=== PATIENT | female | born 1950 | race Caucasian/White ===

== ENCOUNTER → 2017-01-21 | Emergency (ER) | payer MEDICARE, MEDICAID ==
[~2017-01-21] VITALS: Ht 162.6 cm; Wt 128.0 kg
[~2017-01-21] MED LIST: ACET250T3 PO; AMIO200T2 PO; ASPI325T PO; BACL10TA PO; BUME2TAB18 PO; CALC-727 PO; CALC0.253 PO; DIPH25CA84 PO; DOCU100T PO; DiphenhydrAMINE 50 MG/ML INJECTION IM ONE; FAMOTIDINE 20 MG TABLET PO SCH; FAMOTIDINE 40 MG TABLET PO SCH; FERR-70 PO; FISH1CAP2 PO; HYDR115S2 PO; INSU3INS3 SQ; LEVO175T9 PO; LEVO500T88 PO; LIDO35.4 TOP; METO2.5T2 PO; MethylPREDNISolone ACETATE 40mg/1ml IM ONE; POTA20TA10 PO; PRAM1TAB7 PO; PRED20TA PO; PREG75CA PO; RIVA20TA PO; SPIR25TA4 PO; [UNRECOGNIZED DRUG - CODE] PO
[2017-01-21 11:35] VITALS: Ht 162.6 cm; Wt 128.0 kg
--- OUTSIDE RECORDS SUMMARY | 2017-01-21 11:36 | XMS REPORT | Referral Summary ---
Author Author [facility] Organization [facility] Address Unknown Phone Unavailable Care Team Providers Care Wheat Farmer Name Role Phone Jessica Hitchcock Primary Care Physician [phone] Encounter [facility] [id number] Date(s): 11/08/16 - 11/08/16 [facility] [address] [place] [address] [phone] Discharge Disposition: 01-Home or Self Care Attending Physician: Simba Leslie MD, [facility] Vital Signs No data available for this section Problem List No data available for this section Allergies, Adverse Reactions, Alerts Substance Reaction Severity Status morphine itching Active niacin Eczema (rash) Active Medications No data available for this section Results No data available for this section Immunizations No data available for this section Procedures No data available for this section Social History No data available for this section Assessment and Plan No data available for this section
--- OUTSIDE RECORDS SUMMARY | 2017-01-21 11:36 | XMS REPORT | Continuity of Care Document ---
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 Active Arm paresthesia, left Unknown Active Arm paresthesia, left Unknown Active Abnormal vaginal bleeding Unknown Active Medications Medication Dose Route Sig Days/Qty Instructions Order Date Discontinued Date Status Ramelteon 8 Mg PO BEDTIME 06/24/10 02/22/12 Discontinued Gabapentin 200 Mg PO THREE TIMES A DAY 05/27/09 09/08/09 Discontinued Meloxicam 7.5 Mg PO DAILY 11/25/08 05/09/09 Discontinued Levetiracetam 3,000 Mg PO TWICE A DAY 11/25/08 11/26/08 Discontinued Duloxetine Hcl 30 Mg PO DAILY 05/27/09 09/08/09 Discontinued Gemfibrozil 600 Mg PO TWICE A DAY 05/27/09 09/08/09 Discontinued Digoxin 25 Mcg PO 11/25/08 11/25/08 Discontinued Digoxin 250 Mcg PO DAILY 11/25/08 11/25/08 Discontinued Atenolol 25 Mg PO TWICE A DAY 06/24/10 07/14/14 Discontinued Atorvastatin Calcium 10 Mg PO DAILY 05/27/09 09/08/09 Discontinued Quinine Sulfate 324 Mg PO DAILY 05/27/09 09/08/09 Discontinued Ferrous Sulfate 324 Mg PO DAILY 05/27/09 09/08/09 Discontinued Aspirin 81 Mg PO DAILY 06/24/10 07/14/14 Discontinued Metformin Hcl 1,000 Mg PO TWICE A DAY 05/27/09 09/08/09 Discontinued Glimepiride 2 Mg PO DAILY 11/25/08 05/09/09 Discontinued Digoxin 250 Mcg PO DAILY 06/24/10 05/15/14 Discontinued Hydrocodone Bit/Acetaminophen 1 Tab PO NEEDED 05/27/09 09/08/09 Discontinued Metformin Hcl 1,000 Mg PO THREE TIMES A DAY 06/23/10 07/14/14 Discontinued Furosemide 20 Mg PO TWICE A DAY 06/24/10 02/22/12 Discontinued Pramipexole Di-Hcl 0.25 Mg PO BEDTIME 09/09/09 06/24/10 Discontinued Cinnamon Bark 1,000 Mg PO DAILY 06/24/10 05/15/14 Discontinued Hydrocodone Bit/Acetaminophen 1 Udtab PO NEEDED 06/24/10 Discontinued Calcium Carbonate 600 Mg PO DAILY 06/24/10 02/22/12 Discontinued Flaxseed Oil 1,000 Mg PO DAILY 06/24/10 05/15/14 Discontinued Insulin Glargine 30 U SQ DAILY 06/24/10 09/11/11 Discontinued Fish Oil/[place]-3 Fatty Acids 1 Cap PO TWICE A DAY 06/24/10 05/15/14 Discontinued Gemfibrozil 600 Mg PO TWICE A DAY 06/24/10 Active Sennosides 15 Mg PO 3 AT HS 06/24/10 09/11/11 Discontinued Tolterodine Tartrate 1 Mg PO DAILY 08/31/10 09/11/11 Discontinued Ascorbic Acid 500 Mg PO DAILY 09/11/11 05/15/14 Discontinued Insulin Glargine 66 Unit SQ DAILY 09/12/11 07/14/14 Discontinued Diphenhydramine Hcl 25 Mg PO DAILY 02/22/12 05/15/14 Discontinued Azithromycin 250 Mg PO DAILY 02/22/12 01/27/13 Discontinued [Hydrolyzed Collagen] TWICE A DAY 4 Qty 02/22/12 05/20/12 Discontinued Insulin Lispro 18 U SQ THREE TIMES A DAY 02/22/12 05/15/14 Discontinued Atorvastatin Calcium 20 Mg PO DAILY 05/20/12 05/15/14 Discontinued Fentanyl 1 Patch TD [id number] 05/20/12 01/27/13 Discontinued Zolpidem Tartrate 10 Mg PO BEDTIME PRN INSOMNIA 05/15/14 Active Gabapentin 600 Mg PO THREE TIMES A DAY 05/15/14 Active Insulin Aspart 5 SQ 30 MINUTES BEFORE SUPPER 05/15/14 07/14/14 Discontinued Levothyroxine Sodium 100 Mcg PO BEFORE BREAKFAST Once daily before breakfast. 07/13/14 Active Levetiracetam 1,500 TWICE A DAY 07/13/14 Active Pramipexole Di-HCl 1 DAILY 07/13/14 Active Torsemide 40 Mg PO TWICE A DAY 07/13/14 07/14/14 Discontinued Potassium Chloride TWICE A DAY 07/13/14 07/14/14 Discontinued [Calc,Mag,Zinc,Vit D3] TWICE A DAY 07/13/14 Active Melatonin/Pyridoxine 10 Mg PO BEDTIME 07/13/14 Active [Torsemide] 20 Mg PO DAILY 30 Qty 07/14/14 Active Sotalol HCl 40 Mg PO TWICE DAILY ON EMPTY STOMACH 30 Qty 07/14/14 Active Rivaroxaban 20 Mg PO GIVE WITH BREAKFAST 30 Qty 07/14/14 Active Potassium Chloride 10 Meq PO GIVE WITH BREAKFAST 30 Qty 07/14/14 Active Social History Social History Problem Response Recorded Date/Time Smoking Status Former smoker 07/17/2014 2:18pm When did patient STOP smoking? 199307/17/2014 2:18pm Chewing Tobacco Status No 04/19/2013 10:56am Hx Substance Use No 07/17/2014 2:18pm Hx Alcohol Use No 07/17/2014 2:18pm Has the pt used tobacco in the last 12 months No 07/13/2014 12:11pm Query Response Start Date Stop Date Smoking Status Former smoker Hospital Discharge Instructions Instructions: Care Instructions: Reason for Hospitalization: A FIB; CHF I was in the hospital because (patient own words): "TO LOOK AT MY HEART" Discharge Diet: heart healthy Patient Instructions: Hold insulins today 07/14/14. Check blood sugars at fasting in morning and 2 hours after meals; record the results. Call Dr. Idalia Esquivel's office on 07/16/14 and report the blood sugar results to him. If your blood sugar increases to the upper 100s and/or low 200s resume your Lantus and Novolog at HALF the dose you typically take per Dr. Esquivel. Wound/Incision Care: ok to shower. Notify Physician If: swelling, drainage, or increased pain at groin site. worsening shortness of breath or fast heart rate. Condition at time of discharge: Good WALK-THREE TO FOUR TIMES A DAY FOR SHORT DISTANCES AVOID SMOKING PREVENT CONSTIPATION: LOTS OF FLUIDS, AVOID CAFFEINE AND ALCOHOL INCREASE ACTIVITY (WALKING AGAIN!) EAT LOTS OF FRUITS AND VEGETABLES WEAN YOURSELF OFF YOUR NARCOTICS SOON YOU CAN USE A STOOL SOFTENER OR LAXATIVE IF NEEDED PREVENT BLOOD CLOTS: WALKING (REPETITIVE, I KNOW, BUT IT'S GOOD FOR YOU) AND ANKLE PUMPS TAKE ANTICOAGULANTS ORDERED-ASPIRIN, COUMADIN, OR LOVENOX FOR COUMADIN-LABS DRAWN ON EVERY SUNDAY AND SUNDAY LOVENOX INSTRUCTIONS ON PAGE 35 IN YOUR WORKBOOK PULMONARY EMBOLUS IF YOU EXPERIENCE SUDDEN CHEST PAIN, DIFFICULT OR RAPID BREATHING, SHORTNESS OF BREATH, SWEATING OR CONFUSION, CALL 911-THIS CAN POTENTIALLY BE LIFE-THREATENING! Wound/Incision Care: LEAVE DRESSING INTACT, CALL DR IF IT BECOMES WET OR DISLODGED (DRESSING WILL BE REMOVED AT FIRST POSTOP APPOINTMENT Durable Medical Equipment: [employer] [phone] [facility] [phone] Notify Physician If: CALL YOUR SURGEON IF: INCISION BECOMES MORE RED AND INFLAMMED FEVER GREATER THAN 101.0, OR NIGHT SWEATS INCREASE DRAINAGE OR CHANGE IN COLOR OF DRAINAGE INCREASED PAIN, NOT ASSOCIATED WITH ACTIVITY PAIN, REDNESS OR SWELLING IN EITHER LEG BLEEDING OR OOZING FROM SURGICAL SITE DRESSING BECOME DISLODGED OR WET Condition at time of discharge: Good Plan of Care Discharge Date 07/14/14 12:05pm Instructions/Education Provided [facility] Heart Cath [facility] Congestive Heart Failure Eating a Diet Low in Saturated Fat, Trans Fat, and Cholesterol Getting to the Heart of a Healthful Diet: Sodium Prescriptions See Medications Section Functional Status Query Response Date Recorded Physical Hygiene Self July 17, 2014 2:18pm Disabilities None July 17, 2014 2:18pm Devices Used Glasses Walker July 17, 2014 2:18pm Dressing Self July 17, 2014 2:18pm Ambulation Self July 17, 2014 2:18pm Diet Self July 17, 2014 2:18pm Cognitive/Functional Comments USES A WALKER FOR LONGER DISTANCES, DUE TO LEGS BECOMING WEAK July 17, 2014 2:18pm Mental Status Alert July 17, 2014 2:18pm Disabilities None July 17, 2014 2:18pm Devices Used Glasses Walker July 17, 2014 2:18pm Physical Hygiene Self July 17, 2014 2:18pm Dressing Self July 17, 2014 2:18pm Ambulation Self July 17, 2014 2:18pm Diet Self July 17, 2014 2:18pm Allergies, Adverse Reactions, Alerts Allergen Type Severity Reaction Status Last Updated Conjugated estrogen Allergy Mild RASH Active 07/17/14 Niacin Allergy Mild RASH Active 07/17/14 Morphine Allergy Mild RASH Active 07/17/14 Fentanyl Allergy Unknown rash Active 07/17/14 Immunizations Name Given Type Hx Influenza Vaccination Y AUG 2013 Historical Hx Pneumococcal Vaccination Y AUG 2011 Historical Hx Influenza Vaccination Y AUG 2013 Historical Vital Signs Acute Vital Signs Vital Response Date/Time Temperature (Fahrenheit) 97.4 deg F (96.8 - 99.1) Temperature (Calculated Celsius) 36.43990 degrees C (36.0 - 37.3) Pulse Rate (adult) 56 bpm (60 - 100) Respiratory Rate 16 breaths/min (10 - 20) O2 Sat by Pulse Oximetry 100 % (90 - 100) Blood Pressure 148/60 mm Hg Height 5 ft 5 in Weight 242 lb Body Mass Index 40.0 kg/m^2 Results Test Source Date Result Interp. Ref. Range Comments Activated Partial Thromboplast Time May 17, 2014 10:55am 29.7 SEC N 24- 36 Alanine Aminotransferase (ALT/SGPT) July 17, 2014 2:41pm 28 U/L N 9 -52 Albumin July 17, 2014 2:41pm 4.1 G/DL N 3.5-5.0 Albumin/Globulin Ratio July 17, 2014 2:41pm 1.1 RATIO N 1.1-2.2 Alkaline Phosphatase July 17, 2014 2:41pm 92 U/L N 38-126 Amylase Level July 02, 2009 2:46pm 96 U/L N 30-110 Anion Gap July 17, 2014 2:41pm 9 MEQ/L N 5-15 Arterial Blood Base Excess July 13, 2014 5:40pm 7.0 MMOL/L H -2.0- 2.0 Arterial Blood HCO3 July 13, 2014 5:40pm 33 MEQ/L H 22-26 Arterial Blood Oxygen Saturation July 13, 2014 5:40pm 96.0 % N 95.0 -98.0 Arterial Blood Partial Pressure CO2 July 13, 2014 5:40pm 51 MMHG H 34-45 Arterial Blood Total CO2 July 13, 2014 5:40pm 34 MEQ/L H 23-27 Arterial Blood pH July 13, 2014 5:40pm 7.418 N 7.350-7.450 Aspartate Amino Transf (AST/SGOT) July 17, 2014 2:41pm 40 U/L H 14- 36 BUN/Creatinine Ratio July 17, 2014 2:41pm 27 RATIO H 6-26 Basophils # (Auto) July 17, 2014 2:41pm 0.1 T/MM3 N 0-0.2 Basophils (%) (Auto) July 17, 2014 2:41pm 0.9 % N 0-2 Blood Urea Nitrogen July 17, 2014 2:41pm 27.0 MG/DL H 7-17 Calcium Level July 17, 2014 2:41pm 9.3 MG/DL N 8.4-10.2 Calculated Osmolality July 17, 2014 2:41pm 272 MOSM/KG N 261-280 Carbon Dioxide Level July 17, 2014 2:41pm 32 MEQ/L H 22-30 Chloride Level July 17, 2014 2:41pm 99 MEQ/L N 98-107 Creatinine July 17, 2014 2:41pm 1.0 MG/DL N 0.7-1.2 D-Dimer June 04, 2014 5:09pm 435 NG/ML H 0-224 <224 NG/ML= PRESUMPTIVE NEGATIVE FOR PE OR DVT>224 NG/ML=ADDITIONAL EVALUATION FOR PE OR DVT RECOMMENDED Eosinophils # (Auto) July 17, 2014 2:41pm 0.1 T/MM3 N 0-0.5 Eosinophils (%) (Auto) July 17, 2014 2:41pm 2.0 % N 0-4 Folate August 27, 2013 8:43am 6.6 NG/ML N 2.76-20 NORMAL ADULT RANGE : 2.76->20 ng/mL Globulin July 17, 2014 2:41pm 3.8 G/DL H 2.4-3.6 Glucose Level July 17, 2014 2:41pm 63 MG/DL L 65-110 Hematocrit July 17, 2014 2:41pm 36.3 % N 36-46 Hemoglobin July 17, 2014 2:41pm 11.5 GM/DL L 12-16 Hemoglobin A1c August 27, 2013 8:43am 8.7 % H 6-7 <6.0 NON-DIABETIC RANGE6.0-7.0 ADA THERAPEUTIC RANGE >7.0 ACTION SUGGESTED Levetiracetam (Keppra) Level August 27, 2013 8:43am 37.8 mcg/mL - Reference Range:12.0 - 46.0 Test Performed by: [place] [id number] Correctional Officer Sergeant: Sergio Fulton III, M.D. Levetiracetam performed at [facility], [address] [place] [address] Devulcanizer Tender MD Enoc Howard III July 02, 2009 2:46pm 90 U/L N 23-300 Lymphocytes # (Auto) July 17, 2014 2:41pm 1.6 T/MM3 N 1-4.8 Lymphocytes # (Manual) May 09, 2009 9:50am 2.7 T/MM3 N 1-4.8 Lymphocytes % (Manual) May 09, 2009 9:50am 32.0 % N 23-45 Lymphocytes (%) (Auto) July 17, 2014 2:41pm 28.8 % N 23-45 Mean Corpuscular Hemoglobin July 17, 2014 2:41pm 26.6 UUG N 26-34 Mean Corpuscular Hemoglobin Concent July 17, 2014 2:41pm 31.7 GM/DL N 31-37 Mean Corpuscular Volume July 17, 2014 2:41pm 83.8 UM3 N 80-100 Mean Platelet Volume July 17, 2014 2:41pm 10.1 UM3 N 9.4-12.4 Monocytes # (Auto) July 17, 2014 2:41pm 0.4 T/MM3 N 0-0.8 Monocytes (%) (Auto) July 17, 2014 2:41pm 7.7 % N 0-9.0 Neutrophils # (Auto) July 17, 2014 2:41pm 3.4 T/MM3 N 1.8-7.7 Neutrophils # (Manual) May 09, 2009 9:50am 5.7 T/MM3 N 1.8-7.7 Neutrophils % (Manual) May 09, 2009 9:50am 68.0 % H 33-66 Neutrophils (%) (Auto) July 17, 2014 2:41pm 60.4 % N 33-66 Platelet Count July 17, 2014 2:41pm 214 T/MM3 N 130-400 Potassium Level July 17, 2014 2:41pm 4.0 MEQ/L N 3.6-5 Prothromb Time International Ratio May 17, 2014 10:55am 1.05 N 0.81- 1.09 THERAPUTIC RANGE=2.00-3.00 FOR ANTI-THROMBOSIS THERAPUTIC RANGE=2.50- 3.50 FOR IMPLANTED VALVE RDW Standard Deviation July 17, 2014 2:41pm 46.2 FL N 36.9-50.2 Red Blood Count July 17, 2014 2:41pm 4.33 M/MM3 N 4.00-5.20 Sodium Level July 17, 2014 2:41pm 140 MEQ/L N 134-144 Total Bilirubin July 17, 2014 2:41pm 0.70 MG/DL N 0.20-1.30 Total Creatine Kinase August 27, 2013 8:43am 170 U/L H 30-135 Total Protein July 17, 2014 2:41pm 7.9 G/DL N 6.3-8.2 Troponin I May 17, 2014 10:55am < 0.012 ng/ml 0-0.12 Urine Bacteria July 17, 2014 2:00pm Trace H - Has specimen been collected/obtained? Y Urine Bilirubin July 17, 2014 2:00pm Negative - Has specimen been collected/obtained? Y Urine Blood July 17, 2014 2:00pm 2+ H - Has specimen been collected/obtained? Y Urine Collection Type July 17, 2014 2:00pm Cleancatch-midstream - Has specimen been collected/obtained? Y Urine Color July 17, 2014 2:00pm Yellow - Has specimen been collected/obtained? Y Urine Glucose (UA) July 17, 2014 2:00pm Negative - Has specimen been collected/obtained? Y Urine Ketones July 17, 2014 2:00pm Negative - Has specimen been collected/obtained? Y Urine Leukocyte Esterase July 17, 2014 2:00pm Negative - Has specimen been collected/obtained? Y Urine Nitrite July 17, 2014 2:00pm Negative - Has specimen been collected/obtained? Y Urine Protein July 17, 2014 2:00pm Negative - Has specimen been collected/obtained? Y Urine RBC July 17, 2014 2:00pm 5-10 /HPF H - Has specimen been collected/obtained? Y Urine Specific [place] July 17, 2014 2:00pm 1.010 L - Has specimen been collected/obtained? Y Urine Squamous Epithelial Cells July 17, 2014 2:00pm 0-5 - Has specimen been collected/obtained? Y Urine Turbidity July 17, 2014 2:00pm Clear - Has specimen been collected/obtained? Y Urine Urobilinogen July 17, 2014 2:00pm 0.2 EU/DL - Has specimen been collected/obtained? Y Urine WBC July 17, 2014 2:00pm None seen /HPF - Has specimen been collected/obtained? Y Urine pH July 17, 2014 2:00pm 6.5 - Has specimen been collected/ obtained? Y Venous Blood Base Excess July 13, 2014 5:30pm 5.0 MMOL/L H -2.0- 2.0 COMMENT IN BLEACHER PULP Venous Blood HCO3 July 13, 2014 5:30pm 30 MEQ/L H -26 COMMENT IN BLEACHER PULP Venous Blood Oxygen Saturation July 13, 2014 5:30pm 72.0 % - COMMENT IN BLEACHER PULP Venous Blood Partial Pressure CO2 July 13, 2014 5:30pm 47.7 MMHG N 40-52 COMMENT IN BLE[employer]ER PULP Venous Blood Partial Pressure O2 July 13, 2014 5:30pm 38 MMHG L 40- 52 COMMENT IN B[employer]ER [employer]ULP Venous Blood Total Carbon Dioxide July 13, 2014 5:30pm 32 MEQ/L - COMMENT IN BLEACHER PULP Venous Blood pH July 13, 2014 5:30pm 7.409 N 7.31-7.41 COMMENT IN [employer]LEACHER PULP Vitamin B12 Level August 27, 2013 8:43am 287 PG/ML N 239-931 White Blood Count July 17, 2014 2:41pm 5.6 T/MM3 N 4.5-11.0 Chemistry Specimen Hemolysis July 17, 2014 2:41pm < 15 0-25 0-25 : No Hemolysis.26-70: Slight Hemolysis - can falsely elevate K and Urine Protein. 71-285: Moderate Hemolysis - can falsely elevate K, Troponin I, CA 19-9, PTH, CSF GLucose, and Urine Protein, and can falsely decrease Phenytoin. 286-999: Gross Hemolysis - can falsely elevate K, Troponin I, CA 19-9, PTH, CSF Glucose, and Urine Protine, and can falsely decrease Phenytoin. Recommend specimen recollection. Oxygen Delivery Method (LAB) July 13, 2014 5:40pm Room air - Urinalysis Comment May 17, 2014 11:15am Microscopic not ind. - Has specimen been collected/obtained? Y Glucometer July 14, 2014 6:31am 76 mg/dL N 65-110 Lab Scanned Report July 13, 2014 8:31pm LAB TEST FORM REQUEST [id number] - Turbidity July 17, 2014 2:41pm < 20 0-20 Glomerular Filtration Rate Calc July 17, 2014 2:41pm 56 - Immature Granulocyte # (Auto) July 17, 2014 2:41pm 0.01 T/MM3 N 0.00-0.03 Immature Granulocyte % (Auto) July 17, 2014 2:41pm 0.2 % N 0.0-0.5 Arterial Blood pO2 at Patient Temp July 13, 2014 5:40pm 81 MMHG N 80-100 Icterus Index July 17, 2014 2:41pm < 2 0-7 [id number]-Type Natriuretic Peptide June 04, 2014 5:09pm 358 PG/ML H 0- 175 Rule in cut points: <50 years old=450; 50-75 years old=900; >75 years old=1800; When utilizing ProBNP rule-in cut points, adjustment for impaired renal function is typically not required. Urine Microscopic Not Indicated September 01, 2010 8:26am Not indicated - Has specimen been collected/obtained? Y Blood Gas Oxygen Liter Flow July 13, 2014 5:30pm PA - Blood Culture Blood April 19, 2013 12:20pm NO GROWTH AFTER 5 DAYS Wet Prep Cervix July 17, 2014 2:55pm Helicobacter pylori Rapid Urease Gastric Biopsy May 21, 2012 9:58am Name: KAREEN HERNÁNDEZ Unit #: [id number] : [id number] Sex: F Loc / Svc: ED DOS: 07/17/14 Signed Report #: [id number] DIAGNOSTIC IMAGING REPORT TYPE OF EXAM: CT RENAL W/WO CONTRAST Dictated By: BYRON COREAS MD INDICATION: ITS.REASON: ABD PAIN, REPORTED VAGINAL BLEEDING CT RENAL W/WO CONTRAST: Comparison: August 29, 2011 Technique: Axial CT images were performed through the abdomen and pelvis before and after the administration of intravenous contrast. Contrast: Omnipaque 300 100 mL Findings: Noncontrast imaging of the lung bases show some minimal atelectasis or scarring with some right-sided pleural thickening or trace effusion. Stable tiny nodules in the lower lobes probably represent granulomas. Cardiac silhouette is enlarged. Unenhanced kidneys show no stone disease or hydronephrosis. Pelvic phleboliths. No ureteral stones. Postcontrast images a normal appearance to the liver. Gallbladder is surgically absent. The spleen, pancreas and adrenal glands are within normal limits. No abnormally enhancing renal masses. No abdominal or pelvic lymphadenopathy. Bladder is unremarkable. Uterus is mildly heterogeneous. No free fluid. Small and large bowel are unremarkable apart from some mild sigmoid diverticulosis. The appendix is normal. Bone windows show degenerative changes in the spine. Postcontrast delayed images show excretion of contrast into both renal collecting systems without focal filling defect or mass. Ureters are normal in course and caliber. Partially opacified urinary bladder appears normal. Impression: No acute disease process seen. . Procedures Procedure Status Date Provider(s) REMV&REPLC PM GEN DUAL LEAD completed 05/15/14 MELIZA SPRINGER MD R&L HRT ART/VENTRICLE ANGIO completed 07/13/14 MELIZA SPRINGER MD Encounters Encounter Location Date/Time Departed Emergency Room [facility] 07/17/14 1:26pm Discharged Inpatient [facility] 07/13/14 11:44am Registered [facility] 07/03/14 12:16pm Registered Clinic [facility] 06/18/14 7:48am Registered Clinic [facility] 06/05/14 2:33pm Registered [facility] 06/04/14 4:29pm Registered [facility] 05/27/14 11:24am Departed Emergency Room [facility] 05/17/14 10:19am Departed [facility] 05/15/14 1:18pm Recent Diagnosis
--- OUTSIDE RECORDS SUMMARY | 2017-01-21 11:37 | XMS REPORT | Continuity of Care Document ---
Author Author [facility] Organization [facility] Address Unknown Phone Unavailable Care Team Providers Care Burr Picker Name Role Phone PREETI ESQUIVEL MD Primary Care Physician [phone] Insurance Providers Payer Name Policy Number Subscriber Name Relationship [facility] State Plan [id number] Kareen Hernández 18 Self Advance Directives Directive Response Recorded Date/Time Ordered Resuscitation Status Full Code 11/11/14 10:29am Resuscitation Documents on File Yes 11/11/14 9:01am Problems Medical Problems Problem Onset Date Status [facility] compl of cardiac pulse generator (battery), init encntr 05/15/2014 Active Afib 05/15/2014 Active 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 05/15/2014 Active Arm paresthesia, left Unknown Active Arm paresthesia, left Unknown Active Abnormal vaginal bleeding Unknown Active Abnormal vaginal bleeding Unknown Active [...] U SQ DAILY 06/24/10 09/11/11 Discontinued Fish Oil/[place]-3 Fatty Acids 1 Cap PO TWICE A [...] 05/20/12 05/15/14 Discontinued Fentanyl 1 Patch TD [id number] 05/20/12 01/27/13 Discontinued Zolpidem Tartrate 10 Mg [...] GIVE WITH BREAKFAST 30 Qty 07/14/14 Active Metformin HCl 2 Tab PO TWICE A DAY 120 Qty 11/11/14 Active Folic Acid 1 Tab PO DAILY 30 Qty 11/11/14 Active Potassium Chloride 2 Tab PO 2 IN AM, 1 PM 60 Qty 11/11/14 Active Insulin Glargine,Hum.rec.anlog 64 Unit SUBD DAILY 15 Qty 11/11/14 Active Hydrochlorothiazide 1 Tab PO DAILY 30 Qty 11/11/14 Active Social History Social History Problem Response Recorded Date/Time Chewing Tobacco Status No 04/19/2013 10:56am Hx Substance Use No 11/11/2014 9:09am Hx Alcohol Use No 11/11/2014 9:09am Has the pt used tobacco in the last 12 months No 11/11/2014 9:09am Tobacco Usage none 05/17/2014 4:43pm Query Response Start Date Stop Date Smoking Status Former smoker Hospital Discharge Instructions No hospital discharge instructions. Plan of Care No plan of care. Functional Status Query Response Date Recorded Physical Hygiene Self July 17, 2014 2:18pm Physical Hygiene Self July 17, 2014 2:18pm Allergies, Adverse Reactions, Alerts Allergen Type Severity Reaction Status Last Updated Conjugated estrogen Allergy Mild RASH Active 07/17/14 Niacin Allergy Mild RASH Active 07/17/14 Morphine Allergy Mild RASH Active 07/17/14 Fentanyl Allergy Unknown rash Active 07/17/14 Amoxicillin Allergy Unknown RASH Active 11/11/14 Immunizations Name Given Type Hx Influenza Vaccination Y FALL 2013 Historical Hx Pneumococcal Vaccination 2012 Historical Hx Influenza Vaccination Y FALL 2013 Historical Vital Signs Acute Vital Signs Vital Response Date/Time Temperature (Fahrenheit) 98.5 deg F (96.8 - 99.1) Temperature (Calculated Celsius) 36.28273 degrees C (36.0 - 37.3) Temperature Source Temporal Pulse Rate (adult) 80 bpm (60 - 100) Respiratory Rate 16 breaths/min (10 - 20) O2 Sat by Pulse Oximetry 99 % (90 - 100) Oxygen Delivery Method Room Air Blood Pressure 142/76 mm Hg Blood Pressure Source Automatic Cuff Height 5 ft 4 in Weight 255 lb Body Mass Index 43.0 kg/m^2 Results Test Source Date Result Interp. [...] July 13, 2014 5:40pm 7.418 N 7.350-7.450 Arterial Blood pO2 at Patient Temp July 13, 2014 5:40pm 81 MMHG N 80-100 Aspartate Amino Transf (AST/SGOT) July 17, 2014 2:41pm 40 U/L H 14- 36 BUN/Creatinine Ratio July 17, 2014 2:41pm 27 RATIO H 6-26 Basophils # (Auto) July 17, 2014 2:41pm 0.1 T/MM3 N 0-0.2 Basophils (%) (Auto) July 17, 2014 2:41pm 0.9 % N 0-2 Blood Gas Oxygen Liter Flow July 13, 2014 5:30pm PA - Blood Urea Nitrogen July 17, 2014 2:41pm 27.0 MG/DL H 7-17 Calcium Level July 17, 2014 2:41pm 9.3 MG/DL N 8.4-10.2 Calculated Osmolality July 17, 2014 2:41pm 272 MOSM/KG N 261-280 Carbon Dioxide Level July 17, 2014 2:41pm 32 MEQ/L H 22-30 Chemistry Specimen Hemolysis July 17, 2014 2:41pm [...] can falsely decrease Phenytoin. Recommend specimen recollection. Chloride Level July 17, 2014 2:41pm 99 [...] 17, 2014 2:41pm 3.8 G/DL H 2.4-3.6 Glomerular Filtration Rate Calc July 17, 2014 2:41pm 56 - Glucometer November 12, 2014 7:04am 83 mg/dL N 65-110 Glucose Level July 17, 2014 2:41pm 63 MG/DL L 65-110 Hematocrit July 17, 2014 2:41pm 36.3 % N 36-46 Hemoglobin July 17, 2014 2:41pm 11.5 GM/DL L 12-16 Hemoglobin A1c August 27, 2013 8:43am 8.7 % H 6-7 <6.0 NON-DIABETIC RANGE6.0-7.0 ADA THERAPEUTIC RANGE >7.0 ACTION SUGGESTED Icterus Index July 17, 2014 2:41pm < 2 0-7 Immature Granulocyte # (Auto) July 17, 2014 2:41pm 0.01 T/MM3 N 0.00-0.03 Immature Granulocyte % (Auto) July 17, 2014 2:41pm 0.2 % N 0.0-0.5 Lab Scanned Report July 13, 2014 8:31pm LAB TEST FORM REQUEST [id number] - Levetiracetam (Keppra) Level August 27, 2013 8:43am 37.8 mcg/mL - Reference Range:12.0 - 46.0 Test Performed by: [place] [address] Corn Sheller Operator: Sergio Fulton III, M.D. Levetiracetam performed at [facility], [address] [place] [address] Scallop Raker Kirstin Mckenzie MD Lipase July 02, 2009 2:46pm 90 U/L N [...] 17, 2014 2:41pm 7.7 % N 0-9.0 FW-Ucm-X-Type Natriuretic Peptide June 04, 2014 5:09pm 358 PG/ML H 0- 175 Rule in cut points: <50 years old=450; 50-75 years old=900; >75 years old=1800; When utilizing ProBNP rule-in cut points, adjustment for impaired renal function is typically not required. Neutrophils # (Auto) July 17, 2014 2:41pm 3.4 T/MM3 N 1.8-7.7 Neutrophils # (Manual) May 09, 2009 9:50am 5.7 T/MM3 N 1.8-7.7 Neutrophils % (Manual) May 09, 2009 9:50am 68.0 % H 33-66 Neutrophils (%) (Auto) July 17, 2014 2:41pm 60.4 % N 33-66 Oxygen Delivery Method (LAB) July 13, 2014 5:40pm Room air - Platelet Count July 17, 2014 2:41pm 214 [...] 17, 2014 10:55am < 0.012 ng/ml 0-0.12 Turbidity July 17, 2014 2:41pm < 20 0-20 Urinalysis Comment May 17, 2014 11:15am Microscopic not ind. - Has specimen been collected/obtained? Y Urine Bacteria July 17, 2014 2:00pm Trace [...] - Has specimen been collected/obtained? Y Urine Microscopic Not Indicated September 01, 2010 8:26am Not indicated - Has specimen been collected/obtained? Y Urine Nitrite July 17, 2014 2:00pm Negative - Has specimen been collected/obtained? Y Urine Protein July 17, 2014 2:00pm Negative - Has specimen been collected/obtained? Y Urine RBC July 17, 2014 2:00pm 5-10 /HPF H - Has specimen been collected/obtained? Y Urine Specific [place] July 17, 2014 2:00pm 1.010 L - [...] 5.0 MMOL/L H -2.0- 2.0 COMMENT IN LABOR ECONOMICS TEACHER Venous Blood HCO3 July 13, 2014 5:30pm 30 MEQ/L H 22-26 COMMENT IN LABOR ECONOMICS TEACHER Venous Blood Oxygen Saturation July 13, 2014 5:30pm 72.0 % - COMMENT IN LABOR ECONOMICS TEACHER Venous Blood Partial Pressure CO2 July 13, 2014 5:30pm 47.7 MMHG N 40-52 COMMENT IN LABOR ECONOMICS TEACHER Venous Blood Partial Pressure O2 July 13, 2014 5:30pm 38 MMHG L 40- 52 COMMENT IN LABOR ECONOMICS TEACHER Venous Blood Total Carbon Dioxide July 13, 2014 5:30pm 32 MEQ/L - COMMENT IN LABOR ECONOMICS TEACHER Venous Blood pH July 13, 2014 5:30pm 7.409 N 7.31-7.41 COMMENT IN LABOR ECONOMICS TEACHER Vitamin B12 Level August 27, 2013 8:43am 287 PG/ML N 239-931 White Blood Count July 17, 2014 2:41pm 5.6 T/MM3 N 4.5-11.0 Blood Culture Blood April 19, 2013 12:20pm NO GROWTH AFTER 5 DAYS Wet Prep Cervix July 17, 2014 2:55pm Helicobacter pylori Rapid Urease Gastric Biopsy May 21, 2012 9:58am Name: KAREEN HERNÁNDEZ Unit #: [id number] : 1950 Sex: F Loc / Svc: [facility] DOS: 09/04/14 Signed Report #: [id number] DIAGNOSTIC IMAGING REPORT TYPE OF EXAM: FOOT BILATERAL 3 VIEW Dictated By: SOCRATES CORONA MD INDICATION: PAIN. FRACTURE FOLLOW-UP. ^ATT: 5TH DIGIT L FOOT; RECHECK FRACTURE COMPARISON: none. FOOT BILATERAL 3 VIEW: Evidence of bilateral toe arthritis. No evidence of a displaced fracture. Minor arthritis in the tarsal joints. Calcanei have prominent plantar bone spurs. No evidence of a dislocation. No evidence of joint erosions. IMPRESSION: Arthritis. No evidence of a displaced fracture. . Procedures Procedure Status Date Provider(s) OFFICE/OUTPATIENT VISIT EST completed 08/18/14 X-RAY EXAM OF FOOT completed 09/04/14 Colonoscopy completed 11/12/14 PREETI ESQUIVEL MD Encounters Encounter Location Date/Time Registered [facility] 09/04/14 11:33am Registered [facility] 08/18/14 1:18pm
--- OUTSIDE RECORDS SUMMARY | 2017-01-21 11:37 | XMS REPORT | Continuity of Care Document ---
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 Condition at time of discharge: Good Notify Physician If: SEE HEART CATH INSTRUCTIONS Condition at time of discharge: Good excessive/foul smelling drainage at your incision site. - You have difficulty breathing. During office hours, call [phone]. After hours, please call [facility] at [phone] and have the semiconductor wafers etch operator page Dr. French or the covering surgeon. *In the event of an emergency, seek medical care at the nearest emergency room.* Condition at time of discharge: Good Plan of Care Discharge Date 07/14/14 12:05pm Instructions/Education Provided [facility] Heart Cath [facility] Congestive Heart Failure Eating a Diet Low in Saturated Fat, Trans Fat, and Cholesterol Getting to the Heart of a Healthful Diet: Sodium Prescriptions See Medications Section Functional Status Query Response Date Recorded Physical Hygiene Self May 17, 2014 10:27am Physical Hygiene Self May 17, 2014 10:27am Allergies, Adverse Reactions, Alerts Allergen Type Severity Reaction Status Last Updated Conjugated estrogen Allergy Mild RASH Active 07/13/14 Niacin Allergy Mild RASH Active 07/13/14 Morphine Allergy Mild RASH Active 07/13/14 Fentanyl Allergy Unknown rash Active 07/13/14 Immunizations Name Given Type Hx Influenza Vaccination Y AUG 2013 Historical Hx Pneumococcal Vaccination Y AUG 2011 Historical Hx Influenza Vaccination Y AUG 2013 Historical Vital Signs Acute Vital Signs Vital Response Date/Time Temperature (Fahrenheit) 96.9 deg F (96.8 - 99.1) Temperature (Calculated Celsius) 36.86318 degrees C (36.0 - 37.3) Temperature Source Temporal Pulse Rate (adult) 59 bpm (60 - 100) Results Test Source Date Result Interp. Ref. Range Comments Activated Partial Thromboplast Time May 17, 2014 10:55am 29.7 SEC N 24- 36 Alanine Aminotransferase (ALT/SGPT) June 04, 2014 5:09pm 31 U/L N 9- 52 Albumin June 04, 2014 5:09pm 3.8 G/DL N 3.5-5.0 Albumin/Globulin Ratio June 04, 2014 5:09pm 1.1 RATIO N 1.1-2.2 Alkaline Phosphatase June 04, 2014 5:09pm 115 U/L N 38-126 Amylase Level July 02, 2009 2:46pm 96 U/L N 30-110 Anion Gap July 14, 2014 4:47am 10 MEQ/L N 5-15 Arterial Blood Base Excess [...] MMHG N 80-100 Aspartate Amino Transf (AST/SGOT) June 04, 2014 5:09pm 33 U/L N 14-36 BUN/Creatinine Ratio July 14, 2014 4:47am 55 RATIO H 6-26 Basophils # (Auto) July 14, 2014 4:47am 0.0 T/MM3 N 0-0.2 Basophils (%) (Auto) July 14, 2014 4:47am 0.4 % N 0-2 Blood Gas Oxygen Liter Flow July 13, 2014 5:40pm - Blood Gas Oxygen Percent Given July 13, 2014 5:40pm - Blood Gas Tidal Volume July 13, 2014 5:40pm 0-1200 Blood Gas Vent Rate July 13, 2014 5:40pm 0-30 Blood Urea Nitrogen July 14, 2014 4:47am 44.0 MG/DL H 7-17 Calcium Level July 14, 2014 4:47am 9.4 MG/DL N 8.4-10.2 Calculated Osmolality July 14, 2014 4:47am 271 MOSM/KG N 261-280 Carbon Dioxide Level July 14, 2014 4:47am 31 MEQ/L H 22-30 Chemistry Specimen Hemolysis July 14, 2014 4:47am 52 H 0-25 0-25: No Hemolysis.26-70: Slight Hemolysis - can falsely [...] Phenytoin. Recommend specimen recollection. Chloride Level July 14, 2014 4:47am 95 MEQ/L L 98-107 Creatinine July 14, 2014 4:47am 0.8 MG/DL DN 0.7-1.2 D-Dimer June 04, 2014 5:09pm 435 NG/ML H 0-224 <224 NG/ML= PRESUMPTIVE NEGATIVE FOR PE OR DVT>224 NG/ML=ADDITIONAL EVALUATION FOR PE OR DVT RECOMMENDED Eosinophils # (Auto) July 14, 2014 4:47am 0.1 T/MM3 N 0-0.5 Eosinophils (%) (Auto) July 14, 2014 4:47am 2.6 % N 0-4 Folate August 27, 2013 8:43am 6.6 NG/ML N 2.76-20 NORMAL ADULT RANGE : 2.76->20 ng/mL Globulin June 04, 2014 5:09pm 3.5 G/DL N 2.4-3.6 Glomerular Filtration Rate Calc July 14, 2014 4:47am 72 - Glucometer July 14, 2014 12:12am 87 mg/dL N 65-110 Glucose Level July 14, 2014 4:47am 66 MG/DL N 65-110 Hematocrit July 14, 2014 4:47am 34.8 % L 36-46 Hemoglobin July 14, 2014 4:47am 11.3 GM/DL L 12-16 Hemoglobin A1c August 27, 2013 8:43am 8.7 % H 6-7 <6.0 NON-DIABETIC RANGE6.0-7.0 ADA THERAPEUTIC RANGE >7.0 ACTION SUGGESTED Icterus Index July 14, 2014 4:47am < 2 0-7 Immature Granulocyte # (Auto) July 14, 2014 4:47am 0.00 T/MM3 N 0.00-0.03 Immature Granulocyte % (Auto) July 14, 2014 4:47am 0.0 % N 0.0-0.5 Lab Scanned Report July 13, 2014 8:31pm LAB TEST FORM REQUEST - Levetiracetam (Keppra) Level August 27, 2013 8:43am 37.8 mcg/mL - Reference Range:12.0 - 46.0 Test Performed by: [address] [address] Release Of Information Specialist: Sergio Fulton III, M.D. Levetiracetam performed at [facility], [address] [place] [id number] Hook And Eye Sewing Machine Operator MD Enoc Howard III July 02, 2009 2:46pm 90 U/L N 23-300 Lymphocytes # (Auto) July 14, 2014 4:47am 1.7 T/MM3 N 1-4.8 Lymphocytes # (Manual) May 09, 2009 9:50am 2.7 T/MM3 N 1-4.8 Lymphocytes % (Manual) May 09, 2009 9:50am 32.0 % N 23-45 Lymphocytes (%) (Auto) July 14, 2014 4:47am 31.2 % N 23-45 Mean Corpuscular Hemoglobin July 14, 2014 4:47am 26.7 UUG N 26-34 Mean Corpuscular Hemoglobin Concent July 14, 2014 4:47am 32.5 GM/DL N 31-37 Mean Corpuscular Volume July 14, 2014 4:47am 82.3 UM3 N 80-100 Mean Platelet Volume July 14, 2014 4:47am 10.7 UM3 N 9.4-12.4 Monocytes # (Auto) July 14, 2014 4:47am 0.6 T/MM3 N 0-0.8 Monocytes (%) (Auto) July 14, 2014 4:47am 12.0 % H 0-9.0 JL-Gnt-Z-Type Natriuretic Peptide June 04, 2014 5:09pm 358 PG/ML H 0- 175 Rule in cut points: <50 years old=450; 50-75 years old=900; >75 years old=1800; When utilizing ProBNP rule-in cut points, adjustment for impaired renal function is typically not required. Neutrophils # (Auto) July 14, 2014 4:47am 2.9 T/MM3 N 1.8-7.7 Neutrophils # (Manual) May 09, 2009 9:50am 5.7 T/MM3 N 1.8-7.7 Neutrophils % (Manual) May 09, 2009 9:50am 68.0 % H 33-66 Neutrophils (%) (Auto) July 14, 2014 4:47am 53.8 % N 33-66 Oxygen Delivery Method (LAB) July 13, 2014 5:40pm Room air - Platelet Count July 14, 2014 4:47am 181 T/MM3 DN 130-400 Potassium Level July 14, 2014 4:47am 3.6 MEQ/L N 3.6-5 Prothromb Time International Ratio May 17, 2014 10:55am 1.05 N 0.81- 1.09 THERAPUTIC RANGE=2.00-3.00 FOR ANTI-THROMBOSIS THERAPUTIC RANGE=2.50- 3.50 FOR IMPLANTED VALVE RDW Standard Deviation July 14, 2014 4:47am 45.7 FL N 36.9-50.2 Red Blood Count July 14, 2014 4:47am 4.23 M/MM3 N 4.00-5.20 Sodium Level July 14, 2014 4:47am 136 MEQ/L N 134-144 Total Bilirubin June 04, 2014 5:09pm 0.20 MG/DL N 0.20-1.30 Total Creatine Kinase August 27, 2013 8:43am 170 U/L H 30-135 Total Protein June 04, 2014 5:09pm 7.3 G/DL N 6.3-8.2 Troponin I May 17, 2014 10:55am < 0.012 ng/ml 0-0.12 Turbidity July 14, 2014 4:47am < 20 0-20 Urinalysis Comment May 17, 2014 11:15am Microscopic not ind. - Has specimen been collected/obtained? Y Urine Bilirubin May 17, 2014 11:15am Negative - Has specimen been collected/obtained? Y Urine Blood May 17, 2014 11:15am Negative - Has specimen been collected/obtained? Y Urine Collection Type May 17, 2014 11:15am Cleancatch-midstream - Has specimen been collected/obtained? Y Urine Color May 17, 2014 11:15am Yellow - Has specimen been collected/obtained? Y Urine Glucose (UA) May 17, 2014 11:15am Trace H - Has specimen been collected/obtained? Y Urine Ketones May 17, 2014 11:15am Negative - Has specimen been collected/obtained? Y Urine Leukocyte Esterase May 17, 2014 11:15am Negative - Has specimen been collected/obtained? Y Urine Microscopic Not Indicated September 01, 2010 8:26am Not indicated - Has specimen been collected/obtained? Y Urine Nitrite May 17, 2014 11:15am Negative - Has specimen been collected/obtained? Y Urine Protein May 17, 2014 11:15am Negative - Has specimen been collected/obtained? Y Urine RBC May 09, 2009 9:45am None seen /HPF - Has specimen been collected/obtained? Y Urine Specific [place] May 17, 2014 11:15am 1.010 L - Has specimen been collected/obtained? Y Urine Squamous Epithelial Cells May 09, 2009 9:45am Few - Has specimen been collected/obtained? Y Urine Turbidity May 17, 2014 11:15am Clear - Has specimen been collected/obtained? Y Urine Urobilinogen May 17, 2014 11:15am 0.2 EU/DL - Has specimen been collected/obtained? Y Urine WBC May 09, 2009 9:45am 0-1 /HPF - Has specimen been collected /obtained? Y Urine pH May 17, 2014 11:15am 6.0 - Has specimen been collected/ obtained? Y Venous Blood Base Excess July 13, 2014 5:30pm 5.0 MMOL/L H -2.0- 2.0 COMMENT IN SOFTWARE ENGINEERING SUPERVISOR Venous Blood HCO3 July 13, 2014 5:30pm 30 MEQ/L H 22-26 COMMENT IN SOFTWARE ENGINEERING SUPERVISOR Venous Blood Oxygen Saturation July 13, 2014 5:30pm 72.0 % - COMMENT IN SOFTWARE ENGINEERING SUPERVISOR Venous Blood Partial Pressure CO2 July 13, 2014 5:30pm 47.7 MMHG N 40-52 COMMENT IN SOFTWARE ENGINEERING SUPERVISOR Venous Blood Partial Pressure O2 July 13, 2014 5:30pm 38 MMHG L 40- 52 COMMENT IN SOFTWARE ENGINEERING SUPERVISOR Venous Blood Total Carbon Dioxide July 13, 2014 5:30pm 32 MEQ/L - COMMENT IN SOFTWARE ENGINEERING SUPERVISOR Venous Blood pH July 13, 2014 5:30pm 7.409 N 7.31-7.41 COMMENT IN SOFTWARE ENGINEERING SUPERVISOR Vitamin B12 Level August 27, 2013 8:43am 287 PG/ML N 239-931 White Blood Count July 14, 2014 4:47am 5.4 T/MM3 N 4.5-11.0 Blood Culture Blood April 19, 2013 12:20pm NO GROWTH AFTER 5 DAYS Helicobacter pylori Rapid Urease Gastric Biopsy May 21, 2012 9:58am Name: KAREEN HERNÁNDEZ Unit #: [id number] : 1950 Sex: F Loc / Svc: [facility] DOS: 07/03/14 Signed Report #: [id number] DIAGNOSTIC IMAGING REPORT TYPE OF EXAM: CT CHEST W/CONTRAST Dictated By: BYRON COREAS MD INDICATION: ITS.REASON: 787.29 DYSPHAGIA 530.[address] CHEST W/CONTRAST: Comparison: Esophagram dated June 18, 2014 Technique: Axial CT images were performed through the chest after the administration of intravenous contrast. Contrast: Omnipaque 300 75 mL Findings: The lungs are grossly clear. No focal air space consolidation, pleural effusion or pneumothorax. The central airways are patent. The upper esophagus is gas filled suggesting gastroesophageal reflux. No pulmonary nodules or masses. Metallic artifact from a left shoulder prosthesis and cardiac pacemaker. No axillary or mediastinal lymphadenopathy. Small low- attenuation right thyroid nodule measuring 1.1 cm in size. Difficult to evaluate due to metallic artifact. Overall heart size is normal. Left atrium is dilated and the central pulmonary veins are also patent. This does impress upon the anterior aspect of the mid to distal esophagus and is responsible for the findings at recent esophagram. No pericardial effusion. Great vessels are within normal limits. The upper abdomen shows no significant abnormality. Impression: Left atrial enlargement. This is responsible for the narrowing of the distal esophagus seen at fluoroscopy. Echocardiography may be helpful to evaluate for mitral valvular dysfunction. . Procedures Procedure Status Date Provider(s) REMV&REPLC PM GEN DUAL LEAD completed 05/15/14 MELIZA SPRINGER MD Encounters Encounter Location Date/Time Admitted Inpatient [facility] 07/13/14 11:44am Registered [facility] 07/03/14 12:16pm Registered [facility] 06/18/14 7:48am Registered [facility] 06/05/14 2:33pm Registered [facility] 06/04/14 4:29pm Registered [facility] 05/27/14 11:24am Departed Emergency Room [facility] 05/17/14 10:19am Departed [facility] 05/15/14 1:18pm
--- OUTSIDE RECORDS SUMMARY | 2017-01-21 11:38 | XMS REPORT | Continuity of Care Document ---
Author Author [facility] Organization [facility] Address Unknown Phone Unavailable Allergies Active Description Code Type Severity Reaction Onset Reported/Identified Relationship to Patient Clinical Status Yes morphine Drug Allergy itching 10/28/2012 Yes niacin Drug Allergy Eczema (rash) 10/28/2012 Yes niacin niacin Drug Allergy Severe BREAK OUT ON THE FACE 02/18/2016 Yes fentanyl fentanyl Drug Allergy Moderate BREAKOUT 02/18/2016 Yes morphine morphine Drug Allergy Moderate ITCHING 02/18/2016 Yes amoxicillin amoxicillin Drug Allergy Unknown UNKNOWN 02/18/2016 Yes Estrogens Estrogens Drug Allergy Unknown UNKNOWN 02/18/2016 Medications Problems Date Dx Coded Attending Type Code Diagnosis Diagnosed By 10/28/2012 Maximo Mann MD A Final 244.9 HYPOTHYROIDISM NOS 10/28/2012 Maximo Mann MD A Final 250.00 DM2/NOS UNCOMP NSU 10/28/2012 Maximo Mann MD A Final 272.4 HYPERLIPIDEMIA NEC NOS 10/28/2012 Maximo Mann MD A Final 401.9 HYPERTENSION NOS 10/28/2012 Maximo Mann MD A Final 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 10/28/2012 Maximo Mann MD A Final 569.3 RECTAL ANAL HEMORRHAGE 10/28/2012 Maximo Mann MD A Final 569.49 RECTAL ANAL DISORD NEC 10/28/2012 Maximo Mann MD A Final 780.4 DIZZINESS GIDDINESS 02/18/2016 Fredy Og DO E03.9 HYPOTHYROIDISM, UNSPECIFIED 02/18/2016 Fredy Og DO E11.9 TYPE 2 DIABETES MELLITUS WITHOUT COMPLICATIONS 02/18/2016 Fredy Og DO E87.6 HYPOKALEMIA 02/18/2016 Fredy Og DO G40.909 EPILEPSY, UNSP, NOT INTRACTABLE, WITHOUT STATUS EP 02/18/2016 Fredy Og DO G45.9 TRANSIENT CEREBRAL ISCHEMIC ATTACK, UNSPECIFIED 02/18/2016 Fredy Og DO I10 ESSENTIAL (PRIMARY) HYPERTENSION 02/18/2016 Fredy Og DO I48.0 PAROXYSMAL ATRIAL FIBRILLATION 02/18/2016 Fredy Og DO I50.32 CHRONIC DIASTOLIC (CONGESTIVE) HEART FAILURE 02/18/2016 Fredy Og DO K59.00 CONSTIPATION, UNSPECIFIED 02/18/2016 Fredy Og DO R47.01 APHASIA 02/18/2016 Fredy Og DO Z79.4 INTERMEDIATE (CURRENT) USE OF INSULIN 02/18/2016 Fredy Og DO Z79.82 INTERMEDIATE (CURRENT) USE OF ASPIRIN 02/18/2016 Fredy Og DO Z87.891 PERSONAL HISTORY OF NICOTINE DEPENDENCE 02/18/2016 Fredy Og DO Z95.0 PRESENCE OF CARDIAC PACEMAKER Procedures Code Description [place] [address] DIAGNOSTIC SIGMOIDOSCOPY Maximo Mann MD 10/28/2012 Results Test Result Range GLUCOSE (POC) - 02/18/16 20:40 GLUCOSE (POC) 122 mg/dL 70-99 CBC W/DIFF - 02/18/16 20:41 EOSINOPHIL # 0.1 k/cumm 0.1-0.5 EOSINOPHIL % 2 % 2-4 GRANULOCYTE # 4.3 k/cumm 2.0-9.0 GRANULOCYTE % 62 % 50-75 LYMPHOCYTE # 1.9 k/cumm 1.0-4.0 LYMPHOCYTE % 27 % 20-30 MEAN CELL HGB 25.0 pg 27.0-33.0 MEAN CELL HGB CONCENTRATION 32.4 g/dL 32.0-37.0 MEAN CELL VOLUME 77.0 fl 80.0-100.0 MONOCYTE # 0.6 k/cumm 0.1-1.0 MONOCYTE % 8 % 4-6 RED BLOOD CELL 5.01 m/cumm 4.00-6.00 RED CELL DISTRIBUTION WIDTH 16.6 % 11.0- 15.6 WHITE BLOOD CELL 6.9 k/cumm 5.0-10.0 HEMOGLOBIN 12.5 gm/dL 12.0-16.0 HEMATOCRIT 38.6 % 37.0-47.0 PLATELET COUNT 265 k/cumm 150-400 METABOLIC PANEL, COMPREHN - 02/18/16 20:41 POTASSIUM 2.6 mmol/L 3.5-5.3 EST GFR (MDRD) 35 mL/min > 59 ANION GAP 8 mmol/L 5-15 EST CrCl (CG) 32 mL/min > 59 GLUCOSE 111 mg/dL 70-99 CALCIUM 9.8 mg/dL 8.5-10.1 BLOOD UREA NITROGEN 50 mg/dL 7-20 CREATININE 1.5 mg/dL 0.6-1.0 SODIUM 134 mmol/L 135-148 CHLORIDE 91 mmol/L 98-110 AST/SGOT 25 Units/L 10-37 ALT/SGPT 24 Units/L < 66 CARBON DIOXIDE 35 mmol/L 21-32 TOTAL PROTEIN 8.9 gm/dL 6.4-8.2 ALBUMIN 3.7 gm/dL 3.4-5.0 BILI TOTAL 0.6 mg/dL 0.0-1.0 ALKALINE PHOSPHATASE TOTAL 114 IU/L 45- 117 PHOSPHORUS - 02/18/16 20:41 PHOSPHORUS 2.9 mg/dL 2.5-4.9 MAGNESIUM - 02/18/16 20:41 MAGNESIUM 1.7 mg/dL 1.8-2.4 CK MB - 02/18/16 20:41 CK MB 1.5 ng/mL < 4.0 THYROID STIM HORMONE (TSH) - 02/18/16 20:41 THYROID STIM HORMONE (TSH) 6.61 uIU/mL 0.34-4.82 CBC W/DIFF - 02/19/16 04:21 BASOPHIL # 0.0 k/cumm 0.0-0.2 BASOPHIL % 1 % 0-1 EOSINOPHIL # 0.1 k/cumm 0.1-0.5 EOSINOPHIL % 2 % 2-4 GRANULOCYTE # 3.4 k/cumm 2.0-9.0 GRANULOCYTE % 60 % 50-75 LYMPHOCYTE # 1.5 k/cumm 1.0-4.0 LYMPHOCYTE % 26 % 20-30 MEAN CELL HGB 25.2 pg 27.0-33.0 MEAN CELL HGB CONCENTRATION 32.9 g/dL 32.0-37.0 MEAN CELL VOLUME 76.5 fl 80.0-100.0 MONOCYTE # 0.6 k/cumm 0.1-1.0 MONOCYTE % 11 % 4-6 RED BLOOD CELL 4.29 m/cumm 4.00-6.00 RED CELL DISTRIBUTION WIDTH 17.1 % 11.0- 15.6 WHITE BLOOD CELL 5.7 k/cumm 5.0-10.0 HEMOGLOBIN 10.8 gm/dL 12.0-16.0 HEMATOCRIT 32.8 % 37.0-47.0 PLATELET COUNT 277 k/cumm 150-400 D-DIMER QUANT - 02/19/16 04:21 D-DIMER QUANT 347 ng/mL 0-229 LIPID PANEL - 02/19/16 04:21 CHOLESTEROL/HDL RATIO 3.4 < 5.0 LDL CHOLESTEROL 87 mg/dL < 100 VLDL CHOLESTEROL 26 mg/dL < 30 TRIGLYCERIDES 130 mg/dL < 150 CHOLESTEROL 161 mg/dL < 200 HDL CHOLESTEROL 48 mg/dL > 39 MAGNESIUM - 02/19/16 04:21 MAGNESIUM 2.0 mg/dL 1.8-2.4 TROPONIN I - 02/19/16 04:21 TROPONIN I < 0.02 ng/mL < 0.07 GLUCOSE (POC) - 02/19/16 06:47 GLUCOSE (POC) 126 mg/dL 70-99 GLUCOSE (POC) - 02/19/16 11:59 GLUCOSE (POC) 183 mg/dL 70-99 TROPONIN I - 02/19/16 13:34 TROPONIN I < 0.02 ng/mL < 0.07 RENAL FUNCTION PANEL - 02/19/16 13:34 POTASSIUM 3.1 mmol/L 3.5-5.3 EST GFR (MDRD) 35 mL/min > 59 ANION GAP 8 mmol/L 5-15 EST CrCl (CG) 48 mL/min > 59 GLUCOSE 168 mg/dL 70-99 CALCIUM 9.3 mg/dL 8.5-10.1 BLOOD UREA NITROGEN 42 mg/dL 7-20 CREATININE 1.5 mg/dL 0.6-1.0 SODIUM 132 mmol/L 135-148 CHLORIDE 89 mmol/L 98-110 CARBON DIOXIDE 35 mmol/L 21-32 ALBUMIN 3.4 gm/dL 3.4-5.0 PHOSPHORUS 3.1 mg/dL 2.5-4.9 SED RATE - 02/19/16 13:34 SED RATE 14 mm/hr 0-15 C REACTIVE PROTEIN - 02/19/16 13:34 C REACTIVE PROTEIN 22.0 mg/L < 8.0 GLUCOSE (POC) - 02/19/16 17:16 GLUCOSE (POC) 94 mg/dL 70-99 GLUCOSE (POC) - 02/19/16 20:35 GLUCOSE (POC) 100 mg/dL 70-99 TROPONIN I - 02/19/16 21:33 TROPONIN I 0.02 ng/mL < 0.07 GLUCOSE (POC) - 02/20/16 05:33 GLUCOSE (POC) 139 mg/dL 7099 POTASSIUM - 02/20/16 05:36 POTASSIUM 3.0 mmol/L 3.5-5.3 GLUCOSE (POC) - 02/20/16 16:45 GLUCOSE (POC) 139 mg/dL 70 GLUCOSE (POC) - 02/20/16 21:01 GLUCOSE (POC) 195 mg/dL 7099 RENAL FUNCTION PANEL - 02/21/16 04:33 POTASSIUM 2.5 mmol/L 3.5-5.3 EST GFR (MDRD) 35 mL/min > 59 ANION GAP 8 mmol/L 5-15 EST CrCl (CG) 48 mL/min > 59 GLUCOSE 100 mg/dL CALCIUM 7.9 mg/dL 8.5-10.1 BLOOD UREA NITROGEN 36 mg/dL 7-20 CREATININE 1.5 mg/dL 0.6-1.0 SODIUM 133 mmol/L 135-148 CHLORIDE 89 mmol/L 98-110 CARBON DIOXIDE 36 mmol/L 21-32 ALBUMIN 3.0 gm/dL 3.4-5.0 PHOSPHORUS 3.3 mg/dL 2.5-4.9 MAGNESIUM - 02/21/16 04:33 MAGNESIUM 2.0 mg/dL 1.8-2.4 GLUCOSE (POC) - 02/21/16 05:13 GLUCOSE (POC) 118 mg/dL GLUCOSE (POC) - 02/21/16 11:26 GLUCOSE (POC) 192 mg/dL GLUCOSE (POC) - 02/21/16 16:29 GLUCOSE (POC) 124 mg/dL GLUCOSE (POC) - 02/21/16 21:01 GLUCOSE (POC) 266 mg/dL GLUCOSE (POC) - 02/21/16 22:44 GLUCOSE (POC) 189 mg/dL CBC - 02/22/16 05:14 MEAN CELL HGB 24.7 pg 27.0-33.0 MEAN CELL HGB CONCENTRATION 31.7 g/dL 32.0-37.0 MEAN CELL VOLUME 78.1 fl 80.0-100.0 RED BLOOD CELL 4.57 m/cumm 4.00-6.00 RED CELL DISTRIBUTION WIDTH 16.7 % 11.0- 15.6 WHITE BLOOD CELL 9.0 k/cumm 5.0-10.0 HEMOGLOBIN 11.3 gm/dL 12.0-16.0 HEMATOCRIT 35.7 % 37.0-47.0 PLATELET COUNT 295 k/cumm 150-400 SED RATE - 02/22/16 05:14 SED RATE 10 mm/hr 0-15 RENAL FUNCTION PANEL - 02/22/16 05:14 POTASSIUM 2.5 mmol/L 3.5-5.3 EST GFR (MDRD) 41 mL/min > 59 ANION GAP 8 mmol/L 5-15 EST CrCl (CG) 57 mL/min > 59 GLUCOSE 102 mg/dL 70-99 CALCIUM 8.3 mg/dL 8.5-10.1 BLOOD UREA NITROGEN 32 mg/dL 7-20 CREATININE 1.3 mg/dL 0.6-1.0 SODIUM 132 mmol/L 135-148 CHLORIDE 87 mmol/L 98-110 CARBON DIOXIDE 37 mmol/L -32 ALBUMIN 3.5 gm/dL 3.4-5.0 PHOSPHORUS 2.7 mg/dL 2.5-4.9 MAGNESIUM - 02/22/16 05:14 MAGNESIUM 2.1 mg/dL 1.8-2.4 C REACTIVE PROTEIN - 02/22/16 05:14 C REACTIVE PROTEIN 49.3 mg/L < 8.0 AB ANTI NUCLEAR - 02/22/16 05:14 SAAD POSITIVE Negative GLUCOSE (POC) - 02/22/16 05:43 GLUCOSE (POC) 103 mg/dL 70-99 GLUCOSE (POC) - 02/22/16 11:02 GLUCOSE (POC) 186 mg/dL 70-99 METABOLIC PANEL, BASIC - 02/22/16 15:09 POTASSIUM 2.7 mmol/L 3.5-5.3 EST GFR (MDRD) 30 mL/min > 59 ANION GAP 5 mmol/L 5-15 EST CrCl (CG) 44 mL/min > 59 GLUCOSE 115 mg/dL 70-99 CALCIUM 8.2 mg/dL 8.5-10.1 BLOOD UREA NITROGEN 29 mg/dL 7-20 CREATININE 1.7 mg/dL 0.6-1.0 SODIUM 131 mmol/L 135-148 CHLORIDE 90 mmol/L 98-110 CARBON DIOXIDE 36 mmol/L 21-32 GLUCOSE (POC) - 02/22/16 17:20 GLUCOSE (POC) 134 mg/dL 70-99 GLUCOSE (POC) - 02/22/16 20:24 GLUCOSE (POC) 161 mg/dL 70-99 POTASSIUM - 02/22/16 21:54 POTASSIUM 2.8 mmol/L 3.5-5.3 FECAL OCCULT BLOOD - 02/22/16 23:20 Microbiology GLUCOSE (POC) - 02/23/16 05:15 GLUCOSE (POC) 126 mg/dL 70-99 B-TYPE NATRIURETIC PEPTIDE - 02/23/16 06:32 B-TYPE NATRIURETIC PEPTIDE 268 pg/mL < 100 CBC W/MANUAL DIFF - 02/23/16 06:32 MEAN CELL HGB 24.6 pg 27.0-33.0 MEAN CELL HGB CONCENTRATION 32.1 g/dL 32.0-37.0 MEAN CELL VOLUME 76.5 fl 80.0-100.0 RED BLOOD CELL 4.39 m/cumm 4.00-6.00 RED CELL DISTRIBUTION WIDTH 16.5 % 11.0- 15.6 WHITE BLOOD CELL 6.5 k/cumm 5.0-10.0 HEMOGLOBIN 10.8 gm/dL 12.0-16.0 HEMATOCRIT 33.6 % 37.0-47.0 PLATELET COUNT 257 k/cumm 150-400 MANUAL DIFF(O) - 02/23/16 06:32 BASOPHIL # 0.1 k/cumm 0.0-0.2 BASOPHIL % 1 % 0-1 EOSINOPHIL # 0.2 k/cumm 0.1-0.5 EOSINOPHIL % 3 % 2-4 GRANULOCYTE # 4.6 k/cumm 2.0-9.0 LYMPHOCYTE # 1.2 k/cumm 1.0-4.0 LYMPHOCYTE % 18 % 20-30 DIFFERENTIAL MANUAL MONOCYTE # 0.5 k/cumm 0.1-1.0 MONOCYTE % 7 % 4-6 POLYCHROMASIA NOTED SEGMENTED NEUTROPHIL % 71 % 50-70 RENAL FUNCTION PANEL - 02/23/16 06:32 POTASSIUM 3.1 mmol/L 3.5-5.3 EST GFR (MDRD) 38 mL/min > 59 ANION GAP 7 mmol/L 5-15 EST CrCl (CG) 53 mL/min > 59 GLUCOSE 126 mg/dL 70-99 CALCIUM 8.3 mg/dL 8.5-10.1 BLOOD UREA NITROGEN 28 mg/dL 7-20 CREATININE 1.4 mg/dL 0.6-1.0 SODIUM 132 mmol/L 135-148 CHLORIDE 95 mmol/L 98-110 CARBON DIOXIDE 30 mmol/L 21-32 ALBUMIN 3.0 gm/dL 3.4-5.0 PHOSPHORUS 1.9 mg/dL 2.5-4.9 MAGNESIUM - 02/23/16 06:32 MAGNESIUM 2.2 mg/dL 1.8-2.4 GLUCOSE (POC) - 02/23/16 11:43 GLUCOSE (POC) 187 mg/dL 70-99 GLUCOSE (POC) - 02/23/16 17:14 GLUCOSE (POC) 158 mg/dL 70-99 Encounters ACCT No. Visit Date/Time Discharge Status Pt. Type Provider Facility Loc./Unit Complaint [id number] 10/28/2012 12:23:00 2012 17:28:00 DIS Outpatient Johnathan ARZOLA, Maximo Lopez [facility] on [address]
--- OUTSIDE RECORDS SUMMARY | 2017-01-21 11:38 | XMS REPORT | Continuity of Care Document ---
Author Author [facility] Organization [facility] Address Unknown Phone Unavailable Care Team Providers Care Dance Hall Host/Hostess Name Role Phone PREETI ESQUIVEL MD Primary Care Physician [phone] Insurance Providers Payer Name Policy Number Subscriber Name Relationship [facility] [id number] Kareen Hernández 18 Self Advance Directives Directive Response Recorded Date/Time Advanced Directives Type DPOA for Healthcare 05/17/14 10:22am Problems Medical Problems Problem Onset Date Status [facility] compl of cardiac pulse generator (battery), init encntr 05/15/2014 Active Afib 05/15/2014 Active 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 05/15/2014 Active Arm paresthesia, left Unknown Active Medications [...] 25 Mg PO TWICE A DAY 06/24/10 Active Atorvastatin Calcium 10 Mg PO DAILY 05/27/09 09/08/09 Discontinued Levothyroxine Sodium 50 Mcg PO DAILY 06/24/10 Active Quinine Sulfate 324 Mg PO DAILY 05/27/09 09/08/09 Discontinued Ferrous Sulfate 324 Mg PO DAILY 05/27/09 09/08/09 Discontinued Aspirin 81 Mg PO DAILY 06/24/10 Active Metformin Hcl 1,000 Mg PO TWICE A DAY 05/27/09 09/08/09 Discontinued Glimepiride 2 Mg PO DAILY 11/25/08 05/09/09 Discontinued Digoxin 250 Mcg PO DAILY 06/24/10 05/15/14 Discontinued Levetiracetam 750 Mg PO TWICE A DAY 06/24/10 Active Hydrocodone Bit/Acetaminophen 1 Tab PO NEEDED 05/27/09 09/08/09 Discontinued Metformin Hcl 1,000 Mg PO TWICE A DAY 06/23/10 Active Furosemide 20 Mg PO TWICE A DAY [...] U SQ DAILY 06/24/10 09/11/11 Discontinued Fish Oil/[place]-3 Fatty Acids 1 Cap PO TWICE A DAY 06/24/10 05/15/14 Discontinued Gemfibrozil 600 Mg PO TWICE A DAY 06/24/10 Active Sennosides 15 Mg PO 3 AT HS 06/24/10 09/11/11 Discontinued Tolterodine Tartrate 1 Mg PO DAILY 08/31/10 09/11/11 Discontinued Pramipexole Di-Hcl 1 Mg PO BEDTIME 09/11/11 Active Melatonin 10 Mg PO BEDTIME 09/11/11 Active Ascorbic Acid 500 Mg PO DAILY 09/11/11 05/15/14 Discontinued Insulin Glargine 68 Unit SQ DAILY 09/12/11 Active Diphenhydramine Hcl 25 Mg PO DAILY 02/22/12 05/15/14 Discontinued Azithromycin 250 Mg PO DAILY 02/22/12 01/27/13 Discontinued [Hydrolyzed Collagen] TWICE A DAY 4 Qty 02/22/12 05/20/12 Discontinued Calcium Carbonate/Vitamin D3 1 Tab PO TWICE A DAY 02/22/12 Active Insulin Lispro 18 U SQ THREE TIMES A DAY 02/22/12 05/15/14 Discontinued Atorvastatin Calcium 20 Mg PO DAILY 05/20/12 05/15/14 Discontinued Fentanyl 1 Patch TD [id number] 05/20/12 01/27/13 Discontinued Zolpidem Tartrate 10 Mg PO BEDTIME PRN INSOMNIA 05/15/14 Active Nitroglycerin 0.4 Mg PO NEEDED 05/15/14 Active Hydrochlorothiazide 25 Mg PO DAILY 05/15/14 Active Gabapentin 600 Mg PO THREE TIMES A DAY 05/15/14 Active Insulin Aspart 5 SQ 30 MINUTES BEFORE SUPPER 05/15/14 Active Social History Social History Problem Response Recorded Date/Time Smoking Status Former smoker 05/17/2014 10:27am Chewing Tobacco Status No 04/19/2013 10:56am Hx Substance Use No 05/17/2014 10:27am Hx Alcohol Use No 05/17/2014 10:27am Has the pt used tobacco in the last 12 months No 05/14/2014 4:51pm Query Response Start Date Stop Date Smoking Status Former smoker Hospital Discharge Instructions No hospital discharge instructions. Plan of Care No plan of care. Functional Status Query Response Date Recorded Physical Hygiene Self May 17, 2014 10:27am Disabilities None May 17, 2014 10:27am Devices Used Dentures May 17, 2014 10:27am Dressing Self May 17, 2014 10:27am Ambulation Self May 17, 2014 10:27am Diet Self May 17, 2014 10:27am Mental Status Alert Oriented May 17, 2014 10:27am Disabilities None May 17, 2014 10:27am Devices Used Dentures May 17, 2014 10:27am Physical Hygiene Self May 17, 2014 10:27am Dressing Self May 17, 2014 10:27am Ambulation Self May 17, 2014 10:27am Diet Self May 17, 2014 10:27am Allergies, Adverse Reactions, Alerts Allergen Type Severity Reaction Status Last Updated Conjugated estrogen Allergy Mild RASH Active 05/17/14 Niacin Allergy Mild RASH Active 05/17/14 Morphine Allergy Mild RASH Active 05/17/14 Fentanyl Allergy Unknown rash Active 05/17/14 Immunizations Name Given Type Hx Influenza Vaccination Y AUG 2013 Historical Hx Pneumococcal Vaccination Y AUG 2011 Historical Hx Influenza Vaccination Y AUG 2013 Historical Vital Signs Acute Vital Signs Vital Response Date/Time Temperature (Fahrenheit) 97.8 deg F (96.8 - 99.1) Temperature (Calculated Celsius) 36.55418 degrees C (36.0 - 37.3) Pulse Rate (adult) 69 bpm (60 - 100) Respiratory Rate 16 breaths/min (10 - 20) O2 Sat by Pulse Oximetry 97 % (90 - 100) Blood Pressure 123/61 mm Hg Height 5 ft 4 in Weight 230 lb Body Mass Index 39.0 kg/m^2 Results Test Source Date Result Interp. Ref. Range Comments Activated Partial Thromboplast Time May 17, 2014 10:55am 29.7 SEC N 24- 36 Alanine Aminotransferase (ALT/SGPT) May 17, 2014 10:55am 32 U/L N 9-52 Albumin May 17, 2014 10:55am 3.5 G/DL N 3.5-5.0 Albumin/Globulin Ratio May 17, 2014 10:55am 1.1 RATIO N 1.1-2.2 Alkaline Phosphatase May 17, 2014 10:55am 92 U/L N 38-126 Amylase Level July 02, 2009 2:46pm 96 U/L N 30-110 Anion Gap May 17, 2014 10:55am 9 MEQ/L N 5-15 Aspartate Amino Transf (AST/SGOT) May 17, 2014 10:55am 39 U/L H 14-36 BUN/Creatinine Ratio May 17, 2014 10:55am 23 RATIO N 6-26 Basophils # (Auto) May 17, 2014 10:55am 0.0 T/MM3 N 0-0.2 Basophils (%) (Auto) May 17, 2014 10:55am 0.3 % N 0-2 Blood Urea Nitrogen May 17, 2014 10:55am 16.0 MG/DL N 7-17 Calcium Level May 17, 2014 10:55am 8.8 MG/DL N 8.4-10.2 Calculated Osmolality May 17, 2014 10:55am 271 MOSM/KG N 261-280 Carbon Dioxide Level May 17, 2014 10:55am 29 MEQ/L N 22-30 Chemistry Specimen Hemolysis May 17, 2014 10:55am 30 H 0-25 0-25: No Hemolysis.26-70: Slight Hemolysis [...] decrease Phenytoin. Recommend specimen recollection. Chloride Level May 17, 2014 10:55am 99 MEQ/L N 98-107 Creatinine May 17, 2014 10:55am 0.7 MG/DL DN 0.7-1.2 Eosinophils # (Auto) May 17, 2014 10:55am 0.1 T/MM3 N 0-0.5 Eosinophils (%) (Auto) May 17, 2014 10:55am 1.4 % N 0-4 Folate August 27, 2013 8:43am 6.6 NG/ML N 2.76-20 NORMAL ADULT RANGE : 2.76->20 ng/mL Globulin May 17, 2014 10:55am 3.1 G/DL N 2.4-3.6 Glomerular Filtration Rate Calc May 17, 2014 10:55am 84 - Glucometer May 15, 2014 4:43pm 89 mg/dL N 65-110 Glucose Level May 17, 2014 10:55am 209 MG/DL H 65-110 Hematocrit May 17, 2014 10:55am 34.9 % L 36-46 Hemoglobin May 17, 2014 10:55am 11.4 GM/DL L 12-16 Hemoglobin A1c August 27, 2013 8:43am 8.7 % H 6-7 <6.0 NON-DIABETIC RANGE6.0-7.0 ADA THERAPEUTIC RANGE >7.0 ACTION SUGGESTED Icterus Index May 17, 2014 10:55am < 2 0-7 Immature Granulocyte # (Auto) May 17, 2014 10:55am 0.01 T/MM3 N 0.00- 0.03 Immature Granulocyte % (Auto) May 17, 2014 10:55am 0.1 % N 0.0-0.5 Lab Scanned Report August 27, 2013 9:22am LAB TEST FORM REQUEST [id number] - Levetiracetam (Keppra) Level August 27, 2013 8:43am 37.8 mcg/mL - Reference Range:12.0 - 46.0 Test Performed by: [address] [address] [place]: Sergio Fulton III, M.D. Levetiracetam performed at [facility], [address] [place] [id number] Layer Off MD Enoc Howard III July 02, 2009 2:46pm 90 U/L N 23-300 Lymphocytes # (Auto) May 17, 2014 10:55am 1.7 T/MM3 N 1-4.8 Lymphocytes # (Manual) May 09, 2009 9:50am 2.7 T/MM3 N 1-4.8 Lymphocytes % (Manual) May 09, 2009 9:50am 32.0 % N 23-45 Lymphocytes (%) (Auto) May 17, 2014 10:55am 24.2 % N 23-45 Mean Corpuscular Hemoglobin May 17, 2014 10:55am 27.1 UUG N 26-34 Mean Corpuscular Hemoglobin Concent May 17, 2014 10:55am 32.7 GM/DL N 31-37 Mean Corpuscular Volume May 17, 2014 10:55am 83.1 UM3 N 80-100 Mean Platelet Volume May 17, 2014 10:55am 9.9 UM3 N 9.4-12.4 Monocytes # (Auto) May 17, 2014 10:55am 0.5 T/MM3 N 0-0.8 Monocytes (%) (Auto) May 17, 2014 10:55am 7.4 % N 0-9.0 Neutrophils # (Auto) May 17, 2014 10:55am 4.8 T/MM3 N 1.8-7.7 Neutrophils # (Manual) May 09, 2009 9:50am 5.7 T/MM3 N 1.8-7.7 Neutrophils % (Manual) May 09, 2009 9:50am 68.0 % H 33-66 Neutrophils (%) (Auto) May 17, 2014 10:55am 66.6 % H 33-66 Platelet Count May 17, 2014 10:55am 224 T/MM3 N 130-400 Potassium Level May 17, 2014 10:55am 3.9 MEQ/L N 3.6-5 Prothromb Time International Ratio May 17, 2014 10:55am 1.05 N 0.81- 1.09 THERAPUTIC RANGE=2.00-3.00 FOR ANTI-THROMBOSIS THERAPUTIC RANGE=2.50- 3.50 FOR IMPLANTED VALVE RDW Standard Deviation May 17, 2014 10:55am 47.6 FL N 36.9-50.2 Red Blood Count May 17, 2014 10:55am 4.20 M/MM3 N 4.00-5.20 Sodium Level May 17, 2014 10:55am 137 MEQ/L N 134-144 Total Bilirubin May 17, 2014 10:55am 0.30 MG/DL N 0.20-1.30 Total Creatine Kinase August 27, 2013 8:43am 170 U/L H 30-135 Total Protein May 17, 2014 10:55am 6.6 G/DL N 6.3-8.2 Troponin I May 17, 2014 10:55am < 0.012 ng/ml 0-0.12 Turbidity May 17, 2014 10:55am < 20 0-20 Urinalysis Comment May 17, [...] Has specimen been collected/obtained? Y Urine Specific [place] May 17, 2014 11:15am 1.010 L - [...] - Has specimen been collected/ obtained? Y Vitamin B12 Level August 27, 2013 8:43am 287 PG/ML N 239-931 White Blood Count May 17, 2014 10:55am 7.2 T/MM3 N 4.5-11.0 Blood Culture Blood April 19, 2013 12:20pm NO GROWTH AFTER 5 DAYS Helicobacter pylori Rapid Urease Gastric Biopsy May 21, 2012 9:58am Procedures No known history of procedures. Encounters Encounter Location Date/Time Registered Emergency Room [facility] 05/17/14 10:19am Departed Clinic [facility] 05/15/14 1:18pm Recent Diagnosis
--- OUTSIDE RECORDS SUMMARY | 2017-01-21 11:38 | XMS REPORT | Continuity of Care Document ---
Author Author [facility] Organization [facility] Address Unknown Phone Unavailable Allergies Active Description [...] Fredy Og DO E87.6 HYPOKALEMIA 02/18/2016 Fredy gO DO G40.909 EPILEPSY, UNSP, NOT INTRACTABLE, WITHOUT STATUS EP 02/18/2016 Fredy Og DO G45.9 TRANSIENT CEREBRAL ISCHEMIC ATTACK, UNSPECIFIED 02/18/2016 Fredy Og DO I10 ESSENTIAL (PRIMARY) HYPERTENSION 02/18/2016 Fredy Og DO I48.0 PAROXYSMAL ATRIAL FIBRILLATION 02/18/2016 Fredy Og DO I50.32 CHRONIC DIASTOLIC (CONGESTIVE) HEART FAILURE 02/18/2016 Fredy Og DO K59.00 CONSTIPATION, UNSPECIFIED 02/18/2016 Fredy Og DO R47.01 APHASIA 02/18/2016 Fredy Og DO Z79.4 SNF (CURRENT) USE OF INSULIN 02/18/2016 Fredy Og DO Z79.82 SNF (CURRENT) USE OF ASPIRIN 02/18/2016 Frdey Og DO Z87.891 PERSONAL HISTORY OF NICOTINE DEPENDENCE 02/18/2016 Fredy Og DO Z95.0 PRESENCE OF CARDIAC PACEMAKER Procedures Code [place] [id number] DIAGNOSTIC SIGMOIDOSCOPY Maximo Mann MD 10/28/2012 Results [...] Status Pt. Type Provider Facility Loc./Unit Complaint [id number] 10/28/2012 12:23:00 2012 17:28:00 DIS Outpatient Johnathan ARZOLA, Maximo Lopez [facility] on [address]
--- OUTSIDE RECORDS SUMMARY | 2017-01-21 11:39 | XMS REPORT | Continuity of Care Document ---
Author Author [facility] Organization [facility] Address Unknown Phone Unavailable Care Team Providers Care Slasher Tender Name Role Phone PREETI ESQUIVEL MD Primary Care Physician [phone] Insurance Providers Guarantor Kareen Hernández Address [address] [place] [address] Email [email or web address] [email or web address] [facility] Plan Policy Number [id number] Subscriber's Name Kareen Hernández Relationship 18 Self Effective Date 16 Expiration Date 16 Payer Medicare Policy Number [id number] Subscriber's Name Kareen Hernández Relationship 18 Self Advance Directives Directive Response Recorded Date/Time Advanced Directives Type None 10/29/16 12:05pm Chief Complaint and Reason for Visit Chief Complaint Dyspnea/Respdistress Reason for Visit Acute bronchitis Hypotension Dehydration Problems Active Problems Medical Problem Onset Date Status Abdominal wall cellulitis Unknown Acute Abnormal vaginal bleeding Unknown Acute Abnormal vaginal bleeding Unknown Acute Afib 05/15/2014 Chronic Anxiety Unknown Chronic Arm paresthesia, left Unknown Acute Arm paresthesia, left Unknown Acute Atrial fibrillation Unknown Chronic Atrial flutter Unknown Acute Carpal tunnel syndrome of right wrist Unknown Chronic Congestive heart failure ~2008 Acute Cubital tunnel syndrome on right Unknown Chronic Depression Unknown Chronic Diabetes Unknown Chronic Diabetic gastroparesis Unknown Diverticulosis Unknown Chronic Dizziness Unknown Acute Edema Unknown Chronic Frontal headache Unknown Acute GI bleeding Unknown Acute Hip pain, acute Unknown Acute Hypercholesteremia Unknown Chronic Hypertension Unknown Chronic Hypokalemia Unknown Acute Hyponatremia Unknown Acute Hypothyroidism Unknown Chronic Low back pain Unknown Acute [facility] compl of cardiac pulse generator (battery), init encntr 05/15/2014 Acute Morbid obesity Unknown Chronic 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 05/15/2014 Acute Presence of permanent cardiac pacemaker Unknown Chronic RLS (restless legs syndrome) Unknown Chronic Renal failure Unknown Right calf pain Unknown Acute Seizure disorder Unknown Chronic Sick sinus syndrome Unknown Chronic Suspected DVT (deep vein thrombosis) Unknown Acute Swelling of both lower extremities Unknown Chronic Syncope Unknown TIA (transient ischemic attack) Unknown Acute Venous insufficiency of both lower extremities Unknown Chronic Weakness Unknown Chronic Weakness Unknown Acute Past Problems Medical Problem Onset Date Acute bronchitis Unknown Atypical chest pain Unknown Cellulitis, toe Unknown Dehydration Unknown Dehydration Unknown Dyspnea on exertion Unknown Hx of congestive heart failure Unknown Hypotension Unknown Pedal edema Unknown Peripheral edema Unknown Renal insufficiency Unknown Sensation of foreign body in esophagus Unknown Medications Current Home Medications Medication Dose Units Route Directions Days Qty Instructions Start Date Acetazolamide 250 Mg Tablet 250 Mg Oral Daily 07/19/16 Amiodarone Hcl 200 Mg Tablet 200 Mg Oral Twice A Day 06/24/16 Aspirin 325 Mg Tablet 325 Mg Oral Daily 05/27/15 Baclofen 10 Mg Tablet 10 Mg Oral Bedtime 04/06/15 Bumetanide 2 Mg Tablet 4 Mg Oral Twice A Day 07/05/15 Calcium Carbonate/Vitamin D3 (Calcium 600 + Vit D 200 Tablet) 1 Each Tablet 1 Tab Oral Three Times A Day 03/19/16 Docusate Sodium 100 Mg Tablet 300 Mg Oral Daily 04/06/15 Ferrous Sulfate 325 Mg Tablet 325 Mg Oral Twice A Day 06/24/16 Hydrocodone/Chlorphen P-Stirex (Tussionex Pennkinetic Susp) 115 Ml Merly.er.12h 5 Ml Oral Twice A Day as needed for Cough 120 Milliliter 10/29/16 Insulin Glargine,Hum.rec.anlog (Lantus Solostar) 1 Unit Pen 48 Unit Sub-Q Daily Morning Insulin 07/20/16 Levetiracetam 750 Mg Tablet 1,500 Mg Oral Every Evening 07/13/14 Levetiracetam 750 Mg Tablet 750 Mg Oral Every Morning 02/18/16 Levofloxacin 500 Mg Tablet 500 Mg Oral Daily 10/29/16 Levothyroxine Sodium 175 Mcg Tablet 175 Mcg Oral Before Breakfast 06/24/16 Lidocaine Hcl (Lidocaine) 35 Applic/35.44 G Oint 1 Applic Topically Three Times A Day as needed for Prn Orders 10/29/16 Metolazone 2.5 Mg Tablet 2.5 Mg Oral Every Sunday And [place]wick-3 Fatty Acids/Fish Oil (Fish Oil 1,000 Mg Capsule) 1 Each Capsule 2 Cap Oral Twice A Day 06/24/16 Potassium Chloride (Klor-Con M20) 20 Meq Tablet 40 Meq Oral Four Times Daily 11/11/14 Pramipexole Di-Hcl (Pramipexole Dihydrochloride) 1 Mg Tablet 1.5 Mg Oral Bedtime 07/13/14 Prednisone 20 Mg Tablet 20 Mg Oral Twice Daily With Meals 6 Tablet Take 1 tablet, by mouth, 2 times a day with meals. 10/29/16 Pregabalin (Lyrica) 75 Mg Capsule 75 Mg Oral Twice A Day 09/11/16 Rivaroxaban (Xarelto) 20 Mg Tablet 20 Mg Oral Daily 06/24/16 Spironolactone 25 Mg Tablet 25 Mg Oral Daily 10/29/16 Past Home Medications Medication Directions Ordered Status Ascorbic Acid (Vitamin C) 500 Mg Capsule.sa, 500 Mg Oral Daily 09/11/11 Discontinued Aspirin (Aspir 81) 81 Mg Tablet.dr, 81 Mg Oral Daily 06/24/10 Discontinued Atenolol 25 Mg Tablet, 25 Mg Oral Twice A Day 06/24/10 Discontinued Atorvastatin Calcium 20 Mg Tablet, 20 Mg Oral Daily 05/20/12 Discontinued Atorvastatin Calcium (Lipitor) 10 Mg Tablet, 10 Mg Oral Daily 05/27/09 Discontinued Azithromycin 250 Mg Tablet, 250 Mg Oral Daily 02/22/12 Discontinued Bumetanide 1 Mg Tablet, 1 Tab Oral Daily 04/30/15 Discontinued Calcium Carbonate (Calcium) 600 Mg Tablet, 600 Mg Oral Daily 06/24/10 Discontinued Cinnamon Bark (Cinnamon) 500 Mg Capsule, 1000 Mg Oral Daily 06/24/10 Discontinued Digoxin 250 Mcg Tablet, 250 Mcg Oral Daily 06/24/10 Discontinued Digoxin 50 Mcg/Ml Solution, 25 Mcg Oral 11/25/08 Discontinued Digoxin 250 Mcg Tablet, 250 Mcg Oral Daily 11/25/08 Discontinued Diphenhydramine Hcl 25 Mg Tablet, 25 Mg Oral Daily 02/22/12 Discontinued Duloxetine Hcl (Cymbalta) 30 Mg Capsule.dr, 30 Mg Oral Daily 05/27/09 Discontinued Fentanyl (Fentanyl 25 Mcg/Hr) 1 Patch .72 H Patch.td72, 1 Patch Transderm [id number] 05/20/12 Discontinued Ferrous Sulfate 324 Mg Tablet, 324 Mg Oral Daily 05/27/09 Discontinued Fish Oil/Warwick-3 Fatty Acids (Warwick 3 Fish Oil 1,000 Mg Cap) 1 Cap Capsule, 1 Cap Oral Twice A Day 06/24/10 Discontinued Flaxseed Oil (Flax Seed Oil) 1,000 Mg Capsule, 1000 Mg Oral Daily 06/24/10 Discontinued Furosemide 20 Mg Tablet, 20 Mg Oral Twice A Day 06/24/10 Discontinued Gabapentin (Neurontin) 100 Mg Capsule, 200 Mg Oral Three Times A Day Discontinued Gemfibrozil (Lopid) 600 Mg Tablet, 600 Mg Oral Twice A Day 05/27/09 Discontinued Glimepiride 2 Mg Tablet, 2 Mg Oral Daily 11/25/08 Discontinued Hydrocodone Bit/Acetaminophen (Lortab 10) 1 Udtab Tablet, 1 Udtab Oral As Needed 06/24/10 Discontinued Hydrocodone Bit/Acetaminophen (Lortab 7.5-500 Tablet) 1 Tab Tablet, 1 Tab Oral As Needed 05/27/09 Discontinued Hydrolyzed Collagen , Twice A Day 02/22/12 Discontinued Insulin Aspart (Novolog Flexpen) 1 Unit Pen, 5 Sub-Q 30 Minutes Before Supper 05/15/14 Discontinued Insulin Glargine (Lantus Solostar) 1 Unit Pen, 66 Unit Sub-Q Daily 09/12/11 Discontinued Insulin Glargine (Lantus) 100 U/Ml Vial, 30 U Sub-Q Daily 06/24/10 Discontinued Insulin Lispro (Humalog) 100 U/Ml Vial, 18 U Sub-Q Three Times A Day Discontinued Levetiracetam (Keppra) 1,000 Mg Tablet, 3000 Mg Oral Twice A Day 11/25/08 Discontinued Meloxicam (Mobic) 7.5 Mg Tablet, 7.5 Mg Oral Daily 11/25/08 Discontinued Metformin Hcl (Metformin Hcl Er) 500 Mg Tab.sr.24h, 1000 Mg Oral Three Times A Day 06/23/10 Discontinued Metformin Hcl 500 Mg Tablet, 1000 Mg Oral Twice A Day 05/27/09 Discontinued Potassium Chloride (Klor-Con M20) 20 Meq Tablet, Twice A Day 07/13/14 Discontinued Pramipexole Di-Hcl (Mirapex) 0.25 Mg Tablet, 0.25 Mg Oral Bedtime 09/09/09 Discontinued Quinine Sulfate 324 Mg Capsule, 324 Mg Oral Daily 05/27/09 Discontinued Ramelteon (Rozerem) 8 Mg Tablet, 8 Mg Oral Bedtime 06/24/10 Discontinued Sennosides (Ex-Lax) 15 Mg Tablet, 15 Mg Oral 3 At Hs 06/24/10 Discontinued Sotalol Hcl (Sotalol) 80 Mg Tablet, 80 Mg Oral Twice A Day 04/06/15 Discontinued Tolterodine Tartrate (Detrol) 1 Mg Tablet, 1 Mg Oral Daily 08/31/10 Discontinued Torsemide 20 Mg Tablet, 40 Mg Oral Twice A Day 07/13/14 Discontinued Social History Social History Problem Response Recorded Date/Time Onset Date Status Chewing Tobacco Status No 04/19/2013 10:56am Not Applicable Not Applicable Hx Substance Use No 10/29/2016 1:35pm Not Applicable Not Applicable Hx Alcohol Use No 10/29/2016 1:35pm Not Applicable Not Applicable Has the pt used tobacco in the last 12 months No 09/19/2016 7:39am Not Applicable Not Applicable Tobacco Usage none 07/19/2015 11:20am Not Applicable Not Applicable Query Response Start Date Stop Date Smoking Status Former smoker Hospital Discharge Instructions No hospital discharge instructions. Plan of Care Discharge Date 10/29/16 5:12pm Disposition 01 DISCHARGED HOME, SELF-CARE Condition at Discharge Stable Instructions/Education Provided DI for Dehydration -- Adult DI for Acute Bronchitis Prescriptions See Medication Section Referrals PREETI ESQUIVEL MD Address: [address] [place] [address] [place] [address] Additional Instructions/Education Take the Tussionex as needed for cough in addition to the medication that you have at home from Dr Esquivel. Take the Prednisone as prescribed. This may cause a rise in your blood sugars so please monitor these at home. I do want you to go ahead and follow up with Dr. Esquivel in clinic tomorrow in the clinic. Do not take your second dose of Bumex this evening. Care Plan and Goals Physician Care Plan Problem:Bronchitis Goal: Follow up with primary care provider Instructions: Take medications and follow care plan as discussed/written Functional Status No functional status results. Allergies, Adverse Reactions, Alerts Allergen Type Severity Reaction Status Last Updated Conjugated estrogen Allergy Mild RASH Active 10/29/16 Niacin Allergy Mild RASH Active 10/29/16 Morphine Allergy Mild RASH Active 10/29/16 Fentanyl Allergy Unknown rash Active 10/29/16 Amoxicillin Allergy Unknown RASH Active 10/29/16 Immunizations Query Response on File Recorded Date/Time Hx Influenza Vaccination Y JUL 2016 09/19/16 7:39am Hx Pneumococcal Vaccination Y JUL 2016 09/19/16 7:39am Hx Influenza Vaccination Y JUL 2016 09/19/16 7:39am Influenza Vaccine Hx jul 2016 10/29/16 1:35pm Vital Signs Acute Vital Signs Vital Response Date/Time Temperature (Fahrenheit) 98.4 deg F (96.8 - 99.1) 10/29/2016 5:12pm Temperature (Calculated Celsius) 36.89939 degrees C (36.0 - 37.3) 10/29/2016 5:12pm Temperature Source Oral 09/20/2016 7:42am Pulse Rate (adult) 78 bpm (60 - 100) 10/29/2016 5:12pm Respiratory Rate 28 breaths/min (10 - 20) 10/29/2016 5:12pm O2 Sat by Pulse Oximetry 98 % (90 - 100) 10/29/2016 5:12pm Oxygen Delivery Method Room Air 09/20/2016 7:42am Oxygen Delivery Method Room Air 09/19/2016 11:00am Oxygen Flow Rate 2.00 L/min 09/19/2016 9:00am Blood Pressure 111/58 mm Hg 10/29/2016 5:12pm Blood Pressure Source Automatic Cuff 09/20/2016 7:42am Height (Feet) 5 feet 10/29/2016 12:05pm Height (Inches) 4.00 inches 10/29/2016 12:05pm Weight (Kilograms) 125.000 kg 10/29/2016 12:05pm Body Mass Index (BMI) 47.0 10/29/2016 12:05pm Results Laboratory Results Test Name Result Units Flags Reference Collection Date/Time Result Date/ Time Comments Total Bilirubin 0.50 MG/DL 0.20-1.30 10/27/2016 10:43am 10/27/2016 10: 58am Alkaline Phosphatase 130 U/L H 38-126 10/27/2016 10:43am 10/27/2016 10: 58am Total Protein 7.6 G/DL 6.3-8.2 10/27/2016 10:43am 10/27/2016 10:58am Albumin 4.1 G/DL 3.5-5.0 10/27/2016 10:43am 10/27/2016 10:58am Globulin 3.5 G/DL 2.4-3.6 10/27/2016 10:43am 10/27/2016 10:58am Albumin/Globulin Ratio 1.2 RATIO 1.1-2.2 10/27/2016 10:43am 10/27/2016 10:58am Aspartate Amino Transf (AST/SGOT) 37 U/L H 14-36 10/27/2016 10:43am 03/2017 10:58am Alanine Aminotransferase (ALT/SGPT) 41 U/L 9-52 10/27/2016 10:43am 03/2017 10:58am Adenovirus (PCR) NEGATIVE NEGATIVE 10/27/2016 10:43am 10/27/2016 12: 14pm Coronavirus Type 229E (PCR) NEGATIVE NEGATIVE 10/27/2016 10:43am 03/2017 12:14pm Coronavirus Type HKU1 (PCR) NEGATIVE NEGATIVE 10/27/2016 10:43am 03/2017 12:14pm Coronavirus Type NL63 (PCR) NEGATIVE NEGATIVE 10/27/2016 10:43am 03/2017 12:14pm Coronavirus Type OC43 (PCR) NEGATIVE NEGATIVE 10/27/2016 10:43am 03/2017 12:14pm Human Metapneumovirus (PCR) NEGATIVE NEGATIVE 10/27/2016 10:43am 03/2017 12:14pm Enterovirus/Rhinovirus (PCR) NEGATIVE NEGATIVE 10/27/2016 10:43am 03/2017 12:14pm Influenza Virus Type A (PCR) NEGATIVE NEGATIVE 10/27/2016 10:43am 03/2017 12:14pm Influenza Virus Type B (PCR) NEGATIVE NEGATIVE 10/27/2016 10:43am 03/2017 12:14pm Parainfluenza Type 1 (PCR) NEGATIVE NEGATIVE 10/27/2016 10:43am 10/27 12:14pm Parainfluenza Type 2 (PCR) NEGATIVE NEGATIVE 10/27/2016 10:43am 10/27 12:14pm Parainfluenza Type 3 (PCR) NEGATIVE NEGATIVE 10/27/2016 10:43am 10/27 12:14pm Parainfluenza Type 4 (PCR) NEGATIVE NEGATIVE 10/27/2016 10:43am 10/27 12:14pm Respiratory Syncytial Virus (PCR) NEGATIVE NEGATIVE 10/27/2016 10: 43am 10/27/2016 12:14pm Bordetella parapertussis DNA (PCR) NEGATIVE NEGATIVE 10/27/2016 10: 43am 10/27/2016 12:14pm Chlamydia pneumoniae DNA (PCR) NEGATIVE NEGATIVE 10/27/2016 10:43am 10/27/2016 12:14pm Mycoplasma pneumoniae (PCR) NEGATIVE NEGATIVE 10/27/2016 10:43am 03/2017 12:14pm White Blood Count 6.7 T/MM3 4.5-11.0 10/29/2016 12:54pm 10/29/2016 1: 01pm Red Blood Count 3.02 M/MM3 L 4.00-5.20 10/29/2016 12:54pm 10/29/2016 1: 01pm Hemoglobin 9.0 GM/DL L 12-16 10/29/2016 12:54pm 10/29/2016 1:01pm Hematocrit 28.5 % L 36-46 10/29/2016 12:54pm 10/29/2016 1:01pm Mean Corpuscular Volume 94.4 UM3 80-100 10/29/2016 12:54pm 10/29/2016 1 :01pm Mean Corpuscular Hemoglobin 29.8 UUG 26-34 10/29/2016 12:54pm 2016 1:01pm Mean Corpuscular Hemoglobin Concent 31.6 GM/DL 31-37 10/29/2016 12:54pm 10/29/2016 1:01pm RDW Standard Deviation 56.7 FL H 36.9-50.2 10/29/2016 12:54pm 2016 1:01pm Platelet Count 189 T/MM3 130-400 10/29/2016 12:54pm 10/29/2016 1:01pm Mean Platelet Volume 9.6 UM3 9.4-12.4 10/29/2016 12:54pm 10/29/2016 1: 01pm Neutrophils (%) (Auto) 73.3 % H 33-66 10/29/2016 12:54pm 10/29/2016 1: 01pm Lymphocytes (%) (Auto) 15.1 % L 23-45 10/29/2016 12:54pm 10/29/2016 1: 01pm Monocytes (%) (Auto) 9.1 % H 0-9.0 10/29/2016 12:54pm 10/29/2016 1:01pm Eosinophils (%) (Auto) 1.9 % 0-4 10/29/2016 12:54pm 10/29/2016 1:01pm Basophils (%) (Auto) 0.3 % 0-2 10/29/2016 12:54pm 10/29/2016 1:01pm Immature Granulocyte % (Auto) 0.3 % 0.0-0.5 10/29/2016 12:54pm 2016 1:01pm Absolute Neutrophils (auto) 4.9 T/MM3 1.8-7.7 10/29/2016 12:54pm 2016 1:01pm Absolute Lymphocytes (auto) 1.0 T/MM3 1-4.8 10/29/2016 12:54pm 2016 1:01pm Absolute Monocytes (auto) 0.6 T/MM3 0-0.8 10/29/2016 12:54pm 2016 1:01pm Absolute Eosinophils (auto) 0.1 T/MM3 0-0.5 10/29/2016 12:54pm 2016 1:01pm Absolute Basophils (auto) 0.0 T/MM3 0-0.2 10/29/2016 12:54pm 2016 1:01pm Absolute Immature Granulocyte (auto 0.02 T/MM3 0.00-0.03 10/29/2016 12: 54pm 10/29/2016 1:01pm Icterus Index < 2 0-7 10/29/2016 12:54pm 10/29/2016 1:09pm Chemistry Specimen Hemolysis < 15 0-25 10/29/2016 12:54pm 10/29/2016 1:09pm 0-25: Specimen Exhibited No Hemolysis. Turbidity < 20 0-20 10/29/2016 12:54pm 10/29/2016 1:09pm Sodium Level 131 MEQ/L L 134-144 10/29/2016 12:54pm 10/29/2016 1:09pm Potassium Level 3.9 MEQ/L 3.6-5 10/29/2016 12:54pm 10/29/2016 1:09pm Chloride Level 93 MEQ/L L 98-107 10/29/2016 12:54pm 10/29/2016 1:09pm Carbon Dioxide Level 27 MEQ/L 22-30 10/29/2016 12:54pm 10/29/2016 1: 09pm Anion Gap 11 MEQ/L 5-15 10/29/2016 12:54pm 10/29/2016 1:09pm Blood Urea Nitrogen 40.0 MG/DL H 7-17 10/29/2016 12:54pm 10/29/2016 1: 09pm Creatinine 2.4 MG/DL H 0.7-1.2 10/29/2016 12:54pm 10/29/2016 1:09pm BUN/Creatinine Ratio 17 RATIO 6-26 10/29/2016 12:54pm 10/29/2016 1: 09pm Glomerular Filtration Rate Calc 20 10/29/2016 12:54pm 10/29/2016 1: 09pm Glucose Level 108 MG/DL 65-110 10/29/2016 12:54pm 10/29/2016 1:09pm Calculated Osmolality 264 MOSM/KG 261-280 10/29/2016 12:54pm 2016 1:09pm Calcium Level 9.0 MG/DL 8.4-10.2 10/29/2016 12:54pm 10/29/2016 1:09pm Troponin I < 0.012 ng/ml 0-0.12 10/29/2016 12:54pm 10/29/2016 1:20pm Troponin values with a difference of 55% increase from orginal troponin value represent a true biological DELTA value. (%increase Calc=Orginal Troponin value, divided by subsequent Troponin value, multiplied by 100) Glucometer 181 mg/dL H 65-110 10/29/2016 3:09pm 10/29/2016 3:12pm Procedures Procedure Status Date Provider(s) Medical nutrition indiv in Completed 06/08/16 Medical nutrition indiv in Completed 06/08/16 Transvaginal us non-ob Completed 08/02/16 COMP SCREEN MAMMOGRAM ADD-ON Completed 08/02/16 Breast tomosynthesis bi Completed 08/02/16 [id number]"SCREENING MAMMOGRAPHY, PRODUCING DIRECT DIGITAL IMAGE Completed Routine venipuncture Completed 09/19/16 Revise ulnar nerve at elbow Completed 09/19/16 JORDIN CALDERÓN MD Carpal tunnel surgery Completed 09/19/16 JORDIN CALDERÓN MD [facility] metabolic panel Completed 09/19/16 Reagent strip/blood glucose Completed 09/19/16 Reagent strip/blood glucose Completed 09/19/16 Reagent strip/blood glucose Completed 09/19/16 Reagent strip/blood glucose Completed 09/19/16 Reagent strip/blood glucose Completed 09/19/16 Reagent strip/blood glucose Completed 09/19/16 Reagent strip/blood glucose Completed 09/19/16 [id number] ITEM OR SERVICE Completed 09/19/16 [id number] ITEM OR SERVICE Completed 09/19/16 [id number] ITEM OR SERVICE Completed 09/19/16 [id number] ITEM OR SERVICE Completed 09/19/16 [id number] ITEM OR SERVICE Completed 09/19/16 [id number] ITEM OR SERVICE Completed 09/19/16 [id number] ITEM OR SERVICE Completed 09/19/16 [id number] ITEM OR SERVICE Completed 09/19/16 [id number] ITEM OR SERVICE Completed 09/19/16 [id number] ITEM OR SERVICE Completed 09/19/16 [id number] ITEM OR SERVICE Completed 09/19/16 [id number] ITEM OR SERVICE Completed 09/19/16 [id number] ITEM OR SERVICE Completed 09/19/16 [id number] ITEM OR SERVICE Completed 09/19/16 [id number] ITEM OR SERVICE Completed 09/19/16 [id number] ITEM OR SERVICE Completed 09/19/16 [id number] ITEM OR SERVICE Completed 09/19/16 [id number] ITEM OR SERVICE Completed 09/19/16 [id number] ITEM OR SERVICE Completed 09/19/16 [id number] ITEM OR SERVICE Completed 09/19/16 [id number] ITEM OR SERVICE Completed 09/19/16 [id number] ITEM OR SERVICE Completed 09/19/16 [id number] ITEM OR SERVICE Completed 09/19/16 [id number] ITEM OR SERVICE Completed 09/19/16 [id number] ITEM OR SERVICE Completed 09/19/16 [id number] ITEM OR SERVICE Completed 09/19/16 [id number] ITEM OR SERVICE Completed 09/19/16 [id number]"INJECTION, CEFAZOLIN SODIUM, 500 MG" Completed 09/19/16"INJECTION, CEFAZOLIN SODIUM, 500 MG" Completed 09/19/16"INJECTION, MIDAZOLAM HYDROCHLORIDE, PER 1 MG" Completed 09/19/16"INJECTION, MIDAZOLAM HYDROCHLORIDE, PER 1 MG" Completed 09/19/16"INFUSION, NORMAL SALINE SOLUTION , 1000 CC" Completed 09/19/16"INFUSION, NORMAL SALINE SOLUTION , 250 CC" Completed 09/19/16 Encounters Encounter Location Arrival/Admit Date Discharge/Depart Date Attending Provider Departed Emergency Room [facility] 10/29/16 12:03pm 10/29/16 5: 12pm YAMIL HARKINS MD Registered [facility] 10/27/16 10:05am PREETI ESQUIVEL MD Departed Surgical Day Care [facility] 09/19/16 6:49am 09/20/16 2: 47pm JORDIN CALDERÓN MD Registered [facility] 08/24/16 12:00pm PREETI ESQUIVEL MD Registered [facility] 08/02/16 6:19am PREETI ESQUIVEL MD Discharged [facility] 07/07/16 8:30am 08/21/16 11:59pm PREETI ESQUIVEL MD Recent Diagnosis
--- NOTE | 2017-01-21 11:53 | ERPDOC ---
Departure Disposition Decision Date: Jan 21, 2017 Disposition Decision Time: 12:34 (VANCE WHEAT APRN) Disposition: 01 DISCHARGED HOME, SELF-CARE Impression Impression (VANCE WHEAT APRN) Impression: Primary Impression: Itching Condition: Improved Seen By: Mid-level only (VANCE WHEAT APRN) Referrals: PREETI CARMONA MD (PCP) KVNG POLLARD MD Patient Instructions: Itchy Skin (ED) Problems/Meds/Labs Reviewed?: Yes Medications reviewed and manag: Yes (VANCE WHEAT APRN) Additional Instructions: 1. Take Benadryl 50 mg every 4-6 hours as needed for itching 2. Try rubbing witch donte on your skin for comfort 3. Try oatmeal baths 4. Call Dr. Carmona and/or Dr. Pollard's office in am for further direction/ instruction on what to do about the possible medication reaction you are having. Follow up care ordered?: Yes (VANCE WHEAT APRN) HPI - General Medical General Stated Complaint: ITCHING, POSS ALERGIC REACTION Time Seen by Provider: 11:56 Source: patient Exam Limitations: no limitations (VANCE WHEAT APRN) Time Seen by Provider: 11:56 (LIBAN YU MD) HPI - General Medical Initial Comments Kareen is a 66 year old female who reports receiving a B12 and folate injection from her PCP Dr. Carmona's office on 01/17/17. Yesterday patient developed significant itching all over her body similar to when she took morphine years ago. Denies any rashes beyond a scratched area to her left wrist. Denies shortness of air, wheezing, chest pain, sore throat, difficulty swallowing. No fevers. Took Benadryl 50 mg twice yesterday as per the recommendation of her doctor and last dose was 6 am this morning. Called Dr. carmona again and was advised to go to ER for a shot. Occurred At: home Onset: Getting worse Duration: other (2 days) Pain Scale: Now: 0/10 Associated Symptoms: denies symptoms (VANCE WHEAT APRN) Allergies: Coded Allergies: Estrogens (Verified Allergy, Mild, RASH, 01/21/17) morphine (Verified Allergy, Mild, RASH, 01/21/17) niacin (Verified Allergy, Mild, RASH, 01/21/17) amoxicillin (Verified Allergy, Unknown, RASH, 01/21/17) fentanyl (Verified Allergy, Unknown, rash, 01/21/17) Past History Patient Surgical History Bilat TKA IM nailing right femur. left shoulder surgery x 2 Right shoulder surgery x 1 Cholecystectomy EGD Colonoscopy skin grafts for [place] to the right arm tubal ligation pacemaker Heart cath (Amirani) 07/13/14--65% EF. Coronaries patent. (VANCE WHEAT APRN) Past Medical History Metabolic: diabetes, hypercholesterolemia, hypertension, hypothyroidism Cardiac: A-fib, CHF GI: GERD, gallbladder disease Female: renal failure Neurological: seizures Musculoskeletal: back pain, osteoarthritis Integumentary: other Psychological: anxiety, depression (VANCE WHEAT APRN) Surgical History General: EGD, colonoscopy, gallbladder, other Cardiac: pacemaker Reproductive/: tubal ligation Joint: knee, shoulder (VANCE WHEAT APRN) Family History Family PMH: FOUND: cancer (VANCE WHEAT APRN) Vaccines Hx Influenza Vaccination: Yes (JUL 2016) Hx Pneumococcal Vaccination: Yes (JUL 2016) (VANCE WHEAT APRN) Social History Does patient use chewing tobac: No Second Hand Exposure: No Substance Use Type: does not use (VANCE WHEAT APRN) Review of Systems Constitutional Constitutional: DENIES: fever (VANCE WHEAT APRN) ENMT Mouth/Throat: DENIES: change in swallowing, painful swallowing, sore throat ( VANCE WHEAT APRN) Cardiovascular Cardiac: DENIES: chest pain (VANCE WHEAT APRN) Pulmonary Respiratory: DENIES: cough (VANCE WHEAT APRN) GI Upper Abdomen: DENIES: vomiting Lower Abdomen: DENIES: diarrhea (VANCE WHEAT APRN) Integumentary Skin: itching, DENIES: rash (VANCE WHEAT APRN) Allergic/Immunological Allergic/Immunoligical: DENIES: hives, sneezing (VANCE WHEAT APRN) All other Systems All Other Systems: Reviewed and Negative (VANCE WHEAT APRN) Physical Exam General General Nourishment: well nourished, well developed, appears stated age, no acute distress (VANCE WHEAT APRN) Vitals and Pain First Documented Vital Signs Date Time Temp Pulse Resp B/P Pulse Ox O2 Delivery O2 Flow Rate FiO2 01/21/17 11:35 97.4 86 15 149/69 96 Room Air (LIBAN YU MD) Vitals and Pain Weight: Kilograms: Height (feet): 5 Height (inches): 4.00 Triage Pain Scale: (VANCE WHEAT APRN) Eyes (brief) Eyes Brief: found: PERRL, not found: scleral icterus (VANCE WHEAT APRN) ENMT (brief) ENMT Brief: FOUND: mucosa moist, NOT FOUND: pharnyx erythema (VANCE WHEAT BI ARCHITECT) Neck (brief) Neck: NOT FOUND: thyromegaly (VANCE WHEAT BI ARCHITECT) Respiratory (brief) Respiratory: FOUND: clear all valle, equal bilaterally (VANCE WHEAT BI ARCHITECT) Cardiovascular (brief) Cardiac: FOUND: peripheral edema, regular rate, regular rhythm (VANCE WHEAT BI ARCHITECT) Abdomen (brief) Abdominal Brief: FOUND: bowel normo active x4, soft (VANCE WHEAT BI ARCHITECT) Integumentary (brief) Integumentary Brief: FOUND: dry, other (excorated area left wrist), pink, warm , NOT FOUND: rash (VANCE WHEAT BI ARCHITECT) Psychiatric (brief) Psychiatric Brief: FOUND: alert, attentive, normal affect, oriented (VANCE WHEAT APRN) Differential Diagnoses Considering: Medication Effect (VANCE WHEAT APRN) Progress Results/Orders Orders Procedure Category Date Status Time Methylprednisolone PHA 01/21/17 Complete Acetate (Depo-Medrol) 12:00 Diphenhydramine PHA 01/21/17 Complete (Benadryl) 12:00 Famotidine (Pepcid) PHA 01/21/17 Complete 12:00 Famotidine (Pepcid) PHA 01/21/17 In Process 12:15 (LIBAN YU MD) Orders Procedure Category Date Status Time Methylprednisolone PHA 01/21/17 Complete Acetate (Depo-Medrol) 12:00 Diphenhydramine PHA 01/21/17 Complete (Benadryl) 12:00 Famotidine (Pepcid) PHA 01/21/17 Complete 12:00 Famotidine (Pepcid) PHA 01/21/17 In Process 12:15 (VANCE WHEAT APRN) Medications Current ED Medications Methylprednisolone Acetate (Depo-Medrol) 40 mg O ONCE IM Last administered on 01/21/17 12:09; Start 01/21/17 at 12:00; Stop 01/21/17 at 12:02; Status DC Diphenhydramine HCl (Benadryl) 50 mg O ONCE IM Last administered on 01/21/17 12:09; Start 01/21/17 at 12:00; Stop 01/21/17 at 12:02; Status DC Famotidine (Pepcid) 20 mg ONE TIME PO ; Start 01/21/17 at 12:00; Stop 01/21/17 at 12:09; Status DC Famotidine (Pepcid) 40 mg O PO Last administered on 01/21/17 12:09; Start at 12:15 (LIBAN YU MD) Medications Current ED Medications Methylprednisolone Acetate (Depo-Medrol) 40 mg O ONCE IM Last administered on 01/21/17 12:09; Start 01/21/17 at 12:00; Stop 01/21/17 at 12:02; Status DC Diphenhydramine HCl (Benadryl) 50 mg O ONCE IM Last administered on 01/21/17 12:09; Start 01/21/17 at 12:00; Stop 01/21/17 at 12:02; Status DC Famotidine (Pepcid) 20 mg ONE TIME PO ; Start 01/21/17 at 12:00; Stop 01/21/17 at 12:09; Status DC Famotidine (Pepcid) 40 mg O PO Last administered on 01/21/17 12:09; Start at 12:15 (VANCE WHEAT APRN) Progress Progress 1233 - Less itching. Feeling moderately better. Worried about the shots she received and what they will be able to give her as an alternative. advised to f/ u pcp or Dr. Pollard who she says prescribed the shots. Advised to take Benadryl and try oatmeal baths or rubbing arms with witch donte for comfort. (VANCE WHEAT APRN) Progress Patient's history and exam discussed with BI ARCHITECT. Agree with care given. (LIBAN YU MD) VANCE WHEAT APRN Jan 21, 2017 11:53 LIBAN YU MD Jan 21, 2017 18:08
--- OUTSIDE RECORDS SUMMARY | 2017-01-21 12:26 | XMS REPORT | Continuity of Care Document ---
Author Author [facility] Organization [facility] Address Unknown Phone Unavailable Care Team Providers Care Red Hat Engineer Name Role Phone PREETI ESQUIVEL MD Primary Care Physician [phone] Insurance Providers Payer Name Policy Number Subscriber Name Relationship [facility] [id number] Kareen Hernández 18 Self Problems Medical Problems Problem Onset Date Status [facility] compl of cardiac pulse generator (battery), init [...] U SQ DAILY 06/24/10 09/11/11 Discontinued Fish Oil/[place]-3 Fatty Acids 1 Cap PO TWICE A [...] 05/20/12 05/15/14 Discontinued Fentanyl 1 Patch TD [id number] 05/20/12 01/27/13 Discontinued Zolpidem Tartrate 10 Mg [...] AT FIRST POSTOP APPOINTMENT Durable Medical Equipment: [employer] [phone] [facility] [phone] Notify Physician If: CALL YOUR SURGEON IF: [...] Care Discharge Date 07/14/14 12:05pm Instructions/Education Provided [facility] Heart Cath [facility] Congestive Heart Failure Eating a Diet Low [...] F (96.8 - 99.1) Temperature (Calculated Celsius) 36.28095 degrees C (36.0 - 37.3) Pulse Rate [...] Reference Range:12.0 - 46.0 Test Performed by: [place] [id number] Manager Trading: Sergio Fulton III, M.D. Levetiracetam performed at [facility], [address] [place] [address] Java J2Ee Architect MD Enoc Howard III July 02, 2009 [...] Has specimen been collected/obtained? Y Urine Specific [place] July 17, 2014 2:00pm 1.010 L - [...] 5.0 MMOL/L H -2.0- 2.0 COMMENT IN KIER DRIER Venous Blood HCO3 July 13, 2014 5:30pm 30 MEQ/L H -26 COMMENT IN KIER DRIER Venous Blood Oxygen Saturation July 13, 2014 5:30pm 72.0 % - COMMENT IN KIER DRIER Venous Blood Partial Pressure CO2 July 13, 2014 5:30pm 47.7 MMHG N 40-52 COMMENT IN KIER DRIER Venous Blood Partial Pressure O2 July 13, 2014 5:30pm 38 MMHG L 40- 52 COMMENT IN KIER DRIER Venous Blood Total Carbon Dioxide July 13, 2014 5:30pm 32 MEQ/L - COMMENT IN KIER DRIER Venous Blood pH July 13, 2014 5:30pm 7.409 N 7.31-7.41 COMMENT IN KIER DRIER Vitamin B12 Level August 27, 2013 8:43am [...] 13, 2014 8:31pm LAB TEST FORM REQUEST [id number] - Turbidity July 17, 2014 2:41pm < [...] July 17, 2014 2:41pm < 2 0-7 TF-Qxz-W-Type Natriuretic Peptide June 04, 2014 5:09pm 358 [...] 2012 9:58am Name: KAREEN HERNÁNDEZ Unit #: [id number] : 1950 Sex: F Loc / Svc: ED DOS: 07/17/14 Signed Report #: [id number] DIAGNOSTIC IMAGING REPORT TYPE OF EXAM: CT [...] Encounters Encounter Location Date/Time Departed Emergency Room [facility] 07/17/14 1:26pm Discharged Inpatient [facility] 07/13/14 11:44am Registered [facility] 07/03/14 12:16pm Registered Clinic [facility] 06/18/14 7:48am Registered Clinic [facility] 06/05/14 2:33pm Registered [facility] 06/04/14 4:29pm Registered [facility] 05/27/14 11:24am Departed Emergency Room [facility] 05/17/14 10:19am Departed [facility] 05/15/14 1:18pm Recent Diagnosis
--- OUTSIDE RECORDS SUMMARY | 2017-01-21 12:27 | XMS REPORT | Continuity of Care Document ---
Author Author [facility] Organization [facility] Address Unknown Phone Unavailable Care Team Providers Care Street Flusher Driver Name Role Phone PREETI ESQUIVEL MD Primary Care Physician [phone] Insurance Providers Payer Name Policy Number Subscriber Name Relationship [facility] State Plan [id number] Kareen Hernández 18 Self Problems Medical Problems Problem Onset Date Status [facility] compl of cardiac pulse generator (battery), [...] U SQ DAILY 06/24/10 09/11/11 Discontinued Fish Oil/[place]-3 Fatty Acids 1 Cap PO TWICE A [...] 05/20/12 05/15/14 Discontinued Fentanyl 1 Patch TD [id number] 05/20/12 01/27/13 Discontinued Zolpidem Tartrate 10 Mg [...] have difficulty breathing. During office hours, call [phone]. After hours, please call [facility] at [phone] and have the primer inserting machine operator page Dr. French or the covering surgeon. *In the event of an emergency, seek medical care at the nearest emergency room.* Condition at time of discharge: Good Plan of Care Discharge Date 07/14/14 12:05pm Instructions/Education Provided [facility] Heart Cath [facility] Congestive Heart Failure Eating a Diet [...] F (96.8 - 99.1) Temperature (Calculated Celsius) 36.77607 degrees C (36.0 - 37.3) Temperature Source [...] Reference Range:12.0 - 46.0 Test Performed by: [address] [address] Door Repairer Bus: Sergio Fulton III, M.D. Levetiracetam performed at [facility], [address] [place] [id number] Quality Control Coordinator MD Enoc Howard III July 02, 2009 [...] 14, 2014 4:47am 12.0 % H 0-9.0 YZ-Eds-V-Type Natriuretic Peptide June 04, 2014 5:09pm 358 [...] specimen been collected/obtained? Y Urine Specific [place] May 17, 2014 11:15am 1.010 L - [...] 5.0 MMOL/L H -2.0- 2.0 COMMENT IN PLASTIC TECHNICIAN Venous Blood HCO3 July 13, 2014 5:30pm 30 MEQ/L H 22-26 COMMENT IN PLASTIC TECHNICIAN Venous Blood Oxygen Saturation July 13, 2014 5:30pm 72.0 % - COMMENT IN PLASTIC TECHNICIAN Venous Blood Partial Pressure CO2 July 13, 2014 5:30pm 47.7 MMHG N 40-52 COMMENT IN PLASTIC TECHNICIAN Venous Blood Partial Pressure O2 July 13, 2014 5:30pm 38 MMHG L 40- 52 COMMENT IN PLASTIC TECHNICIAN Venous Blood Total Carbon Dioxide July 13, 2014 5:30pm 32 MEQ/L - COMMENT IN PLASTIC TECHNICIAN Venous Blood pH July 13, 2014 5:30pm 7.409 N 7.31-7.41 COMMENT IN PLASTIC TECHNICIAN Vitamin B12 Level August 27, 2013 8:43am 287 PG/ML N 239-931 White Blood Count July 14, 2014 4:47am 5.4 T/MM3 N 4.5-11.0 Blood Culture Blood April 19, 2013 12:20pm NO GROWTH AFTER 5 DAYS Helicobacter pylori Rapid Urease Gastric Biopsy May 21, 2012 9:58am Name: KAREEN HERNÁNDEZ Unit #: [id number] : 1950 Sex: F Loc / Svc: VANESSA DOS: 07/03/14 Signed Report #: [id number] DIAGNOSTIC IMAGING REPORT TYPE OF EXAM: CT [...] MD Encounters Encounter Location Date/Time Admitted Inpatient [facility] 07/13/14 11:44am Registered [facility] 07/03/14 12:16pm Registered [facility] 06/18/14 7:48am Registered [facility] 06/05/14 2:33pm Registered [facility] 06/04/14 4:29pm Registered [facility] 05/27/14 11:24am Departed Emergency Room [facility] 05/17/14 10:19am Departed [facility] 05/15/14 1:18pm
--- OUTSIDE RECORDS SUMMARY | 2017-01-21 12:27 | XMS REPORT | Continuity of Care Document ---
Author Author [facility] Organization [facility] Address Unknown Phone Unavailable Care Team Providers Care Metal Coater Operator Name Role Phone PREETI ESQUIVEL MD Primary Care Physician [phone] Insurance Providers Payer Name Policy Number Subscriber Name Relationship [facility] State Plan [id number] Kareen Hernández 18 Self Advance Directives Directive Response Recorded Date/Time Ordered Resuscitation Status Full Code 11/11/14 10:29am Resuscitation Documents on File Yes 11/11/14 9:01am Problems Medical Problems Problem Onset Date Status [facility] compl of cardiac pulse generator [...] U SQ DAILY 06/24/10 09/11/11 Discontinued Fish Oil/[place]-3 Fatty Acids 1 Cap PO TWICE A [...] 05/20/12 05/15/14 Discontinued Fentanyl 1 Patch TD [id number] 05/20/12 01/27/13 Discontinued Zolpidem Tartrate 10 Mg [...] F (96.8 - 99.1) Temperature (Calculated Celsius) 36.22810 degrees C (36.0 - 37.3) Temperature Source [...] 13, 2014 8:31pm LAB TEST FORM REQUEST [id number] - Levetiracetam (Keppra) Level August 27, 2013 8:43am 37.8 mcg/mL - Reference Range:12.0 - 46.0 Test Performed by: [place] [address] Hot Strip Mill Inspector: Sergio Fulton III, M.D. Levetiracetam performed at [facility], [address] [place] [address] R&D Lab Technician Kirstin Mckenzie MD Lipase July 02, 2009 [...] 17, 2014 2:41pm 7.7 % N 0-9.0 [place]-Mjz-Q-Type Natriuretic Peptide June 04, 2014 5:09pm 358 [...] Has specimen been collected/obtained? Y Urine Specific [place] July 17, 2014 2:00pm 1.010 L - [...] 5.0 MMOL/L H -2.0- 2.0 COMMENT IN CLINICAL REHAB LIAISON Venous Blood HCO3 July 13, 2014 5:30pm 30 MEQ/L H 22-26 COMMENT IN CLINICAL REHAB LIAISON Venous Blood Oxygen Saturation July 13, 2014 5:30pm 72.0 % - COMMENT IN CLINICAL REHAB LIAISON Venous Blood Partial Pressure CO2 July 13, 2014 5:30pm 47.7 MMHG N 40-52 COMMENT IN CLINICAL REHAB LIAISON Venous Blood Partial Pressure O2 July 13, 2014 5:30pm 38 MMHG L 40- 52 COMMENT IN CLINICAL REHAB LIAISON Venous Blood Total Carbon Dioxide July 13, 2014 5:30pm 32 MEQ/L - COMMENT IN CLINICAL REHAB LIAISON Venous Blood pH July 13, 2014 5:30pm 7.409 N 7.31-7.41 COMMENT IN CLINICAL REHAB LIAISON Vitamin B12 Level August 27, 2013 8:43am 287 PG/ML N 239-931 White Blood Count July 17, 2014 2:41pm 5.6 T/MM3 N 4.5-11.0 Blood Culture Blood April 19, 2013 12:20pm NO GROWTH AFTER 5 DAYS Wet Prep Cervix July 17, 2014 2:55pm Helicobacter pylori Rapid Urease Gastric Biopsy May 21, 2012 9:58am Name: KAREEN HERNÁNDEZ Unit #: [id number] : 1950 Sex: F Loc / Svc: [facility] DOS: 09/04/14 Signed Report #: [id number] DIAGNOSTIC IMAGING REPORT TYPE OF EXAM: FOOT [...] ESQUIVEL MD Encounters Encounter Location Date/Time Registered [facility] 09/04/14 11:33am Registered [facility] 08/18/14 1:18pm
--- OUTSIDE RECORDS SUMMARY | 2017-01-21 12:28 | XMS REPORT | Continuity of Care Document ---
Author Author [facility] Organization [facility] Address Unknown Phone Unavailable Allergies [...] R47.01 APHASIA 02/18/2016 Fredy Og DO Z79.4 ALF (CURRENT) USE OF INSULIN 02/18/2016 Fredy Og DO Z79.82 ALF (CURRENT) USE OF ASPIRIN 02/18/2016 Fredy Og DO Z87.891 PERSONAL HISTORY OF NICOTINE DEPENDENCE 02/18/2016 Fredy Og DO Z95.0 PRESENCE OF CARDIAC PACEMAKER Procedures Code Description [place] [id number] DIAGNOSTIC SIGMOIDOSCOPY Maximo Mann MD 10/28/2012 Results [...] Status Pt. Type Provider Facility Loc./Unit Complaint [id number] 10/28/2012 12:23:00 2012 17:28:00 DIS Outpatient Johnathan ARZOLA, Maximo Lopez [facility] on [address]
--- OUTSIDE RECORDS SUMMARY | 2017-01-21 12:28 | XMS REPORT | Continuity of Care Document ---
Author Author [facility] Organization [facility] Address Unknown Phone Unavailable Care Team Providers Care Machine Binding Folder Name Role Phone PREETI ESQUIVEL MD Primary Care Physician [phone] Insurance Providers Payer Name Policy Number Subscriber Name Relationship [facility] [id number] Kareen Hernández 18 Self Advance Directives Directive Response Recorded Date/Time Advanced Directives Type DPOA for Healthcare 05/17/14 10:22am Problems Medical Problems Problem Onset Date Status [facility] compl of cardiac pulse generator (battery), [...] U SQ DAILY 06/24/10 09/11/11 Discontinued Fish Oil/[place]-3 Fatty Acids 1 Cap PO TWICE A [...] 05/20/12 05/15/14 Discontinued Fentanyl 1 Patch TD [id number] 05/20/12 01/27/13 Discontinued Zolpidem Tartrate 10 Mg [...] F (96.8 - 99.1) Temperature (Calculated Celsius) 36.96113 degrees C (36.0 - 37.3) Pulse Rate [...] 27, 2013 9:22am LAB TEST FORM REQUEST [id number] - Levetiracetam (Keppra) Level August 27, 2013 8:43am 37.8 mcg/mL - Reference Range:12.0 - 46.0 Test Performed by: [address] [address] Store Associate: Sergio Fulton III, M.D. Levetiracetam performed at [facility], [address] [place] [id number] Button Puncher MD Enoc Howard III July 02, 2009 [...] Has specimen been collected/obtained? Y Urine Specific [place] May 17, 2014 11:15am 1.010 L - [...] Encounters Encounter Location Date/Time Registered Emergency Room [facility] 05/17/14 10:19am Departed Clinic [facility] 05/15/14 1:18pm Recent Diagnosis
--- OUTSIDE RECORDS SUMMARY | 2017-01-21 12:28 | XMS REPORT | Continuity of Care Document ---
Author Author [facility] Organization [facility] Address Unknown Phone Unavailable Allergies [...] Procedures Code Description [place] [id number] DIAGNOSTIC SIGMOIDOSCOPY Maximo Mann MD 10/28/2012 Results [...] Status Pt. Type Provider Facility Loc./Unit Complaint [id number] 10/28/2012 12:23:00 2012 17:28:00 DIS Outpatient Johnathan ARZOLA, Maximo Lopez [facility] on [address]
--- NOTE | 2017-01-21 12:55 | NUR ---
UPDATE PATIENT RESTING QUIETLY, PATIENT REPORTS ITCHING HAS IMPROVED AT THIS TIME. PATIENT REPORTS SHE IS READY TO GO HOME.
[2017-01-21 12:58] VITALS: BP 114/55; PULSE 63; RESP 18; TEMP 97.4; O2SAT 98
== END | disposition home or self-care (01) ==
LOC: ED 11:32
DX: L29.9 Pruritus, unspecified (principal)
CPT/HCPCS: 96372; 99283; A9270; J1030; J1200

== ENCOUNTER → 2017-02-15 | Outpatient (CLI) | payer MEDICARE, MEDICAID ==
[~2017-02-15] MED LIST changes: -DiphenhydrAMINE 50 MG/ML INJECTION IM ONE; -FAMOTIDINE 20 MG TABLET PO SCH; -FAMOTIDINE 40 MG TABLET PO SCH; -HYDR115S2 PO; -LEVO500T88 PO; -LIDO35.4 TOP; -MethylPREDNISolone ACETATE 40mg/1ml IM ONE; -PRED20TA PO
[2017-02-15 18:05] LABS: ALBUMIN 4.1 G/DL (3.5-5.0); ANION GAP 14 MEQ/L (5-15); BUN/CREATININE RATIO 24 RATIO (6-26); CALCIUM 9.9 MG/DL (8.4-10.2); CHLORIDE 90 MEQ/L (98-107); CO2 - CARBON DIOXIDE 34 MEQ/L (22-30); CREATININE 2.7 MG/DL (0.7-1.2); GLOMERULAR FILTRATION RATE 18; GLUCOSE 142 MG/DL (65-110); PHOSPHORUS 6.3 MG/DL (2.5-4.5); POTASSIUM 4.3 MEQ/L (3.6-5); SODIUM 138 MEQ/L (134-144)
== END ==
LOC: LAB 17:27
PROVIDERS: ATTEND Family Medicine
DX: N18.4 Chronic kidney disease, stage 4 (severe) (principal)
CPT/HCPCS: 36415; 80069

== ENCOUNTER → 2017-03-06 | Outpatient (CLI) | payer MEDICARE, MEDICAID ==
[~2017-03-06] MED LIST changes: +FISH1CAP28 PO; +GABA300T25 PO; +HYDR-4072 PO; +IPRA3AMP AEROSOL; +LIDO35.4 TOP; +PRAM1.5T25 PO; +PREG100C PO; +RANI150T7 PO
--- NOTE | 2017-03-06 10:10 | DI ---
Indication: ITS.REASON: M54.5 LOW BACK PAIN PROCEDURE: CT LUMBAR SPINE W/O CONTRAST: Encounter: Initial Comparison: September 03, 2015 Technique: Axial noncontrast CT imaging of the lumbar spine was performed with coronal and sagittal two-dimensional reformats. Automated Exposure Control and Iterative Reconstruction dose reducing techniques were utilized. FINDINGS: The alignment of the lumbar spine is stable. No acute fracture identified. Old mild wedge compression deformity at L2. Mild scoliosis. Prominent anterior osteophytes at multiple levels. Degenerative facet change at L3-S1. Small calcified disk protrusion at L1-L2. Paraspinal soft tissues are grossly unremarkable. Minimal disk bulging at L2-L3 without central canal narrowing. Mild right neural foraminal narrowing at L3-L4 is unchanged. Degenerative facet hypertrophy and a small disk bulge at L4-L5 contributing to mild central canal narrowing. This is stable. No definite foraminal stenosis. Mild degenerative facet disease at L5-S1 without focal central canal stenosis. Mild left neural foraminal stenosis at L5-S1. Impression: Overall minimal change in the appearance of the lumbar spine. No acute compression fracture. .
== END ==
LOC: IMA 09:10
PROVIDERS: ATTEND Physician Assistant Surgical
DX: M54.5 Low back pain (principal); M41.9 Scoliosis, unspecified; M43.8X6 Other specified deforming dorsopathies, lumbar region; M25.78 Osteophyte, vertebrae; M47.896 Other spondylosis, lumbar region; M51.26 Other intervertebral disc displacement, lumbar region

== ENCOUNTER 2017-03-07 15:06 | Inpatient (IN) | payer MEDICARE, MEDICAID ==
[~2017-03-07] VITALS: Ht 162.6 cm; Wt 123.5 kg
[2017-03-07] VITALS (14 sets, daily range): BP systolic 92–121; BP diastolic 51–67; PULSE 59–68; RESP 12–24; TEMP 96.2–96.9; O2SAT 95–100; Ht 162.6 cm; Wt 123.5 kg
[~2017-03-07 15:06] MED LIST changes: -FISH1CAP28 PO; -GABA300T25 PO; -HYDR-4072 PO; -IPRA3AMP AEROSOL; -LIDO35.4 TOP; -PRAM1.5T25 PO; -PREG100C PO; -RANI150T7 PO
--- OUTSIDE RECORDS SUMMARY | 2017-03-07 15:10 | XMS REPORT | Continuity of Care Document ---
Author Author [facility] Organization [facility] Address Unknown Phone Unavailable Care Team Providers Care Yarn Worker Name Role Phone PREETI ESQUIVEL MD Primary Care Physician [phone] Insurance Providers Payer Name Policy Number Subscriber Name Relationship [facility] [id number] Kareen Hernández 18 Self Problems Medical Problems Problem Onset Date Status [facility] compl of cardiac pulse generator (battery), [...] U SQ DAILY 06/24/10 09/11/11 Discontinued Fish Oil/[place]-3 Fatty Acids 1 Cap PO TWICE A [...] 05/20/12 05/15/14 Discontinued Fentanyl 1 Patch TD [id number] 05/20/12 01/27/13 Discontinued Zolpidem Tartrate 10 Mg [...] AT FIRST POSTOP APPOINTMENT Durable Medical Equipment: [id number] [phone] [facility] [phone] Notify Physician If: CALL YOUR SURGEON IF: [...] Care Discharge Date 07/14/14 12:05pm Instructions/Education Provided [facility] Heart Cath [facility] Congestive Heart Failure Eating a Diet Low [...] F (96.8 - 99.1) Temperature (Calculated Celsius) 36.19599 degrees C (36.0 - 37.3) Pulse Rate [...] Reference Range:12.0 - 46.0 Test Performed by: [place] [id number] Arch Support Maker: Sergio Fulton III, M.D. Levetiracetam performed at [facility], [address] [place] [address] Reporting Process Consultant MD Enoc Howard III July 02, 2009 [...] Has specimen been collected/obtained? Y Urine Specific [place] July 17, 2014 2:00pm 1.010 L - [...] 5.0 MMOL/L H -2.0- 2.0 COMMENT IN AIR CONDITIONING EQUIPMENT MECHANIC Venous Blood HCO3 July 13, 2014 5:30pm 30 MEQ/L H -26 COMMENT IN AIR CONDITIONING EQUIPMENT MECHANIC Venous Blood Oxygen Saturation July 13, 2014 5:30pm 72.0 % - COMMENT IN AIR CONDITIONING EQUIPMENT MECHANIC Venous Blood Partial Pressure CO2 July 13, 2014 5:30pm 47.7 MMHG N 40-52 COMMENT IN AIR CONDITIONING EQUIPMENT MECHANIC Venous Blood Partial Pressure O2 July 13, 2014 5:30pm 38 MMHG L 40- 52 COMMENT IN AIR CONDITIONING EQUIPMENT MECHANIC Venous Blood Total Carbon Dioxide July 13, 2014 5:30pm 32 MEQ/L - COMMENT IN AIR CONDITIONING EQUIPMENT MECHANIC Venous Blood pH July 13, 2014 5:30pm 7.409 N 7.31-7.41 COMMENT IN AIR CONDITIONING EQUIPMENT MECHANIC Vitamin B12 Level August 27, 2013 8:43am [...] 13, 2014 8:31pm LAB TEST FORM REQUEST [id number] - Turbidity July 17, 2014 2:41pm < [...] July 17, 2014 2:41pm < 2 0-7 BZ-Veg-U-Type Natriuretic Peptide June 04, 2014 5:09pm 358 [...] 2012 9:58am Name: KAREEN HERNÁNDEZ Unit #: [id number] : 1950 Sex: F Loc / Svc: ED DOS: 07/17/14 Signed Report #: [id number] DIAGNOSTIC IMAGING REPORT TYPE OF EXAM: CT [...] Encounters Encounter Location Date/Time Departed Emergency Room [facility] 07/17/14 1:26pm Discharged Inpatient [facility] 07/13/14 11:44am Registered [facility] 07/03/14 12:16pm Registered Clinic [facility] 06/18/14 7:48am Registered Clinic [facility] 06/05/14 2:33pm Registered [facility] 06/04/14 4:29pm Registered [facility] 05/27/14 11:24am Departed Emergency Room [facility] 05/17/14 10:19am Departed [facility] 05/15/14 1:18pm Recent Diagnosis
--- OUTSIDE RECORDS SUMMARY | 2017-03-07 15:11 | XMS REPORT | Continuity of Care Document ---
Author Author [facility] Organization [facility] Address Unknown Phone Unavailable Care Team Providers Care Wireless Sales Representative Name Role Phone PREETI ESQUIVEL MD Primary Care Physician [phone] Insurance Providers Payer Name Policy Number Subscriber Name Relationship [facility] State Plan [id number] Kareen Hernández 18 Self Problems Medical Problems Problem Onset Date Status [facility] compl of cardiac pulse generator (battery), [...] U SQ DAILY 06/24/10 09/11/11 Discontinued Fish Oil/[place]-3 Fatty Acids 1 Cap PO TWICE A [...] 05/20/12 05/15/14 Discontinued Fentanyl 1 Patch TD [id number] 05/20/12 01/27/13 Discontinued Zolpidem Tartrate 10 Mg [...] have difficulty breathing. During office hours, call [phone]. After hours, please call [facility] at [phone] and have the electronic plotting system operator page Dr. French or the covering surgeon. *In the event of an emergency, seek medical care at the nearest emergency room.* Condition at time of discharge: Good Plan of Care Discharge Date 07/14/14 12:05pm Instructions/Education Provided [facility] Heart Cath [facility] Congestive Heart Failure Eating a Diet Low [...] F (96.8 - 99.1) Temperature (Calculated Celsius) 36.30271 degrees C (36.0 - 37.3) Temperature Source [...] Reference Range:12.0 - 46.0 Test Performed by: [address] [address] Metalworking Specialist: Sergio Fulton III, M.D. Levetiracetam performed at [facility], [address] [place] [address] Order Clerk MD Enoc Howard III July 02, 2009 [...] 14, 2014 4:47am 12.0 % H 0-9.0 OV-Hkh-B-Type Natriuretic Peptide June 04, 2014 5:09pm 358 [...] Has specimen been collected/obtained? Y Urine Specific [place] May 17, 2014 11:15am 1.010 L - [...] 5.0 MMOL/L H -2.0- 2.0 COMMENT IN SENIOR BI ARCHITECT Venous Blood HCO3 July 13, 2014 5:30pm 30 MEQ/L H 22-26 COMMENT IN SENIOR BI ARCHITECT Venous Blood Oxygen Saturation July 13, 2014 5:30pm 72.0 % - COMMENT IN SENIOR BI ARCHITECT Venous Blood Partial Pressure CO2 July 13, 2014 5:30pm 47.7 MMHG N 40-52 COMMENT IN SENIOR BI ARCHITECT Venous Blood Partial Pressure O2 July 13, 2014 5:30pm 38 MMHG L 40- 52 COMMENT IN SENIOR BI ARCHITECT Venous Blood Total Carbon Dioxide July 13, 2014 5:30pm 32 MEQ/L - COMMENT IN SENIOR BI ARCHITECT Venous Blood pH July 13, 2014 5:30pm 7.409 N 7.31-7.41 COMMENT IN SENIOR BI ARCHITECT Vitamin B12 Level August 27, 2013 8:43am 287 PG/ML N 239-931 White Blood Count July 14, 2014 4:47am 5.4 T/MM3 N 4.5-11.0 Blood Culture Blood April 19, 2013 12:20pm NO GROWTH AFTER 5 DAYS Helicobacter pylori Rapid Urease Gastric Biopsy May 21, 2012 9:58am Name: KAREEN HERNÁNDEZ Unit #: [id number] : 1950 Sex: F Loc / Svc: VANESSA DOS: 07/03/14 Signed Report #: [id number] DIAGNOSTIC IMAGING REPORT TYPE OF EXAM: CT [...] MD Encounters Encounter Location Date/Time Admitted Inpatient [facility] 07/13/14 11:44am Registered [facility] 07/03/14 12:16pm Registered [facility] 06/18/14 7:48am Registered [facility] 06/05/14 2:33pm Registered [facility] 06/04/14 4:29pm Registered [facility] 05/27/14 11:24am Departed Emergency Room [facility] 05/17/14 10:19am Departed [facility] 05/15/14 1:18pm
--- OUTSIDE RECORDS SUMMARY | 2017-03-07 15:11 | XMS REPORT | Continuity of Care Document ---
Author Author [facility] Organization [facility] Address Unknown Phone Unavailable Care Team Providers Care Drier And Grinder Tender Name Role Phone PREETI ESQUIVEL MD Primary Care Physician [phone] Insurance Providers Payer Name Policy Number Subscriber Name Relationship [facility] State Plan [id number] Kareen Hernández 18 Self Advance Directives Directive Response Recorded Date/Time Ordered Resuscitation Status Full Code 11/11/14 10:29am Resuscitation Documents on File Yes 11/11/14 9:01am Problems Medical Problems Problem Onset Date Status [facility] compl of cardiac pulse generator (battery), init [...] U SQ DAILY 06/24/10 09/11/11 Discontinued Fish Oil/[place]-3 Fatty Acids 1 Cap PO TWICE A [...] 05/20/12 05/15/14 Discontinued Fentanyl 1 Patch TD [id number] 05/20/12 01/27/13 Discontinued Zolpidem Tartrate 10 Mg [...] F (96.8 - 99.1) Temperature (Calculated Celsius) 36.48220 degrees C (36.0 - 37.3) Temperature Source [...] 13, 2014 8:31pm LAB TEST FORM REQUEST [id number] - Levetiracetam (Keppra) Level August 27, 2013 8:43am 37.8 mcg/mL - Reference Range:12.0 - 46.0 Test Performed by: [place] [address] Equine Dentist: Sergio Fulton III, M.D. Levetiracetam performed at [facility], [address] [place] [address] Outpatient Services Director Kirstin Mckenzie MD Lipase July 02, 2009 [...] 17, 2014 2:41pm 7.7 % N 0-9.0 QK-Sbe-B-Type Natriuretic Peptide June 04, 2014 5:09pm 358 [...] Has specimen been collected/obtained? Y Urine Specific [place] July 17, 2014 2:00pm 1.010 L - [...] 5.0 MMOL/L H -2.0- 2.0 COMMENT IN EMPLOYEE COMMUNICATIONS SPECIALIST Venous Blood HCO3 July 13, 2014 5:30pm 30 MEQ/L H 22-26 COMMENT IN EMPLOYEE COMMUNICATIONS SPECIALIST Venous Blood Oxygen Saturation July 13, 2014 5:30pm 72.0 % - COMMENT IN EMPLOYEE COMMUNICATIONS SPECIALIST Venous Blood Partial Pressure CO2 July 13, 2014 5:30pm 47.7 MMHG N 40-52 COMMENT IN EMPLOYEE COMMUNICATIONS SPECIALIST Venous Blood Partial Pressure O2 July 13, 2014 5:30pm 38 MMHG L 40- 52 COMMENT IN EMPLOYEE COMMUNICATIONS SPECIALIST Venous Blood Total Carbon Dioxide July 13, 2014 5:30pm 32 MEQ/L - COMMENT IN EMPLOYEE COMMUNICATIONS SPECIALIST Venous Blood pH July 13, 2014 5:30pm 7.409 N 7.31-7.41 COMMENT IN EMPLOYEE COMMUNICATIONS SPECIALIST Vitamin B12 Level August 27, 2013 8:43am 287 PG/ML N 239-931 White Blood Count July 17, 2014 2:41pm 5.6 T/MM3 N 4.5-11.0 Blood Culture Blood April 19, 2013 12:20pm NO GROWTH AFTER 5 DAYS Wet Prep Cervix July 17, 2014 2:55pm Helicobacter pylori Rapid Urease Gastric Biopsy May 21, 2012 9:58am Name: KAREEN HERNÁNDEZ Unit #: [id number] : 1950 Sex: F Loc / Svc: [facility] DOS: 09/04/14 Signed Report #: [id number] DIAGNOSTIC IMAGING REPORT TYPE OF EXAM: FOOT [...] ESQUIVEL MD Encounters Encounter Location Date/Time Registered [facility] 09/04/14 11:33am Registered [facility] 08/18/14 1:18pm
--- OUTSIDE RECORDS SUMMARY | 2017-03-07 15:12 | XMS REPORT | Continuity of Care Document ---
Author Author [facility] Organization [facility] Address Unknown Phone Unavailable Care Team Providers Care Chief Deputy Clerk/Bailiff Name Role Phone PREETI ESQUIVEL MD Primary Care Physician [phone] Insurance Providers Guarantor Kareen Hernández Address [address] [place] [address] Email Payer [facility] Plan Policy Number [id number] Subscriber's Name Kareen Hernández Relationship 18 Self Effective Date 17 Expiration Date 17 Payer Medicare Policy Number [id number] Subscriber's Name Kareen Hernández Relationship 18 Self Advance Directives Directive Response Recorded Date/Time Advanced Directives Type None 01/21/17 11:35am Chief Complaint and Reason for Visit Chief Complaint Allergic Reaction Reason for Visit Itching Problems Active Problems Medical Problem Onset Date [...] Acute Hyponatremia Unknown Acute Hypothyroidism Unknown Chronic Itching Unknown Acute Low back pain Unknown Acute Mech compl of cardiac pulse generator (battery), init [...] 4 Mg Oral Twice A Day 07/05/15 Calcitriol 0.25 Mcg Capsule 0.25 Mcg Oral Daily 01/21/17 Calcium Carbonate/Vitamin D3 (Calcium 600 + Vit D 200 Tablet) 1 Each Tablet 1 Tab Oral Three Times A Day 03/19/16 Diphenhydramine Hcl (Benadryl) 25 Mg Capsule 50 Mg Oral Every 4 Hours as needed for Prn Orders 01/21/17 Docusate Sodium 100 Mg Tablet 300 Mg Oral Daily 04/06/15 Ferrous Sulfate 325 Mg Tablet 325 Mg Oral Twice A Day 06/24/16 Insulin Glargine,Hum.rec.anlog (Lantus Solostar) 1 Unit Pen 48 Unit Sub-Q Daily Morning Insulin 07/20/16 Levetiracetam 750 Mg Tablet 1,500 Mg Oral Every Evening 07/13/14 Levetiracetam 750 Mg Tablet 750 Mg Oral Every Morning 02/18/16 Levothyroxine Sodium 175 Mcg Tablet 175 Mcg Oral Before Breakfast 06/24/16 Metolazone 2.5 Mg Tablet 2.5 Mg Oral Every Sunday, Sunday, And Sunday10/29/16 [place]-3 Fatty Acids/Fish Oil (Fish Oil 1,000 Mg Capsule) 1 Each Capsule 2 Cap Oral Twice A Day 06/24/16 Potassium Chloride (Klor-Con M20) 20 Meq Tablet 40 Meq Oral Four Times Daily 11/11/14 Pramipexole Di-Hcl (Pramipexole Dihydrochloride) 1 Mg Tablet 1.5 Mg Oral Bedtime 07/13/14 Pregabalin (Lyrica) 75 Mg Capsule 75 Mg [...] 02/22/12 Discontinued Duloxetine Hcl (Cymbalta) 30 Mg Capsule., 30 Mg Oral Daily 05/27/09 Discontinued Fentanyl (Fentanyl 25 Mcg/Hr) 1 Patch .72 H Patch.td72, 1 Patch Transderm [id number] 05/20/12 Discontinued Ferrous Sulfate 324 Mg Tablet, 324 Mg Oral Daily 05/27/09 Discontinued Fish Oil/[place]-3 Fatty Acids ([place] 3 Fish Oil 1,000 Mg Cap) 1 [...] Applicable Not Applicable Hx Substance Use No 01/21/2017 12:00pm Not Applicable Not Applicable Hx Alcohol Use No 01/21/2017 12:00pm Not Applicable Not Applicable Has the pt used tobacco in the last 12 months No 01/17/2017 10:32am Not Applicable Not Applicable Tobacco Usage none 07/19/2015 11:20am Not Applicable Not Applicable Query Response Start Date Stop Date Smoking Status Former smoker Hospital Discharge Instructions No hospital discharge instructions. Plan of Care Disposition 01 DISCHARGED HOME, SELF-CARE Condition at Discharge Improved Instructions/Education Provided Itchy Skin (ED) Prescriptions See Medication Section Referrals PREETI ESQUIVEL MD Address: [address] [place] [address] [address] [place] [address] Note: KVNG POLLARD MD Address: [address] [facility] [address] [place] [address] Additional Instructions/Education 1. Take Benadryl 50 mg every 4-6 hours as needed for itching 2. Try rubbing witch donte on your skin for comfort 3. Try oatmeal baths 4. Call Dr. Esquivel and/or Dr. Pollard's office in am for further direction/instruction on what to do about the possible medication reaction you are having. Care Plan and Goals Physician Care Plan Problem: Itching Goal: Follow up with primary care provider Instructions: Take medications and follow care plan as discussed/written Functional Status No functional status results. Allergies, Adverse Reactions, Alerts Allergen Type Severity Reaction Status Last Updated Conjugated estrogen Allergy Mild RASH Active 01/21/17 Niacin Allergy Mild RASH Active 01/21/17 Morphine Allergy Mild RASH Active 01/21/17 Fentanyl Allergy Unknown rash Active 01/21/17 Amoxicillin Allergy Unknown RASH Active 01/21/17 Immunizations Query Response on File Recorded Date/Time Hx Influenza Vaccination Y JUL 2016 01/17/17 10:32am Hx Pneumococcal Vaccination Y JUL 2016 01/17/17 10:32am Hx Influenza Vaccination Y JUL 2016 01/17/17 10:32am Influenza Vaccine Hx jul 2016 01/21/17 12:00pm Vital Signs Acute Vital Signs Vital Response Date/Time Temperature (Fahrenheit) 97.4 deg F (96.8 - 99.1) 01/21/2017 12:58pm Temperature (Calculated Celsius) 36.09047 degrees C (36.0 - 37.3) 01/21/2017 12:58pm Pulse Rate (adult) 63 bpm (60 - 100) 01/21/2017 12:58pm Respiratory Rate 18 breaths/min (10 - 20) 01/21/2017 12:58pm O2 Sat by Pulse Oximetry 98 % (90 - 100) 01/21/2017 12:58pm Oxygen Delivery Method Room Air 01/17/2017 10:30am Blood Pressure 114/55 mm Hg 01/21/2017 12:58pm Blood Pressure Source Automatic Cuff 01/17/2017 10:30am Height (Feet) 5 feet 01/21/2017 11:35am Height (Inches) 4.00 inches 01/21/2017 11:35am Weight (Kilograms) 128.000 kg 01/21/2017 11:35am Body Mass Index (BMI) 48.0 01/21/2017 11:35am Results Laboratory Results Test Name Result Units Flags Reference Collection Date/Time Result Date/ Time Comments White Blood Count 5.1 T/MM3 4.5-11.0 01/17/2017 10:01/17/2017 10: 37am Red Blood Count 3.10 M/MM3 L 4.00-5.20 01/17/2017 10:01/17/2017 10: 37am Hemoglobin 9.3 GM/DL L 12-16 01/17/2017 10:01/17/2017 10:37am Hematocrit 30.0 % L 36-46 01/17/2017 10:01/17/2017 10:37am Mean Corpuscular Volume 96.8 UM3 80-100 01/17/2017 10:01/17/2017 10:37am Mean Corpuscular Hemoglobin 30.0 UUG 26-34 01/17/2017 10:2016 10:37am Mean Corpuscular Hemoglobin Concent 31.0 GM/DL 31-37 01/17/2017 10:01/17/2017 10:37am RDW Standard Deviation 53.5 FL H 36.9-50.2 01/17/2017 10:2016 10:37am Platelet Count 218 T/MM3 130-400 01/17/2017 10:01/17/2017 10:37am Mean Platelet Volume 9.6 UM3 9.4-12.4 01/17/2017 10:01/17/2017 10: 37am Neutrophils (%) (Auto) 68.9 % H 33-66 01/17/2017 10:01/17/2017 10: 37am Lymphocytes (%) (Auto) 20.7 % L 23-45 01/17/2017 10:01/17/2017 10: 37am Monocytes (%) (Auto) 8.2 % 0-9.0 01/17/2017 10:01/17/2017 10:37am Eosinophils (%) (Auto) 1.4 % 0-4 01/17/2017 10:01/17/2017 10:37am Basophils (%) (Auto) 0.6 % 0-2 01/17/2017 10:01/17/2017 10:37am Immature Granulocyte % (Auto) 0.2 % 0.0-0.5 01/17/2017 10:2016 10:37am Absolute Neutrophils (auto) 3.5 T/MM3 1.8-7.7 01/17/2017 10:2016 10:37am Absolute Lymphocytes (auto) 1.1 T/MM3 1-4.8 01/17/2017 10:2016 10:37am Absolute Monocytes (auto) 0.4 T/MM3 0-0.8 01/17/2017 10:2016 10:37am Absolute Eosinophils (auto) 0.1 T/MM3 0-0.5 01/17/2017 10:2016 10:37am Absolute Basophils (auto) 0.0 T/MM3 0-0.2 01/17/2017 10:2016 10:37am Absolute Immature Granulocyte (auto 0.01 T/MM3 0.00-0.03 01/17/2017 10: 01/17/2017 10:37am Icterus Index < 2 0-7 01/17/2017 10:01/17/2017 10:46am Chemistry Specimen Hemolysis < 15 0-25 01/17/2017 10:01/17/2017 10:46am 0-25: Specimen Exhibited No Hemolysis. Turbidity < 20 0-20 01/17/2017 10:01/17/2017 10:46am Sodium Level 135 MEQ/L 134-144 01/17/2017 10:01/17/2017 10:46am Potassium Level 3.3 MEQ/L L 3.6-5 01/17/2017 10:01/17/2017 10:46am Chloride Level 93 MEQ/L L 98-107 01/17/2017 10:01/17/2017 10:46am Carbon Dioxide Level 33 MEQ/L H 22-30 01/17/2017 10:01/17/2017 10: 46am Anion Gap 9 MEQ/L 5-15 01/17/2017 10:01/17/2017 10:46am Blood Urea Nitrogen 48.0 MG/DL H 7-17 01/17/2017 10:01/17/2017 10: 46am Creatinine 2.1 MG/DL H 0.7-1.2 01/17/2017 10:01/17/2017 10:46am BUN/Creatinine Ratio 23 RATIO 6-26 01/17/2017 10:01/17/2017 10: 46am Glomerular Filtration Rate Calc 24 01/17/2017 10:01/17/2017 10 :46am Glucose Level 196 MG/DL H 65-110 01/17/2017 10:01/17/2017 10:46am Calculated Osmolality 278 MOSM/KG 261-280 01/17/2017 10:2016 10:46am Calcium Level 9.3 MG/DL 8.4-10.2 01/17/2017 10:01/17/2017 10:46am Phosphorus Level 4.1 MG/DL 2.5-4.5 01/17/2017 10:01/17/2017 10: 46am Albumin 3.9 G/DL 3.5-5.0 01/17/2017 10:am 01/17/2017 10:46am Iron Level 33 UG/DL L 37-170 01/17/2017 10:am 01/19/2017 1:55am Total Iron Binding Capacity 333 UG/DL 261-497 01/17/2017 10:am 2016 1:09am Percent Iron Saturation 10 % 9-55 01/17/2017 10:26am 01/19/2017 1:55am Ferritin 29.2 NG/ML 11-264 01/17/2017 10:am 01/19/2017 2:35am Vitamin B12 Level 554 PG/ML 239-931 01/17/2017 10:am 01/19/2017 2: 50am Transferrin 273 mg/dL 192-382 01/17/2017 10:am 01/17/2017 10:14pm Transferrin performed at [facility] [address] Clinical Informatics Physician Aliya Abreu, DO Procedures Procedure Status Date Provider(s) Polysom 6/>yrs cpap 4/> parm Completed 11/12/16 Extremity study Completed 12/25/16 Ther/proph/diag inj sc/im Completed 01/21/17 Ther/proph/diag inj sc/im Completed 01/21/17 Emergency dept visit Completed 01/21/17 [id number] ITEM OR SERVICE Completed 01/21/17 932807"INJECTION, METHYLPREDNISOLONE ACETATE, 40 MG" Completed 01/21/17 [id number]"INJECTION, DIPHENHYDRAMINE HCL, UP TO 50 MG" Completed 01/21/17 Encounters Encounter Location Arrival/Admit Date Discharge/Depart Date Attending Provider Registered Emergency Room [facility] 01/21/17 11:32am LIBAN YU MD Discharged Recurring [facility] 01/17/17 9:51am 01/17/17 10:49am KVNG POLLARD MD Registered Clinic [facility] 12/25/16 1:38pm MAYRA VALLEJO APRN Registered Clinic [facility] 11/12/16 10:00pm AIDEN WESTFALL MD Recent Diagnosis
--- OUTSIDE RECORDS SUMMARY | 2017-03-07 15:12 | XMS REPORT | Continuity of Care Document ---
Author Author [facility] Organization [facility] Address Unknown Phone Unavailable Allergies Active Description [...] R47.01 APHASIA 02/18/2016 Fredy Og DO Z79.4 HALF-WAY (CURRENT) USE OF INSULIN 02/18/2016 Fredy Og DO Z79.82 HALF-WAY (CURRENT) USE OF ASPIRIN 02/18/2016 rFedy Og DO Z87.891 PERSONAL HISTORY OF NICOTINE DEPENDENCE 02/18/2016 Fredy Og DO Z95.0 PRESENCE OF CARDIAC PACEMAKER Procedures Code Description [place] [id number] DIAGNOSTIC SIGMOIDOSCOPY Maximo Mann MD 10/28/2012 Results [...] Status Pt. Type Provider Facility Loc./Unit Complaint [id number] 10/28/2012 12:23:00 2012 17:28:00 DIS Outpatient Johnathan ARZOLA, Maximo Lopez [facility] on [address]
--- OUTSIDE RECORDS SUMMARY | 2017-03-07 15:12 | XMS REPORT | Continuity of Care Document ---
Author Author [facility] Organization [facility] Address Unknown Phone Unavailable Care Team Providers Care Bobbin Hauler Name Role Phone PREETI ESQUIVEL MD Primary Care Physician [phone] Insurance Providers Payer Name Policy Number Subscriber Name Relationship [facility] [id number] Kareen Hernández 18 Self Advance Directives Directive Response Recorded Date/Time Advanced Directives Type DPOA for Healthcare 05/17/14 10:22am Problems Medical Problems Problem Onset Date Status [facility] compl of cardiac pulse generator (battery), [...] U SQ DAILY 06/24/10 09/11/11 Discontinued Fish Oil/[place]-3 Fatty Acids 1 Cap PO TWICE A [...] 05/20/12 05/15/14 Discontinued Fentanyl 1 Patch TD [id number] 05/20/12 01/27/13 Discontinued Zolpidem Tartrate 10 Mg [...] F (96.8 - 99.1) Temperature (Calculated Celsius) 36.42055 degrees C (36.0 - 37.3) Pulse Rate [...] 27, 2013 9:22am LAB TEST FORM REQUEST [id number] - Levetiracetam (Keppra) Level August 27, 2013 8:43am 37.8 mcg/mL - Reference Range:12.0 - 46.0 Test Performed by: [address] [address] Um Rn: Sergio Fulton III, M.D. Levetiracetam performed at [facility], [address] [place] [address] Disease And Insect Control Boss MD Enoc Howard III July 02, 2009 [...] Has specimen been collected/obtained? Y Urine Specific [place] May 17, 2014 11:15am 1.010 L - [...] Encounters Encounter Location Date/Time Registered Emergency Room [facility] 05/17/14 10:19am Departed Clinic [facility] 05/15/14 1:18pm Recent Diagnosis
--- OUTSIDE RECORDS SUMMARY | 2017-03-07 15:13 | XMS REPORT | Continuity of Care Document ---
Author Author [facility] Organization [facility] Address Unknown Phone Unavailable Allergies [...] Z79.82 HALF-WAY (CURRENT) USE OF ASPIRIN 02/18/2016 Fredy Og DO Z87.891 PERSONAL HISTORY OF NICOTINE DEPENDENCE 02/18/2016 Fredy Og DO Z95.0 PRESENCE OF CARDIAC PACEMAKER Procedures Code Description [place] [id number] DIAGNOSTIC SIGMOIDOSCOPY Maximo Mann MD 10/28/2012 Results [...] Status Pt. Type Provider Facility Loc./Unit Complaint [id number] 10/28/2012 12:23:00 2012 17:28:00 DIS Outpatient Johnathan ARZOLA, Maximo Lopez [facility] on [address]
--- NOTE | 2017-03-07 15:15 | NUR ---
Admit Patient admitted to medical room 147. Patient alert and oriented, a little forgetful .Sign Designer is at bedside. Up with stand by assist and a walker. Patient is pale in color and weak. Can be inc of urine at times. Breathing comfortably on RA.
[2017-03-07 16:25] LABS: BLOOD, URINE NEGATIVE (NEGATIVE); COLOR,URINE YELLOW (YELLOW); LEUKOCYTE ESTERASE ,URINE NEGATIVE (NEGATIVE); NITRITE,URINE NEGATIVE (NEGATIVE); UROBILINOGEN,URINE 0.2 EU/DL (NORMAL)
[2017-03-07 16:59] LABS: HCT - HEMATOCRIT 27.5 % (36-46); HGB - HEMOGLOBIN 8.1 GM/DL (12-16); MEAN CORPUSCULAR HGB 30.2 UUG (26-34); MEAN CORPUSCULAR HGB CONC(MCHC 29.5 GM/DL (31-37); MEAN CORPUSCULAR VOLUME 102.6 UM3 (80-100); MEAN PLATELET VOLUME 10.1 UM3 (9.4-12.4); RED BLOOD COUNT 2.68 M/MM3 (4.00-5.20); WBC - WHITE BLOOD COUNT 5.4 T/MM3 (4.5-11.0)
[2017-03-07] MEDS ORDERED: FISH1CAP28 PO (16:59)
[2017-03-07] MEDS ORDERED: GABA300T25 PO (16:59)
[2017-03-07] MEDS ORDERED: HYDR-4072 PO (16:59)
[2017-03-07] MEDS ORDERED: IPRA3AMP AEROSOL (17:02)
[2017-03-07 17:04] LABS: ALBUMIN 3.9 G/DL (3.5-5.0); ALBUMIN/GLOBULIN RATIO 1.3 RATIO (1.1-2.2); ALKALINE PHOSPHATASE 98 U/L (38-126); ALT (SGPT) 40 U/L (9-52); ANION GAP 12 MEQ/L (5-15); AST (SGOT) 41 U/L (14-36); BUN/CREATININE RATIO 16 RATIO (6-26); CALCIUM 8.9 MG/DL (8.4-10.2); CHLORIDE 94 MEQ/L (98-107); CO2 - CARBON DIOXIDE 30 MEQ/L (22-30); CREATININE 2.5 MG/DL (0.7-1.2); GLOMERULAR FILTRATION RATE 19; GLUCOSE 91 MG/DL (65-110); MAGNESIUM 2.4 MG/DL (1.6-2.3); POTASSIUM 3.9 MEQ/L (3.6-5); SODIUM 136 MEQ/L (134-144); TOTAL PROTEIN 6.8 G/DL (6.3-8.2)
[2017-03-07] MEDS ORDERED: LEVO175T9 PO (17:07)
[2017-03-07] MEDS ORDERED: PREG100C PO (17:07)
[2017-03-07] MEDS ORDERED: LIDO35.4 TOP (17:07)
[2017-03-07] MEDS ORDERED: PRAM1.5T25 PO (17:11)
[2017-03-07] MEDS ORDERED: RANI150T7 PO (17:13)
[2017-03-07] MEDS ORDERED: NORMAL SALINE 500 ML IV SCH (17:18)
[2017-03-07 17:24] LABS: PHOSPHORUS 4.9 MG/DL (2.5-4.5)
[2017-03-07 17:27] LABS: ANISOCYTOSIS 1+; LYMPHOCYTES # (MANUAL) 1.5 T/MM3 (1-4.8); MONOCYTES # (MANUAL) 0.3 T/MM3 (0-0.8); NEUTROPHILS #(MANUAL)-ABSOLUTE 3.6 T/MM3 (1.8-7.7); TOTAL CELLS COUNTED 100 %
[2017-03-07] MEDS ORDERED: DiphenhydrAMINE 25 MG CAPSULE PO ONE (17:30)
[2017-03-07] MEDS ORDERED: ALBUTEROL/IPRATROPIUM INHAL. 2.5mg-0.5mg/3ml Neb. AEROSOL PRN (17:30)
[2017-03-07] MEDS ORDERED: DiphenhydrAMINE 25 MG CAPSULE PO PRN (17:30)
[2017-03-07 17:34] LABS: THYROID STIM HORMONE-TSH 3.34 MIU/L (0.47-4.68)
--- NOTE | 2017-03-07 17:40 | CONSPD ---
Consultation Info Date DATE: 03/07/17 TIME: 17:35 Date of Consultation: March 07, 2017 Attending Physician: Hospitalist team Reason for Consultation: Poor venous access HPI - Adult Date DATE: 03/07/17 TIME: 17:35 General History of Present Illness Per Dr. Valladares Past Medical History Past Medical History NIDDM Hypertension Hypercholesterolemia Hypothyroidism Seizure disorder Sick Sinus Syndrome Atrial Fibrillation Morbid obesity Anxiety Depression Restless leg syndrome CHF (2009) Renal failure syncope diverticulosis diabetic gastroparesis GI bleeding--uncertain etiology Abdominal wall cellulitis hyponatremia hypokalemia Surgical History Patient's Surgical History: Bilat TKA IM nailing right femur. left shoulder surgery x 2 Right shoulder surgery x 1 Cholecystectomy EGD Colonoscopy skin grafts for [place] to the right arm tubal ligation pacemaker Heart cath (Amirani) 07/13/14--65% EF. Coronaries patent. Current Medications Home Meds Reported Medications Ranitidine HCl (Ranitidine HCl) 150 Mg Tablet, 150 MG PO BID 03/07/17 Pramipexole Di-HCl (Pramipexole ER) 1.5 Mg Tab.er.24h, 1.5 MG PO HS 03/07/17 Pregabalin (Lyrica) 100 Mg Capsule, 100 MG PO MoTh 03/07/17 Lidocaine HCl (Lidocaine) 35 Applic/35.44 G Oint, 1 APPLIC TOP TID Y for PAIN 03/07/17 Levothyroxine Sodium (Levothyroxine Sodium) 175 Mcg Tablet, 262.5 MG PO Pollard 03/07/17 Ipratropium/Albuterol Sulfate (Iprat-Albut 0.5-3(2.5) mg/3 ml) 3 Ml Ampul.neb, 1 VIAL AEROSOL QID Y for PRN ORDERS 03/07/17 Hydrocodone/Acetaminophen (Hydrocodon-Acetaminoph 7.5-325) 7.5-325 Tablet, 1 TAB PO Q6H Y for PAIN 03/07/17 Gabapentin (Gralise) 300 Mg Tab.er.24h, 300 MG PO HS 03/07/17 [place]-3 Fatty Acids/Fish Oil ([place] 3 1,000 mg Softgel) 1 Each Capsule, 2 CAP PO BID 03/07/17 Diphenhydramine HCl (Benadryl) 25 Mg Capsule, 50 MG PO Q4H Y for PRN ORDERS 01/21/17 Calcitriol (Calcitriol) 0.25 Mcg Capsule, 0.25 MCG PO DAILY 01/21/17 Spironolactone (Spironolactone) 25 Mg Tablet, 25 MG PO MoTh 10/29/16 Metolazone (Metolazone) 2.5 Mg Tablet, 2.5 MG PO MoWeFr 10/29/16 Insulin Glargine,Hum.rec.anlog (Lantus Solostar) 1 Unit Pen, 48 UNIT SQ AMI 07/20/16 Acetazolamide (Acetazolamide) 250 Mg Tablet, 250 MG PO DAILY 07/19/16 Rivaroxaban (Xarelto) 20 Mg Tablet, 20 MG PO DAILY 06/24/16 Levothyroxine Sodium (Levothyroxine Sodium) 175 Mcg Tablet, 175 MCG PO MoTuWeThFrSa 06/24/16 Ferrous Sulfate (Ferrous Sulfate) 325 Mg Tablet, 325 MG PO BID 06/24/16 Amiodarone HCl (Amiodarone HCl) 200 Mg Tablet, 200 MG PO BID 06/24/16 Calcium Carbonate/Vitamin D3 (Calcium 600 + Vit D 200 Tablet) 1 Each Tablet, 1 TAB PO TID 03/19/16 Levetiracetam (Levetiracetam) 750 Mg Tablet, 750 MG PO BID 02/18/16 Bumetanide (Bumetanide) 2 Mg Tablet, 4 MG PO BID 07/05/15 Aspirin (Aspirin) 325 Mg Tablet, 325 MG PO DAILY 05/27/15 Docusate Sodium (Docusate Sodium) 100 Mg Tablet, 300 MG PO DAILY 04/06/15 Baclofen (Baclofen) 10 Mg Tablet, 10 MG PO HS 04/06/15 Potassium Chloride (Klor-Con M20) 20 Meq Tablet, 60 MEQ PO TID 11/11/14 Allergies: Coded Allergies: Estrogens (Verified Allergy, Mild, RASH, 01/21/17) morphine (Verified Allergy, Mild, RASH, 01/21/17) niacin (Verified Allergy, Mild, RASH, 01/21/17) amoxicillin (Verified Allergy, Unknown, RASH, 01/21/17) fentanyl (Verified Allergy, Unknown, rash, 01/21/17) Family History Family History: non-contributory Social History Does patient use chewing tobac: No Second Hand Exposure: No Substance Use Type: does not use Advance Directives: Yes DPOA for Healthcare Only (not sure) GS Review of Systems Ear, Nose, and Throat REPORTS hearing problems Cardiovascular REPORTS irregular heart beat (a-fib) Respiratory REPORTS difficulty breathing Musculoskeletal REPORTS joint pain, REPORTS muscle weakness Neurological REPORTS seizures (last one many years ago), REPORTS muscle weakness, REPORTS numbness, REPORTS other (headache) Psychiatric REPORTS anxiety, REPORTS depression Endocrine REPORTS diabetes, REPORTS thyroid problems Hematologic REPORTS easy bruising, REPORTS use of blood thinners 10-point Review of Systems otherwise negative except HPI GS Physical Exam Vital Signs Date Time Temp Pulse Resp B/P Pulse Ox O2 Delivery O2 Flow Rate FiO2 03/07/17 15:33 96.2 62 12 109/57 100 Room Air Height (Feet): 5 Height (Inches): 4.00 Weight (Kilograms): 123.900 BMI 46.9 Laboratory Laboratory Tests 03/07/17 16:04 Laboratory Tests 03/07/17 16:04 ROYA VAIL APRN March 07, 2017 17:39
[2017-03-07] MEDS ORDERED: BUPIVACAINE 0.25%/EPI 1:200,000 30ml SDV ONE (17:53)
--- NOTE | 2017-03-07 18:12 | NUR ---
Or Patient transferred to surgery for central line placement.
[2017-03-07] MEDS ORDERED: BISACODYL 10 MG SUPPOSITORY RECTALLY PRN (18:30)
[2017-03-07] MEDS ORDERED: ACETAMINOPHEN 325 MG TABLET PO PRN (18:30)
--- NOTE | 2017-03-07 18:33 | CONSF ---
DATE OF CONSULTATION March 07, 2017 FINDINGS Mrs. Rodgers is a 66-year-old female whom I was asked to see this evening as a result of her poor peripheral IV access. The patient was admitted today as a result of a component of "numbness" involving her left upper extremity as well as for further evaluation of her anemia. The nursing staff has attempted for several hours to obtain IV access. Apparently, this was also performed under ultrasound guidance and despite numerous attempts this has been to no avail. Hospitalist is requesting that a central line be placed so that the patient can receive intravenous medications and blood products. Patient this evening did not appear to be in acute distress. The patient does have numerous medical comorbidities. PAST MEDICAL HISTORY, PAST SURGICAL HISTORY, MEDICATIONS, ALLERGIES, SOCIAL HISTORY, FAMILY HISTORY, REVIEW OF SYSTEMS Performed by my nurse practitioner, Daren Kirkpatrick APRN. PHYSICAL EXAMINATION GENERAL: Mrs. Rodgers is a 66-year-old female who does appear older than her stated age. VITAL SIGNS: Temperature 96.2, pulse 62, respirations 12, blood pressure 109/57, SAO2 100% on room air. HEENT: Normocephalic. Pupils are equally round and react to light and accommodation. CHEST: Clear to auscultation bilaterally. HEART: Regular rate and rhythm. Normal S1 and S2 without gallops, murmurs or clicks. ABDOMEN: Palpation of the abdomen reveals it to be soft and nontender. I do not appreciate any evidence for hepatosplenomegaly nor abnormal masses. EXTREMITIES: Without clubbing, cyanosis, or edema. NEURO: Cranial nerves II-XII grossly intact. Patient is without focal motor or sensory deficits. LABORATORY/RADIOGRAPHIC EVALUATION The patient had a CBC upon admission and her hemoglobin is 8.1. CMP was obtained and found to be abnormal with her BUN being elevated at 41.0 and creatinine at 2.5. The patient does have known chronic renal insufficiency. Phosphorus is elevated at 4.9. Upon reviewing the patient's medications, she is on Xarelto. The patient informs me that she likely did take Xarelto earlier this morning. ASSESSMENT 66-year-old female with multiple medical comorbidities who presents with component of paresthesia involving left upper extremity, anemia. Poor peripheral IV access. PLAN I informed the patient that ideally I would prefer not to proceed with placement of a central line given the fact that she has been on anticoagulation. Hospitalists state that they really do need IV access in this patient. I informed the patient that I did feel there was increased risk of bleeding but that I felt it was indicated to proceed with placement of a right internal jugular triple-lumen catheter under sonographic guidance so that we could obtain IV access. I did discuss in detail with the patient what placement of a central line entailed and its associated risks which included but was not inclusive of bleeding, infection, as well as potential for hemopneumothorax. The patient understood and wished to proceed. NINA
--- NOTE | 2017-03-07 18:58 | GSPOSTPROC ---
Immediate Operative Note DATE: 03/07/17 TIME: 18:57 Postop Diagnosis: poor venous access Surgical Procedure: Other (Insertion of triple lumen central line through right internal jugular vein.) Surgeon: Jacquelyn Anesthesia: Local ROYA VAIL APRN March 07, 2017 18:58
--- NOTE | 2017-03-07 19:00 | NUR ---
return back to room from OR, ambulates to BR, then to bed. Denies dizziness as up. Triple lumen IJ in place, dressing dry and intact. Pt. interacts pleasantly and appropriately with staff
--- NOTE | 2017-03-07 19:23 | HPF ---
CHIEF COMPLAINT Left arm numbness - increasing weakness with recent hemoglobin of 7.5. HISTORY OF PRESENT ILLNESS Kareen Rodgers is a 66-year-old female who presents to clinic for evaluation of her left arm numbness. She awoke this morning noticing her left arm was numb. It has been numb throughout the day and just not getting better. She denies any other neurological changes. She typically sees Dr. Hitchcock. He is out of office today - she was seen by Dr. Weiner. While in the office Dr. Weiner reviewed records and a recent hemoglobin was found to be 7.5. She has been in the process of having her anemia evaluated by Dr. Swift and it sounds as if she is to have erythropoietin injections starting later this week. A few months ago she did have IV iron infusion. She does have stage IV kidney disease and anemia secondary. She has been noticing she is feeling much more sleepy and tired. She has a hard time staying awake. She is finding she gets more lightheaded and dizzy with positional changes. She feels her breathing has been fairly stable - reports struggling with bronchitis for the past couple of weeks but is starting to get better - still has some slight cough but no increasing shortness of breath or pain with breathing. At times she will still have a little bit of sputum production. While she denies chest pressure or heaviness , she does report to me she had an episode of chest pain about three weeks ago that was very short- lived - it was so short-lived she did not tell anybody about it. She does note palpitations at times (does have paroxysmal atrial fibrillation). She notes increased craving for ice. Appetite has been fairly stable. Bowels have been quite slow - it has been several days since she has had bowel movement. She does note she will pass blood rectally, but it does not sound like she is having any acute GI blood loss secondary to her significant constipation (blood tends to be a very good laxative). She has been feeling cold in general. She is supposed to use CPAP at night but is having troubles tolerating the machine. She also reports she had a paper about a better machine to get but she has lost this paper. Due to her significant anemia with reported hemoglobin decreased to 7.5, Dr. Chavarria was notified. We did feel it would be reasonable to place patient in outpatient observation for further evaluation. I do worry about the patient's ability to build up her blood counts. With her stage IV kidney disease this will make improvement of hemoglobin on her own quite challenging. On top of this is her current use of anticoagulants - aspirin and Xarelto. At the current time with her anemia, these need to be placed on hold until we can get her hemoglobin stabilized. Arrangements were made for outpatient observation for further evaluation and treatment. PAST MEDICAL HISTORY Chronic diastolic heart failure. Paroxysmal atrial fibrillation with history of cardioversion in 2014. Hypertension. Dyslipidemia. Sick sinus syndrome with history of pacemaker placement. Iatrogenic coagulopathy with Xarelto and aspirin. Type 2 diabetes mellitus - insulin-requiring. Chronic lymphedema/venous insufficiency. Obstructive sleep apnea - the patient is supposed to use CPAP. Hypothyroidism. Stage IV chronic kidney disease. Anemia secondary to chronic kidney disease. GERD. Chronic insomnia. Restless leg syndrome. History of seizure disorder. Anxiety/depression. Osteoarthritis. Chronic back pain. Osteoporosis. Colonic diverticulosis. Chronic constipation. History of TVA on colonoscopy November 10, 2014. Gait instability - patient uses a walker for assistance. Morbid obesity. History of bilateral knee surgery. History of left shoulder surgery x 2. History of right shoulder surgery x 1. History of cholecystectomy. History of EGD with biopsy. History of colonoscopies. History of tubal ligation. History of pacemaker placement. History of right carpal tunnel release. ALLERGIES Estrogen. Amoxicillin. Fentanyl. Morphine sulfate. Niacin. MEDICATIONS Diamox 250 mg daily. Amiodarone 200 mg b.i.d. Aspirin 325 mg daily. Baclofen 10 mg q.h.s. Bumex 4 mg b.i.d. Calcitriol 0.25 mcg daily. Calcium with vitamin D 600/200 t.i.d. Benadryl 25 mg q.4h. p.r.n. Colace 300 mg daily. Ferrous sulfate 325 mg b.i.d. Neurontin 300 mg q.h.s. [place] 7.5/325 one q.6h. p.r.n. Lantus 48 units subcu in a.m. DuoNeb nebulized treatments q.i.d. p.r.n. Keppra 750 mg b.i.d. Synthroid 0.175 mg daily with the exception of 262.5 mg on Sunday. Lidocaine topically t.i.d. p.r.n. Metolazone 2.5 mg on Sunday, Sunday, Sunday. Fish oil 2000 mg b.i.d. Potassium 60 mEq t.i.d. Pramipexole ER 1.5 mg q.h.s. Lyrica 100 mg on Sunday and . Ranitidine 150 mg b.i.d. Xarelto 20 mg daily. Spironolactone 25 mg on Sunday and . SOCIAL HISTORY The patient is a female who resides independently in [place], [place]. She has a history of smoking but quit greater than 30 years ago. She does not use alcohol. She is of the [employer] true and background. She does have [facility] provide home health care - she has someone out with her on Sunday, Sunday, Sunday and Sunday. She sees Dr. Hitchcock for primary care, Dr. Spicer for cardiac care, Dr. Swift for renal care. FAMILY HISTORY Father of complications of leukemia. Brother at age 60 - had emphysema and diabetes. REVIEW OF SYSTEMS As above. GENERAL: Notes increased fatigue and tiredness. She has been feeling chilled recently. HEENT: Notes headache in the frontal region. Notes sinus congestion off and on. Occasionally she will have double vision if she reads for long periods of time. Hearing has been stable. Denies mouth pain. RESPIRATORY: Notes occasional cough and congestion. Denies pain with breathing. CARDIOVASCULAR: Notes intermittent palpitations. Does note chronic lower extremity edema, increased today. The patient reports she avoids sodium. GI: Denies nausea or vomiting. She is chronically constipated - no recent loose stools or diarrhea. Does note some mild diffuse abdominal pain. : Denies urinary pain or discomfort. NEUROLOGIC: Notes left arm numbness onset this morning. Denies other localizing symptoms. PSYCHIATRIC:: Notes significant stress secondary to her chronic medical condition. MUSCULOSKELETAL: Notes increasing low back pain, making and ambulation problematic. SKIN: Denies rash or lesions. Does note easy bruising but has not had bleeding. Remainder of 10 point ROS negative. PHYSICAL EXAMINATION VITAL SIGNS: Height 64 inches, weight 123.9 kg. BMI 46.9. Temperature 96.2, pulse 62/regular, respiratory rate 12/unlabored. Blood pressure 109/57. 100% room air saturation. GENERAL: Well-developed, well-nourished, female who is awake and alert. HEENT: NC/AT. JESSICA. EOMI. Mucous membranes moist. NECK: Supple, midline and without nuchal rigidity. LUNGS: Clear to auscultation bilaterally. I am not appreciating crackles or wheeze. She breathes comfortably on room air without distress. CARDIOVASCULAR: Regular rate and rhythm. ABDOMEN: Soft, obese, nontender, nondistended. Bowel sounds are hypoactive. EXTREMITIES: No clubbing or cyanosis. +2 to 3 bilateral lower extremity edema is present. NEUROLOGIC: Patient is awake and alert. Cranial nerves II-XII appear grossly intact. I am not appreciating focal motor deficits. PSYCHIATRIC: Patient is awake and alert. Her thoughts are linear. Her affect does decrease somewhat as she converses about her chronic health issues. SKIN: Warm and dry. MUSCULOSKELETAL: I am not appreciating decreased range of motion of her upper extremities. LABORATORY White blood count is 5.4 with hemoglobin 8.1, hematocrit 27.5, MCV 102.6 and platelets 249,000. Serum sodium is 136, potassium 3.9, chloride 94, CO2 30, BUN 41 with creatinine 2.5, GFR 19 and blood glucose 91. Phosphorus is elevated at 4.9 with magnesium elevated at 4.5. AST is slightly elevated at 41 with ALT normal at 40. Total bilirubin is 0.6. TSH normal at 3.34. Of note , homolysis is noted on specimen which could be elevating her already low normal potassium. UA is remarkable only for low specific gravity of 1.010. ASSESSMENT 1. Symptomatic anemia. The patient's hemoglobin has had significant decline in reviewing previous laboratory performed at [facility]. In October of this year it was 9.5 and at the end of December was 9.3. This has occurred despite initiation of IV iron. Compounding her anemia is her chronic anticoagulation use with Xarelto and aspirin. 2. Left arm numbness - suspect peripheral nerve irritation from positional changes with sleep. 3. Chronic diastolic heart failure - compensated currently. 4. Paroxysmal atrial fibrillation - heart rate sounding regular at this time. 5. Coagulopathy with Xarelto and aspirin. 6. Poor peripheral IV access. 7. Hypertension. 8. Type 2 diabetes mellitus - insulin requiring. 9. Obstructive sleep apnea - patient having difficulty tolerating CPAP. 10. Hyperlipidemia. 11. Stage IV chronic kidney disease. 12. Anemia secondary to chronic kidney disease with decline in hemoglobin noted as above. 13. GERD. 14. Restless leg syndrome. 15. Chronic insomnia. 16. Seizure disorder. 17. Depression/anxiety. 18. Osteoarthritis. 19. Chronic back pain. 20. Gait instability. 21. Chronic constipation. 22. Morbid obesity with BMI 46.9. PLAN 1. Will place patient in outpatient observation status at [facility] under the care of Dr. Chavarria. 2. Hold Xarelto and aspirin secondary to significant decline in hemoglobin. At this time I feel risks of continued anticoagulation outweigh potential benefits. 3. Will transfuse 1 unit of packed red cells. I do feel this is prudent given her underlying cardiac disease coupled with stage IV CKD and the likelihood of the patient's ability to improve her hemoglobin on her own would be a very slow process. 4. IV access has been attempted on multiple times by nursing staff. They did try peripheral with ultrasound. They were unable to obtain access. I did discuss case with Dr. Valladares and will place consult for central line placement. Concern about central line placement as patient is anticoagulated. We do both feel benefits of obtaining good IV access outweigh risks. This was discussed with the patient and she concurs. 5. Home medications will be continued with the exception of holding Xarelto and aspirin. 6. Monitor blood sugars. 6. Monitor telemetry. 7. Initiate SCDs to help with DVT prevention as well as to minimize lower extremity edema. 8. Will need to monitor blood counts and electrolytes as well as renal status closely. 9. Discussed code status with patient. She requests NO RESUCITATION. Order for DNR is written. 10. Patient's care will be returned to Dr. Hitchcock at time of discharge from [facility]. . NINA
--- NOTE | 2017-03-07 20:00 | NUR ---
PRBC unit initiated through IJ line, site with good blood return
[2017-03-07] MEDS: POTASSIUM CHLORIDE 20 MEQ TABLET PO SCH (20:47)
[2017-03-07] MEDS: POLYETHYL.GLYCOL 3350 BOTTLE 238 GM PO SCH (21:14)
[2017-03-07] MEDS: RANITIDINE 150 MG TABLET PO SCH (21:16)
[2017-03-07] MEDS: BUMETANIDE 1 MG TABLET PO SCH (21:16)
[2017-03-07] MEDS: BACLOFEN 10 MG TABLET PO SCH (21:16)
[2017-03-07] MEDS: OMEGA-3 ACID ESTERS 1 G CAPSULE PO SCH (21:17)
[2017-03-07] MEDS: GABAPENTIN 300 MG CAPSULE PO SCH (21:17)
[2017-03-07] MEDS: LEVETIRACETAM 500 MG TABLET PO SCH (21:17)
[2017-03-07] MEDS: AMIODARONE 200 MG TABLET PO SCH (21:17)
[2017-03-07] MEDS: PRAMIPEXOLE 1 MG TABLET PO SCH (21:17)
[2017-03-07] MEDS: SENNA + DOCUSATE TAB PO SCH (21:18)
--- NOTE | 2017-03-07 22:15 | NUR ---
unit 1 complete without sign of transfusion reaction. IJ site without bleeding or swelling at site. Ice pack over insertion site area
--- NOTE | 2017-03-08 04:30 | NUR ---
IV 3 cm area around IJ insertion site is reddened, slight swelling at site. Brisk blood return for lab draw, flushes easily through distal port
[2017-03-08 04:55] LABS: BASOPHILS % (AUTO) 0.6 % (0-2); EOSINOPHILS # (AUTO) 0.1 T/MM3 (0-0.5); EOSINOPHILS % (AUTO) 1.3 % (0-4); HCT - HEMATOCRIT 26.2 % (36-46); HGB - HEMOGLOBIN 8.2 GM/DL (12-16); IMMATURE GRANULOCYTE # (AUTO) 0.01 T/MM3 (0.00-0.03); IMMATURE GRANULOCYTE % (AUTO) 0.2 % (0.0-0.5); LYMPHOCYTES # (AUTO) 1.3 T/MM3 (1-4.8); LYMPHOCYTES % (AUTO) 23.9 % (23-45); MEAN CORPUSCULAR HGB 30.4 UUG (26-34); MEAN CORPUSCULAR HGB CONC(MCHC 31.3 GM/DL (31-37); MEAN PLATELET VOLUME 9.5 UM3 (9.4-12.4); MONOCYTES # (AUTO) 0.5 T/MM3 (0-0.8); MONOCYTES % (AUTO) 9.4 % (0-9.0); NEUTROPHILS #(AUTO)-ABSOLUTE 3.5 T/MM3 (1.8-7.7); NEUTROPHILS % (AUTO) 64.6 % (33-66); WBC - WHITE BLOOD COUNT 5.4 T/MM3 (4.5-11.0)
--- NOTE | 2017-03-08 05:09 | NUR ---
rest sleeps restfully for last several hours, resp. unlabored at rest
[2017-03-08 05:44] LABS: ANION GAP 11 MEQ/L (5-15); BUN/CREATININE RATIO 17 RATIO (6-26); CHLORIDE 93 MEQ/L (98-107); CO2 - CARBON DIOXIDE 31 MEQ/L (22-30); CREATININE 2.5 MG/DL (0.7-1.2); GLOMERULAR FILTRATION RATE 19; GLUCOSE 107 MG/DL (65-110); POTASSIUM 3.3 MEQ/L (3.6-5); SODIUM 135 MEQ/L (134-144)
[2017-03-08] MEDS: LEVOTHYROXINE 175 MCG TABLET PO SCH (06:06)
[2017-03-08 07:47] VITALS: BP 140/68; PULSE 100; RESP 16; TEMP 95.9; O2SAT 99
[2017-03-08 08:00] VITALS: PULSE 100; RESP 16
--- NOTE | 2017-03-08 08:00 | NUR ---
RECEIVED REPORT PATIENT IS ALERT AND ORIENTED. DENIES PAIN OR ANY OTHER CONCERNS THIS MORNING. PATIENT HAS SEVERAL CONCERNS OVER HER POSITIVE OCCULT BLOOD. PATIENT GETS VERY ANXIOUS. WORRIES SHE MAY NOT STOP LOSING BLOOD. DR. BELL WILL ADDRESS PATIENT CONCERNS.
[2017-03-08] MEDS: OMEGA-3 ACID ESTERS 1 G CAPSULE PO SCH ×2 (08:15→20:03)
[2017-03-08] MEDS: acetaZOLAMIDE 250 MG TABLET PO SCH (08:15)
[2017-03-08] MEDS: AMIODARONE 200 MG TABLET PO SCH ×2 (08:15→20:03)
[2017-03-08] MEDS: SENNA + DOCUSATE TAB PO SCH ×2 (08:15→20:04)
[2017-03-08] MEDS: CALCITRIOL 0.25 MCG CAPSULE PO SCH (08:16)
[2017-03-08] MEDS: LEVETIRACETAM 500 MG TABLET PO SCH ×2 (08:16→20:03)
[2017-03-08] MEDS: RANITIDINE 150 MG TABLET PO SCH ×2 (08:16→20:03)
[2017-03-08] MEDS: BUMETANIDE 1 MG TABLET PO SCH ×2 (08:17→18:11)
[2017-03-08] MEDS: FERROUS SULFATE 324 MG TABLET PO SCH ×2 (08:17→18:10)
[2017-03-08] MEDS: INSULIN GLARGINE 100 UNIT/ML SQ SCH (08:26)
[2017-03-08] MEDS: POTASSIUM CHLORIDE 20 MEQ TABLET PO SCH ×3 (08:26→18:17)
[2017-03-08] MEDS: DOCUSATE SODIUM 100 MG CAPSULE PO SCH (08:26)
[2017-03-08] MEDS: POLYETHYL.GLYCOL 3350 BOTTLE 238 GM PO SCH (08:27)
[2017-03-08] MEDS: ASCORBIC ACID 500 MG TABLET PO SCH ×2 (08:28→18:15)
--- NOTE | 2017-03-08 08:40 | DI ---
Indication: ITS.REASON: CENTRAL LINE INSERTION VERIFICATION PROCEDURE: CHEST POST PROCEDURE 1 VIEW: Encounter: Initial Comparison: October 29, 2016 Findings: New right internal jugular approach central venous catheter with the tip projecting over the mid SVC. Other support devices are stable. The lungs are stable in appearance without new focal airspace consolidation. There is no pleural effusion or pneumothorax. The heart size, pulmonary vascularity and mediastinal contours are unchanged. IMPRESSION: New right IJ central venous line as above. .
[2017-03-08] MEDS ORDERED: SPIRONOLACTONE 25 MG TABLET PO SCH (09:00)
--- NOTE | 2017-03-08 09:28 | OPNOTEF ---
DATE OF PROCEDURE 03/07/2017 PREOPERATIVE DIAGNOSIS Poor peripheral venous access. POSTOPERATIVE DIAGNOSIS Poor peripheral venous access. PROCEDURE Insertion of right internal jugular triple-lumen catheter under sonographic guidance. ANESTHESIA Local BRIEF HISTORY/INDICATIONS Mrs. Rodgers is a 66-year-old female I was asked to see this evening by the hospitalist system for placement of a central line. The patient was admitted secondary to her anemia and "numbness" involving her left upper extremity. Nursing staff had worked for several hours on obtaining a peripheral IV access. This unfortunately, however, was to no avail. The patient is on Pradaxa which does increase her risk of bleeding. Nonetheless, as a result of the above indications it was recommended to the patient she undergo placement of a triple-lumen catheter under sonographic guidance. For completeness please refer to consult note. DESCRIPTION OF PROCEDURE After informed consent was obtained, the patient was brought to the operative suite and placed on the table in supine fashion. Right lateral neck was then prepped and draped in sterile fashion. Formal time-out was then completed. Ultrasonography was then performed and the anatomic location of the internal jugular vein was ascertained. 1% lidocaine was injected overlying the internal jugular vein. A Cook needle was then introduced through the area of analgesia and into the underlying internal jugular vein under sonographic guidance. A venous flush was obtained. Guidewire was then advanced with the Cook needle the Cook needle was removed. A 5-6 mm incision was then made adjacent to the exit site of the guidewire. Next, a dilator was then advanced over the guidewire. Dilator was then removed and a flushed triple-lumen catheter was advanced over the guidewire. Guidewire was then removed. All ports were then aspirated and flushed with heparinized saline. Catheter was then secured to the right lateral neck with 2-0 silk. Sterile dressing was then applied. The patient is in the process of obtaining a postprocedure chest x-ray. [facility]
--- NOTE | 2017-03-08 11:24 | NUR ---
Diet recommendation Current diet: CC 2000; CKDIV, CHF in conjunction with DM2 RD recommendation: Cardiac CC 2000 OR [id number] and & 2 g [employer] meets daily estimated needs. RD spoke to RN about diet change, will speak with
[2017-03-08] MEDS ORDERED: NORMAL SALINE 500 ML IV SCH ×2 (11:47→12:06)
[2017-03-08] MEDS ORDERED: DiphenhydrAMINE 25 MG CAPSULE PO ONE (12:00)
--- NOTE | 2017-03-08 12:06 | NUR ---
CM CM IN TO VISIT WITH PT. CM EXPLAINED ROLE TO PT AND PROVIDED CONTACT INFORMATION. PT USES [facility] AND PLANS TO RETURN WITH THEIR ASSISTANCE. PT AWARE TO CALL CM SHOULD NEEDS ARISE.
--- NOTE | 2017-03-08 12:15 | NUR ---
SOO VANN NOTIFIED ADAM WITH [facility] AT [phone] THAT PT WAS ADMITTED TO [facility] [place] [place]. ADAM IS AWARE TO CONTACT SOO SHOULD NEEDS ARISE.
--- NOTE | 2017-03-08 12:25 | PNPDOC ---
Subjective Date DATE: 03/08/17 TIME: 11:55 Subjective F/U: Symptomatic anemia Little change from yesterday. Still feels tired and weak. Left arm less numb. Breathing stable. No chest pain. Appetite decreased-no nausea or ab pain, but stomach just doesn't feel right. Did have bowel movement. No f/c. Objective Vital Signs Vital signs Vital Signs Date Time Temp Pulse Resp B/P Pulse Ox O2 Delivery O2 Flow Rate FiO2 03/08/17 08:00 100 16 03/08/17 07:47 95.9 140/68 99 Room Air 03/07/17 21:01 2.00 Height (Feet): 5 Height (Inches): 4.00 Weight (Kilograms): 124.700 General General Appearance: Alert, Obese, Orientated x 3, Well Nourished, Well Developed, Looks Stated Age Eyes (Brief) Eyes: FOUND: EOMI, PERRL, NOT FOUND: scleral icterus ENMT (Brief) ENMT: FOUND: hearing intact, mucosa moist Neck (Brief) Neck: FOUND: midline, NOT FOUND: nuchal rigidity, spasm Respiratory (Brief) Respiratory: FOUND: clear all valle, equal bilaterally, NOT FOUND: rales, wheezes Cardiovascular (Brief) Cardiac: FOUND: pedal edema (+3 ), regular rate, regular rhythm Abdomen (Brief) Abdominal: FOUND: BS normo active x4, soft, NOT FOUND: distended, tender Extremities (Brief) Extremity : Side: Bilateral Extremity: leg Extremity Finding: FOUND: edema (+3 ), other (SCD ) Musculoskeletal (Brief) Musculoskeletal: FOUND: extremities move equally, NOT FOUND: deformity, spasm, tenderness Integumentary (Brief) Integumentary: FOUND: dry, warm Neurologic (Brief) Neurological: FOUND: cranial 2-12 intact, motor (intact ) Psychiatric (Brief) Psychiatric: FOUND: alert, attentive, normal affect Laboratory Laboratory Laboratory Tests 03/07/17 16:04 03/08/17 04:44 Laboratory Tests 03/07/17 16:04 03/07/17 23:42 03/08/17 04:44 Assessment & Plan Problems: (1) Anemia Status: Acute Qualifiers: Other causes of anemia: chronic disease, kidney Assessment & Plan: Due to CKD - concern for possible blood loss due to anticoagulant use. (2) Diastolic heart failure Status: Chronic Qualifiers: Heart failure chronicity: chronic Qualified Codes: I50.32 - Chronic diastolic (congestive) heart failure (3) Arm paresthesia, left Status: Acute Assessment & Plan: Peripheral nerve irritation. (4) Stage 4 chronic kidney disease Status: Chronic (5) Atrial fibrillation Status: Chronic Qualifiers: Atrial fibrillation type: paroxysmal Qualified Codes: I48.0 - Paroxysmal atrial fibrillation (6) Hypertension Status: Chronic Qualifiers: Hypertension type: essential hypertension Qualified Codes: I10 - Essential (primary) hypertension (7) Hypercholesteremia Status: Chronic (8) Sick sinus syndrome Status: Chronic Assessment & Plan: Hx pacemaker placement. (9) Type II diabetes mellitus Qualifiers: Diabetes mellitus complication status: with kidney complications Diabetes mellitus termite control servicer insulin use: with custodial use Chronic kidney disease stage: stage 4 (severe) (10) Hypothyroidism Status: Chronic Qualifiers: Hypothyroidism type: acquired Qualified Codes: E03.9 - Hypothyroidism, unspecified (11) GARY (obstructive sleep apnea) (12) Restless legs syndrome (13) Insomnia (14) Depression Status: Chronic (15) Anxiety Status: Chronic (16) Seizure disorder Status: Chronic (17) Hypokalemia Status: Acute Assessment & Plan: Not POA (18) Morbid obesity Status: Chronic Qualifiers: Obesity type: due to excess calories Qualified Codes: E66.01 - Morbid ( severe) obesity due to excess calories Plan/Intensity of Service As HBG essentially unchanged after 1 unit of pRBC in patient on anticoagulation with decreased ability to make hemoglobin due to her CKD, will change admission status to inpatient - anticipate greater than 2 midnights of care needed. Transfuse 1 unit pRBC as HGB still decreased and pt with underlying CV disease. Continue to hold anticoagulants. Monitor for blood loss - occult stool positive, but pt not appearing to be having significant active GI bleeding. Likely positive blood in stool from local irritation of colon due to hard stool, with bleeding from anticoagulants. Will continue to monitor electrolytes and renal status. Case discussed with CM. Time spent with pt care 35 minutes. DVT Prophylaxis: SCD'S Code Status Do Not Resuscitate Hospital Course Summary Disclaimer The hospital course summary below is not to be considered part of the above Progress Note. Hospital Course Summary 03/07/[address] patient in outpatient observation status at [facility] under the care of Dr. Chavarria. Hold Xarelto and aspirin secondary to significant decline in hemoglobin. At this time I feel risks of continued anticoagulation outweigh potential benefits. Will transfuse 1 unit of packed red cells. I do feel this is prudent given her underlying cardiac disease coupled with stage IV CKD and the likelihood of the patient's ability to improve her hemoglobin on her own would be a very slow process. IV access has been attempted on multiple times by nursing staff. They did try peripheral with ultrasound. They were unable to obtain access. I did discuss case with Dr. Valladares and will place consult for central line placement. Concern about central line placement as patient is anticoagulated. We do both feel benefits of obtaining good IV access outweigh risks. This was discussed with the patient and she concurs. Home medications will be continued with the exception of holding Xarelto and aspirin. Monitor blood sugars. Monitor telemetry. Initiate SCDs to help with DVT prevention as well as to minimize lower extremity edema. Will need to monitor blood counts and electrolytes as well as renal status closely. Discussed code status with patient. She requests NO RESUCITATION. Order for DNR is written. Patient's care will be returned to Dr. Hitchcock at time of discharge from [facility]. 03/08 Little change from yesterday. Still feels tired and weak. Left arm less numb. Breathing stable. No chest pain. Appetite decreased-no nausea or ab pain, but stomach just doesn't feel right. Did have bowel movement. No f/c. HGB increased to only 8.2 today post transfusion yesterday. As HBG essentially unchanged after 1 unit of pRBC in patient on anticoagulation with decreased ability to make hemoglobin due to her CKD, will change admission status to inpatient - anticipate greater than 2 midnights of care needed. Transfuse 1 unit pRBC as HGB still decreased and pt with underlying CV disease. Continue to hold anticoagulants. Monitor for blood loss - occult stool positive, but pt not appearing to be having significant active GI bleeding. Likely positive blood in stool from local irritation of colon due to hard stool, with bleeding from anticoagulants. Will continue to monitor electrolytes and renal status. BERNARDA CHAVARRIA MD March 08, 2017 12:00
--- NOTE | 2017-03-08 13:00 | NUR ---
BLOOD TRANSFUSION DR. OLIVO AT PATIENT'S BEDSIDE. ADDRESSES PATIENT CONCERNS. BLOOD TRANSFUSION IN ORDERED.
--- NOTE | 2017-03-08 13:55 | NUR ---
BBK #1 pt is to receive 1 unit of PRBC. baseline vitals were taken and entered. transfusing at a rate of 60mls/hr. will continue to monitor pt.
--- NOTE | 2017-03-08 14:10 | NUR ---
BBK #1 first 15 minutes have passed. vitals taken and entered. rate changed to 120mls/hr. pt tolerating well. will continue to monitor pt.
[2017-03-08 16:39] VITALS: BP 99/58; PULSE 65; RESP 18; TEMP 96.9; O2SAT 99
--- NOTE | 2017-03-08 16:45 | NUR ---
TRANSFUSION IN COMPLETED POST TRANSFUSION HBG IS 9.8. NO REACTIONS NOTED AT THIS TIME. PATIENT IS NOTIFIED OF NEW HGB LEVEL.
[2017-03-08 16:49] LABS: HGB - HEMOGLOBIN 9.8 GM/DL (12-16)
--- NOTE | 2017-03-08 18:57 | NUR ---
STATUS PATIENT IS NOW RESTING IN BED IN NO APPARENT DISTRESS. PATIENT AMBULATED TO THE BATHROOM WITH SUPERVISION ALL DAY. NOTED STABLE GAIN.
[2017-03-08 20:00] VITALS: BP 113/65; PULSE 60
[2017-03-08] MEDS: PRAMIPEXOLE 1 MG TABLET PO SCH (20:04)
[2017-03-08] MEDS: BACLOFEN 10 MG TABLET PO SCH (20:04)
[2017-03-08] MEDS: GABAPENTIN 300 MG CAPSULE PO SCH (20:04)
[2017-03-09 00:10] VITALS: BP 128/66; PULSE 75; RESP 18; TEMP 97.5; O2SAT 95
--- NOTE | 2017-03-09 01:22 | NUR ---
FINGER NUMBNESS: PT STATES LEFT HAND FINGERS (THUMB, POINT, MIDDLE) ARE GOING NUMB AGAIN; 5 MINUTES LATER PT STATES NUMBNESS GOING UP ARM ON THE OUTSIDE. SHE IS CONCERNED. PT CAN MOVE FINGERS; NO PAIN. NOTIFIED CHARGE NURSE SHOLA. SENT TIGER TEXT; REC'D CALL BACK FROM DR. MENENDEZ. DOCTOR WANTS ME TO ENCOURAGE PT TO MOVE HER FINGERS. RELAYED MESSAGE TO PT. WILL CONTINUE TO MONITOR.
--- NOTE | 2017-03-09 04:28 | NUR ---
SHIFT SUMMARY: PT IS A&OX3, FRIENDLY AND COOPERATIVE, UP WITH WALKER TO BATHROOM, ON ROOM AIR, IV LOCKED, BGM (AC, HS), PACEMAKER, ON TELEMETRY, AND Q8 VITALS. PT COMPLAINED OF FINGER/ARM NUMBNESS (SEE PREVIOUS NURSE NOTE). CALL LIGHT WITHIN REACH, BED ALARM ON.
[2017-03-09 05:34] LABS: BASOPHILS % (AUTO) 0.4 % (0-2); EOSINOPHILS # (AUTO) 0.1 T/MM3 (0-0.5); EOSINOPHILS % (AUTO) 1.9 % (0-4); HCT - HEMATOCRIT 29.6 % (36-46); HGB - HEMOGLOBIN 9.5 GM/DL (12-16); IMMATURE GRANULOCYTE # (AUTO) 0.01 T/MM3 (0.00-0.03); IMMATURE GRANULOCYTE % (AUTO) 0.2 % (0.0-0.5); LYMPHOCYTES # (AUTO) 1.4 T/MM3 (1-4.8); LYMPHOCYTES % (AUTO) 25.5 % (23-45); MEAN CORPUSCULAR HGB 30.7 UUG (26-34); MEAN CORPUSCULAR HGB CONC(MCHC 32.1 GM/DL (31-37); MEAN CORPUSCULAR VOLUME 95.8 UM3 (80-100); MONOCYTES # (AUTO) 0.5 T/MM3 (0-0.8); MONOCYTES % (AUTO) 9.7 % (0-9.0); NEUTROPHILS #(AUTO)-ABSOLUTE 3.3 T/MM3 (1.8-7.7); NEUTROPHILS % (AUTO) 62.3 % (33-66); RED BLOOD COUNT 3.09 M/MM3 (4.00-5.20); WBC - WHITE BLOOD COUNT 5.3 T/MM3 (4.5-11.0)
[2017-03-09] MEDS: LEVOTHYROXINE 175 MCG TABLET PO SCH (05:36)
[2017-03-09 05:37] LABS: ANION GAP 11 MEQ/L (5-15); BUN/CREATININE RATIO 17 RATIO (6-26); CALCIUM 9.2 MG/DL (8.4-10.2); CHLORIDE 91 MEQ/L (98-107); CO2 - CARBON DIOXIDE 33 MEQ/L (22-30); CREATININE 2.5 MG/DL (0.7-1.2); GLOMERULAR FILTRATION RATE 19; GLUCOSE 95 MG/DL (65-110); MAGNESIUM 2.4 MG/DL (1.6-2.3); PHOSPHORUS 5.4 MG/DL (2.5-4.5); POTASSIUM 3.5 MEQ/L (3.6-5); SODIUM 135 MEQ/L (134-144)
[2017-03-09 06:28] VITALS: BP 116/57; PULSE 62; RESP 12; TEMP 96.9; O2SAT 94
[2017-03-09] MEDS: INSULIN GLARGINE 100 UNIT/ML SQ SCH (07:54)
[2017-03-09] MEDS: LEVETIRACETAM 500 MG TABLET PO SCH ×2 (07:54→20:15)
[2017-03-09] MEDS: BUMETANIDE 1 MG TABLET PO SCH ×2 (07:54→17:08)
[2017-03-09] MEDS: acetaZOLAMIDE 250 MG TABLET PO SCH (07:55)
[2017-03-09] MEDS: DOCUSATE SODIUM 100 MG CAPSULE PO SCH (07:55)
[2017-03-09] MEDS: ASCORBIC ACID 500 MG TABLET PO SCH ×2 (07:55→17:08)
[2017-03-09] MEDS: FERROUS SULFATE 324 MG TABLET PO SCH ×2 (07:55→17:08)
[2017-03-09] MEDS: POTASSIUM CHLORIDE 20 MEQ TABLET PO SCH ×3 (07:56→17:09)
[2017-03-09] MEDS: CALCITRIOL 0.25 MCG CAPSULE PO SCH (07:56)
[2017-03-09] MEDS: RANITIDINE 150 MG TABLET PO SCH ×2 (07:57→20:17)
[2017-03-09] MEDS: OMEGA-3 ACID ESTERS 1 G CAPSULE PO SCH ×2 (07:57→20:16)
[2017-03-09] MEDS: AMIODARONE 200 MG TABLET PO SCH ×2 (07:57→20:16)
[2017-03-09] MEDS: SENNA + DOCUSATE TAB PO SCH ×2 (07:57→20:16)
[2017-03-09] MEDS: POLYETHYL.GLYCOL 3350 BOTTLE 238 GM PO SCH (07:58)
[2017-03-09] MEDS ORDERED: DARBEPOETIN ALFA 100 MCG/0.5 ML SQ ONE (08:00)
[2017-03-09] MEDS ORDERED: METOLAZONE 5 MG TABLET PO SCH (09:00)
--- NOTE | 2017-03-09 13:19 | PNPDOC ---
Subjective Date DATE: 03/09/17 TIME: 13:09 Subjective F/U: Symptomatic anemia Feeling better today-not as tired/fatigued as prior to admission. Breathing well. No chest pain. Stools moving-not loose or urgent. Brown stools-not bloody per nursing report. Did work with therapy today-hopefully will have some strengthening activities she can do at home. Hemoglobin did move up to 9.5 this morning. Objective Vital Signs Vital signs Vital Signs Date Time Temp Pulse Resp B/P Pulse Ox O2 Delivery O2 Flow Rate FiO2 03/09/17 08:07 Room Air 03/09/17 06:28 96.9 62 12 116/57 94 03/07/17 21:01 2.00 Height (Feet): 5 Height (Inches): 4.00 Weight (Kilograms): 123.800 General General Appearance: Alert, Obese, Orientated x 3, Well Nourished, Well Developed, Cooperative, Looks Stated Age Eyes (Brief) Eyes: FOUND: EOMI, PERRL, NOT FOUND: scleral icterus ENMT (Brief) ENMT: FOUND: hearing intact, mucosa moist Neck (Brief) Neck: FOUND: midline, other (IJ cath in right neck. ), NOT FOUND: nuchal rigidity, spasm Respiratory (Brief) Respiratory: FOUND: clear all valle, equal bilaterally, NOT FOUND: rales, wheezes Cardiovascular (Brief) Cardiac: FOUND: regular rate, regular rhythm Abdomen (Brief) Abdominal: FOUND: BS normo active x4, soft, NOT FOUND: distended, tender Extremities (Brief) Extremity : Side: Bilateral Extremity: leg Extremity Finding: FOUND: edema (+2 ), other (SCD ) Musculoskeletal (Brief) Musculoskeletal: FOUND: extremities move equally, NOT FOUND: deformity, loss of motion, spasm, tenderness Integumentary (Brief) Integumentary: FOUND: dry, warm Neurologic (Brief) Neurological: FOUND: cranial 2-12 intact, motor (Intact ) Psychiatric (Brief) Psychiatric: FOUND: alert, attentive, normal affect, oriented Laboratory Laboratory Laboratory Tests 03/07/17 16:04 03/08/17 04:44 03/09/17 04:10 Laboratory Tests 03/07/17 16:04 03/07/17 23:42 03/08/17 04:44 03/08/17 16:37 03/09/17 04:10 Assessment & Plan Problems: (1) Anemia Status: Acute Qualifiers: Other causes of anemia: chronic disease, kidney Assessment & Plan: Due to CKD - concern for possible blood loss due to anticoagulant use. Transfusion 1 unit pRBC on 03/07 and 03/08. (2) Diastolic heart failure Status: Chronic Qualifiers: Heart failure chronicity: chronic Qualified Codes: I50.32 - Chronic diastolic (congestive) heart failure (3) Arm paresthesia, left Status: Acute Assessment & Plan: Peripheral nerve irritation - improved (4) Stage 4 chronic kidney disease Status: Chronic (5) Atrial fibrillation Status: Chronic Qualifiers: Atrial fibrillation type: paroxysmal Qualified Codes: I48.0 - Paroxysmal atrial fibrillation (6) Hypertension Status: Chronic Qualifiers: Hypertension type: essential hypertension Qualified Codes: I10 - Essential (primary) hypertension (7) Hypercholesteremia Status: Chronic (8) Sick sinus syndrome Status: Chronic Assessment & Plan: Hx pacemaker placement. (9) Type II diabetes mellitus Qualifiers: Diabetes mellitus complication status: with kidney complications Diabetes mellitus senior living insulin use: with senior living use Chronic kidney disease stage: stage 4 (severe) (10) Hypothyroidism Status: Chronic Qualifiers: Hypothyroidism type: acquired Qualified Codes: E03.9 - Hypothyroidism, unspecified (11) GARY (obstructive sleep apnea) Status: Chronic (12) Restless legs syndrome Status: Chronic (13) Insomnia Status: Chronic Qualifiers: Insomnia type: primary Qualified Codes: F51.01 - Primary insomnia (14) Depression Status: Chronic (15) Anxiety Status: Chronic (16) Seizure disorder Status: Chronic (17) Hypokalemia Status: Acute Assessment & Plan: Not POA (18) Morbid obesity Status: Chronic Qualifiers: Obesity type: due to excess calories Qualified Codes: E66.01 - Morbid ( severe) obesity due to excess calories Plan/Intensity of Service Darbepoetin 60mcg given this morning - scheduled for today in infusion center by Dr Swift. Recheck hemogram this afternoon to assess stability of hemoglobin. Hold xarelto due to significant anemia. Discussed with pt about possibility of endoscopic procedures - could be done in outpatient setting. Encourage activities taught by therapy. Possible home tomorrow if hemoglobin is stable. Case discussed with CM. Time spent with pt care 35 minutes. DVT Prophylaxis: SCD'S Code Status Do Not Resuscitate Hospital Course Summary Disclaimer The hospital course summary below is not to be considered part of the above Progress Note. Hospital Course Summary 03/07/[address] patient in outpatient observation status at [facility] under the care of Dr. Chavarria. Hold Xarelto and aspirin secondary to significant decline in hemoglobin. At this time I feel risks of continued anticoagulation outweigh potential benefits. Will transfuse 1 unit of packed red cells. I do feel this is prudent given her underlying cardiac disease coupled with stage IV CKD and the likelihood of the patient's ability to improve her hemoglobin on her own would be a very slow process. IV access has been attempted on multiple times by nursing staff. They did try peripheral with ultrasound. They were unable to obtain access. I did discuss case with Dr. Valladares and will place consult for central line placement. Concern about central line placement as patient is anticoagulated. We do both feel benefits of obtaining good IV access outweigh risks. This was discussed with the patient and she concurs. Home medications will be continued with the exception of holding Xarelto and aspirin. Monitor blood sugars. Monitor telemetry. Initiate SCDs to help with DVT prevention as well as to minimize lower extremity edema. Will need to monitor blood counts and electrolytes as well as renal status closely. Discussed code status with patient. She requests NO RESUCITATION. Order for DNR is written. Patient's care will be returned to Dr. Hitchcock at time of discharge from [facility]. 03/08 Little change from yesterday. Still feels tired and weak. Left arm less numb. Breathing stable. No chest pain. Appetite decreased-no nausea or ab pain, but stomach just doesn't feel right. Did have bowel movement. No f/c. HGB increased to only 8.2 today post transfusion yesterday. As HBG essentially unchanged after 1 unit of pRBC in patient on anticoagulation with decreased ability to make hemoglobin due to her CKD, will change admission status to inpatient - anticipate greater than 2 midnights of care needed. Transfuse 1 unit pRBC as HGB still decreased and pt with underlying CV disease. Continue to hold anticoagulants. Monitor for blood loss - occult stool positive, but pt not appearing to be having significant active GI bleeding. Likely positive blood in stool from local irritation of colon due to hard stool, with bleeding from anticoagulants. Will continue to monitor electrolytes and renal status. 03/09 Feeling better today-not as tired/fatigued as prior to admission. Breathing well. No chest pain. Stools moving-not loose or urgent. Brown stools-not bloody per nursing report. Did work with therapy today-hopefully will have some strengthening activities she can do at home. Hemoglobin did move up to 9.5 this morning. Darbepoetin 60mcg given this morning - scheduled for today in infusion center by Dr Swift. Recheck hemogram this afternoon to assess stability of hemoglobin. Hold xarelto due to significant anemia. Discussed with pt about possibility of endoscopic procedures - could be done in outpatient setting. Encourage activities taught by therapy. Possible home tomorrow if hemoglobin is stable. BERNARDA CHAVARRIA MD March 09, 2017 13:12
--- NOTE | 2017-03-09 13:29 | NUR ---
SOO VANN FAXED HOME HEALTH ORDERS TO [facility] AT [phone]. ADAM IS THE [employer]ICE REPRESENTATIVE AT [phone].
[2017-03-09] MEDS: FOLIC ACID 1 MG TABLET PO SCH (14:55)
--- NOTE | 2017-03-09 15:52 | NUR ---
STATUS PT CURRENTLY RESTING IN BED WITH BED ALARM ON AND CALL LIGHT IN REACH. ON ROOM AIR. BREATHING EQUAL AND UNLABORED. IV LOCKED. TRIPLE LUMEN IJ FLUSHES AND ASPIRATES WELL. DENIES PAIN. DENIES NAUSEA. DENIES SOA. WILL CONTINUE TO MONITOR. UP WITH STANDBY ASSIST WITH HER OWN WALKER TO THE BATHROOM. DENIES NEEDS AT THIS TIME
[2017-03-09 16:16] VITALS: BP 113/67; PULSE 71; RESP 16; TEMP 95.3; O2SAT 97
[2017-03-09 16:20] LABS: HCT - HEMATOCRIT 32.9 % (36-46); HGB - HEMOGLOBIN 10.2 GM/DL (12-16); MEAN CORPUSCULAR HGB 30.4 UUG (26-34); MEAN CORPUSCULAR VOLUME 98.2 UM3 (80-100); MEAN PLATELET VOLUME 9.5 UM3 (9.4-12.4); RED BLOOD COUNT 3.35 M/MM3 (4.00-5.20); WBC - WHITE BLOOD COUNT 5.3 T/MM3 (4.5-11.0)
--- NOTE | 2017-03-09 17:21 | NUR ---
DM Screen BMI: 46.8 Estimated daily calorie needs for weight maintenance: ~ 2300 (wt loss would be beneficial.) Diet order: 2000 calorie consistent carb, 1.[address]+ [address] spoke with patient and her homemaker, Oralia. Patient says she is a very picky eater. She will not eat vegetables, any foods that are "mixed" or leftovers. Patient said she has lots of information about diabetes and Na+ but she will not eat food she doesn't want and she doesn't need more information. RD encouraged patient to have RN call RD if she has nutrition questions. X [phone].
--- NOTE | 2017-03-09 18:26 | NUR ---
STATUS PT CURRENTLY IN [facility]. SITTING IN RECLINER. DENIES NEEDS AT THIS TIME. PT COMFORTABLE
[2017-03-09 19:45] VITALS: RESP 18
[2017-03-09] MEDS: GABAPENTIN 300 MG CAPSULE PO SCH (20:16)
[2017-03-09] MEDS: PRAMIPEXOLE 1 MG TABLET PO SCH (20:16)
[2017-03-09] MEDS: BACLOFEN 10 MG TABLET PO SCH (20:17)
[2017-03-09 20:52] VITALS: PULSE 71; RESP 16; O2SAT 97
[2017-03-10 00:17] VITALS: BP 127/69; PULSE 84; RESP 16; TEMP 96; O2SAT 98
[2017-03-10 05:39] LABS: BASOPHILS % (AUTO) 0.2 % (0-2); EOSINOPHILS # (AUTO) 0.1 T/MM3 (0-0.5); EOSINOPHILS % (AUTO) 1.4 % (0-4); HCT - HEMATOCRIT 32.8 % (36-46); HGB - HEMOGLOBIN 10.3 GM/DL (12-16); IMMATURE GRANULOCYTE # (AUTO) 0.01 T/MM3 (0.00-0.03); IMMATURE GRANULOCYTE % (AUTO) 0.2 % (0.0-0.5); LYMPHOCYTES # (AUTO) 1.5 T/MM3 (1-4.8); LYMPHOCYTES % (AUTO) 30.1 % (23-45); MEAN CORPUSCULAR HGB 29.8 UUG (26-34); MEAN CORPUSCULAR HGB CONC(MCHC 31.4 GM/DL (31-37); MEAN CORPUSCULAR VOLUME 94.8 UM3 (80-100); MONOCYTES # (AUTO) 0.5 T/MM3 (0-0.8); MONOCYTES % (AUTO) 9.6 % (0-9.0); NEUTROPHILS #(AUTO)-ABSOLUTE 2.9 T/MM3 (1.8-7.7); NEUTROPHILS % (AUTO) 58.5 % (33-66); RED BLOOD COUNT 3.46 M/MM3 (4.00-5.20)
[2017-03-10 05:47] LABS: ANION GAP 14 MEQ/L (5-15); BUN/CREATININE RATIO 18 RATIO (6-26); CALCIUM 9.5 MG/DL (8.4-10.2); CHLORIDE 87 MEQ/L (98-107); CO2 - CARBON DIOXIDE 34 MEQ/L (22-30); CREATININE 2.5 MG/DL (0.7-1.2); GLOMERULAR FILTRATION RATE 19; GLUCOSE 76 MG/DL (65-110); POTASSIUM 3.2 MEQ/L (3.6-5); SODIUM 135 MEQ/L (134-144)
--- NOTE | 2017-03-10 05:52 | NUR ---
SUMMARY PT ALERT AND ORIENTED. VERY PLEASANT AND COOPERATIVE. UP WITH STANDBY ASSIST. DENIES PAIN, DENIES SOA. TIPPLE LUMEN IJ CENTRAL LINE FLUSHES AND ASPIRATES WELL.
[2017-03-10] MEDS: LEVOTHYROXINE 175 MCG TABLET PO SCH (06:45)
[2017-03-10 07:30] VITALS: BP 115/65; PULSE 61; RESP 18; TEMP 96.8; O2SAT 97
[2017-03-10] MEDS: DOCUSATE SODIUM 100 MG CAPSULE PO SCH (08:07)
[2017-03-10] MEDS: POTASSIUM CHLORIDE 20 MEQ TABLET PO SCH ×2 (08:07→12:14)
[2017-03-10] MEDS: acetaZOLAMIDE 250 MG TABLET PO SCH (08:07)
[2017-03-10] MEDS: ASCORBIC ACID 500 MG TABLET PO SCH (08:07)
[2017-03-10] MEDS: AMIODARONE 200 MG TABLET PO SCH (08:07)
[2017-03-10] MEDS: FOLIC ACID 1 MG TABLET PO SCH (08:07)
[2017-03-10] MEDS: FERROUS SULFATE 324 MG TABLET PO SCH (08:07)
[2017-03-10] MEDS: RANITIDINE 150 MG TABLET PO SCH (08:08)
[2017-03-10] MEDS: BUMETANIDE 1 MG TABLET PO SCH (08:08)
[2017-03-10] MEDS: LEVETIRACETAM 500 MG TABLET PO SCH (08:08)
[2017-03-10] MEDS: SENNA + DOCUSATE TAB PO SCH (08:08)
[2017-03-10] MEDS: OMEGA-3 ACID ESTERS 1 G CAPSULE PO SCH (08:08)
[2017-03-10] MEDS: CALCITRIOL 0.25 MCG CAPSULE PO SCH (08:08)
[2017-03-10] MEDS: INSULIN GLARGINE 100 UNIT/ML SQ SCH (08:09)
[2017-03-10 08:26] VITALS: RESP 18
[2017-03-10] MEDS ORDERED: POLYETHYL.GLYCOL 3350 PACKET 17gm PO SCH (09:00)
--- NOTE | 2017-03-10 11:22 | DSPDOC ---
General Date Date DATE: 03/10/17 TIME: 11:08 Attending Physician Giovanny Chavarria MD Admitting Physician Giovanny Chavarria MD Consulting Physician Simba Valladares MD,Facs,Cws Admitting Diagnosis Anemia, fatigue Discharge Diagnosis Symptomatic anemia requiring 2 units packed red blood cells, weakness fatigue, sick sinus syndrome, obstructive sleep apnea with BMI of 46 Procedures Central line placement Dr. Valladares. Transfusion 2 units of packed red blood cells Laboratory Laboratory Tests Test 03/09/17 04:10 03/09/17 05:55 03/09/17 11:35 03/09/17 16:14 White Blood Count 5.3T/MM3 (4.5-11.0) 5.3T/MM3 (4.5-11.0) Red Blood Count 3.09M/MM3 (4.00-5.20) 3.35M/MM3 (4.00-5.20) Hemoglobin 9.5GM/DL (12-16) 10.2GM/DL (12-16) Hematocrit 29.6% (36-46) 32.9% (36-46) Mean Corpuscular Volume 95.8UM3 (80-100) 98.2UM3 (80-100) Mean Corpuscular Hemoglobin 30.7UUG (26-34) 30.4UUG (26-34) Mean Corpuscular Hemoglobin Concent 32.1GM/DL (31-37) 31.0GM/DL (31-37) RDW Standard Deviation 59.8FL (36.9-50.2) 63.0FL (36.9-50.2) Platelet Count 236T/MM3 (130-400) 248T/MM3 (130-400) Mean Platelet Volume 10.0UM3 (9.4-12.4) 9.5UM3 (9.4-12.4) Immature Granulocyte % (Auto) 0.2% (0.0-0.5) Neutrophils (%) (Auto) 62.3% (33-66) Lymphocytes (%) (Auto) 25.5% (23-45) Monocytes (%) (Auto) 9.7% (0-9.0) Eosinophils (%) (Auto) 1.9% (0-4) Basophils (%) (Auto) 0.4% (0-2) Absolute Immature Granulocyte (auto 0.01T/MM3 (0.00-0.03) Absolute Neutrophils (auto) 3.3T/MM3 (1.8-7.7) Absolute Lymphocytes (auto) 1.4T/MM3 (1-4.8) Absolute Monocytes (auto) 0.5T/MM3 (0-0.8) Absolute Eosinophils (auto) 0.1T/MM3 (0-0.5) Absolute Basophils (auto) 0.0T/MM3 (0-0.2) Turbidity < 20 (0-20) Sodium Level 135MEQ/L (134-144) Potassium Level 3.5MEQ/L (3.6-5) Chloride Level 91MEQ/L (98-107) Carbon Dioxide Level 33MEQ/L (22-30) Anion Gap 11MEQ/L (5-15) Blood Urea Nitrogen 43.0MG/DL (7-17) Creatinine 2.5MG/DL (0.7-1.2) Glomerular Filtration Rate Calc 19 BUN/Creatinine Ratio 17RATIO (6-26) Glucose Level 95MG/DL (65-110) Calculated Osmolality 271MOSM/KG (261-280) Calcium Level 9.2MG/DL (8.4-10.2) Phosphorus Level 5.4MG/DL (2.5-4.5) Magnesium Level 2.4MG/DL (1.6-2.3) Icterus Index < 2 (0-7) Chemistry Specimen Hemolysis < 15 (0-25) Glucometer 106mg/dL (65-110) 91mg/dL (65-110) Test 03/09/17 17:21 03/09/17 20:55 03/10/17 04:18 03/10/17 06:27 Glucometer 90mg/dL (65-110) 128mg/dL (65-110) 84mg/dL (65-110) White Blood Count 5.0T/MM3 (4.5-11.0) Red Blood Count 3.46M/MM3 (4.00-5.20) Hemoglobin 10.3GM/DL (12-16) Hematocrit 32.8% (36-46) Mean Corpuscular Volume 94.8UM3 (80-100) Mean Corpuscular Hemoglobin 29.8UUG (26-34) Mean Corpuscular Hemoglobin Concent 31.4GM/DL (31-37) RDW Standard Deviation 58.3FL (36.9-50.2) Platelet Count 264T/MM3 (130-400) Mean Platelet Volume 10.0UM3 (9.4-12.4) Immature Granulocyte % (Auto) 0.2% (0.0-0.5) Neutrophils (%) (Auto) 58.5% (33-66) Lymphocytes (%) (Auto) 30.1% (23-45) Monocytes (%) (Auto) 9.6% (0-9.0) Eosinophils (%) (Auto) 1.4% (0-4) Basophils (%) (Auto) 0.2% (0-2) Absolute Immature Granulocyte (auto 0.01T/MM3 (0.00-0.03) Absolute Neutrophils (auto) 2.9T/MM3 (1.8-7.7) Absolute Lymphocytes (auto) 1.5T/MM3 (1-4.8) Absolute Monocytes (auto) 0.5T/MM3 (0-0.8) Absolute Eosinophils (auto) 0.1T/MM3 (0-0.5) Absolute Basophils (auto) 0.0T/MM3 (0-0.2) Turbidity < 20 (0-20) Sodium Level 135MEQ/L (134-144) Potassium Level 3.2MEQ/L (3.6-5) Chloride Level 87MEQ/L (98-107) Carbon Dioxide Level 34MEQ/L (22-30) Anion Gap 14MEQ/L (5-15) Blood Urea Nitrogen 44.0MG/DL (7-17) Creatinine 2.5MG/DL (0.7-1.2) Glomerular Filtration Rate Calc 19 BUN/Creatinine Ratio 18RATIO (6-26) Glucose Level 76MG/DL (65-110) Calculated Osmolality 270MOSM/KG (261-280) Calcium Level 9.5MG/DL (8.4-10.2) Icterus Index < 2 (0-7) Chemistry Specimen Hemolysis < 15 (0-25) History of Present Illness Kareen Rodgers is a 66-year-old female who presents to clinic for evaluation of her left arm numbness. She awoke this morning noticing her left arm was numb. It has been numb throughout the day and just not getting better. She denies any other neurological changes. She typically sees Dr. Hitchcock. He is out of office today - she was seen by Dr. Weiner. While in the office Dr. Weiner reviewed records and a recent hemoglobin was found to be 7.5. She has been in the process of having her anemia evaluated by Dr. Swift and it sounds as if she is to have erythropoietin injections starting later this week. A few months ago she did have IV iron infusion. She does have stage IV kidney disease and anemia secondary. She has been noticing she is feeling much more sleepy and tired. She has a hard time staying awake. She is finding she gets more lightheaded and dizzy with positional changes. She feels her breathing has been fairly stable - reports struggling with bronchitis for the past couple of weeks but is starting to get better - still has some slight cough but no increasing shortness of breath or pain with breathing. At times she will still have a little bit of sputum production. While she denies chest pressure or heaviness , she does report to me she had an episode of chest pain about three weeks ago that was very short- lived - it was so short-lived she did not tell anybody about it. She does note palpitations at times (does have paroxysmal atrial fibrillation). She notes increased craving for ice. Appetite has been fairly stable. Bowels have been quite slow - it has been several days since she has had bowel movement. She does note she will pass blood rectally, but it does not sound like she is having any acute GI blood loss secondary to her significant constipation (blood tends to be a very good laxative). She has been feeling cold in general. She is supposed to use CPAP at night but is having troubles tolerating the machine. She also reports she had a paper about a better machine to get but she has lost this paper. Due to her significant anemia with reported hemoglobin decreased to 7.5, Dr. Chavarria was notified. We did feel it would be reasonable to place patient in outpatient observation for further evaluation. I do worry about the patient's ability to build up her blood counts. With her stage IV kidney disease this will make improvement of hemoglobin on her own quite challenging. On top of this is her current use of anticoagulants - aspirin and Xarelto. At the current time with her anemia, these need to be placed on hold until we can get her hemoglobin stabilized. Arrangements were made for outpatient observation for further evaluation and treatment. Hospital Course 03/07/[address] patient in outpatient observation status at [facility] under the care of Dr. Chavarria. Hold Xarelto and aspirin secondary to significant decline in hemoglobin. At this time I feel risks of continued anticoagulation outweigh potential benefits. Will transfuse 1 unit of packed red cells. I do feel this is prudent given her underlying cardiac disease coupled with stage IV CKD and the likelihood of the patient's ability to improve her hemoglobin on her own would be a very slow process. IV access has been attempted on multiple times by nursing staff. They did try peripheral with ultrasound. They were unable to obtain access. I did discuss case with Dr. Valladares and will place consult for central line placement. Concern about central line placement as patient is anticoagulated. We do both feel benefits of obtaining good IV access outweigh risks. This was discussed with the patient and she concurs. Home medications will be continued with the exception of holding Xarelto and aspirin. Monitor blood sugars. Monitor telemetry. Initiate SCDs to help with DVT prevention as well as to minimize lower extremity edema. Will need to monitor blood counts and electrolytes as well as renal status closely. Discussed code status with patient. She requests NO RESUCITATION. Order for DNR is written. Patient's care will be returned to Dr. Hitchcock at time of discharge from [facility]. 03/08 Little change from yesterday. Still feels tired and weak. Left arm less numb. Breathing stable. No chest pain. Appetite decreased-no nausea or ab pain, but stomach just doesn't feel right. Did have bowel movement. No f/c. HGB increased to only 8.2 today post transfusion yesterday. As HBG essentially unchanged after 1 unit of pRBC in patient on anticoagulation with decreased ability to make hemoglobin due to her CKD, will change admission status to inpatient - anticipate greater than 2 midnights of care needed. Transfuse 1 unit pRBC as HGB still decreased and pt with underlying CV disease. Continue to hold anticoagulants. Monitor for blood loss - occult stool positive, but pt not appearing to be having significant active GI bleeding. Likely positive blood in stool from local irritation of colon due to hard stool, with bleeding from anticoagulants. Will continue to monitor electrolytes and renal status. 03/09 Feeling better today-not as tired/fatigued as prior to admission. Breathing well. No chest pain. Stools moving-not loose or urgent. Brown stools-not bloody per nursing report. Did work with therapy today-hopefully will have some strengthening activities she can do at home. Hemoglobin did move up to 9.5 this morning. Darbepoetin 60mcg given this morning - scheduled for today in infusion center by Dr Swift. Recheck hemogram this afternoon to assess stability of hemoglobin. Hold xarelto due to significant anemia. Discussed with pt about possibility of endoscopic procedures - could be done in outpatient setting. Encourage activities taught by therapy. Possible home tomorrow if hemoglobin is stable. 03/10/2017 hemoglobin has been stable. No new developments over the course of the night. Feeling less fatigue and thinks she may be ready to go will have patient follow-up with Dr. Swift for colony site stimulating factor injections as she is failed IV iron infusion Problems: (1) Anemia Status: Acute Assessment & Plan: Due to CKD - concern for possible blood loss due to anticoagulant use. Transfusion total 2 units packed red blood cells (2) Diastolic heart failure Status: Chronic (3) Arm paresthesia, left Status: Acute Assessment & Plan: Peripheral nerve irritation - improved (4) Stage 4 chronic kidney disease Status: Chronic (5) Atrial fibrillation Status: Chronic (6) Hypertension Status: Chronic (7) Hypercholesteremia Status: Chronic (8) Sick sinus syndrome Status: Chronic Assessment & Plan: Hx pacemaker placement. (9) Type II diabetes mellitus (10) Hypothyroidism Status: Chronic (11) GARY (obstructive sleep apnea) Status: Chronic (12) Restless legs syndrome Status: Chronic (13) Insomnia Status: Chronic (14) Depression Status: Chronic (15) Anxiety Status: Chronic (16) Seizure disorder Status: Chronic (17) Hypokalemia Status: Acute Assessment & Plan: Not POA (18) Morbid obesity Status: Chronic Code Status Do Not Resuscitate Home Meds Reported Medications Ranitidine HCl (Ranitidine HCl) 150 Mg Tablet, 150 MG PO BID 03/07/17 Pramipexole Di-HCl (Pramipexole ER) 1.5 Mg Tab.er.24h, 1.5 MG PO HS 03/07/17 Pregabalin (Lyrica) 100 Mg Capsule, 100 MG PO MoTh 03/07/17 Levothyroxine Sodium (Levothyroxine Sodium) 175 Mcg Tablet, 262.5 MG PO Pollard 03/07/17 Ipratropium/Albuterol Sulfate (Iprat-Albut 0.5-3(2.5) mg/3 ml) 3 Ml Ampul.neb, 1 VIAL AEROSOL QID Y for PRN ORDERS 03/07/17 Hydrocodone/Acetaminophen (Hydrocodon-Acetaminoph 7.5-325) 7.5-325 Tablet, 1 TAB PO Q6H Y for PAIN 03/07/17 Gabapentin (Gralise) 300 Mg Tab.er.24h, 300 MG PO HS 03/07/17 [place]-3 Fatty Acids/Fish Oil ([place] 3 1,000 mg Softgel) 1 Each Capsule, 2 CAP PO BID 03/07/17 Calcitriol (Calcitriol) 0.25 Mcg Capsule, 0.25 MCG PO DAILY 01/21/17 Spironolactone (Spironolactone) 25 Mg Tablet, 25 MG PO MoTh 10/29/16 Metolazone (Metolazone) 2.5 Mg Tablet, 2.5 MG PO MoWeFr 10/29/16 Insulin Glargine,Hum.rec.anlog (Lantus Solostar) 1 Unit Pen, 48 UNIT SQ AMI 07/20/16 Acetazolamide (Acetazolamide) 250 Mg Tablet, 250 MG PO DAILY 07/19/16 Levothyroxine Sodium (Levothyroxine Sodium) 175 Mcg Tablet, 175 MCG PO MoTuWeThFrSa 06/24/16 Ferrous Sulfate (Ferrous Sulfate) 325 Mg Tablet, 325 MG PO BID 06/24/16 Amiodarone HCl (Amiodarone HCl) 200 Mg Tablet, 200 MG PO BID 06/24/16 Calcium Carbonate/Vitamin D3 (Calcium 600 + Vit D 200 Tablet) 1 Each Tablet, 1 TAB PO TID 03/19/16 Levetiracetam (Levetiracetam) 750 Mg Tablet, 750 MG PO BID 02/18/16 Bumetanide (Bumetanide) 2 Mg Tablet, 4 MG PO BID 07/05/15 Docusate Sodium (Docusate Sodium) 100 Mg Tablet, 300 MG PO DAILY 04/06/15 Baclofen (Baclofen) 10 Mg Tablet, 10 MG PO HS 04/06/15 Potassium Chloride (Klor-Con M20) 20 Meq Tablet, 60 MEQ PO TID 11/11/14 Discontinued Reported Medications Lidocaine HCl (Lidocaine) 35 Applic/35.44 G Oint, 1 APPLIC TOP TID Y for PAIN 03/07/17 Diphenhydramine HCl (Benadryl) 25 Mg Capsule, 50 MG PO Q4H Y for PRN ORDERS 01/21/17 Rivaroxaban (Xarelto) 20 Mg Tablet, 20 MG PO DAILY 06/24/16 Aspirin (Aspirin) 325 Mg Tablet, 325 MG PO DAILY 05/27/15 Face to Face Encounter I met with patient on the day of dismissal and discussed follow up appointments , medications, and safety plan. I agree with the above history of presenting illness hospital course and discharge plan created by nurse practitioner Rashmi Gates. Patient also seen and examined by me on day of discharge. Discharge Disposition Fair and stable. MERNA HORN MD March 10, 2017 11:12
--- NOTE | 2017-03-10 12:10 | NUR ---
Status Patient has denies pain throughout shift. No complaints of nausea. Good appetite with meals. Up with stand by assist. Ambulates without difficulty. Minimal needs today.
--- NOTE | 2017-03-10 13:39 | NUR ---
IJ CENTRAL LINE DC'D CUT THREE SUTURES, PULLED IJ AND HELD PRESSURE FOR 10 MINUTES. PT IS NOT ON ANTICOAGULANTS AT THIS TIME. TRIPLE ABX OINTMENT WITH GAUZE AND CLEAR OP SITE PLACED TO PUNCTURE SITE. NO BLEEDING AT THIS TIME. PT EDUCATED ON REMOVAL OF DRESSING. TIP OF CATHETER INSPECTED POST DC AND FOUND TO BE INTACT.
--- NOTE | 2017-03-10 13:50 | NUR ---
Status Patient voiced complaint of left posterior ankle hurting. RN inspected area and did not see any skin breakdown or abnormalities. 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 RN offered pain medication and patient declined.
--- NOTE | 2017-03-10 14:18 | NUR ---
Dismissal Patient received verbal and written dismissal instructions. No questions stated with instructions. Patient was instructed to keep gauze dressing on right neck area until tomorrow and to not submerge herself in water for 2 days. Patient voices understanding. Patient's ride here and was assisted outside via wheelchair with personal belongings.
[2017-03-11] MEDS ORDERED: LEVOTHYROXINE 175 MCG TABLET PO SCH (06:30)
== END 2017-03-10 14:00 | disposition home health service (06) | DRG 292 ==
LOC: MED 15:06 → OBSVTOIN 03-09 11:45
PROVIDERS: ADMIT Hospitalist; ATTEND Hospitalist
PROC: 05HM33Z Insertion of Infusion Device into Right Internal Jugular Vein, Percutaneous Approach (ICD-10-PCS; 2017-03-07)
PROC: B543ZZA Ultrasonography of Right Jugular Veins, Guidance (ICD-10-PCS; 2017-03-07)
PROC: 30233N1 Transfusion of Nonautologous Red Blood Cells into Peripheral Vein, Percutaneous Approach (ICD-10-PCS; principal; 2017-03-07 18:24)
DX: I13.0 Hypertensive heart and chronic kidney disease with heart failure and stage 1 through stage 4 chronic kidney disease, or unspecified chronic kidney disease (principal); N18.4 Chronic kidney disease, stage 4 (severe); I50.32 Chronic diastolic (congestive) heart failure; Z68.42 Body mass index [BMI] 45.0-49.9, adult; E11.22 Type 2 diabetes mellitus with diabetic chronic kidney disease; D63.1 Anemia in chronic kidney disease; R20.0 Anesthesia of skin; E87.6 Hypokalemia; Z66 Do not resuscitate; I48.0 Paroxysmal atrial fibrillation; G47.33 Obstructive sleep apnea (adult) (pediatric); E66.01 Morbid (severe) obesity due to excess calories; K21.9 Gastro-esophageal reflux disease without esophagitis; E78.5 Hyperlipidemia, unspecified; G25.81 Restless legs syndrome; G47.00 Insomnia, unspecified; G40.909 Epilepsy, unspecified, not intractable, without status epilepticus; F32.9 Major depressive disorder, single episode, unspecified; F41.9 Anxiety disorder, unspecified; M19.91 Primary osteoarthritis, unspecified site; G89.29 Other chronic pain; M54.9 Dorsalgia, unspecified; R26.89 Other abnormalities of gait and mobility; K59.00 Constipation, unspecified; Z79.02 Long term (current) use of antithrombotics/antiplatelets; Z79.82 Long term (current) use of aspirin; Z79.4 Long term (current) use of insulin; Z95.0 Presence of cardiac pacemaker
CPT/HCPCS: 36415; 36430; 71010; 80048; 80053; 81003; 82272; 82948; 83735; 84100; 84443; 85007; 85018; 85025; 85027; 86850; 86900; 86901; 86922; 96372; 99218

== ENCOUNTER 2017-03-18 09:24 | Emergency (ER) | payer MEDICARE, MEDICAID ==
[~2017-03-18] VITALS: Ht 162.6 cm; Wt 127.9 kg
[~2017-03-18 09:24] MED LIST changes: -ASPI325T PO; -DIPH25CA84 PO; -FISH1CAP2 PO; +FISH1CAP28 PO; +GABA300T25 PO; +HYDR-4072 PO; +IPRA3AMP AEROSOL; +PRAM1.5T25 PO; -PRAM1TAB7 PO; +PREG100C PO; -PREG75CA PO; +RANI150T7 PO; -RIVA20TA PO
[2017-03-18 09:27] VITALS: Ht 162.6 cm; Wt 127.9 kg
--- OUTSIDE RECORDS SUMMARY | 2017-03-18 09:29 | XMS REPORT | Continuity of Care Document ---
Author Author [facility] Organization [facility] Address Unknown Phone Unavailable Care Team Providers Care Pipe And Tank Fabricator Name Role Phone PREETI ESQUIVEL MD Primary Care Physician [phone] Insurance Providers Payer Name Policy Number Subscriber Name Relationship [facility] [id number] Kareen Hernández 18 Self Problems Medical Problems Problem Onset Date Status [place] compl of cardiac pulse generator (battery), init [...] U SQ DAILY 06/24/10 09/11/11 Discontinued Fish Oil/[place]-3 Fatty Acids 1 Cap PO TWICE A [...] 05/20/12 05/15/14 Discontinued Fentanyl 1 Patch TD [id number] 05/20/12 01/27/13 Discontinued Zolpidem Tartrate 10 Mg [...] AT FIRST POSTOP APPOINTMENT Durable Medical Equipment: [employer] [phone] [facility] [phone] Notify Physician If: CALL YOUR SURGEON IF: [...] Care Discharge Date 07/14/14 12:05pm Instructions/Education Provided [facility] Heart Cath [facility] Congestive Heart Failure Eating a Diet Low [...] F (96.8 - 99.1) Temperature (Calculated Celsius) 36.98640 degrees C (36.0 - 37.3) Pulse Rate [...] Reference Range:12.0 - 46.0 Test Performed by: [place] [id number] Attorney Lawyer: Sergio Fulton III, M.D. Levetiracetam performed at [facility], [address] [place] [address] Gluer MD Enoc Howard III July 02, 2009 [...] Has specimen been collected/obtained? Y Urine Specific [place] July 17, 2014 2:00pm 1.010 L - [...] 5.0 MMOL/L H -2.0- 2.0 COMMENT IN JOURNEYMAN ELECTRICIAN Venous Blood HCO3 July 13, 2014 5:30pm 30 MEQ/L H -26 COMMENT IN JOURNEYMAN ELECTRICIAN Venous Blood Oxygen Saturation July 13, 2014 5:30pm 72.0 % - COMMENT IN JOURNEYMAN ELECTRICIAN Venous Blood Partial Pressure CO2 July 13, 2014 5:30pm 47.7 MMHG N 40-52 COMMENT IN JOURNEYMAN ELECTRICIAN Venous Blood Partial Pressure O2 July 13, 2014 5:30pm 38 MMHG L 40- 52 COMMENT IN JOURNEYMAN ELECTRICIAN Venous Blood Total Carbon Dioxide July 13, 2014 5:30pm 32 MEQ/L - COMMENT IN JOURNEYMAN ELECTRICIAN Venous Blood pH July 13, 2014 5:30pm 7.409 N 7.31-7.41 COMMENT IN JOURNEYMAN ELECTRICIAN Vitamin B12 Level August 27, 2013 8:43am [...] 13, 2014 8:31pm LAB TEST FORM REQUEST [id number] - Turbidity July 17, 2014 2:41pm < [...] July 17, 2014 2:41pm < 2 0-7 [id number] Natriuretic Peptide June 04, 2014 5:09pm 358 [...] 2012 9:58am Name: KAREEN HERNÁNDEZ Unit #: [id number] : [id number] Sex: F Loc / Svc: ED DOS: 07/17/14 Signed Report #: [id number] DIAGNOSTIC IMAGING REPORT TYPE OF EXAM: CT [...] Encounters Encounter Location Date/Time Departed Emergency Room [facility] 07/17/14 1:26pm Discharged Inpatient [facility] 07/13/14 11:44am Registered [facility] 07/03/14 12:16pm Registered Clinic [facility] 06/18/14 7:48am Registered Clinic [facility] 06/05/14 2:33pm Registered [facility] 06/04/14 4:29pm Registered [facility] 05/27/14 11:24am Departed Emergency Room [facility] 05/17/14 10:19am Departed [facility] 05/15/14 1:18pm Recent Diagnosis
--- OUTSIDE RECORDS SUMMARY | 2017-03-18 09:29 | XMS REPORT | Continuity of Care Document ---
Author Author [facility] Organization [facility] Address Unknown Phone Unavailable Care Team Providers Care Global Compensation Director Name Role Phone PREETI ESQUIVEL MD Primary Care Physician [phone] Insurance Providers Payer Name Policy Number Subscriber Name Relationship [facility] State Plan [id number] Kareen Hernández 18 Self Advance Directives Directive Response Recorded Date/Time Ordered Resuscitation Status Full Code 11/11/14 10:29am Resuscitation Documents on File Yes 11/11/14 9:01am Problems Medical Problems Problem Onset Date Status [facility] compl of cardiac pulse generator (battery), [...] U SQ DAILY 06/24/10 09/11/11 Discontinued Fish Oil/[place]-3 Fatty Acids 1 Cap PO TWICE A [...] 05/20/12 05/15/14 Discontinued Fentanyl 1 Patch TD [id number] 05/20/12 01/27/13 Discontinued Zolpidem Tartrate 10 Mg [...] F (96.8 - 99.1) Temperature (Calculated Celsius) 36.37083 degrees C (36.0 - 37.3) Temperature Source [...] 13, 2014 8:31pm LAB TEST FORM REQUEST [id number] - Levetiracetam (Keppra) Level August 27, 2013 8:43am 37.8 mcg/mL - Reference Range:12.0 - 46.0 Test Performed by: [place] [address] Rim Roller Operator: Sergio Fulton III, M.D. Levetiracetam performed at [facility], [address] [place] [address] Electronic Technician Kirstin Mckenzie MD Lipase July 02, [...] 17, 2014 2:41pm 7.7 % N 0-9.0 [id number]-Type Natriuretic Peptide June 04, 2014 5:09pm 358 [...] Has specimen been collected/obtained? Y Urine Specific [place] July 17, 2014 2:00pm 1.010 L - [...] 5.0 MMOL/L H -2.0- 2.0 COMMENT IN MAMMOGRAPHY SUPERVISOR Venous Blood HCO3 July 13, 2014 5:30pm 30 MEQ/L H 22-26 COMMENT IN MAMMOGRAPHY SUPERVISOR Venous Blood Oxygen Saturation July 13, 2014 5:30pm 72.0 % - COMMENT IN MAMMOGRAPHY SUPERVISOR Venous Blood Partial Pressure CO2 July 13, 2014 5:30pm 47.7 MMHG N 40-52 COMMENT IN MAMMOGRAPHY SUPERVISOR Venous Blood Partial Pressure O2 July 13, 2014 5:30pm 38 MMHG L 40- 52 COMMENT IN MAMMOGRAPHY SUPERVISOR Venous Blood Total Carbon Dioxide July 13, 2014 5:30pm 32 MEQ/L - COMMENT IN MAMMOGRAPHY SUPERVISOR Venous Blood pH July 13, 2014 5:30pm 7.409 N 7.31-7.41 COMMENT IN MAMMOGRAPHY SUPERVISOR Vitamin B12 Level August 27, 2013 8:43am 287 PG/ML N 239-931 White Blood Count July 17, 2014 2:41pm 5.6 T/MM3 N 4.5-11.0 Blood Culture Blood April 19, 2013 12:20pm NO GROWTH AFTER 5 DAYS Wet Prep Cervix July 17, 2014 2:55pm Helicobacter pylori Rapid Urease Gastric Biopsy May 21, 2012 9:58am Name: KAREEN HERNÁNDEZ Unit #: [id number] : 1950 Sex: F Loc / Svc: [facility] DOS: 09/04/14 Signed Report #: [id number] DIAGNOSTIC IMAGING REPORT TYPE OF EXAM: FOOT [...] ESQUIVEL MD Encounters Encounter Location Date/Time Registered [facility] 09/04/14 11:33am Registered [facility] 08/18/14 1:18pm
--- OUTSIDE RECORDS SUMMARY | 2017-03-18 09:29 | XMS REPORT | Continuity of Care Document ---
Author Author [facility] Organization [facility] Address Unknown Phone Unavailable Care Team Providers Care Sheriff Sergeant Name Role Phone PREETI ESQUIVEL MD Primary Care Physician [phone] Insurance Providers Guarantor Sid Hernández Address [address] [place] [address] Email @[employer] Payer [facility] State Plan Policy Number [id number] Subscriber's Name Ana MariaDayanaSid C Relationship 18 Self Effective Date 17 Expiration Date 17 Payer Medicare Policy Number [id number] Subscriber's Name Ana MariaDayanaSid C Relationship 18 Self Advance Directives Directive Response Recorded Date/Time Dr Menard Resuscitation Status Do Not Resuscitate 03/07/17 6:23pm Resuscitation Documents on File No 03/07/17 3:42pm DPOA for Healthcare Only Y not sure 03/07/17 5:40pm Living Will Yes 03/07/17 3:42pm Advance Directive Consult Information Given 03/08/17 4:25pm Problems Active Problems Medical Problem Onset Date Status Abdominal wall cellulitis Unknown Acute Abnormal vaginal bleeding Unknown Acute Abnormal vaginal bleeding Unknown Acute Afib 05/15/2014 Chronic Anemia Unknown Acute Anxiety Unknown Chronic Arm paresthesia, left Unknown Acute Arm paresthesia, left Unknown Acute Atrial fibrillation Unknown Chronic Atrial flutter Unknown Acute Carpal tunnel syndrome of right wrist Unknown Chronic Congestive heart failure ~2008 Acute Cubital tunnel syndrome on right Unknown Chronic Depression Unknown Chronic Diabetes Unknown Chronic Diabetic gastroparesis Unknown Diastolic heart failure Unknown Chronic Diverticulosis Unknown Chronic Dizziness Unknown Acute Edema Unknown Chronic Frontal headache Unknown Acute GI bleeding Unknown Acute Hip pain, acute Unknown Acute Hypercholesteremia Unknown Chronic Hypertension Unknown Chronic Hypokalemia Unknown Acute Hyponatremia Unknown Acute Hypothyroidism Unknown Chronic Insomnia Unknown Chronic Itching Unknown Acute Low back pain Unknown [facility]battery[facility] init encntr 05/15/2014 Acute Morbid obesity Unknown Chronic GARY (obstructive sleep apnea) Unknown Chronic 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 05/15/2014 Acute Presence of permanent cardiac pacemaker Unknown Chronic RLS (restless legs syndrome) Unknown Chronic Renal failure Unknown Restless legs syndrome Unknown Chronic Right calf pain Unknown Acute Seizure disorder Unknown Chronic Sick sinus syndrome Unknown Chronic Stage 4 chronic kidney disease Unknown Chronic Suspected DVT (deep vein thrombosis) Unknown Acute Swelling of both lower extremities Unknown Chronic Syncope Unknown TIA (transient ischemic attack) Unknown Acute Type II diabetes mellitus Unknown Venous insufficiency of both lower extremities Unknown [...] 200 Mg Oral Twice A Day 06/24/16 Baclofen 10 Mg Tablet 10 Mg Oral [...] 325 Mg Oral Twice A Day 06/24/16 Gabapentin (Gralise) 300 Mg Tab.er.24h 300 Mg Oral Bedtime Hydrocodone/Acetaminophen (Hydrocodon-Acetaminoph 7.5-325) 7.5-325 Tablet 1 Tab Oral Every 6 Hours as needed for Pain 03/07/17 Insulin Glargine,Hum.rec.anlog (Lantus Solostar) 1 Unit Pen 48 Unit Sub-Q Daily Morning Insulin 07/20/16 Ipratropium/Albuterol Sulfate (Iprat-Albut 0.5-3(2.5) Mg/3 Ml) 3 Ml Ampul.neb 1 Vial Aerosol Tx. Four Times Daily as needed for Prn Orders Levetiracetam 750 Mg Tablet 750 Mg Oral Twice A Day 02/18/16 Levothyroxine Sodium 175 Mcg Tablet 175 Mcg Oral Every Sunday, Sunday, Sunday, , Sunday, And Sunday06/24/16 Levothyroxine Sodium 175 Mcg Tablet 262.5 Mg Oral Every Sunday Metolazone 2.5 Mg Tablet 2.5 Mg Oral Every Sunday, Sunday, And Sunday10/29/16 [place]-3 Fatty Acids/Fish Oil ([place] 3 1,000 Mg Softgel) 1 Each Capsule 2 Cap Oral Twice A Day 03/07/17 Potassium Chloride (Klor-Con M20) 20 Meq Tablet 60 Meq Oral Three Times A Day 11/11/14 Pramipexole Di-Hcl (Pramipexole Er) 1.5 Mg Tab.er.24h 1.5 Mg Oral Bedtime 03/07/17 Pregabalin (Lyrica) 100 Mg Capsule 100 Mg Oral Every Sunday And 03/07/17 Ranitidine Hcl 150 Mg Tablet 150 Mg Oral Twice A Day 03/07/17 Spironolactone 25 Mg Tablet 25 Mg Oral Every Sunday And 10/29/16 Past Home Medications Medication Directions Ordered Status Ascorbic Acid (Vitamin C) 500 Mg Capsule.sa, 500 Mg Oral Daily 09/11/11 Discontinued Aspirin 325 Mg Tablet, 325 Mg Oral Daily 05/27/15 Discontinued Aspirin (Aspir 81) 81 Mg Tablet.dr, [...] Mcg Oral Daily 11/25/08 Discontinued Diphenhydramine Hcl (Benadryl) 25 Mg Capsule, 50 Mg Oral Every 4 Hours as needed for Prn Orders 01/21/17 Discontinued Diphenhydramine Hcl 25 Mg Tablet, 25 Mg Oral Daily 02/22/12 Discontinued Duloxetine Hcl (Cymbalta) 30 Mg Capsule.dr, 30 Mg Oral Daily 05/27/09 Discontinued Fentanyl (Fentanyl 25 Mcg/Hr) 1 Patch .72 H Patch.td72, 1 Patch Transderm R02etefy 05/20/12 Discontinued Ferrous Sulfate 324 Mg Tablet, 324 Mg Oral Daily 05/27/09 Discontinued Fish Oil/[place]-3 Fatty Acids ([place] 3 Fish Oil 1,000 Mg Cap) 1 [...] Mg Oral Twice A Day 11/25/08 Discontinued Lidocaine Hcl (Lidocaine) 35 Applic/35.44 G Oint, 1 Applic Topically Three Times A Day as needed for Pain 03/07/17 Discontinued Meloxicam (Mobic) 7.5 Mg Tablet, 7.5 [...] Tablet, 8 Mg Oral Bedtime 06/24/10 Discontinued Rivaroxaban (Xarelto) 20 Mg Tablet, 20 Mg Oral Daily 06/24/16 Discontinued Sennosides (Ex-Lax) 15 Mg Tablet, 15 Mg Oral 3 At Hs 06/24/10 Discontinued Sotalol Hcl (Sotalol) 80 Mg Tablet, 80 Mg Oral Twice A Day 04/06/15 Discontinued Tolterodine Tartrate (Detrol) 1 Mg Tablet, 1 Mg Oral Daily 08/31/10 Discontinued Torsemide 20 Mg Tablet, 40 Mg Oral Twice A Day 07/13/14 Discontinued Social History Social History Problem Response Recorded Date/Time Onset Date Status Reason for Hospitalization anemia 03/10/2017 12:23pm Not Applicable Not Applicable Chewing Tobacco Status No 04/19/2013 10:56am Not Applicable Not Applicable Hx Substance Use No 01/21/2017 12:00pm Not Applicable Not Applicable Hx Alcohol Use No 01/21/2017 12:00pm Not Applicable Not Applicable Has the pt used tobacco in the last 12 months Yes 03/07/2017 3:52pm Not Applicable Not Applicable Tobacco Usage none 07/19/2015 11:20am Not Applicable Not Applicable Query Response Start Date Stop Date Smoking Status Former smoker Hospital Discharge Instructions Instructions: Care Instructions: Reason for Hospitalization: anemia I was in the hospital because (patient own words): "blood pressure 92/62" Discharge Diet: ADA diet Discharge Activity: Activity as tolerated Follow Up Appointments: Please schedule a follow-up appointment with primary care provider. Dr. Esquivel for 1 week Pending Lab / Results: No Pending Lab Patient Instructions: Because of your anemia (low blood count) stop taking Xarelto and aspirin Will need to follow-up with Dr. Esquivel in one week to discuss further. May require further outpatient evaluation Intended with all other home medications as directed Wound/Incision Care: N/A Pain Management/Treatment: [place] for pain control Expected Signs/Symptoms: Continued improvement in strength Notify Physician If: Bleeding in the stools, shortness of breath, abdominal pain, fever, or other concerning symptoms During Business Hours:: Please call the physician's office After Business Hours:: Please call [phone] and have the dress operator page the physician. Condition at time of discharge: Good Plan of Care Discharge Date 03/10/17 2:00pm Disposition 06 HOME HEALTH SERVICE Instructions/Education Provided Fatigue (DC) Anemia (DC) Prescriptions See Medication Section Care Plan and Goals See Discharge Instructions Section Functional Status Query Response Date Recorded Mobility Status Ambulatory w/assist March 10, 2017 12:23pm Assistive Devices Front Wheeled Walker March 10, 2017 12:23pm Activity Limitations Weakness Fatigue Pain March 10, 2017 12:23pm Feeding Ability Independent March 10, 2017 12:23pm Toileting Ability Assist March 07, 2017 3:38pm Grooming Ability Assist March 10, 2017 12:23pm Dressing Ability Assist March 10, 2017 12:23pm Driving Ability Dependent March 10, 2017 12:23pm Housework Ability Dependent March 10, 2017 12:23pm Meal Preparation Ability Dependent March 10, 2017 12:23pm Stair Climbing Ability Dependent March 10, 2017 12:23pm Ability to complete ADL's impeded by No change March 10, 2017 12:23pm Cognitive/Perceptual Impairments Impaired vision Impaired hearing March 10, 2017 12:23pm Hearing Assistive Devices Right hearing aid March 07, 2017 3:38pm Allergies, Adverse Reactions, Alerts Allergen Type Severity Reaction Status Last Updated Conjugated estrogen Allergy Mild RASH Active 01/21/17 Niacin Allergy Mild RASH Active 01/21/17 Morphine Allergy Mild RASH Active 01/21/17 Fentanyl Allergy Unknown rash Active 01/21/17 Amoxicillin Allergy Unknown RASH Active 01/21/17 Immunizations Query Response on File Recorded Date/Time Hx Influenza Vaccination Y JUL 2016 03/07/17 3:52pm Hx Pneumococcal Vaccination Y JUL 2016 03/07/17 3:52pm Hx Influenza Vaccination Y JUL 2016 03/07/17 3:52pm Influenza Vaccine Hx 07/201603/07/17 3:57pm Vital Signs Acute Vital Signs Vital Response Date/Time Temperature (Fahrenheit) 96.8 deg F (96.8 - 99.1) 03/10/2017 7:30am Temperature (Calculated Celsius) 36.55582 degrees C (36.0 - 37.3) 03/10/2017 7:30am Pulse Rate (adult) 61 bpm (60 - 100) 03/10/2017 7:30am Respiratory Rate 18 breaths/min (10 - 20) 03/10/2017 8:26am O2 Sat by Pulse Oximetry 97 % (90 - 100) 03/10/2017 7:30am Oxygen Delivery Method Nasal Cannula 03/07/2017 9:01pm Oxygen Delivery Method Room Air 03/10/2017 7:30am Oxygen Flow Rate 2.00 L/min 03/07/2017 9:01pm Blood Pressure 115/65 mm Hg 03/10/2017 7:30am Blood Pressure Source Automatic Cuff 03/10/2017 7:30am Height (Feet) 5 feet 03/09/2017 1:19pm Height (Inches) 4.00 inches 03/09/2017 1:19pm Weight (Kilograms) 123.500 kg 03/10/2017 7:30am Body Mass Index (BMI) 46.9 03/07/2017 3:36pm Results Laboratory Results Test Name Result Units Flags Reference Collection Date/Time Result Date/ Time Comments Iron Level 33 UG/DL L 37-170 01/17/2017 10:26am 01/19/2017 1:55am Total Iron Binding Capacity 333 UG/DL 261-497 01/17/2017 10:26am 2016 1:09am Percent Iron Saturation 10 % 9-55 01/17/2017 10:26am 01/19/2017 1:55am Ferritin 29.2 NG/ML 11-264 01/17/2017 10:26am 01/19/2017 2:35am Vitamin B12 Level 554 PG/ML 239-931 01/17/2017 10:01/19/2017 2: 50am Transferrin 273 mg/dL 192-382 01/17/2017 10:01/17/2017 10:14pm Transferrin performed at [facility], [address] [facility], [place] [address] Compensation And Benefits Manager Aliya Abreu DO White Blood Count 5.0 T/MM3 4.5-11.0 03/10/2017 4:1803/10/2017 5: 39am Red Blood Count 3.46 M/MM3 L 4.00-5.20 03/10/2017 4:1803/10/2017 5: 39am Hemoglobin 10.3 GM/DL L 12-16 03/10/2017 4:03/10/2017 5:39am Hematocrit 32.8 % L 36-46 03/10/2017 4:03/10/2017 5:39am Mean Corpuscular Volume 94.8 UM3 80-100 03/10/2017 4:03/10/2017 5: 39am Mean Corpuscular Hemoglobin 29.8 UUG 26-34 03/10/2017 4:2016 5:39am Mean Corpuscular Hemoglobin Concent 31.4 GM/DL 31-37 03/10/2017 4:03/10/2017 5:39am RDW Standard Deviation 58.3 FL H 36.9-50.2 03/10/2017 4:03/10/2017 5:39am Platelet Count 264 T/MM3 130-400 03/10/2017 4:03/10/2017 5:39am Mean Platelet Volume 10.0 UM3 9.4-12.4 03/10/2017 4:03/10/2017 5: 39am Neutrophils (%) (Auto) 58.5 % 33-66 03/10/2017 4:03/10/2017 5: 39am Lymphocytes (%) (Auto) 30.1 % 23-45 03/10/2017 4:03/10/2017 5: 39am Monocytes (%) (Auto) 9.6 % H 0-9.0 03/10/2017 4:1803/10/2017 5:39am Eosinophils (%) (Auto) 1.4 % 0-4 03/10/2017 4:1803/10/2017 5:39am Basophils (%) (Auto) 0.2 % 0-2 03/10/2017 4:1803/10/2017 5:39am Immature Granulocyte % (Auto) 0.2 % 0.0-0.5 03/10/2017 4:2016 5:39am Absolute Neutrophils (auto) 2.9 T/MM3 1.8-7.7 03/10/2017 4:182016 5:39am Absolute Lymphocytes (auto) 1.5 T/MM3 1-4.8 03/10/2017 4:2016 5:39am Absolute Monocytes (auto) 0.5 T/MM3 0-0.8 03/10/2017 4:03/10/2017 5:39am Absolute Eosinophils (auto) 0.1 T/MM3 0-0.5 03/10/2017 4:2016 5:39am Absolute Basophils (auto) 0.0 T/MM3 0-0.2 03/10/2017 4:1803/10/2017 5:39am Absolute Immature Granulocyte (auto 0.01 T/MM3 0.00-0.03 03/10/2017 4: 03/10/2017 5:39am Neutrophils % (Manual) 67.0 % H 33-66 03/07/2017 4:04pm 03/07/2017 5: 27pm Lymphocytes % (Manual) 27.0 % 23-45 03/07/2017 4:04pm 03/07/2017 5: 27pm Monocytes % (Manual) 6.0 % 0-9.0 03/07/2017 4:04pm 03/07/2017 5:27pm Absolute Neutrophils (Manual) 3.6 T/MM3 1.8-7.7 03/07/2017 4:04pm 03/07 5:27pm Lymphocytes # (Manual) 1.5 T/MM3 1-4.8 03/07/2017 4:04pm 03/07/2017 5: 27pm Monocytes # (Manual) 0.3 T/MM3 0-0.8 03/07/2017 4:0403/07/2017 5: 27pm Red Cell Morphology Comment ABNORMAL 03/07/2017 4:0403/07/2017 5 :27pm Anisocytosis 1+ 03/07/2017 4:0403/07/2017 5:27pm Icterus Index < 2 0-7 03/10/2017 4:1803/10/2017 5:47am Chemistry Specimen Hemolysis < 15 0-25 03/10/2017 4:1803/10/2017 5 :47am 0-25: Specimen Exhibited No Hemolysis. Turbidity < 20 0-20 03/10/2017 4:1803/10/2017 5:47am Sodium Level 135 MEQ/L 134-144 03/10/2017 4:1803/10/2017 5:47am Potassium Level 3.2 MEQ/L L 3.6-5 03/10/2017 4:1803/10/2017 5:47am Chloride Level 87 MEQ/L L 98-107 03/10/2017 4:1803/10/2017 5:47am Carbon Dioxide Level 34 MEQ/L H 22-30 03/10/2017 4:1803/10/2017 5: 47am Anion Gap 14 MEQ/L 5-15 03/10/2017 4:1803/10/2017 5:47am Blood Urea Nitrogen 44.0 MG/DL H 7-17 03/10/2017 4:1803/10/2017 5: 47am Creatinine 2.5 MG/DL H 0.7-1.2 03/10/2017 4:1803/10/2017 5:47am BUN/Creatinine Ratio 18 RATIO 6-26 03/10/2017 4:1803/10/2017 5:47am Glomerular Filtration Rate Calc 19 03/10/2017 4:1803/10/2017 5: 47am Glucose Level 76 MG/DL 65-110 03/10/2017 4:1803/10/2017 5:47am Calculated Osmolality 270 MOSM/KG 261-280 03/10/2017 4:1803/10/2017 5:47am Calcium Level 9.5 MG/DL 8.4-10.2 03/10/2017 4:1803/10/2017 5:47am Phosphorus Level 5.4 MG/DL H 2.5-4.5 03/09/2017 4:10am 03/09/2017 5: 37am Total Bilirubin 0.60 MG/DL 0.20-1.30 03/07/2017 4:04pm 03/07/2017 5: 04pm Alkaline Phosphatase 98 U/L 38-126 03/07/2017 4:04pm 03/07/2017 5:04pm Total Protein 6.8 G/DL 6.3-8.2 03/07/2017 4:04pm 03/07/2017 5:04pm Albumin 3.9 G/DL 3.5-5.0 03/07/2017 4:04pm 03/07/2017 5:04pm Globulin 2.9 G/DL 2.4-3.6 03/07/2017 4:04pm 03/07/2017 5:04pm Albumin/Globulin Ratio 1.3 RATIO 1.1-2.2 03/07/2017 4:04pm 03/07/2017 5 :04pm Aspartate Amino Transf (AST/SGOT) 41 U/L H 14-36 03/07/2017 4:04pm 03/07 5:04pm Alanine Aminotransferase (ALT/SGPT) 40 U/L 9-52 03/07/2017 4:04pm 03/07 5:04pm Magnesium Level 2.4 MG/DL H 1.6-2.3 03/09/2017 4:10am 03/09/2017 5:37am Thyroid Stimulating Hormone (TSH) 3.34 MIU/L 0.47-4.68 03/07/2017 4: 04pm 03/07/2017 5:34pm Stool Occult Blood POSITIVE A 03/08/2017 6:00am 03/08/2017 6:45am Urine Color YELLOW YELLOW 03/07/2017 4:16pm 03/07/2017 4:25pm Urine Turbidity CLEAR CLEAR 03/07/2017 4:16pm 03/07/2017 4:25pm Urine Specific [place] 1.010 L 1.015-1.025 03/07/2017 4:pm 2016 4:25pm Urine pH 6.5 5.0-8.0 03/07/2017 4:16pm 03/07/2017 4:25pm Urine Leukocyte Esterase NEGATIVE NEGATIVE 03/07/2017 4:16pm 2016 4:25pm Urine Nitrite NEGATIVE NEGATIVE 03/07/2017 4:16pm 03/07/2017 4:25pm Urine Protein NEGATIVE NEGATIVE 03/07/2017 4:16pm 03/07/2017 4:25pm Urine Glucose (UA) NEGATIVE NEGATIVE 03/07/2017 4:16pm 03/07/2017 4: 25pm Urine Ketones NEGATIVE NEGATIVE 03/07/2017 4:16pm 03/07/2017 4:25pm Urine Urobilinogen 0.2 EU/DL NORMAL 03/07/2017 4:16pm 03/07/2017 4: 25pm Urine Bilirubin NEGATIVE NEGATIVE 03/07/2017 4:16pm 03/07/2017 4: 25pm Urine Blood NEGATIVE NEGATIVE 03/07/2017 4:16pm 03/07/2017 4:25pm Urinalysis Comment MICROSCOPIC NOT IND. 03/07/2017 4:16pm 2016 4:25pm Glucometer 84 mg/dL 65-110 03/10/2017 6:27am 03/10/2017 6:38am Name: SID HERNÁNDEZ Unit #: [id number] : 1950 Sex: F Admit Date: 03/07/17 Loc / Svc: MED Discharge Date: DIAGNOSTIC IMAGING REPORT Report #: [id number] [facility] Miguel Angel CHRISSY Indication: ITS.REASON: CENTRAL LINE INSERTION VERIFICATION PROCEDURE: CHEST POST PROCEDURE 1 VIEW: Encounter: Initial Comparison: October 29, 2016 Findings: New right internal jugular approach central venous catheter with the tip projecting over the mid SVC. Other support devices are stable. The lungs are stable in appearance without new focal airspace consolidation. There is no pleural effusion or pneumothorax. The heart size, pulmonary vascularity and mediastinal contours are unchanged. IMPRESSION: New right IJ central venous line as above. . Procedures Procedure Status Date Provider(s) Extremity study Completed 12/25/16 Ther/proph/diag inj sc/im Completed 01/21/17 Ther/proph/diag inj sc/im Completed 01/21/17 Emergency dept visit Completed 01/21/17 [id number] ITEM OR SERVICE Completed 01/21/17 374101"INJECTION, METHYLPREDNISOLONE ACETATE, 40 MG" Completed 01/21/17 660437"INJECTION, DIPHENHYDRAMINE HCL, UP TO 50 MG" Completed 01/21/17 Routine venipuncture Completed 02/15/17 Renal function panel Completed 02/15/17 Insertion of triple lumen catheter Completed 03/07/17 RABIA BLACKWELL MD, FACS, CWS Encounters Encounter Location Arrival/Admit Date Discharge/Depart Date Attending Provider Discharged Inpatient [facility] 03/09/17 11:45am 03/10/17 2:00pm BERNARDA BELL MD Registered [facility] 03/06/17 9:10am FELIPA BADILLO Registered [facility] 03/02/17 1:27pm KVNG POLLARD MD Registered [facility] 02/15/17 5:27pm PREETI ESQUIVEL MD Registered Emergency Room [facility] 01/21/17 11:32am LIBAN YU MD Discharged Recurring [facility] 01/17/17 9:51am 01/17/17 10:49am KVNG POLLARD MD Registered [facility] 12/25/16 1:38pm MAYRA VALLEJO APRN
--- OUTSIDE RECORDS SUMMARY | 2017-03-18 09:30 | XMS REPORT | Continuity of Care Document ---
Author Author [facility] Organization [facility] Address Unknown Phone Unavailable Care Team Providers Care Refrigeration Systems Installer Name Role Phone PREETI ESQUIVEL MD Primary Care Physician [phone] Insurance Providers Payer Name Policy Number Subscriber Name Relationship [facility] [id number] Kareen Hernández 18 Self Advance Directives Directive Response Recorded Date/Time Advanced Directives Type DPOA for Healthcare 05/17/14 10:22am Problems Medical Problems Problem Onset Date Status [facility] compl of cardiac pulse generator [...] U SQ DAILY 06/24/10 09/11/11 Discontinued Fish Oil/[place]-3 Fatty Acids 1 Cap PO TWICE A [...] 05/20/12 05/15/14 Discontinued Fentanyl 1 Patch TD [id number] 05/20/12 01/27/13 Discontinued Zolpidem Tartrate 10 Mg [...] F (96.8 - 99.1) Temperature (Calculated Celsius) 36.00094 degrees C (36.0 - 37.3) Pulse Rate [...] 27, 2013 9:22am LAB TEST FORM REQUEST [id number] - Levetiracetam (Keppra) Level August 27, 2013 8:43am 37.8 mcg/mL - Reference Range:12.0 - 46.0 Test Performed by: [address] [address] Customer Orders Clerk: Sergio Fulton III, M.D. Levetiracetam performed at [facility], [address] [place] [id number] Master Brewer MD Enoc Howard III July 02, 2009 [...] Has specimen been collected/obtained? Y Urine Specific [place] May 17, 2014 11:15am 1.010 L - [...] Encounters Encounter Location Date/Time Registered Emergency Room [facility] 05/17/14 10:19am Departed Clinic [facility] 05/15/14 1:18pm Recent Diagnosis
--- OUTSIDE RECORDS SUMMARY | 2017-03-18 09:30 | XMS REPORT | Continuity of Care Document ---
Author Author [facility] Organization [facility] Address Unknown Phone Unavailable Care Team Providers Care Racking Technician Name Role Phone PREETI ESQUIVEL MD Primary Care Physician [phone] Insurance Providers Payer Name Policy Number Subscriber Name Relationship [facility] State Plan [id number] Kareen Hernández 18 Self Problems Medical Problems Problem Onset Date Status [facility] compl of cardiac pulse generator [...] U SQ DAILY 06/24/10 09/11/11 Discontinued Fish Oil/[place]-3 Fatty Acids 1 Cap PO TWICE A [...] 05/20/12 05/15/14 Discontinued Fentanyl 1 Patch TD [id number] 05/20/12 01/27/13 Discontinued Zolpidem Tartrate 10 Mg [...] have difficulty breathing. During office hours, call [phone]. After hours, please call [facility] at [phone] and have the horizontal drill operator page Dr. French or the covering surgeon. *In the event of an emergency, seek medical care at the nearest emergency room.* Condition at time of discharge: Good Plan of Care Discharge Date 07/14/14 12:05pm Instructions/Education Provided [facility] [place] [facility] Congestive Heart Failure Eating a Diet Low [...] F (96.8 - 99.1) Temperature (Calculated Celsius) 36.85325 degrees C (36.0 - 37.3) Temperature Source [...] Reference Range:12.0 - 46.0 Test Performed by: [address] [address] Cash Office Worker: Sergio Fulton III, M.D. Levetiracetam performed at [facility], [address] [place] [address] Architect In Training MD Enoc Howard III July 02, 2009 [...] 14, 2014 4:47am 12.0 % H 0-9.0 NE-Trx-I-Type Natriuretic Peptide June 04, 2014 5:09pm 358 [...] Has specimen been collected/obtained? Y Urine Specific [place] May 17, 2014 11:15am 1.010 L - [...] 5.0 MMOL/L H -2.0- 2.0 COMMENT IN UTILITY AIDE Venous Blood HCO3 July 13, 2014 5:30pm 30 MEQ/L H 22-26 COMMENT IN UTILITY AIDE Venous Blood Oxygen Saturation July 13, 2014 5:30pm 72.0 % - COMMENT IN UTILITY AIDE Venous Blood Partial Pressure CO2 July 13, 2014 5:30pm 47.7 MMHG N 40-52 COMMENT IN UTILITY AIDE Venous Blood Partial Pressure O2 July 13, 2014 5:30pm 38 MMHG L 40- 52 COMMENT IN UTILITY AIDE Venous Blood Total Carbon Dioxide July 13, 2014 5:30pm 32 MEQ/L - COMMENT IN UTILITY AIDE Venous Blood pH July 13, 2014 5:30pm 7.409 N 7.31-7.41 COMMENT IN UTILITY AIDE Vitamin B12 Level August 27, 2013 8:43am 287 PG/ML N 239-931 White Blood Count July 14, 2014 4:47am 5.4 T/MM3 N 4.5-11.0 Blood Culture Blood April 19, 2013 12:20pm NO GROWTH AFTER 5 DAYS Helicobacter pylori Rapid Urease Gastric Biopsy May 21, 2012 9:58am Name: KAREEN HERNÁNDEZ Unit #: [id number] : 1950 Sex: F Loc / Svc: VANESSA DOS: 07/03/14 Signed Report #: [id number] DIAGNOSTIC IMAGING REPORT TYPE OF EXAM: CT CHEST W/CONTRAST Dictated By: BYRON CORAES MD INDICATION: ITS.REASON: 787.29 DYSPHAGIA 530.81 ESOPHAGEAL [...] MD Encounters Encounter Location Date/Time Admitted Inpatient [facility] 07/13/14 11:44am Registered [facility] 07/03/14 12:16pm Registered [facility] 06/18/14 7:48am Registered [facility] 06/05/14 2:33pm Registered [facility] 06/04/14 4:29pm Registered [facility] 05/27/14 11:24am Departed Emergency Room [facility] 05/17/14 10:19am Departed [facility] 05/15/14 1:18pm
--- OUTSIDE RECORDS SUMMARY | 2017-03-18 09:31 | XMS REPORT | Continuity of Care Document ---
Author Author [facility] Organization [facility] Address Unknown Phone Unavailable Allergies Active [...] R47.01 APHASIA 02/18/2016 Fredy Og DO Z79.4 [facility] (CURRENT) USE OF INSULIN 02/18/2016 Fredy Og DO Z79.82 [facility] (CURRENT) USE OF ASPIRIN 02/18/2016 Fredy Og DO Z87.891 PERSONAL HISTORY OF NICOTINE DEPENDENCE 02/18/2016 Fredy Og DO Z95.0 PRESENCE OF CARDIAC PACEMAKER Procedures Code Description [place] [address] DIAGNOSTIC SIGMOIDOSCOPY Maximo Mann MD 10/28/2012 Results [...] Status Pt. Type Provider Facility Loc./Unit Complaint [id number] 10/28/2012 12:23:00 2012 17:28:00 DIS Outpatient Johnathan ARZOLA, Maximo [facility] on [address]
--- OUTSIDE RECORDS SUMMARY | 2017-03-18 09:31 | XMS REPORT | Continuity of Care Document ---
Author Author [facility] Organization [facility] Address Unknown Phone Unavailable Allergies Active [...] Procedures Code [place] [id number] DIAGNOSTIC SIGMOIDOSCOPY Maximo Mann MD 10/28/2012 Results [...] Status Pt. Type Provider Facility Loc./Unit Complaint [id number] 10/28/2012 12:23:00 2012 17:28:00 DIS Outpatient Johnathan ARZOLA, Maximo Lopez [facility] on [address]
--- NOTE | 2017-03-18 09:46 | NUR ---
DR IVORY IN
[2017-03-18] MEDS ORDERED: POLY119P21 PO (09:52)
--- OUTSIDE RECORDS SUMMARY | 2017-03-18 10:14 | XMS REPORT | Continuity of Care Document ---
Author Author [facility] Organization [facility] Address Unknown Phone Unavailable Care Team Providers Care Chiropractor Sole Practitioner Name Role Phone PREETI ESQUIVEL MD Primary Care Physician [phone] Insurance Providers Payer Name Policy Number Subscriber Name Relationship [facility] [id number] Kareen Hernández 18 Self Problems Medical Problems Problem Onset Date Status [facility] compl of cardiac pulse generator [...] U SQ DAILY 06/24/10 09/11/11 Discontinued Fish Oil/[place]-3 Fatty Acids 1 Cap PO TWICE A [...] 05/20/12 05/15/14 Discontinued Fentanyl 1 Patch TD [id number] 05/20/12 01/27/13 Discontinued Zolpidem Tartrate 10 Mg [...] AT FIRST POSTOP APPOINTMENT Durable Medical Equipment: [employer] [phone] [facility] [phone] Notify Physician If: CALL YOUR SURGEON IF: [...] Care Discharge Date 07/14/14 12:05pm Instructions/Education Provided [facility] [place] [facility] [place] Congestive Heart Failure Eating [...] F (96.8 - 99.1) Temperature (Calculated Celsius) 36.39300 degrees C (36.0 - 37.3) Pulse Rate [...] Reference Range:12.0 - 46.0 Test Performed by: [place] [id number] Piano Accompanist: Sergio Fulton III, M.D. Levetiracetam performed at [facility], [address] [place] [address] Rn Concurrent Review MD Enoc Howard III July 02, 2009 [...] Has specimen been collected/obtained? Y Urine Specific [place] July 17, 2014 2:00pm 1.010 L - [...] 5.0 MMOL/L H -2.0- 2.0 COMMENT IN MOTOR VEHICLE SALESPERSON Venous Blood HCO3 July 13, 2014 5:30pm 30 MEQ/L H -26 COMMENT IN MOTOR VEHICLE SALESPERSON Venous Blood Oxygen Saturation July 13, 2014 5:30pm 72.0 % - COMMENT IN MOTOR VEHICLE SALESPERSON Venous Blood Partial Pressure CO2 July 13, 2014 5:30pm 47.7 MMHG N 40-52 COMMENT IN MOTOR VEHICLE SALESPERSON Venous Blood Partial Pressure O2 July 13, 2014 5:30pm 38 MMHG L 40- 52 COMMENT IN MOTOR VEHICLE SALESPERSON Venous Blood Total Carbon Dioxide July 13, 2014 5:30pm 32 MEQ/L - COMMENT IN MOTOR VEHICLE SALESPERSON Venous Blood pH July 13, 2014 5:30pm 7.409 N 7.31-7.41 COMMENT IN MOTOR VEHICLE SALESPERSON Vitamin B12 Level August 27, 2013 8:43am [...] 13, 2014 8:31pm LAB TEST FORM REQUEST [id number] - Turbidity July 17, 2014 2:41pm < [...] July 17, 2014 2:41pm < 2 0-7 ZV-Wli-Y-Type Natriuretic Peptide June 04, 2014 5:09pm 358 [...] 2012 9:58am Name: KAREEN HERNÁNDEZ Unit #: [id number] : 1950 Sex: F Loc / Svc: ED DOS: 07/17/14 Signed Report #: [id number] DIAGNOSTIC IMAGING REPORT TYPE OF EXAM: CT [...] Encounters Encounter Location Date/Time Departed Emergency Room [facility] 07/17/14 1:26pm Discharged Inpatient [facility] 07/13/14 11:44am Registered [facility] 07/03/14 12:16pm Registered Clinic [facility] 06/18/14 7:48am Registered Clinic [facility] 06/05/14 2:33pm Registered [facility] 06/04/14 4:29pm Registered [facility] 05/27/14 11:24am Departed Emergency Room [facility] 05/17/14 10:19am Departed [facility] 05/15/14 1:18pm Recent Diagnosis
--- OUTSIDE RECORDS SUMMARY | 2017-03-18 10:14 | XMS REPORT | Continuity of Care Document ---
Author Author [facility] Organization [facility] Address Unknown Phone Unavailable Care Team Providers Care Sexual Assault Response Coordinator Name Role Phone PREETI ESQUIVEL MD Primary Care Physician [phone] Insurance Providers Payer Name Policy Number Subscriber Name Relationship [facility] State Plan [id number] Kareen Hernández 18 Self Advance Directives Directive Response Recorded Date/Time Ordered Resuscitation Status Full Code 11/11/14 10:29am Resuscitation Documents on File Yes 11/11/14 9:01am Problems Medical Problems Problem Onset Date Status [facility] compl of cardiac pulse generator (battery), [...] U SQ DAILY 06/24/10 09/11/11 Discontinued Fish Oil/[place]-3 Fatty Acids 1 Cap PO TWICE A [...] 05/20/12 05/15/14 Discontinued Fentanyl 1 Patch TD [id number] 05/20/12 01/27/13 Discontinued Zolpidem Tartrate 10 Mg [...] F (96.8 - 99.1) Temperature (Calculated Celsius) 36.62265 degrees C (36.0 - 37.3) Temperature Source [...] 13, 2014 8:31pm LAB TEST FORM REQUEST [id number] - Levetiracetam (Keppra) Level August 27, 2013 8:43am 37.8 mcg/mL - Reference Range:12.0 - 46.0 Test Performed by: [place] [address] Imaging Account Manager: Sergio Fulton III, M.D. Levetiracetam performed at [facility], [address] [place] [address] Manager Plumbing Kirstin Mckenzie MD Lipase July 02, 2009 [...] 17, 2014 2:41pm 7.7 % N 0-9.0 YS-Yik-W-Type Natriuretic Peptide June 04, 2014 5:09pm 358 [...] Has specimen been collected/obtained? Y Urine Specific [place] July 17, 2014 2:00pm 1.010 L - [...] 5.0 MMOL/L H -2.0- 2.0 COMMENT IN EVENING ANCHOR Venous Blood HCO3 July 13, 2014 5:30pm 30 MEQ/L H 22-26 COMMENT IN EVENING ANCHOR Venous Blood Oxygen Saturation July 13, 2014 5:30pm 72.0 % - COMMENT IN EVENING ANCHOR Venous Blood Partial Pressure CO2 July 13, 2014 5:30pm 47.7 MMHG N 40-52 COMMENT IN EVENING ANCHOR Venous Blood Partial Pressure O2 July 13, 2014 5:30pm 38 MMHG L 40- 52 COMMENT IN EVENING ANCHOR Venous Blood Total Carbon Dioxide July 13, 2014 5:30pm 32 MEQ/L - COMMENT IN EVENING ANCHOR Venous Blood pH July 13, 2014 5:30pm 7.409 N 7.31-7.41 COMMENT IN EVENING ANCHOR Vitamin B12 Level August 27, 2013 8:43am 287 PG/ML N 239-931 White Blood Count July 17, 2014 2:41pm 5.6 T/MM3 N 4.5-11.0 Blood Culture Blood April 19, 2013 12:20pm NO GROWTH AFTER 5 DAYS Wet Prep Cervix July 17, 2014 2:55pm Helicobacter pylori Rapid Urease Gastric Biopsy May 21, 2012 9:58am Name: KAREEN HERNÁNDEZ Unit #: [id number] : 1950 Sex: F Loc / Svc: [facility] DOS: 09/04/14 Signed Report #: [id number] DIAGNOSTIC IMAGING REPORT TYPE OF EXAM: FOOT [...] ESQUIVEL MD Encounters Encounter Location Date/Time Registered [facility] 09/04/14 11:33am Registered [facility] 08/18/14 1:18pm
--- OUTSIDE RECORDS SUMMARY | 2017-03-18 10:15 | XMS REPORT | Continuity of Care Document ---
Author Author [facility] Organization [facility] Address Unknown Phone Unavailable Care Team Providers Care Packaging Clerk Name Role Phone PREETI ESQUIVEL MD Primary Care Physician [phone] Insurance Providers Payer Name Policy Number Subscriber Name Relationship [facility] State Plan [id number] Kareen Hernández 18 Self Problems Medical Problems Problem Onset Date Status [facility] compl of cardiac pulse generator (battery), init [...] U SQ DAILY 06/24/10 09/11/11 Discontinued Fish Oil/[place]-3 Fatty Acids 1 Cap PO TWICE A [...] 05/20/12 05/15/14 Discontinued Fentanyl 1 Patch TD [id number] 05/20/12 01/27/13 Discontinued Zolpidem Tartrate 10 Mg [...] have difficulty breathing. During office hours, call [phone]. After hours, please call [facility] at [phone] and have the timber sizer operator page Dr. French or the covering surgeon. *In the event of an emergency, seek medical care at the nearest emergency room.* Condition at time of discharge: Good Plan of Care Discharge Date 07/14/14 12:05pm Instructions/Education Provided [facility] [place] Heart Cath [facility] Congestive Heart Failure Eating a Diet Low [...] F (96.8 - 99.1) Temperature (Calculated Celsius) 36.31102 degrees C (36.0 - 37.3) Temperature Source [...] Reference Range:12.0 - 46.0 Test Performed by: [address] [address] Insurance Attorney: Sergio Fulton III, M.D. Levetiracetam performed at [facility], [address] [place] [address] Perinatal Coordinator MD Enoc Howard III July 02, [...] 14, 2014 4:47am 12.0 % H 0-9.0 PD-Sxp-B-Type Natriuretic Peptide June 04, 2014 5:09pm 358 [...] Has specimen been collected/obtained? Y Urine Specific [place] May 17, 2014 11:15am 1.010 L - [...] 5.0 MMOL/L H -2.0- 2.0 COMMENT IN SPECIAL POLICE OFFICER Venous Blood HCO3 July 13, 2014 5:30pm 30 MEQ/L H 22-26 COMMENT IN SPECIAL POLICE OFFICER Venous Blood Oxygen Saturation July 13, 2014 5:30pm 72.0 % - COMMENT IN SPECIAL POLICE OFFICER Venous Blood Partial Pressure CO2 July 13, 2014 5:30pm 47.7 MMHG N 40-52 COMMENT IN SPECIAL POLICE OFFICER Venous Blood Partial Pressure O2 July 13, 2014 5:30pm 38 MMHG L 40- 52 COMMENT IN SPECIAL POLICE OFFICER Venous Blood Total Carbon Dioxide July 13, 2014 5:30pm 32 MEQ/L - COMMENT IN SPECIAL POLICE OFFICER Venous Blood pH July 13, 2014 5:30pm 7.409 N 7.31-7.41 COMMENT IN SPECIAL POLICE OFFICER Vitamin B12 Level August 27, 2013 8:43am 287 PG/ML N 239-931 White Blood Count July 14, 2014 4:47am 5.4 T/MM3 N 4.5-11.0 Blood Culture Blood April 19, 2013 12:20pm NO GROWTH AFTER 5 DAYS Helicobacter pylori Rapid Urease Gastric Biopsy May 21, 2012 9:58am Name: KAREEN HERNÁNDEZ Unit #: [id number] : 1950 Sex: F Loc / Svc: [facility] DOS: 07/03/14 Signed Report #: [id number] DIAGNOSTIC IMAGING REPORT TYPE OF EXAM: CT [...] MD Encounters Encounter Location Date/Time Admitted Inpatient [facility] 07/13/14 11:44am Registered [facility] 07/03/14 12:16pm Registered [facility] 06/18/14 7:48am Registered [facility] 06/05/14 2:33pm Registered [facility] 06/04/14 4:29pm Registered [facility] 05/27/14 11:24am Departed Emergency Room [facility] 05/17/14 10:19am Departed [facility] 05/15/14 1:18pm
--- OUTSIDE RECORDS SUMMARY | 2017-03-18 10:15 | XMS REPORT | Continuity of Care Document ---
Author Author [facility] Organization [facility] Address Unknown Phone Unavailable Care Team Providers Care Foreman/Pile Driving And Erection Name Role Phone PREETI ESQUIVEL MD Primary Care Physician [phone] Insurance Providers Payer Name Policy Number Subscriber Name Relationship [facility] [id number] Kareen Hernández 18 Self Advance Directives Directive Response Recorded Date/Time Advanced Directives Type DPOA for Healthcare 05/17/14 10:22am Problems Medical Problems Problem Onset Date Status [facility] compl of cardiac pulse generator [...] U SQ DAILY 06/24/10 09/11/11 Discontinued Fish Oil/[place]-3 Fatty Acids 1 Cap PO TWICE [...] 05/20/12 05/15/14 Discontinued Fentanyl 1 Patch TD [id number] 05/20/12 01/27/13 Discontinued Zolpidem Tartrate 10 Mg [...] F (96.8 - 99.1) Temperature (Calculated Celsius) 36.32245 degrees C (36.0 - 37.3) Pulse Rate [...] 27, 2013 9:22am LAB TEST FORM REQUEST [id number] - Levetiracetam (Keppra) Level August 27, 2013 8:43am 37.8 mcg/mL - Reference Range:12.0 - 46.0 Test Performed by: [address] [address] Senior Mobile Solutions Architect: Sergio Fulton III, M.D. Levetiracetam performed at [facility], [address] [place] [address] Experimental Technician MD Enoc Howard III July 02, 2009 [...] Has specimen been collected/obtained? Y Urine Specific [place] May 17, 2014 11:15am 1.010 L - [...] Encounters Encounter Location Date/Time Registered Emergency Room [facility] 05/17/14 10:19am Departed Clinic [facility] 05/15/14 1:18pm Recent Diagnosis
--- OUTSIDE RECORDS SUMMARY | 2017-03-18 10:16 | XMS REPORT | Continuity of Care Document ---
Author Author [facility] Organization [facility] Address Unknown Phone Unavailable Allergies Active Description [...] R47.01 APHASIA 02/18/2016 Fredy Og DO Z79.4 SENIOR CARE (CURRENT) USE OF INSULIN 02/18/2016 Fredy Og DO Z79.82 SENIOR CARE (CURRENT) USE OF ASPIRIN 02/18/2016 Fredy Og DO Z87.891 PERSONAL HISTORY OF NICOTINE DEPENDENCE 02/18/2016 Fredy Og DO Z95.0 PRESENCE OF CARDIAC PACEMAKER Procedures Code Description [place] [address] DIAGNOSTIC SIGMOIDOSCOPY Maximo Mann MD 10/28/2012 Results [...] Status Pt. Type Provider Facility Loc./Unit Complaint [id number] 10/28/2012 12:23:00 2012 17:28:00 DIS Outpatient Johnathan ARZOLA, Maximo Lopez [facility] on [address]
--- OUTSIDE RECORDS SUMMARY | 2017-03-18 10:16 | XMS REPORT | Continuity of Care Document ---
Author Author [facility] Organization [facility] Address Unknown Phone Unavailable Allergies [...] APHASIA 02/18/2016 Fredy Og DO Z79.4 SENIOR LIVING (CURRENT) USE OF INSULIN 02/18/2016 Fredy Og DO Z79.82 SENIOR LIVING (CURRENT) USE OF ASPIRIN 02/18/2016 Fredy Og DO Z87.891 PERSONAL HISTORY OF NICOTINE DEPENDENCE 02/18/2016 Fredy Og DO Z95.0 PRESENCE OF CARDIAC PACEMAKER Procedures Code Description [place] [address] DIAGNOSTIC SIGMOIDOSCOPY Maximo Mann MD 10/28/2012 Results [...] Status Pt. Type Provider Facility Loc./Unit Complaint [id number] 10/28/2012 12:23:00 2012 17:28:00 DIS Outpatient Johnathan ARZOLA, Maximo Lopez [facility] on [address]
[2017-03-18 10:26] LABS: BASOPHILS % (AUTO) 0.2 % (0-2); EOSINOPHILS # (AUTO) 0.1 T/MM3 (0-0.5); EOSINOPHILS % (AUTO) 1.1 % (0-4); HCT - HEMATOCRIT 36.2 % (36-46); HGB - HEMOGLOBIN 11.1 GM/DL (12-16); IMMATURE GRANULOCYTE # (AUTO) 0.01 T/MM3 (0.00-0.03); IMMATURE GRANULOCYTE % (AUTO) 0.2 % (0.0-0.5); LYMPHOCYTES % (AUTO) 22.3 % (23-45); MEAN CORPUSCULAR HGB 30.2 UUG (26-34); MEAN CORPUSCULAR HGB CONC(MCHC 30.7 GM/DL (31-37); MEAN CORPUSCULAR VOLUME 98.4 UM3 (80-100); MEAN PLATELET VOLUME 10.3 UM3 (9.4-12.4); MONOCYTES # (AUTO) 0.4 T/MM3 (0-0.8); MONOCYTES % (AUTO) 8.2 % (0-9.0); NEUTROPHILS #(AUTO)-ABSOLUTE 3.1 T/MM3 (1.8-7.7); RED BLOOD COUNT 3.68 M/MM3 (4.00-5.20); WBC - WHITE BLOOD COUNT 4.5 T/MM3 (4.5-11.0)
--- NOTE | 2017-03-18 10:32 | ERPDOC ---
Departure Disposition Decision Date: March 18, 2017 Disposition Decision Time: 12:49 Disposition: 01 DISCHARGED HOME, SELF-CARE Impression Impression Impression: Primary Impression: Rectal bleed Additional Impressions: Mild dehydration Chronic anemia Severity: Moderate Condition: Stable Seen By: Physician only Referrals: PREETI ESQUIVEL MD (PCP) MARCY ORANTES MD (Family) RABIA BLACKWELL MD, FACS, CWS Patient Instructions: Rectal Bleeding (ED) Problems/Meds/Labs Reviewed?: Yes Medications reviewed and manag: Yes Additional Instructions: Follow-up with her primary care provider. Recommend you consider getting a colonoscopy due to the continued rectal bleeding. Follow up care ordered?: Yes Mental Status: Alert, Oriented HPI - CVA/Neuro General Chief Complaint: GI Bleed Stated Complaint: BLOODY STOOL Time Seen by Provider: 10:09 HPI - CVA/NEURO Initial Comments 66 yo female with blood in stool this am. She frequently has this, and has had colonoscopy 2 years ago with a polyp removal. She is getting epo shots and recently had iron given shot. today is feeling weak and tired. no fever,no chills. No n/v. Allergies: Coded Allergies: Estrogens (Verified Allergy, Mild, RASH, 03/18/17) morphine (Verified Allergy, Mild, RASH, 03/18/17) niacin (Verified Allergy, Mild, RASH, 03/18/17) amoxicillin (Verified Allergy, Unknown, RASH, 03/18/17) fentanyl (Verified Allergy, Unknown, rash, 03/18/17) Past History Patient Surgical History Bilat TKA IM nailing right femur. left shoulder surgery x 2 Right shoulder surgery x 1 Cholecystectomy EGD Colonoscopy skin grafts for [place] to the right arm tubal ligation pacemaker Heart cath (Amirani) 07/13/14--65% EF. Coronaries patent. Past Medical History Metabolic: diabetes, hypercholesterolemia, hypertension, hypothyroidism Cardiac: A-fib, CHF GI: GERD, gallbladder disease Female: renal failure Neurological: seizures Musculoskeletal: back pain, osteoarthritis Integumentary: other Psychological: anxiety, depression Surgical History General: EGD, colonoscopy, gallbladder, other Cardiac: pacemaker Reproductive/: tubal ligation Joint: knee, shoulder Family History Family PMH: FOUND: cancer Vaccines Hx Influenza Vaccination: Yes (JUL 2016) Hx Pneumococcal Vaccination: Yes (JUL 2016) Social History Smoking Status: Never smoker Does patient use chewing tobac: No Second Hand Exposure: No Substance Use Type: does not use Record Review Pertinent history updated: Yes Review of Systems Constitutional Constitutional: see HPI GI Upper Abdomen: see HPI Lower Abdomen: see HPI Neurological General: see HPI Psychiatric Psychiatric: see HPI All other Systems All Other Systems: Reviewed and Negative Physical Exam General General Nourishment: well nourished, well developed, appears stated age, no acute distress General Body Habitus: well groomed Vitals and Pain First Documented Vital Signs Date Time Temp Pulse Resp B/P Pulse Ox O2 Delivery O2 Flow Rate FiO2 03/18/17 09:27 98.0 84 16 134/62 97 Room Air Weight: Kilograms: 127.900 Height (feet): 5 Height (inches): 4.00 Triage Pain Scale: Normal Exams: Head: Normocephalic w/o trauma Chest/Resp: Clear all valle, with good airflow, and symmetry bilaterally CV: Regular rate and rhythm, without murmur or gallop, Pulses 2+ all extremities, capillary refill, <2 seconds all ext., no pedal edema noted Abdomen: Bowel sounds positive, soft, non-tender, non-distended, no hepatosplenomegaly, masses or bruits noted Neurologic: Patient is alert, and oriented Psychiatric: Patient exhibits, appropriate attention, emotion and affect Differential Diagnoses Considering: Other (gi bleed, hemorrhoid, polyp, anemia, dehydration) Progress Results/Orders Orders Procedure Category Date Status Time Cbc W/Auto LAB 03/18/17 Complete Diff-Reflex Manual Cmp - Comprehensive LAB 03/18/17 Complete Metabolic INR LAB 03/18/17 Complete PTT LAB 03/18/17 Complete Lipase LAB 03/18/17 Complete Iv Lock (Ed Only) EDM 03/18/17 Transmitted 10:43 Normal Saline (Normal PHA 03/18/17 Complete Saline Iv) 10:45 Lab Results Laboratory Tests Test 03/18/17 10:21 White Blood Count 4.5T/MM3 Red Blood Count 3.68M/MM3 Hemoglobin 11.1GM/DL Hematocrit 36.2% Mean Corpuscular Volume 98.4UM3 Mean Corpuscular Hemoglobin 30.2UUG Mean Corpuscular Hemoglobin Concent 30.7GM/DL RDW Standard Deviation 53.1FL Platelet Count 174T/MM3 Mean Platelet Volume 10.3UM3 Immature Granulocyte % (Auto) 0.2% Neutrophils (%) (Auto) 68.0% Lymphocytes (%) (Auto) 22.3% Monocytes (%) (Auto) 8.2% Eosinophils (%) (Auto) 1.1% Basophils (%) (Auto) 0.2% Absolute Immature Granulocyte (auto 0.01T/MM3 Absolute Neutrophils (auto) 3.1T/MM3 Absolute Lymphocytes (auto) 1.0T/MM3 Absolute Monocytes (auto) 0.4T/MM3 Absolute Eosinophils (auto) 0.1T/MM3 Absolute Basophils (auto) 0.0T/MM3 Prothromb Time International Ratio 0.99 Activated Partial Thromboplast Time 26.7SEC Turbidity < 20 Sodium Level 141MEQ/L Potassium Level 5.1MEQ/L Chloride Level 101MEQ/L Carbon Dioxide Level 29MEQ/L Anion Gap 11MEQ/L Blood Urea Nitrogen 48.0MG/DL Creatinine 1.8MG/DL Glomerular Filtration Rate Calc 28 BUN/Creatinine Ratio 27RATIO Glucose Level 98MG/DL Calculated Osmolality 284MOSM/KG Calcium Level 9.5MG/DL Total Bilirubin 0.40MG/DL Icterus Index < 2 Aspartate Amino Transf (AST/SGOT) 59U/L Alanine Aminotransferase (ALT/SGPT) 60U/L Alkaline Phosphatase 131U/L Total Protein 7.0G/DL Albumin 3.9G/DL Globulin 3.1G/DL Albumin/Globulin Ratio 1.3RATIO Lipase 220U/L Chemistry Specimen Hemolysis < 15 Medications Current ED Medications Sodium Chloride (Normal Saline IV) 1,000 ml @ 1,000 mls/hr Q1H ONCE IV Last administered on 03/18/17 11:11; Start 03/18/17 at 10:45; Stop 03/18/17 at 11:44 ; Status DC Progress Progress Labwork returned appropriate with for a mildly elevated potassium. Patient was given 1 L normal saline IV. Systolic blood pressure is somewhat low for her normal. We did give her a sandwich to eat and pressure came back up to 111 systolic which is much closer to her norm. At this point I'm comfortable discharging her. She has an appropriate blood count and has had chronic slow bleeding from the rectum, therefore I don't think that the blood count is too concentrated. She will call to set up colonoscopy and follow up with primary care provider. Return if bleeding worsens. JANINE IVORY MD March 18, 2017 10:32
[2017-03-18 10:35] LABS: ALBUMIN 3.9 G/DL (3.5-5.0); ALBUMIN/GLOBULIN RATIO 1.3 RATIO (1.1-2.2); ALKALINE PHOSPHATASE 131 U/L (38-126); ALT (SGPT) 60 U/L (9-52); ANION GAP 11 MEQ/L (5-15); AST (SGOT) 59 U/L (14-36); BUN/CREATININE RATIO 27 RATIO (6-26); CALCIUM 9.5 MG/DL (8.4-10.2); CHLORIDE 101 MEQ/L (98-107); CO2 - CARBON DIOXIDE 29 MEQ/L (22-30); CREATININE 1.8 MG/DL (0.7-1.2); GLOMERULAR FILTRATION RATE 28; GLUCOSE 98 MG/DL (65-110); LIPASE 220 U/L (23-300); POTASSIUM 5.1 MEQ/L (3.6-5); SODIUM 141 MEQ/L (134-144)
[2017-03-18] MEDS ORDERED: NORMAL SALINE 1,000 ML IV ONE (10:45)
[2017-03-18 11:04] LABS: INR 0.99 (0.77-1.03); PROTHROMBIN TIME 10.9 SEC (9.48-12.52); PTT 26.7 SEC (24-36)
--- NOTE | 2017-03-18 13:00 | NUR ---
DISMISSAL NOTE DISMISSAL INSTRUCTIONS GIVEN TO PT. AND NO FURTHER QUESTIONS. PT. STATES DR. GUAJARDO SENT HER TO A [facility] IN [place] AND HE SAID HE COULDN'T DO A PROCEDURE TO LOOK UP HER OR DOWN HER. PT. LEAVES ED AMBULATORY BY SELF.
[2017-03-18 13:43] VITALS: BP 111/58; PULSE 60; RESP 22; TEMP 98; O2SAT 98
== END 2017-03-18 13:00 | disposition home or self-care (01) ==
LOC: ED 09:24
DX: K62.5 Hemorrhage of anus and rectum (principal); D64.89 Other specified anemias; E86.0 Dehydration
CPT/HCPCS: 36415; 80053; 83690; 85025; 85610; 85730; 96360; 99284; J7030

== ENCOUNTER 2017-07-05 17:09 | Inpatient (IN) ==
[2017-07-05] MEDS ORDERED: FLEET PHOSPHO - SODA ENEMA 133ml PR ONE (17:35)
--- NOTE | 2017-07-05 18:27 | Emergency Department Report ---
General Adult HPI - General Chief complaint: Weakness Stated complaint: lethargy, weakness Time Seen by Provider: 07/05/17 17:30 Source: patient Mode of arrival: EMS Limitations: no limitations - History of Present Illness HPI narrative: Pt presents per EMS with a c/o weakness and being tired "for several days" Pt reports a decreased appetite and states she has had no PO intake for last 2 days and no BM for "several days" Onset (ago): day(s) Consistency: constant Exacerbating factors: none Associated symptoms: loss of appetite Treatments prior to arrival: none - Related Data Home Medications Medication Instructions Recorded Confirmed Baclofen 2.5 mg PO BID #0 04/06/15 07/05/17 Calcium Carbonate/Vitamin D3 1 tab PO TID #0 03/19/16 07/05/17 [Calcium 600-Vit D3 200 Tablet] Amiodarone HCl 200 mg PO BID #0 06/24/16 07/05/17 Ferrous Sulfate 325 mg PO BID #0 06/24/16 07/05/17 acetaZOLAMIDE [Acetazolamide] 250 mg PO DAILY #0 07/19/16 07/05/17 [place]-3 Fatty Acids/Fish Oil 2 cap PO BID #0 03/07/17 07/05/17 [[place] 3 1,000 mg Softgel] levothyroxine 175 mcg tablet 175 mcg PO 6XW #0 tab 05/02/17 07/05/17 metolazone 2.5 mg tablet 2.5 mg PO MOWEFR #0 tab 05/02/17 07/05/17 Aspirin *EC* [Ecotrin] 162 mg PO DAILY 05/18/17 07/05/17 Calcitriol [Rocaltrol] 0.25 mcg PO DAILY 05/18/17 07/05/17 [place] 10 mg-acetaminophen 325 mg 1 tab PO Q4H PRN 7 Days #40 tab 05/23/17 tablet Bumetanide [Bumetanide] 3 mg PO BID 07/05/17 07/05/17 Calcitriol [Rocaltrol] 0.25 mg PO DAILY 07/05/17 07/05/17 Diclofenac [Voltaren] 1 applic TOP TID PRN 07/05/17 07/05/17 Insulin Detemir [Levemir] 20 unit SQ AMI 07/05/17 07/05/17 Levetiracetam [Keppra] 500 mg PO BID 07/05/17 07/05/17 Levothyroxine Tab [Synthroid] 1.5 tab PO WONG 07/05/17 07/05/17 Polyethylene Glycol 3350 [Miralax] 17 gm PO DAILY 07/05/17 07/05/17 Pramipexole [Mirapex] 1.5 mg PO HS 07/05/17 07/05/17 Pregabalin Cap [Lyrica] 50 mg PO TID 07/05/17 07/05/17 Allergies Allergy/AdvReac Type Severity Reaction Status Date / Time Estrogens Allergy Mild RASH Verified 07/05/17 17:16 morphine Allergy Mild RASH Verified 07/05/17 17:16 niacin Allergy Mild RASH Verified 07/05/17 17:16 amoxicillin Allergy Unknown RASH Verified 07/05/17 17:16 fentanyl Allergy Unknown rash Verified 07/05/17 17:16 Review of Systems All systems: reviewed and negative except as stated Cardiovascular: Reports: edema (pedal) Gastrointestinal: Reports: nausea, constipation PFSH Patient Stated Medical History Cerebrovascular Accident Yes: september 2016 Peripheral Neuropathy Yes Seizures Yes: epilepsy Transient Ischemic Attacks ( Yes TIA) Cataracts Yes: bilateral removed Dysphagia Yes: mild Hearing Loss Yes Angina Yes Congestive Heart Failure Yes Hypertension Yes Sleep Apnea Yes Diabetes Mellitus Type 2 Yes Hx Incontinence Yes Hx Renal Disease Yes Anemia Yes Osteoarthritis Yes Blood Transfusions Yes Depression Yes: in the past Post Menopausal Yes Clinic Medical History (Last Reviewed 05/28/17 @ 16:52 by RAJNI Jaime) Diabetes mellitus type 2, controlled (Chronic Medical ~2006) Diabetic peripheral neuropathy associated with type 2 diabetes mellitus ( Chronic Medical) Seems to 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 Lyrica is not helping as much any more. Could try adding Metanx. Hypothyroidism (Chronic Medical) Morbid obesity with BMI of 45.0-49.9, adult (Chronic Medical) Anemia (Chronic Medical) Bleeding disorder (Chronic Medical) CHF (congestive heart failure) (Chronic Medical) Diabetes (Chronic Medical) GERD (gastroesophageal reflux disease) (Chronic Medical) HTN (hypertension) (Chronic Medical) Neuropathy (Chronic Medical) Obstructive sleep apnea (Chronic Medical) Osteoarthritis (Chronic Medical) Seizure (Chronic Medical) Thyroid disease (Chronic Medical) Surgical History: RT elbow surgery 10/2016 Family History: Family History (Last Reviewed 05/28/17 @ 16:52 by RAJNI Jaime) Mother Stomach cancer Father Alcoholism Sister Cancer Sister CHF (congestive heart failure) Brother No problems noted. Brother Diabetes - Social History Smoking status: Former smoker Physical Exam - Limitations Limitations: no limitations - General General appearance: alert - Normal Exams: Eyes:: Pupils are PERRLA w/ EOMI Neck:: Full range of motion, without adenopathy Chest/Respirations:: Clear all valle, with good airflow, and symmetry bilaterally Cardiovascular:: Regular rate and rhythm, without murmur or gallop, Pulses 2+ all extremities Abdomen:: Bowel sounds positive, soft, non-tender, non-distended Musculoskeletal:: No tenderness, or deformity noted, good range of motion, all extremities Integumentary:: No rashes, hives, without abnormality Neurological:: Patient is alert, and oriented, motor/sensory/cerebellar Psychiatric:: Patient exhibits, appropriate attention, emotion and affect Course - Consultations Consultation #1: Dr Swift with telemed Time: 18:25 (admit tele med) Vital Signs Temperature 98.5 F 07/05/17 17:16 Pulse Rate 78 07/05/17 17:16 Respiratory Rate 17 07/05/17 17:16 Blood Pressure 102/58 07/05/17 17:16 Pulse Oximetry 92 07/05/17 17:16 Temperature 98.5 F 07/05/17 17:16 Pulse Rate 78 07/05/17 17:16 Respiratory Rate 17 07/05/17 17:16 Blood Pressure 102/58 07/05/17 17:16 Pulse Oximetry 92 07/05/17 17:16 Medical Decision Making - [facility] Narrative Medical decision making narrative: Due to pts generalized c/o feeling "Tired" multiple labs drawn. CMP shows hypokalemia, hyponatremia, in addition to other electrolyte abnormalities. Urine neg. TSH within parameters Pt c/o constipation relieved with Fleets enema. Pt started on K riders X4 placed on telemetry and will be transferred to the floor - Differential Diagnosis TIA, Pneumonia, Acute cystitis, Arrythmia - Lab Data Result diagrams: 07/05/17 17:24 07/05/17 17:24 Lab Results 07/05/17 07/05/17 07/05/17 Range/Units 17:24 17:24 17:24 WBC 9.4 (4.5-11.0) T/MM3 RBC 4.45 (4.00-5.20) M/MM3 Hgb 12.7 (12-16) GM/DL Hct 37.4 (36-46) % MCV 84.0 (80-100) UM3 MCH 28.5 (26-34) UUG MCHC 34.0 (31-37) GM/DL RDW Std Deviation 46.6 (36.9-50.2) FL Plt Count 299 D (130-400) T/MM3 MPV 10.6 (9.4-12.4) UM3 Immature Gran % (Auto) 0.2 (0.0-0.5) % Neut % (Auto) 75.6 H (33-66) % Lymph % (Auto) 13.7 L (23-45) % Me[place] % (Auto) 10.1 H (0-9.0) % Eos % (Auto) 0.3 (0-4) % Baso % (Auto) 0.1 (0-2) % Neut # 7.1 (1.8-7.7) T/MM3 Lymph # 1.3 (1-4.8) T/MM3 Meigs # 1.0 H (0-0.8) T/MM3 Eos # 0.0 (0-0.5) T/MM3 Baso # 0.0 (0-0.2) T/MM3 Abs Immat Gran (auto) 0.02 (0.00-0.03) T/MM3 Turbidity < 20 (0-20) Sodium 128 L (134-144) MEQ/L Potassium 1.7 L* (3.6-5) MEQ/L Chloride 76 L (98-107) MEQ/L Carbon Dioxide 35 H (22-30) MEQ/L Anion Gap 17 H (5-15) MEQ/L BUN 90.0 H* (7-17) MG/DL Creatinine 2.4 H (0.7-1.2) MG/DL GFR Calculation 20 BUN/Creatinine Ratio 38 H (6-26) RATIO Glucose 197 H (65-110) MG/DL Calculated Osmolality 280 (261-280) MOSM/KG Calcium 9.3 (8.4-10.2) MG/DL Magnesium (1.6-2.3) MG/DL Total Bilirubin 1.10 (0.20-1.30) MG/DL Icterus Index < 2 (0-7) AST 48 H (14-36) U/L ALT 44 (9-52) U/L Alkaline Phosphatase 118 (38-126) U/L B-Natriuretic Peptide 5760 H (0-175) pg/mL Total Protein 8.2 (6.3-8.2) G/DL Albumin 4.3 (3.5-5.0) G/DL Globulin 3.9 H (2.4-3.6) G/DL Albumin/Globulin Ratio 1.1 (1.1-2.2) RATIO TSH 0.91 (0.47-4.68) MIU/L Specimen Hemolysis < 15 (0-25) Ur Collection Type Urine Color (YELLOW) Urine Clarity Urine pH (5.0-8.0) Ur Specific Marcy (1.015-1.025) Urine Protein (NEGATIVE) Urine Glucose (UA) (NEGATIVE) Urine Ketones (NEGATIVE) Urine Occult Blood (NEGATIVE) Urine Nitrate (NEGATIVE) Urine Bilirubin (NEGATIVE) Urine Urobilinogen (NORMAL) EU/DL Ur Leukocyte Esterase (NEGATIVE) Urinalysis Comment 07/05/17 07/05/17 Range/Units 17:24 17:55 WBC (4.5-11.0) T/MM3 RBC (4.00-5.20) M/MM3 Hgb (12-16) GM/DL Hct (36-46) % MCV (80-100) UM3 MCH (26-34) UUG MCHC (31-37) GM/DL RDW Std Deviation (36.9-50.2) FL Plt Count (130-400) T/MM3 MPV (9.4-12.4) UM3 Immature Gran % (Auto) (0.0-0.5) % Neut % (Auto) (33-66) % Lymph % (Auto) (23-45) % Meigs % (Auto) (0-9.0) % Eos % (Auto) (0-4) % Baso % (Auto) (0-2) % Neut # (1.8-7.7) T/MM3 Lymph # (1-4.8) T/MM3 Meigs # (0-0.8) T/MM3 Eos # (0-0.5) T/MM3 Baso # (0-0.2) T/MM3 Abs Immat Gran (auto) (0.00-0.03) T/MM3 Turbidity (0-20) Sodium (134-144) MEQ/L Potassium (3.6-5) MEQ/L Chloride (98-107) MEQ/L Carbon Dioxide (22-30) MEQ/L Anion Gap (5-15) MEQ/L BUN (7-17) MG/DL Creatinine (0.7-1.2) MG/DL GFR Calculation BUN/Creatinine Ratio (6-26) RATIO Glucose (65-110) MG/DL Calculated Osmolality (261-280) MOSM/KG Calcium (8.4-10.2) MG/DL Magnesium 2.5 H (1.6-2.3) MG/DL Total Bilirubin (0.20-1.30) MG/DL Icterus Index (0-7) AST (14-36) U/L ALT (9-52) U/L Alkaline Phosphatase (38-126) U/L B-Natriuretic Peptide (0-175) pg/mL Total Protein (6.3-8.2) G/DL Albumin (3.5-5.0) G/DL Globulin (2.4-3.6) G/DL Albumin/Globulin Ratio (1.1-2.2) RATIO TSH (0.47-4.68) MIU/L Specimen Hemolysis (0-25) Ur Collection Type Urine, clean catch Urine Color Yellow (YELLOW) Urine Clarity Clear Urine pH 6.0 (5.0-8.0) Ur Specific Marcy 1.010 L (1.015-1.025) Urine Protein Negative (NEGATIVE) Urine Glucose (UA) Negative (NEGATIVE) Urine Ketones Negative (NEGATIVE) Urine Occult Blood Negative (NEGATIVE) Urine Nitrate Negative (NEGATIVE) Urine Bilirubin Negative (NEGATIVE) Urine Urobilinogen 0.2 (NORMAL) EU/DL Ur Leukocyte Esterase Negative (NEGATIVE) Urinalysis Comment Microscopic not ind. - EKG Data EKG #1 Rate: normal (100% paced) Critical Care Time Attestation: The high probability of a clinically significant, sudden or life threatening deterioration of the [] system(s) required my full and direct attention, intervention and personal management. The aggregate critical care time was [] minutes. This time is in addition to time spent performing reported procedures but includes the following: [] Data Review and interpretation 20 minutes [] Patient assessment and monitoring of vital signs 15 minutes [] Documentation 15 minutes [] Medication orders and management 10 minutes Disposition Clinical Impression: Hypokalemia, Hyponatremia, Hypermagnesemia, Dehydration, Morbid obesity with BMI of 45.0-49.9, adult, Diabetic peripheral neuropathy associated with type 2 diabetes mellitus Constipation Qualifiers: Constipation type: other constipation type Qualified Code(s): K59.09 - Other constipation Chronic kidney disease Qualifiers: Chronic kidney disease stage: stage 4 (severe) Qualified Code(s): N18.4 - Chronic kidney disease, stage 4 (severe) Hypothyroidism Qualifiers: Hypothyroidism type: other Qualified Code(s): E03.8 - Other specified hypothyroidism Diabetes mellitus type 2, controlled Qualifiers: Diabetes mellitus complication status: with kidney complications Diabetes mellitus complication detail: with chronic kidney disease Diabetes mellitus detention insulin use: without terminal manager use Chronic kidney disease stage: unspecified stage Qualified Code(s): E11.22 - Type 2 diabetes mellitus with diabetic chronic kidney disease Disposition: 02 To [facility] Acute Care Condition: Stable for Transport Time of Disposition: 20:33 - Seen By: midlevel
[2017-07-05] MEDS: POTASSIUM CHLORIDE PREMIX 10 MEQ/100 ML BAG IV SCH ×4 (19:34→22:48)
[2017-07-05] MEDS ORDERED: Bisacodyl EC TAB 5 MG TABLET PO PRN (20:05)
[2017-07-05] MEDS ORDERED: ONDANSETRON 4 MG/2 ML INJECTION IVP PRN (20:05)
[2017-07-05] MEDS ORDERED: DICLOFENAC 1% TOP GEL 100gm TP PRN (20:05)
[2017-07-05] MEDS ORDERED: ACETAMINOPHEN 325 MG TABLET PO PRN (20:05)
[2017-07-05] MEDS ORDERED: FALL RISK - PHARMACY CONSULT MC PRN (20:56)
--- NOTE | 2017-07-05 21:06 | History & Physical Report ---
<Hemanth Swift I - Last Filed: 07/05/17 21:31> History of Present Illness Date: 07/05/17 Chief complaint: Weakness HPI: Kareen is a 67 year old female who presented to the ER with generalized weakness. She states this has been coming on slowly but got considerably worse today. This has been associated with anorexia and fatigue. She lives alone and has a caregiver who helps her and recommended that she call EMS to bring her to the hospital. She has a documented history of "CHF" although echo from May 07 appears to show good LVEF, PAP, and no comment of diastolic dysfunction... for which she is on a plethora of diuretics including metolazone, Bumex 3 mg BID, and acetazolamide. She states that her potassium supplement was stopped recently, but she has continued with her diuretic regimen and tonight her Na is 128, K is 1.7, Cl is 76, HCO is 35, with a BUN of 90 and Cr of 2.4. Mg was normal/high end of the range. Apparently she was admitted at [facility] in [place] within the last month, though this did not come to light until her abdominal exam revealed evidence of lovenox injections. She's not really sure why she was admitted to [facility]; she says she thinks it was for "about the same thing as now." Though pleasant, she is a somewhat minimal historian. She is admitted for further evaluation and management and medication adjustment along with correction of her electrolyte disturbances. Review of Systems - Constitutional Constitutional: Present: anorexia, fatigue, lethargy, weakness, weight loss (10 pounds weight loss). Absent: chills - EENMT Eyes: Absent: blurry vision, loss of vision - Cardiovascular Cardiovascular: Present: edema. Absent: chest pain, palpitations, syncope, dyspnea on exertion - Respiratory Respiratory: Absent: cough, dyspnea - Gastrointestinal Gastrointestinal: Present: constipation. Absent: diarrhea, melena, nausea, vomiting - Genitourinary Genitourinary: Absent: dysuria - Integumentary/Breasts Integumentary: Present: swelling - Psychiatric Psychiatric: Absent: anxiety PFS Patient Stated Medical History Cerebrovascular Accident Yes: september 2016 Peripheral Neuropathy Yes Seizures Yes: epilepsy Transient Ischemic Attacks ( Yes TIA) Cataracts Yes: bilateral removed Dysphagia Yes: mild Hearing Loss Yes Angina Yes Congestive Heart Failure Yes Hypertension Yes Sleep Apnea Yes Diabetes Mellitus Type 2 Yes Hx Incontinence Yes Hx Renal Disease Yes Anemia Yes Osteoarthritis Yes Blood Transfusions Yes Depression Yes: in the past Post Menopausal Yes Clinic Medical History (Last Reviewed 05/28/17 @ 16:52 by RAJNI Jaime) Diabetes mellitus type 2, controlled (Chronic Medical ~2006) Diabetic peripheral neuropathy associated with type 2 diabetes mellitus ( Chronic Medical) Seems to 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 Lyrica is not helping as much any more. Could try adding Metanx. Hypothyroidism (Chronic Medical) Morbid obesity with BMI of 45.0-49.9, adult (Chronic Medical) Anemia (Chronic Medical) Bleeding disorder (Chronic Medical) CHF (congestive heart failure) (Chronic Medical) Diabetes (Chronic Medical) GERD (gastroesophageal reflux disease) (Chronic Medical) HTN (hypertension) (Chronic Medical) Neuropathy (Chronic Medical) Obstructive sleep apnea (Chronic Medical) Osteoarthritis (Chronic Medical) Seizure (Chronic Medical) Thyroid disease (Chronic Medical) Surgical History: RT elbow surgery 10/2016 Family History: Family History (Last Reviewed 05/28/17 @ 16:52 by RAJNI Jaime) Mother Stomach cancer Father Alcoholism Sister Cancer Sister CHF (congestive heart failure) Brother No problems noted. Brother Diabetes - Social History Smoking status: Former smoker Housing: house (Lives alone; son farms outside of town) Household members: caregiver Current occupational status: retired Medications Home Medications Medication Instructions Recorded Confirmed Type Baclofen 2.5 mg PO BID #0 04/06/15 07/05/17 History Calcium Carbonate/Vitamin D3 1 tab PO TID #0 03/19/16 07/05/17 History [Calcium 600-Vit D3 200 Tablet] Amiodarone HCl 200 mg PO BID #0 06/24/16 07/05/17 History Ferrous Sulfate 325 mg PO BID #0 06/24/16 07/05/17 History acetaZOLAMIDE [Acetazolamide] 250 mg PO DAILY #0 07/19/16 07/05/17 History [place]-3 Fatty Acids/Fish Oil 2 cap PO BID #0 03/07/17 07/05/17 History [[place] 3 1,000 mg Softgel] levothyroxine 175 mcg tablet 175 mcg PO 6XW #0 tab 05/02/17 07/05/17 History metolazone 2.5 mg tablet 2.5 mg PO MOWEFR #0 tab 05/02/17 07/05/17 History Aspirin *EC* [Ecotrin] 162 mg PO DAILY 05/18/17 07/05/17 History Calcitriol [Rocaltrol] 0.25 mcg PO DAILY 05/18/17 07/05/17 History [place] 10 mg-acetaminophen 325 mg 1 tab PO Q4H PRN 7 Days #40 tab 05/23/17 History tablet Bumetanide [Bumetanide] 3 mg PO BID 07/05/17 07/05/17 History Calcitriol [Rocaltrol] 0.25 mg PO DAILY 07/05/17 07/05/17 History Diclofenac [Voltaren] 1 applic TOP TID PRN 07/05/17 07/05/17 History Insulin Detemir [Levemir] 20 unit SQ AMI 07/05/17 07/05/17 History Levetiracetam [Keppra] 500 mg PO BID 07/05/17 07/05/17 History Levothyroxine Tab [Synthroid] 1.5 tab PO WONG 07/05/17 07/05/17 History Polyethylene Glycol 3350 [Miralax] 17 gm PO DAILY 07/05/17 07/05/17 History Pramipexole [Mirapex] 1.5 mg PO HS 07/05/17 07/05/17 History Pregabalin Cap [Lyrica] 50 mg PO TID 07/05/17 07/05/17 History Allergies Allergy/AdvReac Type Severity Reaction Status Date / Time Estrogens Allergy Mild RASH Verified 07/05/17 17:16 morphine Allergy Mild RASH Verified 07/05/17 17:16 niacin Allergy Mild RASH Verified 07/05/17 17:16 amoxicillin Allergy Unknown RASH Verified 07/05/17 17:16 fentanyl Allergy Unknown rash Verified 07/05/17 17:16 Exam Vital Signs: Temperature 97.1 F 07/05/17 20:42 Pulse Rate 98 07/05/17 20:42 Respiratory Rate 17 07/05/17 17:16 Blood Pressure 113/61 07/05/17 20:42 Pulse Oximetry 92 07/05/17 20:42 Height/Weight/BMI: Height 5 ft 4 in Weight 117.8 kg Body Mass Index 44.6 Comments: Paced on EKG - Constitutional Present: no acute distress, morbidly obese, cooperative - Routine HEENT Exam Head: Present: normocephalic, atraumatic Eye: Present: EOMI, PERRL ENT: Present: mucous membranes dry - Routine Neck Exam Present: supple Comments: Thick - Routine Respiratory Exam Present: CTA bilaterally, distant breath sounds (due to body habitus as well as telemedicine equipment limitations). Absent: accessory muscle use - Routine Cardiovascular Exam Present: RRR - Routine Abdominal Exam Present: soft, non distended (Several bruises of varying ages from apparent lovenox shots from a fairly recent admission at [facility] ), non tender - Routine Extremities Exam Present: edema (1-2+ pitting evidenced when SCD's removed), normal capillary refill. Absent: cyanosis, clubbing, calf tenderness - Routine Skin Exam Present: dry, ecchymosis (On abdomen as noted above). Absent: rash - Routine Neurological Exam Present: alert, oriented X3, CN II-XII intact - Routine Psychiatric Exam Present: cooperative, depressed (reports poor memory). Absent: normal affect ( flat affect) - Additional findings Additional findings: Examination performed using telemedicine equipment with the assistance of the bedside RN. Results - Labs CBC & Chem 7: 07/05/17 17:24 07/05/17 17:24 Assessment and Plan (1) Hypokalemia Current visit: Yes Status: Acute IV NS with 40 MEq/L is ordered to run at 125/hour after her initial 40 Meq over 4 hours is completed. Will need to be a little careful with replacement therafter given her IJEOMA/CKD and recheck BMP is ordered for tomorrow AM. 07/05/17 21:07 (2) Hyponatremia Current visit: Yes Status: Acute She appears hypovolemic, and NS ordered as above with I/O monitoring and recheck labs in the am. 07/05/17 21:08 (3) Chronic kidney disease Current visit: Yes Status: Acute Likely this represents Acute Kidney Injury on CKD, due to ongoing diuretic use. Diuretics are held at this time, with hydration overnight will recheck BUN/Cr in am. Med list reviewed for renal dosing, avoid nephrotoxic medications. 07/05/17 21:09 (4) Diabetes mellitus type 2, controlled Current visit: Yes Status: Chronic Continue home Rx with AC/HS accuchecks. 07/05/17 21:12 (5) Hypothyroidism Current visit: Yes Status: Chronic TSH checked, continue synthroid at current dose at this time. 07/05/17 21:11 (6) Morbid obesity with BMI of 45.0-49.9, adult Current visit: Yes Status: Chronic PT/OT ordered for eval and treat in the am. 07/05/17 21:12 (7) Dehydration Current visit: Yes Status: Acute Plan for IV hydration and re-eval, as above 07/05/17 21:10 DVT Prophylaxis: SCD's Resuscitation Status: Full Code Assessment and Plan: She is admitted for IVF and close monitoring of cardiac and renal function as above. 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 She does appear to have a contraction alkalosis and most immediately concerning is her very low potassium which we are replacing IV. Will provide further symptommatic, supportive, and diagnostic cares as the current workup, or changes in her clinical scenerio, indicate. Plan of care was discussed with the patient and the time of my evaluation and she expressed understanding and desire to proceed. Sepsis Assessment - Evaluation Sepsis screening result: No Definite Risk Hospital Course Summary Disclaimer: The visit summary below is not to be considered part of the above Progress Note. <Spike Eric - Last Filed: 07/06/17 19:08> History of Present Illness Date: 07/06/17 [facility] Patient Stated Medical History Cerebrovascular Accident Yes: september 2016 Peripheral Neuropathy Yes Seizures Yes: epilepsy Transient Ischemic Attacks ( Yes TIA) Cataracts Yes: bilateral removed Dysphagia Yes: mild Hearing Loss Yes Angina Yes Congestive Heart Failure Yes Hypertension Yes Sleep Apnea Yes Diabetes Mellitus Type 2 Yes Hx Incontinence Yes Hx Renal Disease Yes Anemia Yes Osteoarthritis Yes Blood Transfusions Yes Depression Yes: in the past Post Menopausal Yes Clinic Medical History (Last Reviewed 05/28/17 @ 16:52 by RAJNI Jaime) Diabetes mellitus type 2, controlled (Chronic Medical ~2006) Diabetic peripheral neuropathy associated with type 2 diabetes mellitus ( Chronic Medical) Seems to 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 Lyrica is not helping as much any more. Could try adding Metanx. Hypothyroidism (Chronic Medical) Morbid obesity with BMI of 45.0-49.9, adult (Chronic Medical) Anemia (Chronic Medical) Bleeding disorder (Chronic Medical) CHF (congestive heart failure) (Chronic Medical) Diabetes (Chronic Medical) GERD (gastroesophageal reflux disease) (Chronic Medical) HTN (hypertension) (Chronic Medical) Neuropathy (Chronic Medical) Obstructive sleep apnea (Chronic Medical) Osteoarthritis (Chronic Medical) Seizure (Chronic Medical) Thyroid disease (Chronic Medical) Family History: Family History (Last Reviewed 05/28/17 @ 16:52 by RAJNI Jaime) Mother Stomach cancer Father Alcoholism Sister Cancer Sister CHF (congestive heart failure) Brother No problems noted. Brother Diabetes Exam Vital Signs: Temperature 97.7 F 07/06/17 16:07 Pulse Rate 71 07/06/17 16:07 Respiratory Rate 18 07/06/17 16:07 Blood Pressure 98/60 07/06/17 16:07 Pulse Oximetry 96 07/06/17 16:07 Height/Weight/BMI: Height 5 ft 4 in Weight 119.8 kg Body Mass Index 45.3 Results - Labs CBC & Chem 7: 07/06/17 12:11 07/06/17 12:11 Microbiology Results: Microbiology 07/06/17 18:18 Urine, Voided (Cc/notcc) Urine Culture - Preliminary Culture Initiated - Results Pending Assessment and Plan (1) Morbid obesity with BMI of 45.0-49.9, adult Current visit: Yes Status: Chronic (2) Hypothyroidism Current visit: Yes Status: Chronic (3) Diabetes mellitus type 2, controlled Current visit: Yes Status: Chronic (4) Hypokalemia Current visit: Yes Status: Acute (5) Hyponatremia Current visit: Yes Status: Acute (6) Chronic kidney disease Current visit: Yes Status: Acute (7) Dehydration Current visit: Yes Status: Acute Assessment and Plan: Pt was seen and examined, apparetnly has had this hypokalemia for a while. Overall feels fine. Na is also low. On PE NC/AT JILL Chest clear RRR Abd soft NT/ND Ext no edema 1) Hypokalemia, pt on supplements, Mg was normal. Pt also has hyponatremia - Urine for Osm and P Osm - Will check Aldosterone, renin, FEK - Check Cortisol level. Other diagnosis the same - Time spent with patient greater than 35 minutes Hospital Course Summary Disclaimer: The visit summary below is not to be considered part of the above Progress Note.
[2017-07-05] MEDS: POTASSIUM CHLORIDE INJ 40 MEQ in NS 1,000 ML IV SCH ×2 (21:40→23:55)
[2017-07-05] MEDS: AMIODARONE 200 MG TABLET PO SCH (22:12)
[2017-07-05] MEDS: LEVETIRACETAM 500 MG TABLET PO SCH (22:12)
[2017-07-05] MEDS: PRAMIPEXOLE 1 MG TABLET PO SCH (22:13)
[2017-07-05] MEDS: PREGABALIN 50 MG CAPSULE PO SCH (22:14)
[2017-07-06] MEDS: POTASSIUM CHLORIDE INJ 40 MEQ in NS 1,000 ML IV SCH ×3 (06:24→23:25)
[2017-07-06] MEDS: INSULIN DETEMIR 100unit/ml INJECTION SQ SCH (06:39)
[2017-07-06] MEDS: LEVOTHYROXINE 175 MCG TABLET PO SCH (06:39)
[2017-07-06] MEDS ORDERED: CALCITRIOL 0.25 MCG CAPSULE PO SCH (09:00)
[2017-07-06] MEDS: LIDOCAINE 1% 2ml INJ 10 MG, POTASSIUM CHLORIDE INJ 10 MEQ in NS 100 ML IV SCH ×4 (09:33→13:20)
[2017-07-06] MEDS: POLYETHYL GLYCOL 3350 17gm PACKET PO SCH (09:34)
[2017-07-06] MEDS: ASPIRIN *EC* 81 MG TABLET PO SCH (09:34)
[2017-07-06] MEDS: FERROUS SULFATE 324 MG TABLET PO SCH ×2 (09:34→18:11)
[2017-07-06] MEDS: PREGABALIN 50 MG CAPSULE PO SCH ×3 (09:34→20:47)
[2017-07-06] MEDS: CALCITRIOL 0.25 MCG CAPSULE PO SCH (09:34)
[2017-07-06] MEDS: LEVETIRACETAM 500 MG TABLET PO SCH ×2 (09:34→20:48)
[2017-07-06] MEDS: AMIODARONE 200 MG TABLET PO SCH ×2 (09:34→20:47)
[2017-07-06 16:01] VITALS: BMI 45.3
[2017-07-06] MEDS: CIPROFLOXACIN PB 400 MG/200 ML BAG IV SCH (20:36)
[2017-07-06] MEDS: SPIRONOLACTONE 25 MG TABLET PO SCH (20:37)
[2017-07-06] MEDS: PRAMIPEXOLE 1 MG TABLET PO SCH (20:49)
[2017-07-07] MEDS: HYDROCODONE/APAP 10 MG/325 MG TABLET PO PRN ×2 (04:34→20:52)
[2017-07-07] MEDS: LEVOTHYROXINE 175 MCG TABLET PO SCH (07:26)
[2017-07-07] MEDS: INSULIN DETEMIR 100unit/ml INJECTION SQ SCH (07:51)
[2017-07-07] MEDS: POTASSIUM CHLORIDE INJ 40 MEQ in NS 1,000 ML IV SCH ×6 (07:51→18:04)
[2017-07-07] MEDS: CIPROFLOXACIN PB 400 MG/200 ML BAG IV SCH ×2 (07:51→20:19)
[2017-07-07] MEDS: POLYETHYL GLYCOL 3350 17gm PACKET PO SCH (09:22)
[2017-07-07] MEDS: SPIRONOLACTONE 25 MG TABLET PO SCH (09:22)
[2017-07-07] MEDS: DOCUSATE SODIUM 100 MG CAPSULE PO PRN (09:22)
[2017-07-07] MEDS: ASPIRIN *EC* 81 MG TABLET PO SCH (09:22)
[2017-07-07] MEDS: PREGABALIN 50 MG CAPSULE PO SCH ×3 (09:22→20:52)
[2017-07-07] MEDS: CALCITRIOL 0.25 MCG CAPSULE PO SCH (09:22)
[2017-07-07] MEDS: LEVETIRACETAM 500 MG TABLET PO SCH ×2 (09:23→20:53)
[2017-07-07] MEDS: AMIODARONE 200 MG TABLET PO SCH ×2 (09:23→20:53)
[2017-07-07] MEDS: FERROUS SULFATE 324 MG TABLET PO SCH ×2 (09:23→18:16)
--- NOTE | 2017-07-07 16:31 | Progress Note ---
Subjective: Pt states she is feeling very weak and this has been going on for a long time. She is very worried to go back home, she has no help. was given an Rx for a CPAP machine but was not able to pick it up. C/O of severe pain on her RLE proximally. has been unable to walk for a while. She is withdrawn and appears to be depressed. Objective Vital signs: Temperature 98.4 F 07/07/17 15:50 Pulse Rate 70 07/07/17 16:00 Respiratory Rate 16 07/07/17 15:50 Blood Pressure 96/55 07/07/17 15:50 Pulse Oximetry 95 07/07/17 15:50 Height/Weight/BMI: Height 5 ft 4 in Weight 120.4 kg Body Mass Index 45.3 - Constitutional Present: moderate distress, obese, cooperative - Routine HEENT Exam Head: Present: normocephalic, atraumatic Eye: Present: EOMI, PERRL - Routine Respiratory Exam Present: CTA bilaterally, distant breath sounds - Routine Cardiovascular Exam Present: RRR, S1, S2 - Routine Abdominal Exam Present: soft, non distended, non tender - Routine Extremities Exam Absent: cyanosis, clubbing, edema - Routine Neurological Exam Present: alert, oriented X3 - Routine Psychiatric Exam Present: cooperative, depressed Results - Labs CBC & Chem 7: 07/07/17 04:35 07/07/17 04:35 Microbiology Results: Microbiology 07/06/17 18:18 Urine, Voided (Cc/notcc) Urine Culture - Preliminary Gram Negative Flip 07/06/17 19:45 Peripheral/Iv Start Blood Culture - Preliminary Culture Initiated - Results Pending 07/06/17 19:57 Peripheral/Iv Start Blood Culture - Preliminary Culture Initiated - Results Pending Assessment and Plan (1) Morbid obesity with BMI of 45.0-49.9, adult Current visit: Yes Status: Chronic PT/OT ordered for eval and treat in the am. 07/05/17 21:12 (2) Hypothyroidism Current visit: Yes Status: Chronic TSH checked, continue synthroid at current dose at this time. 07/05/17 21:11 (3) Diabetes mellitus type 2, controlled Current visit: Yes Status: Chronic Continue home Rx with AC/HS accuchecks. 07/05/17 21:12 (4) Hypokalemia Current visit: Yes Status: Acute IV NS with 40 MEq/L is ordered to run at 125/hour after her initial 40 Meq over 4 hours is completed. Will need to be a little careful with replacement therafter given her IJEOMA/CKD and recheck BMP is ordered for tomorrow AM. 07/05/17 21:07 (5) Hyponatremia Current visit: Yes Status: Acute She appears hypovolemic, and NS ordered as above with I/O monitoring and recheck labs in the am. 07/05/17 21:08 (6) Chronic kidney disease Current visit: Yes Status: Acute Likely this represents Acute Kidney Injury on CKD, due to ongoing diuretic use. Diuretics are held at this time, with hydration overnight will recheck BUN/Cr in am. Med list reviewed for renal dosing, avoid nephrotoxic medications. 07/05/17 21:09 (7) Dehydration Current visit: Yes Status: Acute Plan for IV hydration and re-eval, as above 07/05/17 21:10 DVT Prophylaxis: SCD's GI Prophylaxis: other Resuscitation Status: Full Code Assessment and Plan: This is a 67 YO female that came with profound hypokalemia and has been very weak at home and is deconditioned. She apparently has GARY - and was given a CPAP machine that never picked up. She also C/O Neuropathy in her legs with severe pain on the RLE proximally and decreased ROM. DIAGNOSIS 1) Diabetes Mellitus Type II with morbid obesity and advanced lower extremity neuropathy. - Pt on Detemir insulin + Aspart Sliding scale (intermediate sensitivity). - Pt on Lyrica for neuropathy - States has "Charcot" deformities on both feet. - Check HbA1c in the AM. - Will check portable Hip X rays due to severe pain on the RLE. 2) Cardiovascular assessment A) S/P pacemaker placement - capturing well. Pt is on Amiodarone for ? May need to get old records. B) CHF ? per admission notes - pt has no systolic or diastolic dysfunction but was on 3 diuretics and off K supplements. She was also on Diamox - These are on HOLD. - BNP elevated - Recheck in the AM. - Wt on admission 117.8 kg - Wt today 120.4 3) RENAL ASSESMENT A) CKD with BUN/Cr of 76/2.0 today B) Hypokalemia, pt on supplements, Mg was normal. Aldosterone level checked as well as renin. Pt started on PO Aldactone (07/06). Could be iatrogenic from excess diuretics. - Labs done results pending - K is up to 3.1 today C) Hyponatremia Na is up to 131 today. - Urine Osm pending, Plasma Osm available. - Cortisol ordered (pending). 4) Morbid obesity with ? of GARY - Check ABG - Check overnight oxymetry. 5) Hypothyroidism - pt on T4 orally. - TSH was 0.91 normal. PREVENTION DVT - SCD PUD - PPI - Time spent with patient 25 - 35 minutes Sepsis Assessment - Evaluation Sepsis screening result: No Definite Risk Hospital Course Summary Disclaimer: The visit summary below is not to be considered part of the above Progress Note.
[2017-07-07] MEDS ORDERED: GLUCOSE ORAL GEL 40% 37.5gm PO PRN (16:32)
[2017-07-07] MEDS ORDERED: DEXTROSE 50% SYRINGE 50ml (1 AMP) IVP PRN (16:32)
[2017-07-07] MEDS: OMEPRAZOLE 20 MG CAPSULE PO SCH (17:29)
[2017-07-07] MEDS: INSULIN ASPART 100unit/ml INJECTION SQ PRN (17:29)
[2017-07-07] MEDS: PRAMIPEXOLE 1 MG TABLET PO SCH (20:52)
[2017-07-08] MEDS: POTASSIUM CHLORIDE INJ 40 MEQ in NS 1,000 ML IV SCH (04:31)
[2017-07-08] MEDS ORDERED: LEVOTHYROXINE 175 MCG TABLET PO SCH (06:30)
[2017-07-08] MEDS: OMEPRAZOLE 20 MG CAPSULE PO SCH (08:00)
[2017-07-08] MEDS: CIPROFLOXACIN PB 400 MG/200 ML BAG IV SCH (08:53)
[2017-07-08] MEDS: POLYETHYL GLYCOL 3350 17gm PACKET PO SCH ×2 (08:54→21:04)
[2017-07-08] MEDS: DOCUSATE SODIUM 100 MG CAPSULE PO PRN (08:54)
[2017-07-08] MEDS: INSULIN DETEMIR 100unit/ml INJECTION SQ SCH (08:54)
[2017-07-08] MEDS: CALCITRIOL 0.25 MCG CAPSULE PO SCH (08:55)
[2017-07-08] MEDS: SPIRONOLACTONE 25 MG TABLET PO SCH (08:55)
[2017-07-08] MEDS: FERROUS SULFATE 324 MG TABLET PO SCH ×2 (08:55→17:55)
[2017-07-08] MEDS: AMIODARONE 200 MG TABLET PO SCH ×2 (08:55→21:07)
[2017-07-08] MEDS: PREGABALIN 50 MG CAPSULE PO SCH ×3 (08:55→21:06)
[2017-07-08] MEDS: ASPIRIN *EC* 81 MG TABLET PO SCH (08:55)
[2017-07-08] MEDS: LEVETIRACETAM 500 MG TABLET PO SCH ×2 (08:55→21:04)
--- NOTE | 2017-07-08 10:23 | XRay Report ---
Indication: Severe pain on the R hip PROCEDURE: XR pelvis w/ 1 view RT hip: Encounter: Initial Comparison: May 27, 2017 Findings: There is no acute fracture, dislocation or malalignment identified. Orthopedic hardware in the right femur appears stable. Old deformity of the left pubic rami. Impression: No acute osseous abnormality. .
[2017-07-08] MEDS ORDERED: BISACODYL 10 MG SUPPOSITORY RECTALLY ONE (10:43)
--- NOTE | 2017-07-08 11:19 | Progress Note ---
<Marilin Roman - Last Filed: 07/08/17 11:14> Subjective: Kareen is seen today in follow up. She reports that her main c/o today is abdominal pain after eating. She states no BM for "three to four days." (Last BM documented 2 days ago). She does not report any pain in right log. She does tell me that a friend reminded her that she "missed a chair" and fell at [employer]. She cannot remember if she hurt herself. She has not been wanting to wear her CPAP due to dry mouth. She has been only wanting to drink diet soda. It appears that self care and memory have been a concern. Refusing to get up due to pain per nursing reports. Objective Vital signs: Temperature 97.8 F 07/08/17 07:41 Pulse Rate 72 07/08/17 07:41 Respiratory Rate 18 07/08/17 07:41 Blood Pressure 110/64 07/08/17 07:41 Pulse Oximetry 93 07/08/17 07:41 Height/Weight/BMI: Height 1.63 m Weight 124.9 kg Body Mass Index 45.3 - Constitutional Present: no acute distress, obese, cooperative Comments: Appears older than stated age - Routine HEENT Exam Head: Present: normocephalic, atraumatic Eye: Present: EOMI, PERRL - Routine Respiratory Exam Present: decreased breath sounds, diminished air movement. Absent: dyspnea, rhonchi, wheezes Comments: Anterior breath sounds assessed only- she is in bed. - Routine Cardiovascular Exam Present: RRR, S1, S2 - Routine Abdominal Exam Present: soft, tenderness (Around umbilicus), non distended. Absent: normoactive bowel sounds (Quiet BS x quadrants.) - Routine Extremities Exam Present: edema, non tender - Routine Musculoskeletal Exam Musculoskeletal: Present: limited range of motion - Routine Skin Exam Present: intact, dry, warm - Routine Neurological Exam Present: alert, normal speech - Routine Psychiatric Exam Present: cooperative. Absent: good insight, good judgment Comments: poor historian. poor memory. Results - Labs CBC & Chem 7: 07/08/17 04:00 07/08/17 04:00 Microbiology Results: Microbiology 07/06/17 18:18 Urine, Voided (Cc/notcc) Urine Culture - Final Enterobacter aerogenes 07/06/17 19:45 Peripheral/Iv Start Blood Culture - Preliminary No Growth After 1 Day 07/06/17 19:57 Peripheral/Iv Start Blood Culture - Preliminary No Growth After 1 Day - ABG Interpretation ABG results: 07/07/17 16:50 ABG pH 7.470 H ABG pCO2 42 ABG pO2 78 L ABG HCO3 31 H ABG Total CO2 31.9 H ABG O2 Saturation 96.0 ABG Base Excess 6.3 H - Impressions XR Right hip Impression: No acute osseous abnormality. ECHO CONCLUSION 1. Ejection fraction is 61%. 2. Pulmonary artery pressures of 29 mmHg. 3. Right heart poorly visualized, appears mildly enlarged. 4. Mild MR. 5. Mild AI. 6. Mild TR. 7. Mild PI. 8. Pacer wires noted in the right heart. 9. Please note there appears to be left pleural effusion noted on the echocardiogram. Assessment and Plan (1) Hypokalemia Current visit: Yes Status: Acute IV NS with 40 MEq/L is ordered to run at 125/hour after her initial 40 Meq over 4 hours is completed. Will need to be a little careful with replacement therafter given her IJEOMA/CKD and recheck BMP is ordered for tomorrow AM. 07/05/17 21:07 (2) Hyponatremia Current visit: Yes Status: Acute She appears hypovolemic, and NS ordered as above with I/O monitoring and recheck labs in the am. 07/05/17 21:08 (3) Morbid obesity with BMI of 45.0-49.9, adult Current visit: Yes Status: Chronic PT/OT ordered for eval and treat in the am. 07/05/17 21:12 (4) Hypothyroidism Current visit: Yes Status: Chronic TSH checked, continue synthroid at current dose at this time. 07/05/17 21:11 (5) Diabetes mellitus type 2, controlled Current visit: Yes Status: Chronic Continue home Rx with AC/HS accuchecks. 07/05/17 21:12 (6) Chronic kidney disease Current visit: Yes Status: Chronic Likely this represents Acute Kidney Injury on CKD, due to ongoing diuretic use. Diuretics are held at this time, with hydration overnight will recheck BUN/Cr in am. Med list reviewed for renal dosing, avoid nephrotoxic medications. 07/05/17 21:09 (7) Dehydration Current visit: Yes Status: Acute Plan for IV hydration and re-eval, as above 07/05/17 21:10 DVT Prophylaxis: SCD's GI Prophylaxis: other (PPI BID- decreased to daily) Resuscitation Status: Do Not Resuscitate Assessment and Plan: Assessment: 1. Severe hypokalemia 2. Hyponatremia 3. HFpEF, EF 60% with VHD,mild 4. Cognitive deficit, acute vs. chronic 5. 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 Fiore) 6. DM2, controlled- (outpt- Dr. Cee) 7. Hypothyroidism 8. Chronic pain Peripheral neuropathy Right LE pain, acute vs. chronic 9. Abdominal pain Constipation 10. Chronic respiratory failure Home CPAP needed, poor compliance 11. UTI, Enterobacter 12. IJEOMA/CKD Baseline appears to be about 1.8 Plan: 07/08/17 *Potassium, Sodium normalized. Decrease oral potassium. Adjust IVF to NS, decrease rate. Holding diuretics; continue to monitor renal function. Hold topical NSAIDs for now. *Continue insulin, synthroid- fairly stable *Continue Keppra for sz. DO. Monitor on Cipro *Cipro, renal dose, for UTI. *Continue Lyrica for pain. Outpt. Metanx. *Holding diuretics due to renal dysfunction, monitor fluid status. *Change laxatives for motility to help with abdominal pain. If persists, consider further imaging. *Request PT/OT- need OT KRISTIE for function- I suspect that she may need NH placement. If RLE pain persists, may need CT of the joint. Repeat labs in AM. Continue SCDs for DVT px. Decrease PPI to daily- no need for GI px, but she does c/o abdominal pain, so will continue PPI for now. DNR status noted. - Time spent with patient 25 - 35 minutes Sepsis Assessment - Evaluation Sepsis screening result: No Definite Risk Hospital Course Summary Disclaimer: The visit summary below is not to be considered part of the above Progress Note. Hospital Course: 07/08/17 11:37 Assessment: 1. Severe hypokalemia 2. Hyponatremia 3. HFpEF, EF 60% with VHD,mild 4. Cognitive deficit, acute vs. chronic 5. 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 Fiore) 6. DM2, controlled- (outpt- Dr. Cee) 7. Hypothyroidism 8. Chronic pain Peripheral neuropathy Right LE pain, acute vs. chronic 9. Abdominal pain Constipation 10. Chronic respiratory failure Home CPAP needed, poor compliance 11. UTI, Enterobacter 12. IJEOMA/CKD Baseline appears to be about 1.8 This is a 67 YO female that came with profound hypokalemia and has been very weak at home and is deconditioned. She apparently has GARY - and was given a CPAP machine that never picked up. She also C/O Neuropathy in her legs with severe pain on the RLE proximally and decreased ROM. Eric DIAGNOSIS 1) Diabetes Mellitus Type II with morbid obesity and advanced lower extremity neuropathy. - Pt on Detemir insulin + Aspart Sliding scale (intermediate sensitivity). - Pt on Lyrica for neuropathy - States has "Charcot" deformities on both feet. - Check HbA1c in the AM. - Will check portable Hip X rays due to severe pain on the RLE. 2) Cardiovascular assessment A) S/P pacemaker placement - capturing well. Pt is on Amiodarone for ? May need to get old records. B) CHF ? per admission notes - pt has no systolic or diastolic dysfunction but was on 3 diuretics and off K supplements. She was also on Diamox - These are on HOLD. - BNP elevated - Recheck in the AM. - Wt on admission 117.8 kg - Wt today 120.4 3) RENAL ASSESMENT A) CKD with BUN/Cr of 76/2.0 today B) Hypokalemia, pt on supplements, Mg was normal. Aldosterone level checked as well as renin. Pt started on PO Aldactone (07/06). Could be iatrogenic from excess diuretics. - Labs done results pending - K is up to 3.1 today C) Hyponatremia Na is up to 131 today. - Urine Osm pending, Plasma Osm available. - Cortisol ordered (pending). 4) Morbid obesity with ? of GARY - Check ABG - Check overnight oxymetry. 5) Hypothyroidism - pt on T4 orally. - TSH was 0.91 normal. PREVENTION DVT - SCD PUD - PPI 07/08/17 11:38 Plan: 07/08/17 *Potassium, Sodium normalized. Decrease oral potassium. Adjust IVF to NS, decrease rate. Holding diuretics; continue to monitor renal function. Hold topical NSAIDs for now. *Continue insulin, synthroid- fairly stable *Continue Keppra for sz. DO. Monitor on Cipro *Cipro, renal dose, for UTI. *Continue Lyrica for pain. Outpt. Metanx. *Holding diuretics due to renal dysfunction, monitor fluid status. *Change laxatives for motility to help with abdominal pain. If persists, consider further imaging. *Request PT/OT- need OT KRISTIE for function- I suspect that she may need NH placement. If RLE pain persists, may need CT of the joint. Repeat labs in AM. Continue SCDs for DVT px. Decrease PPI to daily- no need for GI px, but she does c/o abdominal pain, so will continue PPI for now. DNR status noted. 07/08/17 11:38 <Kyra Shrestha - Last Filed: 07/08/17 16:30> Objective Vital signs: Temperature 98.3 F 07/08/17 15:23 Pulse Rate 75 07/08/17 16:00 Respiratory Rate 18 07/08/17 15:23 Blood Pressure 124/68 07/08/17 15:23 Pulse Oximetry 94 07/08/17 15:23 Height/Weight/BMI: Height 1.63 m Weight 124.9 kg Body Mass Index 45.3 Results - Labs CBC & Chem 7: 07/08/17 04:00 07/08/17 04:00 Microbiology Results: Microbiology 07/06/17 18:18 Urine, Voided (Cc/notcc) Urine Culture - Final Enterobacter aerogenes 07/06/17 19:45 Peripheral/Iv Start Blood Culture - Preliminary No Growth After 1 Day 07/06/17 19:57 Peripheral/Iv Start Blood Culture - Preliminary No Growth After 1 Day - ABG Interpretation ABG results: 07/07/17 16:50 ABG pH 7.470 H ABG pCO2 42 ABG pO2 78 L ABG HCO3 31 H ABG Total CO2 31.9 H ABG O2 Saturation 96.0 ABG Base Excess 6.3 H Assessment and Plan (1) Morbid obesity with BMI of 45.0-49.9, adult Current visit: Yes Status: Chronic (2) Hypothyroidism Current visit: Yes Status: Chronic (3) Diabetes mellitus type 2, controlled Current visit: Yes Status: Chronic (4) Hypokalemia Current visit: Yes Status: Acute (5) Hyponatremia Current visit: Yes Status: Acute (6) Chronic kidney disease Current visit: Yes Status: Chronic (7) Dehydration Current visit: Yes Status: Acute Assessment and Plan: I have independently evaluated and examined this patient. I reviewed the chart, the patient's history, and the COUNTERINTELLIGENCE ANALYST/PA's documented findings as above. We discussed and formulated the assessment and plan as above with additions as below: Mrs. Rodgers complaints of chest congestion and dyspnea at rest. She additionally complains of abdominal discomfort and constipation reporting no bowel movement for 3-4 days although nursing notes indicate bowel movements on both 07/06 and . The patient's respirations are nonlabored with clear breath sounds anteriorly/ posteriorly. Patient repositions herself slowly and deliberately. Abdomen is soft and nontender. Extremities have trace edema in her hypersensitive to touch. Potassium has corrected and replacement dose has been decreased both orally and IV replacement discontinued. Hyponatremia persists but has improved. X-ray of pelvis/hip reviewed-no acute pathology, minor old deformity in the left pubic rami and hardware in the right femur noted. Hospital Course Summary Disclaimer: The visit summary below is not to be considered part of the above Progress Note.
[2017-07-08] MEDS: INSULIN ASPART 100unit/ml INJECTION SQ PRN ×3 (12:41→21:03)
[2017-07-08] MEDS: SENNA + DOCUSATE TABLET PO SCH ×2 (12:43→21:07)
[2017-07-08] MEDS ORDERED: BISACODYL 10 MG SUPPOSITORY RECTALLY PRN (13:30)
[2017-07-08] MEDS ORDERED: CALCIUM CARBONATE Chewable 750mg TABLET PO PRN (13:33)
[2017-07-08] MEDS: HYDROCODONE/APAP 10 MG/325 MG TABLET PO PRN (14:41)
[2017-07-08] MEDS: NS 1,000 ML IV SCH (16:21)
[2017-07-08] MEDS: PRAMIPEXOLE 1 MG TABLET PO SCH (21:04)
[2017-07-08] MEDS: CIPROFLOXACIN 250 MG TABLET PO SCH (21:04)
[2017-07-08] MEDS ORDERED: FALL RISK - PHARMACY CONSULT MC PRN (21:22)
[2017-07-09] MEDS: POTASSIUM CHLORIDE INJ 40 MEQ in NS 1,000 ML IV SCH (01:55)
[2017-07-09] MEDS: NS 1,000 ML IV SCH (03:36)
[2017-07-09] MEDS: OMEPRAZOLE 20 MG CAPSULE PO SCH (06:29)
[2017-07-09] MEDS: LEVOTHYROXINE 175 MCG TABLET PO SCH (06:29)
[2017-07-09] MEDS: SENNA + DOCUSATE TABLET PO SCH ×2 (07:59→21:38)
[2017-07-09] MEDS: FERROUS SULFATE 324 MG TABLET PO SCH ×2 (07:59→17:12)
[2017-07-09] MEDS: SPIRONOLACTONE 25 MG TABLET PO SCH (08:00)
[2017-07-09] MEDS: CALCITRIOL 0.25 MCG CAPSULE PO SCH (08:00)
[2017-07-09] MEDS: POLYETHYL GLYCOL 3350 17gm PACKET PO SCH ×2 (08:00→21:41)
[2017-07-09] MEDS: ASPIRIN *EC* 81 MG TABLET PO SCH (08:00)
[2017-07-09] MEDS: LEVETIRACETAM 500 MG TABLET PO SCH ×2 (08:00→21:39)
[2017-07-09] MEDS: CIPROFLOXACIN 250 MG TABLET PO SCH ×2 (08:00→21:38)
[2017-07-09] MEDS: INSULIN DETEMIR 100unit/ml INJECTION SQ SCH (08:00)
[2017-07-09] MEDS: PREGABALIN 50 MG CAPSULE PO SCH ×3 (08:00→21:38)
[2017-07-09] MEDS: AMIODARONE 200 MG TABLET PO SCH ×2 (08:00→21:39)
[2017-07-09] MEDS: INSULIN ASPART 100unit/ml INJECTION SQ PRN (10:19)
[2017-07-09] MEDS: HYDROCODONE/APAP 10 MG/325 MG TABLET PO PRN ×2 (12:41→21:38)
--- NOTE | 2017-07-09 12:59 | Progress Note ---
Subjective: Pt states she is feeling better, she is not as weak as before. She still is very deconditioned. Appetite is picking up and her SOB is improving - Objective Vital signs: Temperature 97.2 F 07/09/17 08:00 Pulse Rate 76 07/09/17 08:00 Respiratory Rate 16 07/09/17 08:00 Blood Pressure 112/63 07/09/17 08:00 Pulse Oximetry 94 07/09/17 08:00 Rhythm: Normal Sinus Rhythm Height/Weight/BMI: Height 5 ft 4 in Weight 127.5 kg Body Mass Index 45.3 - Routine HEENT Exam Head: Present: normocephalic, atraumatic Eye: Present: EOMI, PERRL - Routine Respiratory Exam Present: CTA bilaterally - Routine Cardiovascular Exam Present: RRR - Routine Abdominal Exam Present: soft, non distended, non tender - Routine Extremities Exam Absent: cyanosis, clubbing, edema - Routine Neurological Exam Present: alert, oriented X3, CN II-XII intact Results - Labs CBC & Chem 7: 07/09/17 04:11 07/09/17 04:11 Microbiology Results: Microbiology 07/06/17 19:45 Peripheral/Iv Start Blood Culture - Preliminary No Growth After 2 Days 07/06/17 19:57 Peripheral/Iv Start Blood Culture - Preliminary No Growth After 2 Days 07/06/17 18:18 Urine, Voided (Cc/notcc) Urine Culture - Final Enterobacter aerogenes - ABG Interpretation ABG results: 07/07/17 16:50 ABG pH 7.470 H ABG pCO2 42 ABG pO2 78 L ABG HCO3 31 H ABG Total CO2 31.9 H ABG O2 Saturation 96.0 ABG Base Excess 6.3 H Assessment and Plan (1) Morbid obesity with BMI of 45.0-49.9, adult Current visit: Yes Status: Chronic PT/OT ordered for eval and treat in the am. 07/05/17 21:12 (2) Hypothyroidism Current visit: Yes Status: Chronic TSH checked, continue synthroid at current dose at this time. 07/05/17 21:11 (3) Diabetes mellitus type 2, controlled Current visit: Yes Status: Chronic Continue home Rx with AC/HS accuchecks. 07/05/17 21:12 (4) Hypokalemia Current visit: Yes Status: Resolved IV NS with 40 MEq/L is ordered to run at 125/hour after her initial 40 Meq over 4 hours is completed. Will need to be a little careful with replacement therafter given her IJEOMA/CKD and recheck BMP is ordered for tomorrow AM. 07/05/17 21:07 (5) Hyponatremia Current visit: Yes Status: Resolved She appears hypovolemic, and NS ordered as above with I/O monitoring and recheck labs in the am. 07/05/17 21:08 (6) Chronic kidney disease Current visit: Yes Status: Chronic Likely this represents Acute Kidney Injury on CKD, due to ongoing diuretic use. Diuretics are held at this time, with hydration overnight will recheck BUN/Cr in am. Med list reviewed for renal dosing, avoid nephrotoxic medications. 07/05/17 21:09 (7) Dehydration Current visit: Yes Status: Resolved Plan for IV hydration and re-eval, as above 07/05/17 21:10 DVT Prophylaxis: other GI Prophylaxis: other Resuscitation Status: Full Code Assessment and Plan: This is a 67 YO female that came with profound hypokalemia and has been very weak at home and is deconditioned. She apparently has GARY - and was given a CPAP machine that never picked up. She also C/O Neuropathy in her legs with severe pain on the RLE proximally and decreased ROM. X ray did not show any hip fracture. DIAGNOSIS 1) RENAL ASSESMENT A) CKD with BUN/Cr of 49/1.6 today & 90/2.4 on admission. B) Hypokalemia, marked on admission, with initial K level of 1.7. Aldosterone level checked as well as renin and pt was started on PO Aldactone (), with gradual correction of her K level. - Continue with Aldactone. C) Hyponatremia, corrected with Na level of 134 today (was 128 on admission) - Urine Osm was 307 , Plasma Osm 287. - Random cortisol was normal (14) - TSH normal. 2) Diabetes Mellitus Type II with morbid obesity and advanced lower extremity neuropathy. - Pt on Detemir insulin + Aspart Sliding scale (intermediate sensitivity). - Pt on Lyrica for neuropathy - States has "Charcot" deformities on both feet. 3) Cardiovascular assessment A) S/P pacemaker placement - capturing well. Pt is on Amiodarone for ? May need to get old records. B) CHF ? per admission notes - pt has no systolic or diastolic dysfunction but was on 3 diuretics and off K supplements. She was also on Diamox - These are on HOLD. - Wt on admission 117.8 kg - Wt today 127.5 today. - Pt was probably over-diuresed and in contraction alkalosis on admission. - Kidney function is better, BNP is trending down. 4) Morbid obesity with ? of GARY - Check ABG - Check overnight oxymetry. 5) Hypothyroidism - pt on T4 orally. - TSH was 0.91 normal. 6) Markedly deconditioned - will need to go to rehab. PREVENTION DVT - SCD PUD - PPI Anticipate being able to move pt to rehab setting in the next 48 hrs. - Time spent with patient 25 - 35 minutes Sepsis Assessment - Evaluation Sepsis screening result: No Definite Risk Hospital Course Summary Disclaimer: The visit summary below is not to be considered part of the above Progress Note. Hospital Course: 07/08/17 11:37 Assessment: 1. Severe hypokalemia 2. Hyponatremia 3. HFpEF, EF 60% with VHD,mild 4. Cognitive deficit, acute vs. chronic 5. 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 Fiore) 6. DM2, controlled- (outpt- Dr. Cee) 7. Hypothyroidism 8. Chronic pain Peripheral neuropathy Right LE pain, acute vs. chronic 9. Abdominal pain Constipation 10. Chronic respiratory failure Home CPAP needed, poor compliance 11. UTI, Enterobacter 12. IJEOMA/CKD Baseline appears to be about 1.8 This is a 67 YO female that came with profound hypokalemia and has been very weak at home and is deconditioned. She apparently has GARY - and was given a CPAP machine that never picked up. She also C/O Neuropathy in her legs with severe pain on the RLE proximally and decreased ROM. Eric DIAGNOSIS 1) Diabetes Mellitus Type II with morbid obesity and advanced lower extremity neuropathy. - Pt on Detemir insulin + Aspart Sliding scale (intermediate sensitivity). - Pt on Lyrica for neuropathy - States has "Charcot" deformities on both feet. - Check HbA1c in the AM. - Will check portable Hip X rays due to severe pain on the RLE. 2) Cardiovascular assessment A) S/P pacemaker placement - capturing well. Pt is on Amiodarone for ? May need to get old records. B) CHF ? per admission notes - pt has no systolic or diastolic dysfunction but was on 3 diuretics and off K supplements. She was also on Diamox - These are on HOLD. - BNP elevated - Recheck in the AM. - Wt on admission 117.8 kg - Wt today 120.4 3) RENAL ASSESMENT A) CKD with BUN/Cr of 76/2.0 today B) Hypokalemia, pt on supplements, Mg was normal. Aldosterone level checked as well as renin. Pt started on PO Aldactone (07/06). Could be iatrogenic from excess diuretics. - Labs done results pending - K is up to 3.1 today C) Hyponatremia Na is up to 131 today. - Urine Osm pending, Plasma Osm available. - Cortisol ordered (pending). 4) Morbid obesity with ? of GARY - Check ABG - Check overnight oxymetry. 5) Hypothyroidism - pt on T4 orally. - TSH was 0.91 normal. PREVENTION DVT - SCD PUD - PPI 07/08/17 11:38 Plan: 07/08/17 *Potassium, Sodium normalized. Decrease oral potassium. Adjust IVF to NS, decrease rate. Holding diuretics; continue to monitor renal function. Hold topical NSAIDs for now. *Continue insulin, synthroid- fairly stable *Continue Keppra for sz. DO. Monitor on Cipro *Cipro, renal dose, for UTI. *Continue Lyrica for pain. Outpt. Metanx. *Holding diuretics due to renal dysfunction, monitor fluid status. *Change laxatives for motility to help with abdominal pain. If persists, consider further imaging. *Request PT/OT- need OT KRISTIE for function- I suspect that she may need NH placement. If RLE pain persists, may need CT of the joint. Repeat labs in AM. Continue SCDs for DVT px. Decrease PPI to daily- no need for GI px, but she does c/o abdominal pain, so will continue PPI for now. DNR status noted. 07/08/17 11:38
[2017-07-09] MEDS: PRAMIPEXOLE 1 MG TABLET PO SCH (21:38)
[2017-07-10] MEDS: HYDROCODONE/APAP 10 MG/325 MG TABLET PO PRN ×3 (01:37→17:04)
[2017-07-10] MEDS: OMEPRAZOLE 20 MG CAPSULE PO SCH (06:07)
[2017-07-10] MEDS: LEVOTHYROXINE 175 MCG TABLET PO SCH (06:07)
[2017-07-10] MEDS: AMIODARONE 200 MG TABLET PO SCH ×2 (08:22→22:03)
[2017-07-10] MEDS: INSULIN DETEMIR 100unit/ml INJECTION SQ SCH (08:22)
[2017-07-10] MEDS: LEVETIRACETAM 500 MG TABLET PO SCH ×2 (08:22→22:04)
[2017-07-10] MEDS: POLYETHYL GLYCOL 3350 17gm PACKET PO SCH ×2 (08:22→22:06)
[2017-07-10] MEDS: CALCITRIOL 0.25 MCG CAPSULE PO SCH (08:22)
[2017-07-10] MEDS: PREGABALIN 50 MG CAPSULE PO SCH ×3 (08:22→22:04)
[2017-07-10] MEDS: SPIRONOLACTONE 25 MG TABLET PO SCH (08:23)
[2017-07-10] MEDS: ASPIRIN *EC* 81 MG TABLET PO SCH (08:23)
[2017-07-10] MEDS: FERROUS SULFATE 324 MG TABLET PO SCH ×2 (08:23→17:03)
[2017-07-10] MEDS: SENNA + DOCUSATE TABLET PO SCH ×2 (08:23→22:03)
[2017-07-10] MEDS: CIPROFLOXACIN 250 MG TABLET PO SCH ×2 (08:41→22:04)
--- NOTE | 2017-07-10 14:36 | XRay Report ---
INDICATION: Evaluate volume status. PROCEDURE: CHEST 2-VIEWS UPRIGHT (PA & LAT) Encounter: Initial COMPARISON: June 28, 2017 FINDINGS: Left pacemaker. Exam is somewhat limited due to underexposure on the AP view. With this limitation there does appear to be increase in perihilar predominant groundglass opacity in the right lung. No gross pneumothorax or pleural effusion. Heart size and mediastinal contours are stable. Impression: Findings of mild pulmonary vascular congestion or edema. .
[2017-07-10] MEDS ORDERED: FUROSEMIDE 20 MG/2 ML INJECTION IVP ONE (18:50)
--- NOTE | 2017-07-10 18:55 | Progress Note ---
Subjective: Pt is feeling better today. Worried she is not getting her diuretics as usual. Does not appear to have any SOB or respiratory distress. Objective Vital signs: Temperature 97.8 F 07/10/17 15:00 Pulse Rate 71 07/10/17 16:18 Respiratory Rate 20 07/10/17 15:00 Blood Pressure 110/65 07/10/17 15:00 Pulse Oximetry 93 07/10/17 15:00 Rhythm: Normal Sinus Rhythm Height/Weight/BMI: Height 5 ft 4 in Weight 127.7 kg Body Mass Index 45.3 - Constitutional Present: no acute distress, obese - Routine HEENT Exam Head: Present: normocephalic, atraumatic Eye: Present: EOMI, PERRL - Routine Respiratory Exam Present: CTA bilaterally - Routine Cardiovascular Exam Present: RRR, S1, S2 - Routine Abdominal Exam Present: soft, non distended, non tender - Routine Extremities Exam Present: edema. Absent: cyanosis, clubbing - Routine Neurological Exam Present: alert, oriented X3, CN II-XII intact - Routine Psychiatric Exam Present: cooperative, depressed Results - Labs CBC & Chem 7: 07/10/17 16:46 07/10/17 16:46 Microbiology Results: Microbiology 07/06/17 19:45 Peripheral/Iv Start Blood Culture - Preliminary No Growth After 3 Days 07/06/17 19:57 Peripheral/Iv Start Blood Culture - Preliminary No Growth After 3 Days 07/06/17 18:18 Urine, Voided (Cc/notcc) Urine Culture - Final Enterobacter aerogenes - ABG Interpretation ABG results: 07/07/17 16:50 ABG pH 7.470 H ABG pCO2 42 ABG pO2 78 L ABG HCO3 31 H ABG Total CO2 31.9 H ABG O2 Saturation 96.0 ABG Base Excess 6.3 H Assessment and Plan (1) Morbid obesity with BMI of 45.0-49.9, adult Current visit: Yes Status: Chronic PT/OT ordered for eval and treat in the am. 07/05/17 21:12 (2) Hypothyroidism Current visit: Yes Status: Chronic TSH checked, continue synthroid at current dose at this time. 07/05/17 21:11 (3) Diabetes mellitus type 2, controlled Current visit: Yes Status: Chronic Continue home Rx with AC/HS accuchecks. 07/05/17 21:12 (4) Hypokalemia Current visit: Yes Status: Resolved IV NS with 40 MEq/L is ordered to run at 125/hour after her initial 40 Meq over 4 hours is completed. Will need to be a little careful with replacement therafter given her IJEOMA/CKD and recheck BMP is ordered for tomorrow AM. 07/05/17 21:07 (5) Hyponatremia Current visit: Yes Status: Resolved She appears hypovolemic, and NS ordered as above with I/O monitoring and recheck labs in the am. 07/05/17 21:08 (6) Chronic kidney disease Current visit: Yes Status: Chronic Likely this represents Acute Kidney Injury on CKD, due to ongoing diuretic use. Diuretics are held at this time, with hydration overnight will recheck BUN/Cr in am. Med list reviewed for renal dosing, avoid nephrotoxic medications. 07/05/17 21:09 (7) Dehydration Current visit: Yes Status: Resolved Plan for IV hydration and re-eval, as above 07/05/17 21:10 DVT Prophylaxis: SCD's, other GI Prophylaxis: other Resuscitation Status: Do Not Resuscitate Assessment and Plan: This is a 67 YO female that came with profound hypokalemia and has been very weak at home and is deconditioned. She apparently has GARY - and was given a CPAP machine that never picked up. She also C/O Neuropathy in her legs with severe pain on the RLE proximally and decreased ROM. X ray did not show any hip fracture. She has gained a lot of weight (Was probably dehydrated), but is not SOB, her muscle weakness has improved a bit (most of it is deconditioning). Will be going to rehab soon. DIAGNOSIS 1) RENAL ASSESMENT - CKD with BUN/Cr of 38/1.6 today & 90/2.4 on admission. A) Hypokalemia, marked on admission, with initial K level of 1.7. Aldosterone level checked as well as renin and pt was started on PO Aldactone (), with gradual correction of her K level. Probably mostly due to multiple diuretics (Including chronic use of Diamox). - Continue with Aldactone; Aldosterone and Renin done on admission PENDING. - Will give Lasix 20mg IV x 1 dose and tomorrow change to Oral Lasix. Chest X ray (07/10) ".......................... INDICATION: Evaluate volume status. PROCEDURE: CHEST 2-VIEWS UPRIGHT (PA & LAT) Encounter: Initial COMPARISON: June 28, 2017 FINDINGS: Left pacemaker. Exam is somewhat limited due to underexposure on the AP view. With this limitation there does appear to be increase in perihilar predominant groundglass opacity in the right lung. No gross pneumothorax or pleural effusion. Heart size and mediastinal contours are stable. Impression: Findings of mild pulmonary vascular congestion or edema. ......................................." B) Hyponatremia, corrected (was 128 on admission) probably due to overdiuresis. - Urine Osm was 307 , Plasma Osm 287. - Random cortisol was normal (14) - TSH normal. 2) Diabetes Mellitus Type II with morbid obesity and advanced lower extremity neuropathy. - Pt on Detemir insulin + Aspart Sliding scale (intermediate sensitivity). - Will D/C on Levemir + Novolog to SNIF/Rehab - Pt on Lyrica for neuropathy - States has "Charcot" deformities on both feet. 3) Cardiovascular assessment A) S/P pacemaker placement - capturing well. Pt is on Amiodarone for ? May need to get old records. B) CHF ? per admission notes - pt has no systolic or diastolic dysfunction but was on 3 diuretics and off K supplements. She was also on Diamox - Wt on admission 117.8 kg - Wt today 127.7 today. - Pt was probably over-diuresed and in contraction alkalosis on admission. - Give Lasix 20mg IV now, recheck CMP, BNP in the AM. 4) Morbid obesity with ? of GARY - Check ABG in the AM - Needs to use her CPAP at [facility]. 5) Hypothyroidism - pt on T4 orally. - TSH was 0.91 normal. 6) Markedly deconditioned - will need to go to rehab. PREVENTION DVT - SCD PUD - PPI (PO omeprazole) Anticipate being able to move pt to rehab setting in the next 24 hrs. - Time spent with patient greater than 35 minutes Sepsis Assessment - Evaluation Sepsis screening result: No Definite Risk Hospital Course Summary Disclaimer: The visit summary below is not to be considered part of the above Progress Note. Hospital Course: 07/08/17 11:37 Assessment: 1. Severe hypokalemia 2. Hyponatremia 3. HFpEF, EF 60% with VHD,mild 4. Cognitive deficit, acute vs. chronic 5. 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 Fiore) 6. DM2, controlled- (outpt- Dr. Cee) 7. Hypothyroidism 8. Chronic pain Peripheral neuropathy Right LE pain, acute vs. chronic 9. Abdominal pain Constipation 10. Chronic respiratory failure Home CPAP needed, poor compliance 11. UTI, Enterobacter 12. IJEOMA/CKD Baseline appears to be about 1.8 This is a 67 YO female that came with profound hypokalemia and has been very weak at home and is deconditioned. She apparently has GARY - and was given a CPAP machine that never picked up. She also C/O Neuropathy in her legs with severe pain on the RLE proximally and decreased ROM. Eric DIAGNOSIS 1) Diabetes Mellitus Type II with morbid obesity and advanced lower extremity neuropathy. - Pt on Detemir insulin + Aspart Sliding scale (intermediate sensitivity). - Pt on Lyrica for neuropathy - States has "Charcot" deformities on both feet. - Check HbA1c in the AM. - Will check portable Hip X rays due to severe pain on the RLE. 2) Cardiovascular assessment A) S/P pacemaker placement - capturing well. Pt is on Amiodarone for ? May need to get old records. B) CHF ? per admission notes - pt has no systolic or diastolic dysfunction but was on 3 diuretics and off K supplements. She was also on Diamox - These are on HOLD. - BNP elevated - Recheck in the AM. - Wt on admission 117.8 kg - Wt today 120.4 3) RENAL ASSESMENT A) CKD with BUN/Cr of 76/2.0 today B) Hypokalemia, pt on supplements, Mg was normal. Aldosterone level checked as well as renin. Pt started on PO Aldactone (07/06). Could be iatrogenic from excess diuretics. - Labs done results pending - K is up to 3.1 today C) Hyponatremia Na is up to 131 today. - Urine Osm pending, Plasma Osm available. - Cortisol ordered (pending). 4) Morbid obesity with ? of GARY - Check ABG - Check overnight oxymetry. 5) Hypothyroidism - pt on T4 orally. - TSH was 0.91 normal. PREVENTION DVT - SCD PUD - PPI 07/08/17 11:38 Plan: 07/08/17 *Potassium, Sodium normalized. Decrease oral potassium. Adjust IVF to NS, decrease rate. Holding diuretics; continue to monitor renal function. Hold topical NSAIDs for now. *Continue insulin, synthroid- fairly stable *Continue Keppra for sz. DO. Monitor on Cipro *Cipro, renal dose, for UTI. *Continue Lyrica for pain. Outpt. Metanx. *Holding diuretics due to renal dysfunction, monitor fluid status. *Change laxatives for motility to help with abdominal pain. If persists, consider further imaging. *Request PT/OT- need OT KRISTIE for function- I suspect that she may need NH placement. If RLE pain persists, may need CT of the joint. Repeat labs in AM. Continue SCDs for DVT px. Decrease PPI to daily- no need for GI px, but she does c/o abdominal pain, so will continue PPI for now. DNR status noted. 07/08/17 11:38
[2017-07-10] MEDS: PRAMIPEXOLE 1 MG TABLET PO SCH (22:03)
[2017-07-10] MEDS ORDERED: FALL RISK - PHARMACY CONSULT MC PRN (22:22)
[2017-07-11] MEDS: LEVOTHYROXINE 175 MCG TABLET PO SCH (05:58)
[2017-07-11] MEDS: OMEPRAZOLE 20 MG CAPSULE PO SCH (05:58)
[2017-07-11] MEDS: HYDROCODONE/APAP 10 MG/325 MG TABLET PO PRN ×2 (06:33→15:24)
[2017-07-11] MEDS: SPIRONOLACTONE 25 MG TABLET PO SCH (08:13)
[2017-07-11] MEDS: PREGABALIN 50 MG CAPSULE PO SCH ×3 (08:14→21:39)
[2017-07-11] MEDS: SENNA + DOCUSATE TABLET PO SCH ×2 (08:14→21:39)
[2017-07-11] MEDS: LEVETIRACETAM 500 MG TABLET PO SCH ×2 (08:14→21:39)
[2017-07-11] MEDS: CIPROFLOXACIN 250 MG TABLET PO SCH ×2 (08:14→21:38)
[2017-07-11] MEDS: AMIODARONE 200 MG TABLET PO SCH ×2 (08:14→21:38)
[2017-07-11] MEDS: FERROUS SULFATE 324 MG TABLET PO SCH ×2 (08:14→17:45)
[2017-07-11] MEDS: CALCITRIOL 0.25 MCG CAPSULE PO SCH (08:14)
[2017-07-11] MEDS: ASPIRIN *EC* 81 MG TABLET PO SCH (08:14)
[2017-07-11] MEDS: INSULIN DETEMIR 100unit/ml INJECTION SQ SCH (08:15)
[2017-07-11] MEDS: POLYETHYL GLYCOL 3350 17gm PACKET PO SCH ×2 (08:15→21:38)
--- NOTE | 2017-07-11 12:49 | Discharge Summary ---
Discharge Information Date of admission: 07/05/17 19:58 Anticipated date of discharge: 07/11/17 Attending Physician: Spike Eric MD Primary care physician: Yan Hitchcock MD Consults: [facility] Consult - Discharge Diagnosis (1) Dehydration Status: Resolved (2) Morbid obesity with BMI of 45.0-49.9, adult Status: Chronic (3) Hypothyroidism Status: Chronic (4) Diabetes mellitus type 2, controlled Status: Chronic (5) Hypokalemia Status: Resolved (6) Hyponatremia Status: Resolved (7) Chronic kidney disease Status: Chronic - Laboratory Labs: 07/11/17 04:01 07/11/17 04:01 - Microbiology Microbiology 07/06/17 19:45 Peripheral/Iv Start Blood Culture - Preliminary No Growth After 4 Days 07/06/17 19:57 Peripheral/Iv Start Blood Culture - Preliminary No Growth After 4 Days 07/06/17 18:18 Urine, Voided (Cc/notcc) Urine Culture - Final Enterobacter aerogenes History of Present Illness HPI: Kareen is a 67 year old female who presented to the ER with generalized weakness. She states this has been coming on slowly but got considerably worse today. This has been associated with anorexia and fatigue. She lives alone and has a caregiver who helps her and recommended that she call EMS to bring her to the hospital. She has a documented history of "CHF" although echo from May 07 appears to show good LVEF, PAP, and no comment of diastolic dysfunction... for which she is on a plethora of diuretics including metolazone, Bumex 3 mg BID, and acetazolamide. She states that her potassium supplement was stopped recently, but she has continued with her diuretic regimen and tonight her Na is 128, K is 1.7, Cl is 76, HCO is 35, with a BUN of 90 and Cr of 2.4. Mg was normal/high end of the range. Apparently she was admitted at [facility] in [place] within the last month, though this did not come to light until her abdominal exam revealed evidence of lovenox injections. She's not really sure why she was admitted to [facility]; she says she thinks it was for "about the same thing as now." Though pleasant, she is a somewhat minimal historian. She is admitted for further evaluation and management and medication adjustment along with correction of her electrolyte disturbances. Objective Vital signs: Temperature 98.4 F 07/11/17 07:30 Pulse Rate 73 07/11/17 08:00 Respiratory Rate 20 07/11/17 07:30 Blood Pressure 103/60 07/11/17 07:30 Pulse Oximetry 92 07/11/17 07:30 Rhythm: Normal Sinus Rhythm Height/Weight/BMI: Height 1.63 m Weight 127.6 kg Body Mass Index 45.3 Hospital Course This is a general summary of the patient's hospital course. For more details refer to the complete medical record. Hospital course: 07/08/17 11:37 Assessment: 1. Severe hypokalemia 2. Hyponatremia 3. HFpEF, EF 60% with VHD,mild 4. Cognitive deficit, acute vs. chronic 5. 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 Fiore) 6. DM2, controlled- (outpt- Dr. Cee) 7. Hypothyroidism 8. Chronic pain Peripheral neuropathy Right LE pain, acute vs. chronic 9. Abdominal pain Constipation 10. Chronic respiratory failure Home CPAP needed, poor compliance 11. UTI, Enterobacter 12. IJEOMA/CKD Baseline appears to be about 1.8 This is a 67 YO female that came with profound hypokalemia and has been very weak at home and is deconditioned. She apparently has GARY - and was given a CPAP machine that never picked up. She also C/O Neuropathy in her legs with severe pain on the RLE proximally and decreased ROM. Eric DIAGNOSIS 1) Diabetes Mellitus Type II with morbid obesity and advanced lower extremity neuropathy. - Pt on Detemir insulin + Aspart Sliding scale (intermediate sensitivity). - Pt on Lyrica for neuropathy - States has "Charcot" deformities on both feet. - Check HbA1c in the AM. - Will check portable Hip X rays due to severe pain on the RLE. 2) Cardiovascular assessment A) S/P pacemaker placement - capturing well. Pt is on Amiodarone for ? May need to get old records. B) CHF ? per admission notes - pt has no systolic or diastolic dysfunction but was on 3 diuretics and off K supplements. She was also on Diamox - These are on HOLD. - BNP elevated - Recheck in the AM. - Wt on admission 117.8 kg - Wt today 120.4 3) RENAL ASSESMENT A) CKD with BUN/Cr of 76/2.0 today B) Hypokalemia, pt on supplements, Mg was normal. Aldosterone level checked as well as renin. Pt started on PO Aldactone (07/06). Could be iatrogenic from excess diuretics. - Labs done results pending - K is up to 3.1 today C) Hyponatremia Na is up to 131 today. - Urine Osm pending, Plasma Osm available. - Cortisol ordered (pending). 4) Morbid obesity with ? of GARY - Check ABG - Check overnight oxymetry. 5) Hypothyroidism - pt on T4 orally. - TSH was 0.91 normal. PREVENTION DVT - SCD PUD - PPI 07/08/17 11:38 Plan: 07/08/17 *Potassium, Sodium normalized. Decrease oral potassium. Adjust IVF to NS, decrease rate. Holding diuretics; continue to monitor renal function. Hold topical NSAIDs for now. *Continue insulin, synthroid- fairly stable *Continue Keppra for sz. DO. Monitor on Cipro *Cipro, renal dose, for UTI. *Continue Lyrica for pain. Outpt. Metanx. *Holding diuretics due to renal dysfunction, monitor fluid status. *Change laxatives for motility to help with abdominal pain. If persists, consider further imaging. *Request PT/OT- need OT KRISTIE for function- I suspect that she may need NH placement. If RLE pain persists, may need CT of the joint. Repeat labs in AM. Continue SCDs for DVT px. Decrease PPI to daily- no need for GI px, but she does c/o abdominal pain, so will continue PPI for now. DNR status noted. 07/08/17 11:38 Discharge Plan - Med Rec/Dispo [facility] Instructions: Acute Kidney Injury (GEN), Hypokalemia (GEN) Prescriptions: No Action Calcium Carbonate/Vitamin D3 [Calcium 600-Vit D3 200 Tablet] 1 tab PO TID #0 acetaZOLAMIDE [Acetazolamide] 250 mg PO DAILY #0 [place]-3 Fatty Acids/Fish Oil [[place] 3 1,000 mg Softgel] 2 cap PO BID #0 Calcitriol [Rocaltrol] 0.25 mcg PO DAILY Levothyroxine Tab [Synthroid] 1.5 tab PO WONG Calcitriol [Rocaltrol] 0.25 mg PO DAILY Pramipexole [Mirapex] 1.5 mg PO HS Polyethylene Glycol 3350 [Miralax] 17 gm PO DAILY Levetiracetam [Keppra] 500 mg PO BID Bumetanide [Bumetanide] 3 mg PO BID Baclofen 2.5 mg PO BID #0 Amiodarone HCl 200 mg PO BID #0 Ferrous Sulfate 325 mg PO BID #0 Aspirin *EC* [Ecotrin] 162 mg PO DAILY Pregabalin Cap [Lyrica] 50 mg PO TID Diclofenac [Voltaren] 1 applic TOP TID PRN PRN Reason: Pain Insulin Detemir [Levemir] 20 unit SQ AMI metolazone 2.5 mg tablet 2.5 mg PO MOWEFR #0 tab levothyroxine 175 mcg tablet 175 mcg PO 6XW #0 tab [place] 10 mg-acetaminophen 325 mg tablet 1 tab PO Q4H PRN 7 Days #40 tab PRN Reason: Pain
--- NOTE | 2017-07-11 13:35 | Progress Note ---
<Yudi Ma - Last Filed: 07/11/17 13:32> Subjective: Kareen was eating lunch; she's looking forward to discharge to [facility] and states that she will continue to live there. She has questions about her breathing - whenever she lies down she becomes short of breath. This is not a new problem - and in reviewing her medical hx we discussed that CHF, AGRY can both contribute to this. She is still weak in general but denies dizziness. She denies n/v. After I left, she used the restroom and her RN called to report that there was bright red blood in the toilet. Objective Vital signs: Temperature 98.4 F 07/11/17 07:30 Pulse Rate 73 07/11/17 08:00 Respiratory Rate 20 07/11/17 07:30 Blood Pressure 103/60 07/11/17 07:30 Pulse Oximetry 92 07/11/17 07:30 Rhythm: Normal Sinus Rhythm Height/Weight/BMI: Height 1.63 m Weight 127.6 kg Body Mass Index 45.3 - Constitutional Present: no acute distress, well nourished, well developed, morbidly obese - Routine HEENT Exam Head: Present: normocephalic Eye: Present: PERRL - Routine Respiratory Exam Present: diminished air movement - Routine Cardiovascular Exam Present: RRR, S1, S2 - Routine Abdominal Exam Present: normoactive bowel sounds - Routine Extremities Exam Present: edema - Routine Skin Exam Present: intact, dry, warm - Routine Neurological Exam Present: alert, oriented X3 - Routine Psychiatric Exam Present: normal affect, normal thought process, cooperative Results - Labs CBC & Chem 7: 07/11/17 04:01 07/11/17 04:01 Microbiology Results: Microbiology 07/06/17 19:45 Peripheral/Iv Start Blood Culture - Preliminary No Growth After 4 Days 07/06/17 19:57 Peripheral/Iv Start Blood Culture - Preliminary No Growth After 4 Days 07/06/17 18:18 Urine, Voided (Cc/notcc) Urine Culture - Final Enterobacter aerogenes - ABG Interpretation ABG results: 07/07/17 07/11/17 16:50 05:55 ABG pH 7.470 H 7.440 ABG pCO2 42 41 ABG pO2 78 L 72 L ABG HCO3 31 H 28 H ABG Total CO2 31.9 H 29.1 H ABG O2 Saturation 96.0 95.0 ABG Base Excess 6.3 H 3.3 H Assessment and Plan (1) Dehydration Current visit: Yes Status: Resolved Plan for IV hydration and re-eval, as above 07/05/17 21:10 (2) Morbid obesity with BMI of 45.0-49.9, adult Current visit: Yes Status: Chronic PT/OT ordered for eval and treat in the am. 07/05/17 21:12 (3) Hypothyroidism Current visit: Yes Status: Chronic TSH checked, continue synthroid at current dose at this time. 07/05/17 21:11 (4) Diabetes mellitus type 2, controlled Current visit: Yes Status: Chronic Continue home Rx with AC/HS accuchecks. 07/05/17 21:12 (5) Hypokalemia Current visit: Yes Status: Resolved IV NS with 40 MEq/L is ordered to run at 125/hour after her initial 40 Meq over 4 hours is completed. Will need to be a little careful with replacement therafter given her IJEOMA/CKD and recheck BMP is ordered for tomorrow AM. 07/05/17 21:07 (6) Hyponatremia Current visit: Yes Status: Resolved She appears hypovolemic, and NS ordered as above with I/O monitoring and recheck labs in the am. 07/05/17 21:08 (7) Chronic kidney disease Current visit: Yes Status: Chronic Likely this represents Acute Kidney Injury on CKD, due to ongoing diuretic use. Diuretics are held at this time, with hydration overnight will recheck BUN/Cr in am. Med list reviewed for renal dosing, avoid nephrotoxic medications. 07/05/17 21:09 Assessment and Plan: SUMMARY (by Dr. Eric): This is a 67 YO female that came with profound hypokalemia and has been very weak at home and is deconditioned. She apparently has GARY - and was given a CPAP machine that never picked up. She also C/O Neuropathy in her legs with severe pain on the RLE proximally and decreased ROM. X ray did not show any hip fracture. She has gained a lot of weight (Was probably dehydrated), but is not SOB, her muscle weakness has improved a bit ( most of it is deconditioning). Will be going to rehab soon. Yudi Ma: I discussed treatment plan with both Dr. Spicer (her back tender cylinder ) and Dr. Swift (flying teacher): Dr. Spicer last saw her in May, at which time her weight was 124 kg. She has a history of Rt heart failure, PH, pickwickian and supposed to be on CPAP or at least oxygen, but pt has been refusing. Her PPM is functioning as expected; she has normal coronaries, also history of intermittent A-fib but can't be anticoagulated because she had rectal and/or vaginal bleeding while on anticoagulants. She has underwent frequent and repeated education on fluid intake/restriction, low sodium diet, but despite the counseling she often asks the same questions about what food to eat, raising concerns for overall compliance at home. BP typically runs low, similar to current BP. Dr. Spicer's office home diuretic medication list was reviewed: Diamox 250 mg daily; Bumex 4 mg BID; metolazone 2.5 mg MWF. In the past when they've tried to take her off or cut back on diuretics, she deals with significant fluid retention (up to 100 lbs), so Dr. Spicer would be hesitant to stop her diuretics for too long. I verified amiodarone dose - she wants her to continue on 200 mg BID rather than dropping down to once daily. TSH was checked on 07/05/17 and was normal at 0.91. She has an appointment scheduled on 07/25/[address] Swift also knows her well. Her baseline creatinine is variable because of heavy diuretic doses, often ranging from 1.5-3, but usually settles in the low- 2s. He also describes repeated conversations and counseling about low sodium diet (and has witnessed her eating a large bag of Fritos in his office) and is worried about her ability to retain this information - again compliance issues. He suspects that her fluid retention is largely diet-related. His office's diuretic medication list included: Diamox 250 mg daily (down from BID), Bumex 4 mg BID, Spironolactone 25 mg BID, Metolazone 2.5 mg 2 days/week, KDur 60 mEq TID. He recommends restarting diuretics back at lower doses: Bumex 2 mg BID, spironolactone 50 mg (agrees with what she's on here in the hospital), Diamox 250 mg daily, plus KDur 20 mEq BID. At time of discharge, he would recommend daily weights and very close f/u of BMP - she's at high risk for having numerous abnormalities because of her excessive diuretic dosing and overall concern for nutritional compliance. We were planning initially to send Kareen to [facility], but if we are restarting her diuretics today, she is high-risk for developing IJEOMA, hypokalemia , which may go overlooked at SNF. Further, with elevated aldosterone level, we may need to pursue further work up. DIAGNOSES 1) RENAL ASSESSMENT - CKD with BUN/Cr of 37/1.4 today & 90/2.4 on admission. A) Hypokalemia, marked on admission, with initial K level of 1.7. - Continue with Aldactone; Aldosterone was resulted at 28 (high); Renin done on admission PENDING. Imaging ordered to evaluate for adenoma. - Will give Lasix 20mg IV x 1 dose on 07/10/17 - Dr. Swift suggests starting: Bumex 2 mg BID, spironolactone 50 mg, Diamox 250 mg daily, plus KDur 20 mEq BID - Chest X ray (07/10): Mild pulmonary vascular congestion or edema. B) Hyponatremia, corrected (was 128 on admission) probably due to overdiuresis. - Urine Osm was 307 , Plasma Osm 287. - Random cortisol was normal (14) - TSH normal (0.91). 2) Diabetes Mellitus Type II with morbid obesity and advanced lower extremity neuropathy. - Pt on Detemir insulin + Aspart Sliding scale (intermediate sensitivity). - Will D/C on Levemir + Novolog to SNF/Rehab - Pt on Lyrica for neuropathy - States has "Charcot" deformities on both feet. 3) Cardiovascular assessment A) S/P pacemaker placement - capturing well. Pt is on Amiodarone for intermittent A-fib - Per Dr. Spicer, she has GI/vaginal bleeding on anticoagulants and is thus not a candidate. B) CHF - per Dr. Spicer Rt heart failure. - Wt on admission 117.8 kg - Wt today 127.6 today. In May, it was 124 kg. - Suspect nutritional noncompliance may play a role - recommend low-sodium diet and ongoing education. - Pt was probably over-diuresed and in contraction alkalosis on admission. 4) Morbid obesity with GARY - Formal sleep study done in 2016 - supposed to be on CPAP but patient refused. - Needs to use her CPAP at SNF. 5) Hypothyroidism - pt on T4 orally. - TSH was 0.91 normal. 6) Markedly deconditioned - will need to go to rehab. PREVENTION DVT - SCD PUD - PPI (PO omeprazole) With re-introduction of multiple diuretics and risk for IJEOMA/K/mg abnormalities; high aldosterone level warranting further evaluation; and blood noted in toilet , will cancel DC plans today. Sepsis Assessment - Evaluation Sepsis screening result: No Definite Risk Hospital Course Summary Disclaimer: The visit summary below is not to be considered part of the above Progress Note. <Spike Eric - Last Filed: 07/11/17 15:06> Objective Vital signs: Temperature 98.4 F 07/11/17 07:30 Pulse Rate 73 07/11/17 08:00 Respiratory Rate 20 07/11/17 07:30 Blood Pressure 103/60 07/11/17 07:30 Pulse Oximetry 92 07/11/17 07:30 Height/Weight/BMI: Height 5 ft 4 in Weight 127.6 kg Body Mass Index 45.3 Results - Labs CBC & Chem 7: 07/11/17 04:01 07/11/17 04:01 Microbiology Results: Microbiology 07/06/17 19:45 Peripheral/Iv Start Blood Culture - Preliminary No Growth After 4 Days 07/06/17 19:57 Peripheral/Iv Start Blood Culture - Preliminary No Growth After 4 Days 07/06/17 18:18 Urine, Voided (Cc/notcc) Urine Culture - Final Enterobacter aerogenes - ABG Interpretation ABG results: 07/07/17 07/11/17 16:50 05:55 ABG pH 7.470 H 7.440 ABG pCO2 42 41 ABG pO2 78 L 72 L ABG HCO3 31 H 28 H ABG Total CO2 31.9 H 29.1 H ABG O2 Saturation 96.0 95.0 ABG Base Excess 6.3 H 3.3 H Assessment and Plan (1) Morbid obesity with BMI of 45.0-49.9, adult Current visit: Yes Status: Chronic (2) Hypothyroidism Current visit: Yes Status: Chronic (3) Diabetes mellitus type 2, controlled Current visit: Yes Status: Chronic (4) Hypokalemia Current visit: Yes Status: Resolved (5) Hyponatremia Current visit: Yes Status: Resolved (6) Chronic kidney disease Current visit: Yes Status: Chronic (7) Dehydration Current visit: Yes Status: Resolved Assessment and Plan: Above pt seen and examined - Agree with above plan and findings - please refer to my progress notes for details. Hospital Course Summary Disclaimer: The visit summary below is not to be considered part of the above Progress Note.
[2017-07-11] MEDS: acetaZOLAMIDE 250 MG TABLET PO SCH (14:12)
[2017-07-11] MEDS: BUMETANIDE 1 MG TABLET PO SCH (14:13)
--- NOTE | 2017-07-11 14:13 | Progress Note ---
Subjective: Above pt was getting ready to be D/C to SN[facility]. However had Bright red per rectum and states had not had this problem before. Also her Aldosterone was high, renin level still pending. Objective Vital signs: Temperature 98.4 F 07/11/17 07:30 Pulse Rate 73 07/11/17 08:00 Respiratory Rate 20 07/11/17 07:30 Blood Pressure 103/60 07/11/17 07:30 Pulse Oximetry 92 07/11/17 07:30 Rhythm: Normal Sinus Rhythm Height/Weight/BMI: Height 5 ft 4 in Weight 127.6 kg Body Mass Index 45.3 Results - Labs CBC & Chem 7: 07/11/17 04:01 07/11/17 04:01 Microbiology Results: Microbiology 07/06/17 19:45 Peripheral/Iv Start Blood Culture - Preliminary No Growth After 4 Days 07/06/17 19:57 Peripheral/Iv Start Blood Culture - Preliminary No Growth After 4 Days 07/06/17 18:18 Urine, Voided (Cc/notcc) Urine Culture - Final Enterobacter aerogenes - ABG Interpretation ABG results: 07/07/17 07/11/17 16:50 05:55 ABG pH 7.470 H 7.440 ABG pCO2 42 41 ABG pO2 78 L 72 L ABG HCO3 31 H 28 H ABG Total CO2 31.9 H 29.1 H ABG O2 Saturation 96.0 95.0 ABG Base Excess 6.3 H 3.3 H Assessment and Plan (1) Morbid obesity with BMI of 45.0-49.9, adult Current visit: Yes Status: Chronic PT/OT ordered for eval and treat in the am. 07/05/17 21:12 (2) Hypothyroidism Current visit: Yes Status: Chronic TSH checked, continue synthroid at current dose at this time. 07/05/17 21:11 (3) Diabetes mellitus type 2, controlled Current visit: Yes Status: Chronic Continue home Rx with AC/HS accuchecks. 07/05/17 21:12 (4) Hypokalemia Current visit: Yes Status: Resolved IV NS with 40 MEq/L is ordered to run at 125/hour after her initial 40 Meq over 4 hours is completed. Will need to be a little careful with replacement therafter given her IJEOMA/CKD and recheck BMP is ordered for tomorrow AM. 07/05/17 21:07 (5) Hyponatremia Current visit: Yes Status: Resolved She appears hypovolemic, and NS ordered as above with I/O monitoring and recheck labs in the am. 07/05/17 21:08 (6) Chronic kidney disease Current visit: Yes Status: Chronic Likely this represents Acute Kidney Injury on CKD, due to ongoing diuretic use. Diuretics are held at this time, with hydration overnight will recheck BUN/Cr in am. Med list reviewed for renal dosing, avoid nephrotoxic medications. 07/05/17 21:09 (7) Dehydration Current visit: Yes Status: Resolved Plan for IV hydration and re-eval, as above 07/05/17 21:10 Assessment and Plan: Please refer to today's note by Yudi for additional details. SUMMARY - This is a 67 YO female that came with profound hypokalemia and has been very weak at home and is deconditioned. She apparently has GARY - and was given a CPAP machine that never picked up. She also C/O Neuropathy in her legs with severe pain on the RLE proximally and decreased ROM. X ray did not show any hip fracture. She has gained a lot of weight (Was probably dehydrated), but is not SOB, her muscle weakness has improved (most of it is deconditioning). We were getting ready to send her to rehab today, but she had BRBPR and also her Aldosterone level came back high. Pt states she has never been told she has an adenoma. If pt has an adenoma this would be a curable cause of her HTN and hypokalemia. Her creatinine is down to 1.4 today. Case was discussed with Radiology. Will check a CT abdomen adrenal protoccol. Also pt may need workup for hematochezia. DIAGNOSIS 1) RENAL ASSESMENT - CKD that has improved since admission being her creatinine today down to 1.4 it was 2.4 on admission, with a BUN of 90. Most likely this was due in part to the multiple diuretics she was on. A) Hypokalemia, marked on admission, with initial K level of 1.7. Aldosterone level checked as well as renin and pt was started on PO Aldactone (), with gradual correction of her K level. - Continue with Aldactone - Aldosterone level is high, will check abdominal CT with adrenal protoccol. - Pt has gained weight significantly since she was admitted, most likely MOST of this was correction of the marked dehydration she was on. Chest X ray (07/10) ".......................... INDICATION: Evaluate volume status. PROCEDURE: CHEST 2-VIEWS UPRIGHT (PA & LAT) Encounter: Initial COMPARISON: June 28, 2017 FINDINGS: Left pacemaker. Exam is somewhat limited due to underexposure on the AP view. With this limitation there does appear to be increase in perihilar predominant groundglass opacity in the right lung. No gross pneumothorax or pleural effusion. Heart size and mediastinal contours are stable. Impression: Findings of mild pulmonary vascular congestion or edema. ......................................." B) Hyponatremia, corrected (was 128 on admission) probably due to overdiuresis. - Urine Osm was 307 , Plasma Osm 287. - Random cortisol was normal (14) - TSH normal. 2) Hematochezia (New problem - 07/11) - Will check serial H.H PT, INR PTT - May need surgical consult for scopes. 3) Diabetes Mellitus Type II with morbid obesity and advanced lower extremity neuropathy. - Pt on Detemir insulin + Aspart Sliding scale (intermediate sensitivity). - Will D/C on Levemir + Novolog to SN[facility]/Rehab - Pt on Lyrica for neuropathy - States has "Charcot" deformities on both feet. 4) Cardiovascular assessment A) S/P pacemaker placement - capturing well. Pt is on Amiodarone for ? May need to get old records. B) CHF ? per admission notes - pt has no systolic or diastolic dysfunction but was on 3 diuretics and off K supplements. She was also on Diamox - Wt on admission 117.8 kg - Wt today 127.6 today. Pt gained a lot of weight since admission BUT WT IS STABLE OVER THE LAST 72 HRS. - Pt was probably over-diuresed and in contraction alkalosis on admission. 5) Morbid obesity with ? of GARY - Check ABG in the AM - Needs to use her CPAP at [facility]. 6) Hypothyroidism - pt on T4 orally. - TSH was 0.91 normal. 7) Markedly deconditioned - will need to go to rehab. PREVENTION DVT - SCD PUD - PPI (PO omeprazole) Sepsis Assessment - Evaluation Sepsis screening result: No Definite Risk Hospital Course Summary Disclaimer: The visit summary below is not to be considered part of the above Progress Note.
[2017-07-11] MEDS ORDERED: NS 0 ML ONE (16:11)
[2017-07-11] MEDS ORDERED: SALINE FLUSH 10ml SYRINGE ONE (16:11)
[2017-07-11] MEDS ORDERED: IOHEXOL 300mg/ml 100ml INJECTION ONE (16:11)
--- NOTE | 2017-07-11 17:04 | CT Scan Report ---
Indication: hypertension, hypokalemia, elevated aldosterone PROCEDURE: CT abdomen pelvis wo con: Encounter: Initial Comparison: Renal CT dated July 17, 2014, lumbar spine radiographs dated May 27, [address] lumbar spine dated March 06, 2017 Technique: Axial CT images were performed through the abdomen and pelvis without intravenous contrast. Coronal and sagittal two-dimensional reformats. Automated Exposure Control and Iterative Reconstruction dose reducing techniques were utilized. Findings: Scattered bibasilar atelectasis. Noncontrast liver appears grossly normal. Gallbladder is surgically absent. The spleen, pancreas and adrenal glands appear normal. No discrete adrenal nodule or mass. No visible change in appearance from the prior exam. The kidneys are also stable in appearance with areas of cortical loss and scarring on the left. No abdominal or pelvic lymphadenopathy. Bladder is normal. Uterus is unremarkable. No free fluid. Sigmoid diverticulosis without evidence of acute diverticulitis. No bowel obstruction. Mild subcutaneous edema. Bone windows show degenerative change and scoliosis in the spine. New superior endplate compression fracture of L3. Impression: 1. No visible adrenal nodule or mass. No acute disease process seen in the abdomen or pelvis. 2. Acute superior endplate compression fracture of L3. .
[2017-07-11] MEDS: PRAMIPEXOLE 1 MG TABLET PO SCH (21:38)
[2017-07-12 00:27] VITALS: RESP 18
[2017-07-12] MEDS: HYDROCODONE/APAP 10 MG/325 MG TABLET PO PRN ×2 (01:55→08:42)
[2017-07-12] MEDS: OMEPRAZOLE 20 MG CAPSULE PO SCH (06:03)
[2017-07-12] MEDS: LEVOTHYROXINE 175 MCG TABLET PO SCH (06:04)
[2017-07-12 07:27] VITALS: BP 104/56; PULSE 71; TEMP 97.9; O2SAT 93
[2017-07-12] MEDS: INSULIN DETEMIR 100unit/ml INJECTION SQ SCH (08:29)
[2017-07-12] MEDS: SENNA + DOCUSATE TABLET PO SCH (08:42)
[2017-07-12] MEDS: POLYETHYL GLYCOL 3350 17gm PACKET PO SCH (08:42)
[2017-07-12] MEDS: SPIRONOLACTONE 25 MG TABLET PO SCH (08:43)
[2017-07-12] MEDS: AMIODARONE 200 MG TABLET PO SCH (08:43)
[2017-07-12] MEDS: ASPIRIN *EC* 81 MG TABLET PO SCH (08:43)
[2017-07-12] MEDS: CALCITRIOL 0.25 MCG CAPSULE PO SCH (08:43)
[2017-07-12] MEDS: BUMETANIDE 1 MG TABLET PO SCH ×2 (08:43→14:28)
[2017-07-12] MEDS: LEVETIRACETAM 500 MG TABLET PO SCH (08:43)
[2017-07-12] MEDS: acetaZOLAMIDE 250 MG TABLET PO SCH (08:43)
[2017-07-12] MEDS: PREGABALIN 50 MG CAPSULE PO SCH ×2 (08:43→14:28)
[2017-07-12] MEDS: CIPROFLOXACIN 250 MG TABLET PO SCH (08:43)
[2017-07-12] MEDS: FERROUS SULFATE 324 MG TABLET PO SCH (08:44)
--- NOTE | 2017-07-12 11:44 | Progress Note ---
Subjective: F/U: Hypokalemia, Hyponatremia, Stage III CKD, IJEOMA Feels tired today-very sleepy. Slept well last night. Breathing stable. Not having chest pain. Eating well. Stools moving. No nausea. Objective Vital signs: Temperature 97.9 F 07/12/17 07:26 Pulse Rate 71 07/12/17 07:26 Respiratory Rate 18 07/12/17 07:26 Blood Pressure 104/56 07/12/17 07:26 Pulse Oximetry 93 07/12/17 07:26 Rhythm: Normal Sinus Rhythm Height/Weight/BMI: Height 1.63 m Weight 127.3 kg Body Mass Index 45.3 - Constitutional Present: no acute distress, well nourished, well developed, morbidly obese - Routine HEENT Exam Head: Present: normocephalic, atraumatic Eye: Present: EOMI, PERRL ENT: Present: mucous membranes moist - Routine Respiratory Exam Present: decreased breath sounds, distant breath sounds. Absent: respiratory distress, wheezes, crackles - Routine Cardiovascular Exam Present: RRR - Routine Abdominal Exam Present: soft, non distended, non tender. Absent: rebound - Routine Extremities Exam Present: edema (+2 bilteral ). Absent: cyanosis, clubbing - Routine Musculoskeletal Exam Musculoskeletal: Present: no clubbing or cyanosis - Routine Skin Exam Present: intact, dry, warm - Routine Neurological Exam Present: alert, CN II-XII intact, vision grossly intact, hearing grossly intact. Absent: motor deficit - Routine Psychiatric Exam Present: normal affect. Absent: anxious, agitated Results - Labs CBC & Chem 7: 07/12/17 04:30 07/12/17 04:30 Microbiology Results: Microbiology 07/06/17 19:45 Peripheral/Iv Start Blood Culture - Final No Growth After 5 Days 07/06/17 19:57 Peripheral/Iv Start Blood Culture - Final No Growth After 5 Days 07/06/17 18:18 Urine, Voided (Cc/notcc) Urine Culture - Final Enterobacter aerogenes - ABG Interpretation ABG results: 07/07/17 07/11/17 16:50 05:55 ABG pH 7.470 H 7.440 ABG pCO2 42 41 ABG pO2 78 L 72 L ABG HCO3 31 H 28 H ABG Total CO2 31.9 H 29.1 H ABG O2 Saturation 96.0 95.0 ABG Base Excess 6.3 H 3.3 H Assessment and Plan (1) Hypokalemia Current visit: Yes Status: Resolved (2) Hyponatremia Current visit: Yes Status: Resolved (3) Dehydration Current visit: Yes Status: Resolved (4) Diabetes mellitus type 2, controlled Current visit: Yes Status: Chronic (5) Hypothyroidism Current visit: Yes Status: Chronic (6) Chronic kidney disease Current visit: Yes Status: Chronic (7) Morbid obesity with BMI of 45.0-49.9, adult Current visit: Yes Status: Chronic DVT Prophylaxis: SCD's Resuscitation Status: Do Not Resuscitate Assessment and Plan: Assessment Severe hypokalemia (POA) - resolved Hyponatremia (POA) resolved HFpEF, EF 60% with VHD, mild Cognitive deficit, acute vs. 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 Fiore) DM2, controlled- (outpt- Dr. Cee) Hypothyroidism Chronic pain Peripheral neuropathy Right LE pain, acute vs. chronic Abdominal pain Constipation Chronic respiratory failure Home CPAP needed, poor compliance UTI, Enterobacter IJEOMA (POA) resolved. CKD - Stage III; Baseline appears to be about 1.8 Morbid obesity with BMI 48.2 Plan Will discharge to [facility] for skilled care. Diuretics restarted at lower dose. Will need to monitor weight an lab. Stressed sodium avoidance. Continue with PT/OT to help improve strength and functional status. Blood sugars stable - continue current regimen. Recheck BMP in 1 week secondary to medication use. F/U with Dr Hitchcock in 1 week for medical evaluation. See orders for details. Case discussed with CM. Time spent with patient care and discharge greater than 30 minutes. - Time spent with patient discharge greater than 30 minutes Hospital Course Summary Disclaimer: The visit summary below is not to be considered part of the above Progress Note.
--- NOTE | 2017-07-12 11:57 | Discharge Summary ---
Discharge Information Date of admission: 07/05/17 19:58 Anticipated date of discharge: 07/12/17 Attending Physician: Spike Eric MD Primary care physician: Yan Hitchcock MD Consults: PT/OT Dietary - Discharge Diagnosis (1) Diabetes mellitus type 2, controlled Status: Chronic (2) Hypothyroidism Status: Chronic (3) Chronic kidney disease Status: Chronic (4) Morbid obesity with BMI of 45.0-49.9, adult Status: Chronic Discharge Diagnosis: Discharge diagnosis Severe hypokalemia (POA) - resolved Associated conditions and complications Hyponatremia (POA) resolved HFpEF, EF 60% with VHD, mild Cognitive deficit, acute vs. 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 Fiore) DM2, controlled- (outpt- Dr. Cee) Hypothyroidism Chronic pain Peripheral neuropathy Right LE pain, acute vs. chronic Abdominal pain Constipation Chronic respiratory failure Home CPAP needed, poor compliance UTI, Enterobacter IJEOMA (POA) resolved. CKD - Stage III; Baseline appears to be about 1.8 Morbid obesity with BMI 48.2 - Laboratory Labs: Admit Lab 07/05/17 17:24 WBC 9.4 Hgb 12.7 Hct 37.4 MCV 84.0 Plt Count 299 D Neut % (Auto) 75.6 H Lymph % (Auto) 13.7 L Admit Lab 07/05/17 17:24 Sodium 128 L Potassium 1.7 L* Chloride 76 L Carbon Dioxide 35 H Anion Gap 17 H BUN 90.0 H* Creatinine 2.4 H GFR Calculation 20 BUN/Creatinine Ratio 38 H Glucose 197 H Total Bilirubin 1.10 AST 48 H ALT 44 Albumin 4.3 Globulin 3.9 H Specimen Hemolysis < 15 Other Labs 07/06/17 07/07/17 07/10/17 12:11 08:00 04:53 Hemoglobin A1c 6.4 Iron 23 L TIBC 263 % Saturation 9 Ferritin 134 Renin 32 Aldosterone Baseline 28 H Vitamin B12 607 Folate 6.0 07/12/17 04:30 07/12/17 04:30 - Microbiology Microbiology 07/06/17 19:45 Peripheral/Iv Start Blood Culture - Final No Growth After 5 Days 07/06/17 19:57 Peripheral/Iv Start Blood Culture - Final No Growth After 5 Days 07/06/17 18:18 Urine, Voided (Cc/notcc) Urine Culture - Final Enterobacter aerogenes - Radiology Radiology: Date of Exam: 07/07/17 PROCEDURE: XR pelvis w/ 1 view RT hip Findings: There is no acute fracture, dislocation or malalignment identified. Orthopedic hardware in the right femur appears stable. Old deformity of the left pubic rami. Impression: No acute osseous abnormality. Date of Exam: 07/10/17 PROCEDURE: CHEST 2-VIEWS UPRIGHT (PA & LAT) FINDINGS: Left pacemaker. Exam is somewhat limited due to underexposure on the [facility] view. With this limitation there does appear to be increase in perihilar predominant groundglass opacity in the right lung. No gross pneumothorax or pleural effusion. Heart size and mediastinal contours are stable. Impression: Findings of mild pulmonary vascular congestion or edema. Date of Exam: 07/11/17 PROCEDURE: CT abdomen pelvis wo con Comparison: Renal CT dated July 17, 2014, lumbar spine radiographs dated May 27, [address] lumbar spine dated March 06, 2017 Findings: Scattered bibasilar atelectasis. Noncontrast liver appears grossly normal. Gallbladder is surgically absent. The spleen, pancreas and adrenal glands appear normal. No discrete adrenal nodule or mass. No visible change in appearance from the prior exam. The kidneys are also stable in appearance with areas of cortical loss and scarring on the left. No abdominal or pelvic lymphadenopathy. Bladder is normal. Uterus is unremarkable. No free fluid. Sigmoid diverticulosis without evidence of acute diverticulitis. No bowel obstruction. Mild subcutaneous edema. Bone windows show degenerative change and scoliosis in the spine. New superior endplate compression fracture of L3. Impression: 1. No visible adrenal nodule or mass. No acute disease process seen in the abdomen or pelvis. 2. Acute superior endplate compression fracture of L3. History of Present Illness HPI: Kareen is a 67 year old female who presented to the ER with generalized weakness. She states this has been coming on slowly but got considerably worse today. This has been associated with anorexia and fatigue. She lives alone and has a caregiver who helps her and recommended that she call EMS to bring her to the hospital. She has a documented history of "CHF" although echo from May 07 appears to show good LVEF, PAP, and no comment of diastolic dysfunction... for which she is on a plethora of diuretics including metolazone, Bumex 3 mg BID, and acetazolamide. She states that her potassium supplement was stopped recently, but she has continued with her diuretic regimen and tonight her Na is 128, K is 1.7, Cl is 76, HCO is 35, with a BUN of 90 and Cr of 2.4. Mg was normal/high end of the range. Apparently she was admitted at [facility] in [place] within the last month, though this did not come to light until her abdominal exam revealed evidence of lovenox injections. She's not really sure why she was admitted to [facility]; she says she thinks it was for "about the same thing as now." Though pleasant, she is a somewhat minimal historian. She is admitted for further evaluation and management and medication adjustment along with correction of her electrolyte disturbances. For complete details of the H&P refer to that document. Objective Vital signs: Temperature 97.9 F 07/12/17 07:26 Pulse Rate 71 07/12/17 07:26 Respiratory Rate 18 07/12/17 07:26 Blood Pressure 104/56 07/12/17 07:26 Pulse Oximetry 93 07/12/17 07:26 Rhythm: Normal Sinus Rhythm Height/Weight/BMI: Height 1.63 m Weight 127.3 kg Body Mass Index 45.3 Hospital Course This is a general summary of the patient's hospital course. For more details refer to the complete medical record. Hospital course: 07/05/17 - Admission She is admitted for IVF and close monitoring of cardiac and renal function as above. 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 She does appear to have a contraction alkalosis and most immediately concerning is her very low potassium which we are replacing IV. Will provide further symptommatic, supportive, and diagnostic cares as the current workup, or changes in her clinical scenerio, indicate. Plan of care was discussed with the patient and the time of my evaluation and she expressed understanding and desire to proceed. Potassium was replaced using IV and oral routes during hospitalization. Improved to 4.1 by discharge. Diuretics held initially and creatine decreased. Restarted at lower dose before discharge. Creatinine 1.6 at discharge. Urine culture did grow out Enterobacter aerogenes - course of ciprofloxacin completed during hospitalization. Blood sugars stable during hospitalization. PT/OT worked with patient to help improve functional status. Slow gains made. CM helpful for discharge arrangement - to have stay on Skilled at [facility]. Hope with better regulation of sodium and fluid intake patient will improve. Definitely will need continued PT/OT to improve functional abilities. Follow up with Dr Hitchcock in 1 week for reevaluation. Check BMP due to CKD and CBC due to anemia. Time spent with patient: discharge greater than 30 minutes DVT Prophylaxis: SCD's Discharge Plan - Med Rec/Dispo Referrals/Follow Up: Yan Hitchcock MD [Primary Care Provider] - 1 Week (Hospital follow up - Hypokalemia; on skilled at [facility] ) [facility] Instructions: Acute Kidney Injury (GEN), Hypokalemia (GEN) Prescriptions: New Bumetanide Tab [Bumex Tab] 2 mg PO [id number] tablet CALCIUM CARBONATE Chewable [Tums Extra Strength] 750 mg PO PRN PRN tab.chew PRN Reason: Dyspepsia Senna + Docusate [Senna Plus Tablet] 2 tab PO BID tablet Spironolactone [Aldactone] 50 mg PO DAILY tablet Potassium Chloride [K-Dur] 20 meq PO BIDWM tablet Keppra (levetiracetam) 500 mg tablet 500 mg PO BID #60 tab Continue Calcium Carbonate/Vitamin D3 [Calcium 600-Vit D3 200 Tablet] 1 tab PO TID #0 acetaZOLAMIDE [Acetazolamide] 250 mg PO DAILY #0 Erie-3 Fatty Acids/Fish Oil [Erie 3 1,000 mg Softgel] 2 cap PO BID #0 Levothyroxine Tab [Synthroid] 1.5 tab PO WONG Calcitriol [Rocaltrol] 0.25 mg PO DAILY Pramipexole [Mirapex] 1.5 mg PO HS Polyethylene Glycol 3350 [Miralax] 17 gm PO DAILY Hydrocodone/APAP 10/325 [[place] 10/325] 1 tab PO Q4H PRN 7 Days #40 tab PRN Reason: Pain Amiodarone HCl 200 mg PO BID #0 Ferrous Sulfate 325 mg PO BID #0 Aspirin *EC* [Ecotrin] 162 mg PO DAILY Pregabalin Cap [Lyrica] 50 mg PO TID Insulin Detemir [Levemir] 20 unit SQ AMI metolazone 2.5 mg tablet 2.5 mg PO MOWEFR #0 tab levothyroxine 175 mcg tablet 175 mcg PO 6XW #0 tab Discontinued Calcitriol [Rocaltrol] 0.25 mcg PO DAILY Bumetanide [Bumetanide] 3 mg PO BID Baclofen 2.5 mg PO BID #0 Diclofenac [Voltaren] 1 applic TOP TID PRN PRN Reason: Pain Discharge Instructions/Outpatient Orders: Final Provider Discharge Instructions Location: Determined By Patient - Disposition 03 To [facility] (SNF) - Attestation Attestation Narrative: 07/12/17 12:13 I have independently interviewed and examined patient prior to discharge. See my progress note for details. Medically stable for discharge to for skilled care.
--- NOTE | 2017-07-12 12:20 | Extended Care Facility Orders ---
Admission Orders Admit to:: Custodial Allergies/Adverse Reactions: Allergies Estrogens Allergy (Mild, Verified 07/05/17 17:16) RASH morphine Allergy (Mild, Verified 07/05/17 17:16) RASH niacin Allergy (Mild, Verified 07/05/17 17:16) RASH amoxicillin Allergy (Unknown, Verified 07/05/17 17:16) RASH fentanyl Allergy (Unknown, Verified 07/05/17 17:16) rash Admitting Diagnosis: Acute kidney injury, Hypokalemia Admitting Physician: Spike Eric MD Attending Physician: Dr Hitchcock Code Status: Do Not Resuscitate Anticiapted Length of Stay: 30 days or less Rehab Potential: fair Rehab Prognosis: fair Diet: No added salt, no concentrated sweets. May have up to 2 quarts fluid a day. May use Facility Protocol or Standing Orders: Yes May have flu vaccine: Yes Evaluations/Treatment: PT, OT Custodial Certification: I certify that SNF services are required to be given on an Inpatient basis because of the patients need for detention care on a continuing basis for the condition(s) for which he/she received inpatient hospital services prior to his/her transfer to the SNF. SNF inpatient care is necessary for the following reasons Indication for Custodial: Diabetic Assessment, Med Admininistration, Diabetic Education, Teach Medication Management, Teach CHF, Teach Diabetes Mellitus Management, Other (Skilled PT/OT to maximize functional status. ) - Additional Information In Event of Arrest: Do Not Start CPR Resident is Aware of Diagnosis: Yes Referrals: Yan Hitchcock MD [Primary Care Provider] - 1 Week (Hospital follow up - Hypokalemia; on skilled at [facility] ) Additional Orders: F/U with Dr Hitchcock in 1 week. BMP in 1 week - Dx: Stage III CKD, medication use. CBC in 1 week - Dx: anemia. May use home CPAP at night. Accuchecks ac meals, qhs and prn. DAILY Weights. NO ADDED SALT - low sodium diet. May have up to 2 quarts fluid a day.
== END 2017-07-12 15:55 | DRG 641 ==
LOC: ED 17:09 → MED 19:58
PROVIDERS: ADMIT Internal Medicine; ATTEND Internal Medicine

== ENCOUNTER 2017-11-29 23:13 | Inpatient (IN) ==
[2017-11-29] MEDS ORDERED: NS 1,000 ML IV ONE (23:22)
--- NOTE | 2017-11-29 23:27 | Emergency Department Report ---
General Adult HPI - General Stated complaint: weak, hypotension, ms Time Seen by Provider: 11/29/17 23:15 - History of Present Illness HPI narrative: Patient presents by EMS with profound weakness and hypotension, as well as decreased mental status. Over the course of several hours, patient has developed worsening weakness, increasing fatigue, lethargy and hypersomnolence with hypotension, fever up to 100.4, decreased appetite all day, and had some complaints earlier in the day of abdominal discomfort with loose stools. EMS found the patient be profoundly hypotensive with a systolic blood pressure 45, and began a normal saline bolus 1 L. On arrival to the ER, approximately one half of the patient's fluids were in, her blood pressure is currently 62/35. Patient also received 2 mg Narcan in route, with little improvement. Currently patient is only minimally verbal, she can answer some questions, does seem to indicate some form of abdominal discomfort. Case and the patient's wishes were discussed at length with the patient's son who states that she is an absolute DO NOT RESUSCITATE, DO NOT INTUBATE, and she would not want aggressive cardiovascular intervention of any type. - Related Data Home Medications Medication Instructions Recorded Confirmed Ferrous Sulfate 325 mg PO BID #0 06/24/16 11/23/17 Aspirin *EC* [Ecotrin] 162 mg PO DAILY 05/18/17 11/23/17 Calcitriol [Rocaltrol] 0.25 mcg PO DAILY 07/05/17 11/23/17 Insulin Detemir [Levemir] 20 unit SQ AMI 07/05/17 11/23/17 Levothyroxine Tab [Synthroid] 262.5 mcg PO WONG 07/05/17 11/23/17 Acetaminophen 650 mg PO Q4H PRN 10/03/17 11/23/17 Fluticasone Nasal Warren [Flonase] 1 spray EA NOSTRIL DAILY 10/03/17 11/23/17 Levothyroxine Sodium 175 mcg PO MOTUWETHFRSA 10/03/17 11/23/17 Raymond-3 Fatty Acids [Raymond-3] 2,000 mg PO BID 10/03/17 11/23/17 Peg 3350 238 G Bottle [Miralax] 17 gm PO DAILY 10/03/17 11/23/17 acetaZOLAMIDE [Diamox] 250 mg PO DAILY 10/03/17 11/23/17 Colace (Docusate sodium) 100 mg 300 mg PO DAILY cap 11/06/17 11/23/17 capsule bumetanide 1 mg tablet 2 mg PO DAILY tab 11/06/17 11/23/17 calcium carbonate 600 mg (1,500 1 tab PO TID tab 11/06/17 11/23/17 mg)-vitamin D3 400 unit tablet metolazone 5 mg tablet 2.5 mg PO QMWF tab 11/06/17 11/23/17 Keppra (levetiracetam) 500 mg 500 mg PO BID tab 11/23/17 11/23/17 tablet Klor-Con M20 (potassium chloride 30 meq PO TID tab 11/23/17 11/23/17 ER) 20 mEq tablet,(part/cryst) Lyrica (pregabalin) 100 mg capsule 100 mg PO BID 11/23/17 11/23/17 Previous Rx's Medication Instructions Recorded Spironolactone [Aldactone] 50 mg PO DAILY tab 07/12/17 Hydrocodone/APAP 10/325 [Alma 1 tab PO Q4H PRN #20 tab 10/08/17 10/325] Menthol Cough Drops [Ricola Sf] 1 lozenge MM PRN PRN lozenge 10/08/17 Lyrica (pregabalin) 100 mg capsule 100 mg PO BID #60 cap 11/23/17 Allergies Allergy/AdvReac Type Severity Reaction Status Date / Time Estrogens Allergy Mild RASH Verified 11/30/17 01:30 morphine Allergy Mild RASH Verified 11/30/17 01:30 niacin Allergy Mild RASH Verified 11/30/17 01:30 amoxicillin Allergy Unknown RASH Verified 11/30/17 01:30 fentanyl Allergy Unknown rash Verified 11/30/17 01:30 Review of Systems All systems: reviewed and negative except as stated PFSH Patient Stated Medical History Cerebrovascular Accident Yes: september 2016 Peripheral Neuropathy Yes Seizures Yes: epilepsy Transient Ischemic Attacks ( Yes TIA) Cataracts Yes: bilateral removed Dysphagia Yes: mild Hearing Loss Yes Angina Yes Congestive Heart Failure Yes Hypertension Yes Chronic Obstructive Pulmonary Yes Disease (COPD) Sleep Apnea Yes Diabetes Mellitus Type 2 Yes Hx Incontinence Yes Hx Renal Disease Yes Anemia Yes Osteoarthritis Yes Blood Transfusions Yes Depression Yes Post Menopausal Yes Clinic Medical History (Last Reviewed 11/23/17 @ 12:00 by HAIR Rivera) Diabetes mellitus type 2, controlled (Chronic Medical ~2006) Little higher than usual, but still fairly good control. 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 Hypothyroidism (Chronic Medical) Clinically and chemically euthyroid. Morbid obesity with BMI of 45.0-49.9, adult (Chronic Medical) Little better. Anemia (Chronic Medical) Bleeding disorder (Chronic Medical) CHF (congestive heart failure) (Chronic Medical) Diabetes (Chronic Medical) GERD (gastroesophageal reflux disease) (Chronic Medical) HTN (hypertension) (Chronic Medical) Neuropathy (Chronic Medical) Obstructive sleep apnea (Chronic Medical) Osteoarthritis (Chronic Medical) Seizure (Chronic Medical) Thyroid disease (Chronic Medical) Surgical History: RT elbow surgery 10/2016, bilateral total knee replacements, bilateral shoulder surgeries, cholecystectomy, tubal ligation, pelvic fracture ( patient unsure if she had any surgery for this.) Family History: Family History (Last Reviewed 11/23/17 @ 12:00 by HAIR Rivera) Mother Stomach cancer Father Alcoholism Sister Cancer Sister CHF (congestive heart failure) Brother No problems noted. Brother Diabetes - Social History Smoking status: Former smoker Physical Exam - Limitations Limitations: altered mental status - General General appearance: lethargic, obese - Normal Exams: Head:: Normocephalic without trauma Eyes:: Pupils are PERRLA w/ EOMI, No scleral icterus, irritation, or foreign bodies noted ENMT:: No facial trauma, nasal exudates, pharyngeal erythema, or exudates are noted Neck:: Full range of motion, without adenopathy, JVD, bruits or thyromegaly Cardiovascular:: Regular rate and rhythm, without murmur or gallop, Pulses 2+ all extremities, capillary refill, <2 seconds all extremities Lymphatic:: No lymphadenopathy, or lymphedema noted Musculoskeletal:: No tenderness, or deformity noted, good range of motion, all extremities Integumentary:: No rashes, hives, or bruising noted, hair and nails, without abnormality Neurological:: Patient is alert, and oriented, cranial nerves, motor/sensory/ cerebellar, exams w/o gross deficits, to observation Psychiatric:: Patient exhibits, appropriate attention, emotion and affect - Chest Chest inspection: Present: normal inspection, symmetric chest wall rise. Absent : tenderness - Respiratory Respiratory exam: Absent: normal lung sounds bilaterally (course breath sounds left greater than right), respiratory distress, wheezes, stridor, accessory muscle use, prolonged expiratory phase - Abdominal Exam Abdominal exam: Present: soft, tenderness (mild diffuse upper abdominal tenderness only, no guarding no rebounding, no point tenderness), diminished bowel sounds. Absent: distention, guarding, rebound, rigidity, organomegaly, trauma, incision, psoas sign, obturator sign, heel tap sign, Callejas's sign, Rovsing's sign, tenderness at McBurney's Point, mass, pulsatile mass, hernia, scar Course Vital Signs Temperature 99.4 F 11/29/17 23:15 Pulse Rate 69 11/29/17 23:15 Respiratory Rate 14 11/29/17 23:15 Blood Pressure 62/35 11/29/17 23:15 Pulse Oximetry 95 11/29/17 23:15 Temperature 99.4 F 11/29/17 23:15 Pulse Rate 69 11/29/17 23:15 Respiratory Rate 14 11/29/17 23:15 Blood Pressure 62/35 11/29/17 23:15 Pulse Oximetry 95 11/29/17 23:15 Medical Decision Making - [facility] Narrative Medical decision making narrative: Patient is given 1 L normal saline IV fluid bolus, with Toradol and Reglan to help with abdominal discomfort With improving blood pressure of 70/42, patient is more lucid. Patient continues to have significant upper abdominal discomfort, given Pepcid and Zofran IV, and CT abdomen ordered CBC - white blood cell count of 15,000 with mild left shift CMP/L - normal Troponin - normal UA - positive red cells positive white cells 1+ bacteria, trace leukocyte esterase CXR - unchanged from previous films EKG shows a normally A/V paced rhythm without ischemia or infarction. CT abdomen - large amount of stool in the colon, evidence of mild early ileus with no joi air-fluid levels in the small bowel Case is discussed with Dr. Lane, we'll admit to ICU for hypotension associated with dehydration and diarrhea - Lab Data Result diagrams: 11/29/17 23:44 11/29/17 23:44 Lab Results 11/29/17 11/29/17 11/30/17 Range/Units 23:44 23:44 00:14 WBC 15.1 H (4.5-11.0) T/MM3 RBC 3.57 L (4.00-5.20) M/MM3 Hgb 10.6 L (12-16) GM/DL Hct 33.7 L (36-46) % MCV 94.4 (80-100) UM3 MCH 29.7 (26-34) UUG MCHC 31.5 (31-37) GM/DL RDW Std Deviation 52.4 H (36.9-50.2) FL Plt Count 165 (130-400) T/MM3 MPV 11.6 (9.4-12.4) UM3 Immature Gran % (Auto) Not performed Neut % (Auto) Not performed Lymph % (Auto) Not performed [place] % (Auto) Not performed Eos % (Auto) Not performed Baso % (Auto) Not performed Neut # (Auto) Not performed Lymph # (Auto) Not performed [place] # (Auto) Not performed Eos # (Auto) Not performed Baso # (Auto) Not performed Abs Immat Gran (auto) Not performed Neutrophils % (Manual) 86.0 H (33-66) % Band Neutrophils % 5.0 (0-6) % Lymphocytes % (Manual) 2.0 L (23-45) % Monocytes % (Manual) 7.0 (0-9.0) % Neutrophils # (Manual) 13.0 H (1.8-7.7) T/MM3 Band Neutrophils # 0.8 T/MM3 Lymphocytes # (Manual) 0.3 L (1-4.8) T/MM3 Monocytes # (Manual) 1.1 H (0-0.8) T/MM3 RBC Morph Comment Normal Turbidity < 20 (0-20) Sodium 135 (134-144) MEQ/L Potassium 3.5 L (3.6-5) MEQ/L Chloride 95 L (98-107) MEQ/L Carbon Dioxide 28 (22-30) MEQ/L Anion Gap 12 (5-15) MEQ/L BUN 89.0 H* (7-17) MG/DL Creatinine 3.5 H (0.7-1.2) MG/DL GFR Calculation 13 BUN/Creatinine Ratio 25 (6-26) RATIO Glucose 109 (65-110) MG/DL Calculated Osmolality 288 H (261-280) MOSM/KG Calcium 9.0 (8.4-10.2) MG/DL Total Bilirubin 0.70 (0.20-1.30) MG/DL Conjugated Bilirubin 0.00 (0.00-0.30) MG/DL Unconjugated Bilirubin 0.20 (0.00-1.1) MG/DL Icterus Index < 2 (0-7) AST 30 (14-36) U/L ALT 26 (9-52) U/L Alkaline Phosphatase 85 (38-126) U/L Troponin I 0.016 (0-0.12) ng/ml B-Natriuretic Peptide 1870 H (0-175) pg/mL Total Protein 7.5 (6.3-8.2) G/DL Albumin 3.8 (3.5-5.0) G/DL Globulin 3.7 H (2.4-3.6) G/DL Albumin/Globulin Ratio 1.0 L (1.1-2.2) RATIO Lipase 254 (23-300) U/L Plasma Lactate (0.6-2.2) MMOL/L Specimen Hemolysis 35 H (0-25) Ur Collection Type Urine Color (YELLOW) Urine Clarity Urine pH (5.0-8.0) Ur Specific [place] (1.015-1.025) Urine Protein (NEGATIVE) Urine Glucose (UA) (NEGATIVE) Urine Ketones (NEGATIVE) Urine Occult Blood (NEGATIVE) Urine Nitrate (NEGATIVE) Urine Bilirubin (NEGATIVE) Urine Urobilinogen (NORMAL) EU/DL Ur Leukocyte Esterase (NEGATIVE) Urine RBC (0-3) /HPF Urine WBC (0-5) /HPF Urine Bacteria (NEGATIVE) Ur Culture Indicated? Adenovirus (PCR) Negative (Negative) B.parapertussis DNA PCR Negative (Negative) C. pneumoniae DNA (PCR) Negative (Negative) Coronavirus OC43 (PCR) Detected A (Negative) Coronavirus HKU1 (PCR) Negative (Negative) Coronavirus 229E (PCR) Negative (Negative) Coronavirus NL63 (PCR) Detected A (Negative) Human Metapneumovir PCR Negative (Negative) Influenza Type A (PCR) Negative (Negative) Influenza Type B (PCR) Negative (Negative) M. pneumoniae (PCR) Negative (Negative) Parainfluenza 1 (PCR) Negative (Negative) Parainfluenza 2 (PCR) Negative (Negative) Parainfluenza 3 (PCR) Negative (Negative) Parainfluenza 4 (PCR) Negative (Negative) RSV (PCR) Negative (Negative) Entero/Rhino (PCR) Negative (Negative) 11/30/17 11/30/17 Range/Units 00:21 01:02 WBC (4.5-11.0) T/MM3 RBC (4.00-5.20) M/MM3 Hgb (12-16) GM/DL Hct (36-46) % MCV (80-100) UM3 MCH (26-34) UUG MCHC (31-37) GM/DL RDW Std Deviation (36.9-50.2) FL Plt Count (130-400) T/MM3 MPV (9.4-12.4) UM3 Immature Gran % (Auto) Neut % (Auto) Lymph % (Auto) [place] % (Auto) Eos % (Auto) Baso % (Auto) Neut # (Auto) Lymph # (Auto) [place] # (Auto) Eos # (Auto) Baso # (Auto) Abs Immat Gran (auto) Neutrophils % (Manual) (33-66) % Band Neutrophils % (0-6) % Lymphocytes % (Manual) (23-45) % Monocytes % (Manual) (0-9.0) % Neutrophils # (Manual) (1.8-7.7) T/MM3 Band Neutrophils # T/MM3 Lymphocytes # (Manual) (1-4.8) T/MM3 Monocytes # (Manual) (0-0.8) T/MM3 RBC Morph Comment Turbidity (0-20) Sodium (134-144) MEQ/L Potassium (3.6-5) MEQ/L Chloride (98-107) MEQ/L Carbon Dioxide (22-30) MEQ/L Anion Gap (5-15) MEQ/L BUN (7-17) MG/DL Creatinine (0.7-1.2) MG/DL GFR Calculation BUN/Creatinine Ratio (6-26) RATIO Glucose (65-110) MG/DL Calculated Osmolality (261-280) MOSM/KG Calcium (8.4-10.2) MG/DL Total Bilirubin (0.20-1.30) MG/DL Conjugated Bilirubin (0.00-0.30) MG/DL Unconjugated Bilirubin (0.00-1.1) MG/DL Icterus Index (0-7) AST (14-36) U/L ALT (9-52) U/L Alkaline Phosphatase (38-126) U/L Troponin I (0-0.12) ng/ml B-Natriuretic Peptide (0-175) pg/mL Total Protein (6.3-8.2) G/DL Albumin (3.5-5.0) G/DL Globulin (2.4-3.6) G/DL Albumin/Globulin Ratio (1.1-2.2) RATIO Lipase (23-300) U/L Plasma Lactate 0.9 (0.6-2.2) MMOL/L Specimen Hemolysis (0-25) Ur Collection Type Urine, cath straight Urine Color Yellow (YELLOW) Urine Clarity Sl cloudy Urine pH 6.5 (5.0-8.0) Ur Specific [place] 1.010 L (1.015-1.025) Urine Protein 2+ A (NEGATIVE) Urine Glucose (UA) Negative (NEGATIVE) Urine Ketones Negative (NEGATIVE) Urine Occult Blood 3+ A (NEGATIVE) Urine Nitrate Negative (NEGATIVE) Urine Bilirubin Negative (NEGATIVE) Urine Urobilinogen 0.2 (NORMAL) EU/DL Ur Leukocyte Esterase Trace A (NEGATIVE) Urine RBC 20-30 H (0-3) /HPF Urine WBC 20-30 H (0-5) /HPF Urine Bacteria 1+ H (NEGATIVE) Ur Culture Indicated? Cult not indicated Adenovirus (PCR) (Negative) B.parapertussis DNA PCR (Negative) C. pneumoniae DNA (PCR) (Negative) Coronavirus OC43 (PCR) (Negative) Coronavirus HKU1 (PCR) (Negative) Coronavirus 229E (PCR) (Negative) Coronavirus NL63 (PCR) (Negative) Human Metapneumovir PCR (Negative) Influenza Type A (PCR) (Negative) Influenza Type B (PCR) (Negative) M. pneumoniae (PCR) (Negative) Parainfluenza 1 (PCR) (Negative) Parainfluenza 2 (PCR) (Negative) Parainfluenza 3 (PCR) (Negative) Parainfluenza 4 (PCR) (Negative) RSV (PCR) (Negative) Entero/Rhino (PCR) (Negative) Disposition Clinical Impression: Hypotension, Dehydration Disposition: 02 To [facility] [place] Acute Care Condition: Stable Prescriptions: No Action Levothyroxine Tab [Synthroid] 262.5 mcg PO WONG Calcitriol [Rocaltrol] 0.25 mcg PO DAILY Spironolactone [Aldactone] 50 mg PO DAILY tab Peg 3350 238 G Bottle [Miralax] 17 gm PO DAILY acetaZOLAMIDE [Diamox] 250 mg PO DAILY Levothyroxine Sodium 175 mcg PO MOTUWETHFRSA Fluticasone Nasal [place] [Flonase] 1 spray EA NOSTRIL DAILY Raymond-3 Fatty Acids [Raymond-3] 2,000 mg PO BID Hydrocodone/APAP 10/325 [Alma 10/325] 1 tab PO Q4H PRN #20 tab PRN Reason: Pain Menthol Cough Drops [Ricola Sf] 1 lozenge MM PRN PRN lozenge PRN Reason: Cough Ferrous Sulfate 325 mg PO BID #0 Aspirin *EC* [Ecotrin] 162 mg PO DAILY Insulin Detemir [Levemir] 20 unit SQ AMI Acetaminophen 650 mg PO Q4H PRN PRN Reason: Pain calcium carbonate 600 mg (1,500 mg)-vitamin D3 400 unit tablet 1 tab PO TID tab bumetanide 1 mg tablet 2 mg PO DAILY tab Colace (Docusate sodium) 100 mg capsule 300 mg PO DAILY cap Lyrica (pregabalin) 100 mg capsule 100 mg PO BID metolazone 5 mg tablet 2.5 mg PO QMWF tab Keppra (levetiracetam) 500 mg tablet 500 mg PO BID tab Lyrica (pregabalin) 100 mg capsule 100 mg PO BID #60 cap Klor-Con M20 (potassium chloride ER) 20 mEq tablet,(part/cryst) 30 meq PO TID tab Referrals: Yan Hitchcock MD [Family Provider] - - Seen By: physician
[2017-11-29] MEDS ORDERED: KETOROLAC 30 MG/ML INJECTION IVP ONE (23:29)
[2017-11-29] MEDS ORDERED: METOCLOPRAMIDE 10mg/2ml INJECTION IVP ONE (23:29)
[2017-11-29] MEDS ORDERED: ACETAMINOPHEN IV 1,000 MG/100 ML VIAL IV ONE (23:40)
[2017-11-29] MEDS: SALINE FLUSH 10ml SYRINGE IVF PRN (23:45)
[2017-11-29] MEDS ORDERED: FAMOTIDINE PB 20 MG/50 ML BAG IV ONE (23:54)
[2017-11-29] MEDS ORDERED: ONDANSETRON 4 MG/2 ML INJECTION IVP ONE (23:54)
[2017-11-30] MEDS: SALINE FLUSH 10ml SYRINGE IVF PRN ×2 (00:05→00:56)
[2017-11-30] MEDS ORDERED: NS 1,000 ML IV ONE ×4 (00:52→02:26)
[2017-11-30] MEDS ORDERED: LEVOFLOXACIN PB 750 MG/150 ML BAG IV SCH (03:10)
[2017-11-30] MEDS ORDERED: HEPARIN 5,000unit/ml 1ml INJECTION SUB-Q SCH (03:10)
[2017-11-30] MEDS ORDERED: PIPERACILLIN/TAZOBACTAM 3.375 GM in NS 100 ML IV SCH (03:10)
[2017-11-30] MEDS: NS 1,000 ML IV SCH ×3 (03:26→19:30)
--- NOTE | 2017-11-30 03:26 | History & Physical Report ---
History of Present Illness Date: 11/30/17 Chief complaint: encephalopathy HPI: The pt is a long-term patient in chronically poor health who was found by the staff to have low BP today. They report that she has been acting very fatigued and poor oral intake over the pas 3 days. In the ER, she was hypotensive and difficult to arouse. She was given 2 liters NS and narcan which mildly improved her mental status. THe son, BARBARA stated that she is a DNR /DNI and he does not wish to have any vasopressors given, only comfort measures , fluids and abx. During my interview, she was not able to answer my questions. Review of Systems All systems PM: 10-point ROS was reviewed, no additional remarkable complaints except Past Medical History Clinic Medical History (Last Reviewed 11/23/17 @ 12:00 by HAIR Rivera) Diabetes mellitus type 2, controlled (Chronic Medical ~2006) Little higher than usual, but still fairly good control. 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 Hypothyroidism (Chronic Medical) Clinically and chemically euthyroid. Morbid obesity with BMI of 45.0-49.9, adult (Chronic Medical) Little better. Anemia (Chronic Medical) Bleeding disorder (Chronic Medical) CHF (congestive heart failure) (Chronic Medical) Diabetes (Chronic Medical) GERD (gastroesophageal reflux disease) (Chronic Medical) HTN (hypertension) (Chronic Medical) Neuropathy (Chronic Medical) Obstructive sleep apnea (Chronic Medical) Osteoarthritis (Chronic Medical) Seizure (Chronic Medical) Thyroid disease (Chronic Medical) Surgical History: RT elbow surgery 10/2016, bilateral total knee replacements, bilateral shoulder surgeries, cholecystectomy, tubal ligation, pelvic fracture ( patient unsure if she had any surgery for this.) Family History: Family History (Last Reviewed 11/23/17 @ 12:00 by HAIR Rivera) Mother Stomach cancer Father Alcoholism Sister Cancer Sister CHF (congestive heart failure) Brother No problems noted. Brother Diabetes Family History Updates: unable to obtain - Social History Smoking status: Former smoker Substance use type: does not use Housing: long-term Medications Home Medications Medication Instructions Recorded Confirmed Type Ferrous Sulfate 325 mg PO BID #0 06/24/16 11/30/17 History Aspirin *EC* [Ecotrin] 162 mg PO DAILY 05/18/17 11/30/17 History Calcitriol [Rocaltrol] 0.25 mcg PO DAILY 07/05/17 11/30/17 History Insulin Detemir [Levemir] 20 unit SQ DAILY 07/05/17 11/30/17 History Levothyroxine Tab [Synthroid] 262.5 mcg PO WONG 07/05/17 11/30/17 History Acetaminophen 650 mg PO Q4H PRN 10/03/17 11/30/17 History Fluticasone Nasal [place] [Flonase] 1 spray EA NOSTRIL DAILY 10/03/17 11/30/17 History Levothyroxine Sodium 175 mcg PO MOTUWETHFRSA 10/03/17 11/30/17 History [place]-3 Fatty Acids [[place]-3] 2,000 mg PO BID 10/03/17 11/30/17 History acetaZOLAMIDE [Diamox] 250 mg PO DAILY 10/03/17 11/30/17 History Colace (Docusate sodium) 100 mg 300 mg PO BID cap 11/06/17 11/30/17 History capsule calcium carbonate 600 mg (1,500 1 tab PO TID tab 11/06/17 11/30/17 History mg)-vitamin D3 400 unit tablet metolazone 5 mg tablet 2.5 mg PO QMWF tab 11/06/17 11/30/17 History Keppra (levetiracetam) 500 mg 500 mg PO BID tab 11/23/17 11/30/17 History tablet Klor-Con M20 (potassium chloride 30 meq PO TID tab 11/23/17 11/30/17 History ER) 20 mEq tablet,(part/cryst) Lyrica (pregabalin) 100 mg capsule 100 mg PO BID 11/23/17 11/30/17 History Amiodarone HCl 100 mg PO HS 11/30/17 11/30/17 History Budesonide Inhalation [Pulmicort 0.5 mg INH BID 11/30/17 11/30/17 History Inhalation] Bumetanide 2 mg PO BID 11/30/17 11/30/17 History Nystatin 1 applicatio TOP BID 11/30/17 11/30/17 History PEG 3350 17gm PACKET [Miralax] 17 gm PO DAILY 11/30/17 11/30/17 History Pramipexole Di-HCl [Mirapex] 1.5 mg PO HS 11/30/17 11/30/17 History Allergies Allergy/AdvReac Type Severity Reaction Status Date / Time Estrogens Allergy Mild RASH Verified 11/30/17 01:30 morphine Allergy Mild RASH Verified 11/30/17 01:30 niacin Allergy Mild RASH Verified 11/30/17 01:30 amoxicillin Allergy Unknown RASH Verified 11/30/17 01:30 fentanyl Allergy Unknown rash Verified 11/30/17 01:30 Exam Vital Signs: Temperature 99.4 F 11/29/17 23:15 Pulse Rate 60 11/30/17 02:48 Respiratory Rate 16 11/30/17 02:48 Blood Pressure 51/31 11/30/17 02:40 Pulse Oximetry 99 11/30/17 02:48 - Constitutional Present: moderate distress, morbidly obese, obtunded - Routine Neck Exam Present: supple - Routine Respiratory Exam Present: CTA bilaterally - Routine Cardiovascular Exam Present: RRR, no murmur - Routine Abdominal Exam Present: soft Comments: mildly tender in LLQ Results - Labs CBC & Chem 7: 11/30/17 05:03 11/30/17 11:27 Assessment and Plan (1) Hypotension Current visit: Yes Status: Acute (2) Encephalopathy acute Current visit: Yes Status: Acute Assessment and Plan: will admit to the ICU, cont aggressive IVF, replacing the potassium on telemetry , empiric levoquin for possible UTI, cultures pending, holding home meds, reassess in am, recheck labs. DNR, DVT Prophylaxis: SCD's - Physician Narrative Physician: Kyra Shrestha MD Narrative: Date: 11/30/17 Time: [address]'s note reviewed. Mrs. Rodgers interviewed and examined. Her son provided bulk of history. CC: Hypotension HPI: Mrs. Rodgers is a 67-year-old female with multiple chronic medical problems well known to the hospital medicine service. EMS was contacted yesterday evening and after the patient was found hypotensive with decreased mental status. She was described as having increasing weakness through the day, fatigue , somnolence, and lethargy. Temperature of 100.4 was reported in addition to decreased appetite. Blood pressure when EMS arrived was 44/20. She was placed in Trendelenburg and IV fluids were initiated. On arrival in the emergency room blood pressure was 62/35. She received 2 A of Narcan per EMS without change as she was described as seeming "drugged" by the patient's DPOA who was on the EMS crew that the patient up. High volume fluid replacement was initiated. She had 2 loose stools in the emergency room one additional stool after arrival in the emergency room. She was subsequently admitted to the ICU. Lactic acid was low and temperature was 99.4 on arrival in the emergency room. Initially family indicated DO NOT RESUSCITATE order with no pressors to be utilized. Subsequently they have elected to initiate Levophed but do not want a central line placed. PH/SH/FH: agree with that recorded above as recorded above by Dr. Lane-patient sees Dr. Spicer for cardiology and Dr. Johnny Swift for nephrology. ROS: 10 point review notable only for complaints of feeling that there is something under her back, cough with minimal sputum production, dry mouth, and generalized abdominal discomfort. Patient complains of chronic pain in her right leg referring to a tendon and workup the Dr. Martinez has planned which she is referenced during prior admissions. Patient remained somewhat somnolent and responses are incomplete. EXAM: General-97.5, 82/39, 20 with saturation 100% on 2 L nasal cannula, 61; lethargic female with some verbal responses. HEENT-PERRL, EOMI without nystagmus, conjunctiva clear, sclera anicteric, conjugate gaze, facial structures symmetric, oropharynx clear, neck without adenopathy Lungs-poor inspiratory effort, anterior lung valle clear, no wheezing Cardiac-regular rhythm, S1-S2, heart tones diminished Abd-soft, mild generalized tenderness without guarding, diminished bowel sounds Ext-trace edema Skin-small wound lateral left lower extremity-chronic; extensive bruising upper extremities Neuro-cranial nerves grossly intact, sensation intact to touch 4 extremities, moves all extremities to command Psych-cooperative, calm DATA: WBC 15.1-18.6 with 77% segs-12% bands; lactic acid 0.92, hemoglobin 10.6 -9.3 (discharge hemoglobin in September 9.1) 7.29/52/62/25 with saturation 88% on 2 L-reported to be venous Creatinine 3.5-3.6, BUN 89-93, bicarbonate 28-23, potassium 3.5-3.3-3.5, phosphorus 6.0, magnesium 2.3 ProBNP 1870 UA cloudy, WBC is 20-30, RBCs 20-30, +1 bacteria, trace nitrates Respiratory viral panel positive coronavirus CT of the abdomen demonstrated changes suggestive of colitis CT of the head was without acute changes Chest x-ray unremarkable-no evidence of volume overload A/P: Hypotension Septic shock Acute renal failure Encephalopathy Hypokalemia Abdominal pain Diarrhea Coronavirus Chronic diastolic heart failure Chronic anemia Diabetes mellitus with peripheral neuropathy Minimal urine output overnight, starkey catheter placed-continue to monitor. Septic shock with persistent hypotension after > 30 mL/kg bolus given in the emergency room, on Levophed. Has had over 5 L fluid at this point. Family does not wish to have central line placed. Mental status fluctuating-patient responding to questions reasonably appropriately at present. Generalized abdominal pain without focal findings on CT; IV metronidazole added for possible C. difficile colitis based on CT findings and recent antibiotics. Antibiotics expanded-vancomycin, Levaquin, and metronidazole. Repeat ABG-unclear if initial study was venous or arterial, may require BiPAP. Discussed with Dr. Swift, dehydration likely as cause of renal failure; continue to monitor with volume replacement. Critically ill-DO NOT RESUSCITATE confirmed with patient/son-DPOA. Sepsis Assessment - Evaluation SIRS Criteria: WBC > 12,000, Bands > 10%, RR > 20 Severe Sepsis: hypotension (SBP <90 or MAP <65 x2 readings), Creatinine >2.0 mg/ dL or 0.5 mg/dL above baseline, urine output <0.5 mL/kg/hr x4aphps Septic Shock: Map <65 after 30 mL/kg IVF bolus - Focused Exam-within 6 hours of IVF Bolus 111/65 on 10 mcg levo + fluids Respiratory exam: Present: CTA bilaterally. Absent: accessory muscle use, dyspnea, respiratory distress Cardiovascular exam: Present: RRR, S1, S2 Capillary Refill: > 2 Seconds (right at 2 seconds) Peripheral pulse strength: Normal Peripheral pulse location: Pedal Skin Temperature: Warm Skin Color: [place] - Bedside Monitoring Date bedside monitoring was performed: 11/30/17 Time bedside monitoring was performed: 13:30 Hospital Course Summary Disclaimer: The visit summary below is not to be considered part of the above Progress Note.
[2017-11-30] MEDS: POTASSIUM CHLORIDE PREMIX 10 MEQ/100 ML BAG IV SCH ×2 (04:45→06:13)
[2017-11-30] MEDS: NOREPINEPHRINE DRIP 4,000 MCG in NS 250ml 250 ML IV PRN ×3 (06:29→21:02)
--- NOTE | 2017-11-30 07:43 | CT Scan Report ---
Indication: acute decreased mental status PROCEDURE: CT head/brain wo con: Encounter: Initial Comparison: February 18, 2016 Technique: Axial CT images through the head were performed without contrast. Iterative Reconstruction dose reducing technique was utilized. FINDINGS: The ventricles are of normal size, shape, and contour for the patient's age. There are scattered areas of low attenuation in the white matter which most likely represent changes from chronic microvascular ischemia. The brainstem, cerebellum, and cerebral hemispheres otherwise have a normal morphology and CT attenuation. There is no evidence of midline displacement. No hemorrhage, signs of acute territorial stroke, mass effect, mass lesions, or edema is evident. The visualized portions of the skull base, midface, and calvarium demonstrate no abnormality. Severe chronic sinus disease. The tympanic and mastoid cavities appear normal. IMPRESSION: No acute intracranial abnormality or hemorrhage. There is a preliminary report by [facility]. .
--- NOTE | 2017-11-30 07:45 | CT Scan Report ---
Indication: SEVERE GENERALIZED ABD PAIN, HYPOTENSION PROCEDURE: CT abdomen pelvis wo con: Encounter: Initial Comparison: July 11, 2017 Technique: Axial CT images were performed through the abdomen and pelvis without intravenous contrast. Coronal and sagittal two-dimensional reformats. Automated Exposure Control and Iterative Reconstruction dose reducing techniques were utilized. Findings: Motion artifact limits the exam. Basilar scarring. Enlarged heart. The unenhanced liver is grossly unremarkable. The spleen, pancreas, adrenal glands and kidneys are grossly normal. No abdominal or pelvic adenopathy. Uterus is unremarkable. Large amount stool throughout the colon. No evidence of a bowel obstruction. Fluid-filled bowel loops. Bone windows show no acute findings. Impression: Possible gastroenteritis, otherwise no acute disease process seen. There is a preliminary report by [employer]. .
--- NOTE | 2017-11-30 07:46 | XRay Report ---
Indication: SEPSIS PROCEDURE: XR chest 1V: Encounter: Initial Comparison: October 08, 2017 Findings: The lungs are stable in appearance without new focal airspace consolidation. There is no pleural effusion or pneumothorax. The heart size, pulmonary vascularity and mediastinal contours are unchanged. Left pacemaker. Left shoulder replacement. IMPRESSION: Stable appearance of the chest without acute cardiopulmonary disease. .
[2017-11-30] MEDS: METOCLOPRAMIDE 10mg/2ml INJECTION IVP PRN (09:46)
[2017-11-30] MEDS: BUDESONIDE INH.SOLN 0.5mg/2ml NEB AEROSOL SCH ×2 (11:27→19:23)
[2017-11-30] MEDS: HEPARIN SUB-Q 5,000units/0.5ml INJECTION SQ SCH ×2 (12:31→19:55)
[2017-11-30] MEDS: MetroNIDAZOLE PB 500 MG/100 ML BAG IV SCH ×2 (12:31→19:39)
[2017-11-30] MEDS ORDERED: VANCOMYCIN - PHARMACY CONSULT MC ONE (12:56)
--- NOTE | 2017-11-30 13:11 | Wound Care Progress Note ---
Wound Center Progress Note: Pt seen for wound consultation r/t wound on L anterior lower leg, seen with Camelia MORALES. Pt resting in bed, no complaints of pain, son at bedside. Pt reports she has had this wound for about 3 months, a car door blew shut onto her leg. L anterior lower leg: wound bed has 100% slough, dressing removed had small dried serosanguineous drainage, no active drainage. Periwound: blanchable erythema. Dressing: Clean with wound cleanser, apply Aquacel Ag, cover with Mepilex border, change q 3 days.
--- NOTE | 2017-11-30 13:14 | Wound Care Progress Note ---
Wound Management - Patient Status Premedicated Prior to Dressing Change: No - Wound Left Lower Anterior Leg Wound Type: Abrasion Wound Present on Admission?: Yes Length: 3.5 Width: 1.2 Depth: 0.1 Wound Bed Appearance: [place] Wound Appearance: [place] Tunneling: No Undermining: No Drainage Amount: None Drainage Odor: No Odor Dressing Status: Changed Primary Dressing: Silver Dressing Secondary Dressing: Foam Dressing Dressing Change Date: 11/30/17 Dressing Change Time: 12:00 Dressing Change Patient Tolerance: Tolerated Well (Apply Aquacel Ag, cover with Mepilex border, change q 3 days.)
[2017-11-30] MEDS ORDERED: VANCOMYCIN 2,500 MG in NS 500ml 500 ML IV SCH (14:00)
--- NOTE | 2017-11-30 14:21 | Pharmacy Consult-Antibiotics ---
Pharmacy Consult-Vancomycin - Laboratory Information WBC 18.6 T/MM3 (4.5-11.0) H 11/30/17 05:03 BUN 93.0 MG/DL (7-17) H* 11/30/17 11:27 Creatinine 3.6 MG/DL (0.7-1.2) H 11/30/17 11:27 Procalcitonin 47.79 NG/ML H* 11/30/17 11:27 - Consult Information VANCOMYCIN CONSULT: Dx: Sepsis, Hypotension MARVA is a 67 yo female with poor health living in an [facility]. She has had poor oral intake over the last three days. Current Renal Function: S Cr = 3.6 mg/dl. Estimated Cr Cl ~ 20 mL/min. WBC's = 18.6 T/mm3 PCT = 47.79 I will give a Vancomycin Bolus of 2,500 mg IV then 1,750 mg q48hrs thereafter. The pharmacy will continue to review the renal function and the Vancomycin troughs and will adjust the medications accordingly. Thanks for the Vancomycin Protocol, Tim Moody, Pharmacist. Will continue to monitor and adjust regimen to maintain therapeutic levels. Thank you.
[2017-11-30] MEDS ORDERED: BUMETANIDE 2.5mg/10ml INJECTION IVP ONE ×2 (16:28→20:43)
[2017-11-30] MEDS: LEVETIRACETAM 500 MG TABLET PO SCH (20:00)
[2017-11-30] MEDS ORDERED: ASPIRIN 325 MG TABLET PO ONE (21:06)
[2017-11-30] MEDS ORDERED: ENOXAPARIN - PHARMACY CONSULT MC ONE (21:54)
[2017-11-30] MEDS ORDERED: ENOXAPARIN 100 MG/ML INJECTION SQ SCH (22:03)
[2017-11-30] MEDS: ACETAMINOPHEN 325 MG TABLET PO PRN (22:21)
[2017-12-01] MEDS: NOREPINEPHRINE DRIP 4,000 MCG in NS 250ml 250 ML IV PRN ×4 (02:24→22:13)
[2017-12-01] MEDS: MetroNIDAZOLE PB 500 MG/100 ML BAG IV SCH ×3 (04:22→19:30)
[2017-12-01] MEDS: NS 1,000 ML IV SCH (06:41)
[2017-12-01] MEDS: ACETAMINOPHEN 325 MG TABLET PO PRN (08:20)
[2017-12-01] MEDS: FLUTICASONE NASAL SPRAY 50mcg EA NOSTRIL SCH (08:21)
[2017-12-01] MEDS: LEVETIRACETAM 500 MG TABLET PO SCH ×2 (08:22→21:21)
--- NOTE | 2017-12-01 08:49 | Progress Note ---
- Date 12/01/17 Subjective: The patient was seen this morning in CCU. She complains of aching in her neck, back, extremities and hands. She states this is not common for her. She also complains of being hungry. She denies any shortness of breath or lightheadedness. She does have a mildly productive cough and states that she's had this cough for about 4 months. She states it is not any worse recently. She had a bump up in troponin up to 0.6 today. She denies any chest pain. Yesterday, she was lethargic with low-grade fever. She had a couple episodes of diarrhea yesterday morning, but this has resolved. She had oliguria which has resolved with IV fluid hydration, Bumex 2 mg IV 2 yesterday afternoon and evening, and improvement in blood pressure with levophed. She continues to be on IV Levophed and normal saline at 75 ML's an hour. Objective Vital signs: Temperature 98.9 F 12/01/17 01:15 Pulse Rate 63 12/01/17 06:00 Respiratory Rate 20 12/01/17 06:00 Blood Pressure 108/54 12/01/17 06:00 Pulse Oximetry 95 12/01/17 06:00 Height/Weight/BMI: Height 1.63 m Weight 121.7 kg Body Mass Index 47.6 - Constitutional Comments: She is currently on room air with saturations in the low 90s, blood pressure 108 /54 on pressors, heart rate 63, MAXIMUM TEMPERATURE 99.7 Cumulative I&O 8714/1024 Urine output since around midnight has been 100/h approximately GEN-alert, oriented 3, no acute distress HEENT-clear anicteric, pupils are equal, oropharynx is dry NECK-no JVD CV-regular rate and rhythm CHEST-mild coarse breath sounds with some expiratory wheezing ABD-soft, obese, nontender, nondistended with positive bowel sounds -Posada in place with dark urine EXT-+1 pedal edema, +1 pretibial edema NEURO-no focal weakness SKIN-warm and dry Results - Labs CBC & Chem 7: 12/01/17 04:30 12/01/17 04:30 Labs: Troponin 0.16 on admission, 0.4 yesterday afternoon, 0.58 last night, and 0.642 this morning AST is 89, ALT is 72 calcium 7.1 Protocol calcitonin 51.76 Microbiology Results: Microbiology 11/30/17 15:04 Urine, Cath [place] Urine Culture - Preliminary Early growth 11/30/17 21:24 Urine, Cath [place] Urine Culture - Preliminary Culture Initiated - Results Pending 11/30/17 13:30 Peripheral/Iv Start Blood Culture - Preliminary Culture Initiated - Results Pending 11/30/17 13:18 Peripheral/Iv Start Blood Culture - Preliminary Culture Initiated - Results Pending - ABG Interpretation ABG results: 11/30/17 11/30/17 05:03 16:05 ABG pH 7.320 L ABG pCO2 40 ABG pO2 89 ABG HCO3 21 L ABG Total CO2 21.8 L ABG O2 Saturation 96.0 ABG Base Excess -5.2 L VBG pH 7.290 L VBG pCO2 52 VBG pO2 62 H VBG HCO3 25 VBG Total CO2 26.6 VBG O2 Saturation 88.0 VBG Base Excess -2.1 L Assessment and Plan (1) Hypotension Current visit: Yes Status: Acute (2) Encephalopathy acute Current visit: Yes Status: Acute Assessment and Plan: Impression Hypotension-continuing to require pressors Septic shock-with normal lactate. Positive coronavirus. Blood cultures, C. difficile stool, and urine cultures are pending. Empirically on Levaquin, metronidazole, and vancomycin Cardiorenal syndrome Acute renal failure-stable Chronic diastolic heart failure-currently appears dry, can become fluid overloaded quickly per her supervisor scouring pads and flooring salesperson. They both recommend restarting diuretics when creatinine improves to around 2.6 Elevated troponin Metabolic acidosis Encephalopathy Hypokalemia Abdominal pain Diarrhea-resolved Coronavirus Chronic anemia Diabetes mellitus with peripheral neuropathy Obstructive sleep apnea Plan Continue normal saline at 75 ML's per hour. Continue to monitor urine output closely. Hold off on diuretics as long as urine output continues to be good. Can restart diuretics with creatinine down to 2.6. Discussed above with Dr. Swift, flooring salesperson. He would also add oral bicarbonate 650 by mouth 3 times a day for metabolic acidosis and monitor closely. Regarding elevated troponin, discussed with Dr. Spicer. She states she had normal coronaries on heart catheter 2 years ago and treadmill stress test since then which was okay. She recommends against anticoagulation because of history of GI bleed and vaginal bleeding. Will discontinue Lovenox. We'll continue to trend troponin. We'll check an EKG. We'll give aspirin daily. Continue empiric antibiotics for now. Await cultures. Continue in isolation coronavirus Repeat CBC with differential and CMP tomorrow. Check CPK regarding acute kidney injury diffuse pain. Continue to monitor blood sugars. If EKG okay, Advance diet as tolerated. Critical care time 8 AM to 9:15 AM today reviewing the chart, seeing and evaluating the patient, and discussing with the patient's flooring salesperson and supervisor scouring pads. DVT Prophylaxis: SCD's GI Prophylaxis: Protonix Resuscitation Status: Do Not Resuscitate - Time spent with patient Time with patient PN: other - Physician Narrative Physician: Muna Yañez MD Narrative: Date: 12/01/17 Time: 0834 Hospital Course Summary Disclaimer: The visit summary below is not to be considered part of the above Progress Note.
[2017-12-01] MEDS ORDERED: ENOXAPARIN 100 MG/ML INJECTION SQ SCH (09:00)
[2017-12-01] MEDS ORDERED: CALCIUM CARBONATE 500 MG TABLET PO SCH (09:12)
[2017-12-01] MEDS: BUDESONIDE INH.SOLN 0.5mg/2ml NEB AEROSOL SCH ×2 (09:19→19:07)
[2017-12-01] MEDS: PANTOPRAZOLE 40 MG INJECTION IVP SCH (11:19)
--- NOTE | 2017-12-01 13:03 | Pulmonology Consult Note ---
History of Present Illness Consult date: 12/01/17 Requesting physician: Kyra Shrestha Reason for consult: other (sepsis) Chief complaint: altered mental status History of present illness: This is a 67 year old patient known to me from pulmonary clinic. She has known morbid obesity and GARY though she is non-compliant with her home CPAP. She has diastolic heart failure and chronic kidney disease as well. She is normally on a plan of tight fluid management. According to the admitting history the pt is a [facility] patient in chronically poor health who was found by the staff to have low BP today. They report that she has been acting very fatigued and poor oral intake over the pas 3 days. In the ER, she was hypotensive and difficult to arouse. She was given 2 liters NS and narcan which mildly improved her mental status. The son, BARBARA stated that she is a DNR/DNI and he does not wish to have any vasopressors given , only comfort measures, fluids and abx. The patient was seen this morning in CCU. She complains of aching in her neck, back, extremities and hands. She states this is not common for her. She also complains of being hungry. She denies any shortness of breath or lightheadedness. She does have a mildly productive cough and states that she's had this cough for about 4 months. She states it is not any worse recently. She had a bump up in troponin up to 0.6 today. She denies any chest pain. Yesterday, she was lethargic with low-grade fever. She had a couple episodes of diarrhea yesterday morning, but this has resolved. She had oliguria which has resolved with IV fluid hydration, Bumex 2 mg IV 2 yesterday afternoon and evening, and improvement in blood pressure with levophed. She continues to be on IV Levophed and normal saline at 75 ML's an hour. She appears to have a UTI and is positive for Coronavirus. She is on empiric antibiotics. Review of Systems All systems PM: 10-point ROS was reviewed, no additional remarkable complaints except those issues mentioned above Past Medical History Clinic Medical History (Last Reviewed 11/23/17 @ 12:00 by HAIR Rivera) Diabetes mellitus type 2, controlled (Chronic Medical ~2006) Little higher than usual, but still fairly good control. 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 Hypothyroidism (Chronic Medical) Clinically and chemically euthyroid. Morbid obesity with BMI of 45.0-49.9, adult (Chronic Medical) Little better. Anemia (Chronic Medical) Bleeding disorder (Chronic Medical) CHF (congestive heart failure) (Chronic Medical) Diabetes (Chronic Medical) GERD (gastroesophageal reflux disease) (Chronic Medical) HTN (hypertension) (Chronic Medical) Neuropathy (Chronic Medical) Obstructive sleep apnea (Chronic Medical) Osteoarthritis (Chronic Medical) Seizure (Chronic Medical) Thyroid disease (Chronic Medical) Surgical History: RT elbow surgery 10/2016, bilateral total knee replacements, bilateral shoulder surgeries, cholecystectomy, tubal ligation, pelvic fracture ( patient unsure if she had any surgery for this.) Family History: Family History (Last Reviewed 11/23/17 @ 12:00 by HAIR Rivera) Mother Stomach cancer Father Alcoholism Sister Cancer Sister CHF (congestive heart failure) Brother No problems noted. Brother Diabetes Family History Updates: unable to obtain - Social History Smoking status: Former smoker Substance use type: does not use Housing: [facility] Patient Stated Medical History Cerebrovascular Accident Yes: september 2016 Peripheral Neuropathy Yes Seizures Yes: epilepsy Transient Ischemic Attacks ( Yes TIA) Cataracts Yes: bilateral removed Dysphagia Yes: mild Hearing Loss Yes Angina Yes Congestive Heart Failure Yes Hypertension Yes Chronic Obstructive Pulmonary Yes Disease (COPD) Sleep Apnea Yes Diabetes Mellitus Type 2 Yes Hx Incontinence Yes Hx Renal Disease Yes Anemia Yes Osteoarthritis Yes Blood Transfusions Yes Depression Yes Post Menopausal Yes Clinic Medical History (Last Reviewed 11/23/17 @ 12:00 by HAIR Rivera) Diabetes mellitus type 2, controlled (Chronic Medical ~2006) Little higher than usual, but still fairly good control. 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 Hypothyroidism (Chronic Medical) Clinically and chemically euthyroid. Morbid obesity with BMI of 45.0-49.9, adult (Chronic Medical) Little better. Anemia (Chronic Medical) Bleeding disorder (Chronic Medical) CHF (congestive heart failure) (Chronic Medical) Diabetes (Chronic Medical) GERD (gastroesophageal reflux disease) (Chronic Medical) HTN (hypertension) (Chronic Medical) Neuropathy (Chronic Medical) Obstructive sleep apnea (Chronic Medical) Osteoarthritis (Chronic Medical) Seizure (Chronic Medical) Thyroid disease (Chronic Medical) Surgical History: RT elbow surgery 10/2016, bilateral total knee replacements, bilateral shoulder surgeries, cholecystectomy, tubal ligation, pelvic fracture ( patient unsure if she had any surgery for this.) Family History: Family History (Last Reviewed 11/23/17 @ 12:00 by HAIR Rivera) Mother Stomach cancer Father Alcoholism Sister Cancer Sister CHF (congestive heart failure) Brother No problems noted. Brother Diabetes - Social History Smoking status: Former smoker Medications Home Medications Medication Instructions Recorded Confirmed Type Ferrous Sulfate 325 mg PO BID #0 06/24/16 11/30/17 History Aspirin *EC* [Ecotrin] 162 mg PO DAILY 05/18/17 11/30/17 History Calcitriol [Rocaltrol] 0.25 mcg PO DAILY 07/05/17 11/30/17 History Insulin Detemir [Levemir] 20 unit SQ DAILY 07/05/17 11/30/17 History Levothyroxine Tab [Synthroid] 262.5 mcg PO WONG 07/05/17 11/30/17 History Acetaminophen 650 mg PO Q4H PRN 10/03/17 11/30/17 History Fluticasone Nasal [place] [Flonase] 1 spray EA NOSTRIL DAILY 10/03/17 11/30/17 History Levothyroxine Sodium 175 mcg PO MOTUWETHFRSA 10/03/17 11/30/17 History [place]-3 Fatty Acids [[place]-3] 2,000 mg PO BID 10/03/17 11/30/17 History acetaZOLAMIDE [Diamox] 250 mg PO DAILY 10/03/17 11/30/17 History Colace (Docusate sodium) 100 mg 300 mg PO BID cap 11/06/17 11/30/17 History capsule calcium carbonate 600 mg (1,500 1 tab PO TID tab 11/06/17 11/30/17 History mg)-vitamin D3 400 unit tablet metolazone 5 mg tablet 2.5 mg PO QMWF tab 11/06/17 11/30/17 History Keppra (levetiracetam) 500 mg 500 mg PO BID tab 11/23/17 11/30/17 History tablet Klor-Con M20 (potassium chloride 30 meq PO TID tab 11/23/17 11/30/17 History ER) 20 mEq tablet,(part/cryst) Lyrica (pregabalin) 100 mg capsule 100 mg PO BID 11/23/17 11/30/17 History Amiodarone HCl 100 mg PO HS 11/30/17 11/30/17 History Budesonide Inhalation [Pulmicort 0.5 mg INH BID 11/30/17 11/30/17 History Inhalation] Bumetanide 2 mg PO BID 11/30/17 11/30/17 History Nystatin 1 applicatio TOP BID 11/30/17 11/30/17 History PEG 3350 17gm PACKET [Miralax] 17 gm PO DAILY 11/30/17 11/30/17 History Pramipexole Di-HCl [Mirapex] 1.5 mg PO HS 11/30/17 11/30/17 History Allergies Allergy/AdvReac Type Severity Reaction Status Date / Time Estrogens Allergy Mild RASH Verified 11/30/17 01:30 morphine Allergy Mild RASH Verified 11/30/17 01:30 niacin Allergy Mild RASH Verified 11/30/17 01:30 amoxicillin Allergy Unknown RASH Verified 11/30/17 01:30 fentanyl Allergy Unknown rash Verified 11/30/17 01:30 Exam Vital signs: Temperature 98 F 12/01/17 11:00 Pulse Rate 60 12/01/17 12:45 Respiratory Rate 19 12/01/17 12:45 Blood Pressure 101/51 12/01/17 12:45 Pulse Oximetry 97 12/01/17 12:45 - Constitutional no acute distress, morbidly obese - Routine HEENT Exam Head: Present: normocephalic, atraumatic Eye: Absent: conjunctival icterus ENT: Present: mucous membranes moist - Routine Neck Exam Present: supple. Absent: JVD - Routine Respiratory Exam Present: CTA bilaterally. Absent: accessory muscle use - Routine Cardiovascular Exam Present: RRR - Routine Abdominal Exam Present: soft. Absent: guarding - Routine Exam Comments: starkey catheter in place - Routine Extremities Exam Absent: cyanosis, clubbing - Routine Skin Exam Present: intact. Absent: cyanosis, rash - Routine Neurological Exam Present: alert. Absent: motor deficit Results - Laboratory Findings CBC and BMP: 12/01/17 04:30 12/01/17 04:30 ABG ABG pH 7.320 (7.350-7.450) L 11/30/17 16:05 ABG pCO2 40 MMHG (34-45) 11/30/17 16:05 ABG pO2 89 MMHG (80-100) 11/30/17 16:05 ABG O2 Saturation 96.0 % (95.0-98.0) 11/30/17 16:05 Abnormal lab findings: Abnormal Labs 11/30/17 11/30/17 11/30/17 04:57 05:03 05:03 WBC 18.6 H RBC 3.16 L Hgb 9.3 L D Hct 30.6 L MCHC 30.4 L RDW Std Deviation 54.1 H Plt Count Neutrophils % (Manual) 77.0 H Band Neutrophils % 12.0 H Lymphocytes % (Manual) 4.0 L Neutrophils # (Manual) 14.3 H Lymphocytes # (Manual) 0.7 L Monocytes # (Manual) 1.3 H ABG pH ABG HCO3 ABG Total CO2 ABG Base Excess VBG pH 7.290 L VBG pO2 62 H VBG Base Excess -2.1 L Potassium 3.3 L Carbon Dioxide BUN 87.0 H* Creatinine 3.5 H Glucose 152 H Calculated Osmolality 290 H Calcium 7.6 L D Phosphorus AST ALT Creatine Kinase Troponin I Total Protein 6.1 L Albumin 3.0 L Albumin/Globulin Ratio 1.0 L Procalcitonin Urine Protein Urine Ketones Urine Occult Blood Urine Nitrate Urine Bilirubin Ur Leukocyte Esterase Urine WBC Urine WBC Clumps Urine Bacteria 11/30/17 11/30/17 11/30/17 11:27 11:27 13:23 WBC RBC Hgb Hct MCHC RDW Std Deviation Plt Count Neutrophils % (Manual) Band Neutrophils % Lymphocytes % (Manual) Neutrophils # (Manual) Lymphocytes # (Manual) Monocytes # (Manual) ABG pH ABG HCO3 ABG Total CO2 ABG Base Excess VBG pH VBG pO2 VBG Base Excess Potassium 3.5 L 3.5 L Carbon Dioxide BUN 93.0 H* 94.0 H* Creatinine 3.6 H 3.7 H Glucose Calculated Osmolality 294 H 292 H Calcium 8.2 L 8.1 L Phosphorus 6.0 H AST ALT Creatine Kinase Troponin I Total Protein Albumin Albumin/Globulin Ratio Procalcitonin 47.79 H* Urine Protein Urine Ketones Urine Occult Blood Urine Nitrate Urine Bilirubin Ur Leukocyte Esterase Urine WBC Urine WBC Clumps Urine Bacteria 11/30/17 11/30/17 11/30/17 16:00 16:05 17:46 WBC 19.8 H RBC 3.54 L Hgb 10.5 L D Hct 34.2 L D MCHC 30.7 L RDW Std Deviation 55.1 H Plt Count 112 L Neutrophils % (Manual) 85.0 H Band Neutrophils % Lymphocytes % (Manual) 4.0 L Neutrophils # (Manual) 16.8 H Lymphocytes # (Manual) 0.8 L Monocytes # (Manual) 1.0 H ABG pH 7.320 L ABG HCO3 21 L ABG Total CO2 21.8 L ABG Base Excess -5.2 L VBG pH VBG pO2 VBG Base Excess Potassium Carbon Dioxide BUN Creatinine Glucose Calculated Osmolality Calcium Phosphorus AST ALT Creatine Kinase Troponin I 0.436 H D Total Protein Albumin Albumin/Globulin Ratio Procalcitonin Urine Protein Urine Ketones Urine Occult Blood Urine Nitrate Urine Bilirubin Ur Leukocyte Esterase Urine WBC Urine WBC Clumps Urine Bacteria 11/30/17 11/30/17 11/30/17 17:46 21:24 22:20 WBC RBC Hgb Hct MCHC RDW Std Deviation Plt Count Neutrophils % (Manual) Band Neutrophils % Lymphocytes % (Manual) Neutrophils # (Manual) Lymphocytes # (Manual) Monocytes # (Manual) ABG pH ABG HCO3 ABG Total CO2 ABG Base Excess VBG pH VBG pO2 VBG Base Excess Potassium Carbon Dioxide 20 L BUN 94.0 H* Creatinine 3.9 H Glucose Calculated Osmolality 294 H Calcium 7.7 L Phosphorus AST ALT Creatine Kinase Troponin I 0.582 H Total Protein Albumin Albumin/Globulin Ratio Procalcitonin Urine Protein 3+ A Urine Ketones Trace A Urine Occult Blood 3+ A Urine Nitrate Positive A Urine Bilirubin 2+ A Ur Leukocyte Esterase 2+ A Urine WBC Tntc H Urine WBC Clumps Many H Urine Bacteria 1+ H 12/01/17 12/01/17 12/01/17 04:30 04:30 04:30 WBC 16.4 H RBC 3.53 L Hgb 10.3 L Hct 33.9 L MCHC 30.4 L RDW Std Deviation 54.4 H Plt Count 116 L Neutrophils % (Manual) 88.0 H Band Neutrophils % Lymphocytes % (Manual) 5.0 L Neutrophils # (Manual) 14.4 H Lymphocytes # (Manual) 0.8 L Monocytes # (Manual) ABG pH ABG HCO3 ABG Total CO2 ABG Base Excess VBG pH VBG pO2 VBG Base Excess Potassium 3.4 L Carbon Dioxide 17 L BUN 90.0 H* Creatinine 3.8 H Glucose Calculated Osmolality 293 H Calcium 7.1 L Phosphorus AST 89 H D ALT 72 H D Creatine Kinase Troponin I Total Protein Albumin 3.0 L Albumin/Globulin Ratio 0.9 L Procalcitonin 51.76 H* Urine Protein Urine Ketones Urine Occult Blood Urine Nitrate Urine Bilirubin Ur Leukocyte Esterase Urine WBC Urine WBC Clumps Urine Bacteria 12/01/17 12/01/17 12/01/17 04:30 04:30 10:01 WBC RBC Hgb Hct MCHC RDW Std Deviation Plt Count Neutrophils % (Manual) Band Neutrophils % Lymphocytes % (Manual) Neutrophils # (Manual) Lymphocytes # (Manual) Monocytes # (Manual) ABG pH ABG HCO3 ABG Total CO2 ABG Base Excess VBG pH VBG pO2 VBG Base Excess Potassium Carbon Dioxide BUN Creatinine Glucose Calculated Osmolality Calcium Phosphorus AST ALT Creatine Kinase 571 H Troponin I 0.642 H 0.592 H Total Protein Albumin Albumin/Globulin Ratio Procalcitonin Urine Protein Urine Ketones Urine Occult Blood Urine Nitrate Urine Bilirubin Ur Leukocyte Esterase Urine WBC Urine WBC Clumps Urine Bacteria - Diagnostic Findings Chest x-ray: image reviewed (cardiomegaly, clear lung valle) Assessment and Plan (1) Septic shock Status: Acute Assessment and plan: on Levophed at 9 mcg/kg/hr. MAP remains an issue and we are titrating Levophed to keep MAP > 65. Cultures were drawn. lactate normal. Consider relative adrenal insufficiency as a possible factor contributing to ongoing hypotension. I would consider a trial of IV hydrocortisone 50mg q6h to see if this will improve her hypotension Current Visit: Yes (2) UTI (urinary tract infection), bacterial Status: Acute Assessment and plan: UTI on the basis of abnormal UA. Culture pending, but likely bacterial due to elevated Procalcitonin. I agree with empiric Levaquin until culture results are in. Current Visit: Yes (3) Coronavirus infection Status: Acute Assessment and plan: supportive care Current Visit: Yes - Time Spent With Patient Total time spent is greater than 50% in coordination of care (as documented) at patient's floor/unit and/or counseling patient: 25 - 35 minutes
[2017-12-01] MEDS: SODIUM BICARBONATE 650 MG TABLET PO SCH ×3 (13:18→21:20)
[2017-12-01] MEDS: CALCITRIOL 0.25 MCG CAPSULE PO SCH (13:18)
[2017-12-01] MEDS: LEVOTHYROXINE 175 MCG TABLET PO SCH (13:18)
[2017-12-01] MEDS ORDERED: ENOXAPARIN 120 MG/0.8 ML INJECTION SQ SCH (14:00)
[2017-12-01] MEDS: CALCIUM 600 + VIT D 400 TABLET PO SCH ×2 (15:17→21:20)
[2017-12-01] MEDS: LEVOFLOXACIN PB 750 MG/150 ML BAG IV SCH (17:31)
[2017-12-01] MEDS: AMIODARONE 200 MG TABLET PO SCH (21:19)
[2017-12-01] MEDS: PRAMIPEXOLE 1 MG TABLET PO SCH (21:21)
[2017-12-02] MEDS: MetroNIDAZOLE PB 500 MG/100 ML BAG IV SCH ×3 (03:27→19:44)
[2017-12-02] MEDS: NOREPINEPHRINE DRIP 4,000 MCG in NS 250ml 250 ML IV PRN ×2 (04:06→12:22)
[2017-12-02] MEDS: LEVOTHYROXINE 175 MCG TABLET PO SCH (06:05)
[2017-12-02] MEDS: NS 1,000 ML IV SCH ×3 (06:16→22:24)
[2017-12-02] MEDS: CALCIUM 600 + VIT D 400 TABLET PO SCH ×3 (08:48→20:33)
[2017-12-02] MEDS: CALCITRIOL 0.25 MCG CAPSULE PO SCH (08:48)
[2017-12-02] MEDS: ASPIRIN *EC* 325 MG TABLET PO SCH (08:48)
[2017-12-02] MEDS: FLUTICASONE NASAL SPRAY 50mcg EA NOSTRIL SCH (08:49)
[2017-12-02] MEDS: LEVETIRACETAM 500 MG TABLET PO SCH ×2 (08:50→20:33)
[2017-12-02] MEDS: PANTOPRAZOLE 40 MG INJECTION IVP SCH (08:51)
[2017-12-02] MEDS: SODIUM BICARBONATE 650 MG TABLET PO SCH ×3 (08:53→20:41)
--- NOTE | 2017-12-02 09:54 | XRay Report ---
Indication: post picc insertion PROCEDURE: XR chest 1V: Encounter: Initial Comparison: November 29, 2017 Findings: Patient is rotated towards the left. New right PICC line in place with the tip projecting over the mid SVC. Other support devices appear stable. Lungs are stable in appearance. No pneumothorax. Impression: Right PICC line tip projects over the mid SVC. There is a preliminary report by virtual radiologic. .
--- NOTE | 2017-12-02 09:59 | Progress Note ---
- Date 12/02/17 Subjective: The patient was seen this morning in CCU. She complains of pain that she describes as being spasms that go in her "uterus area" she is uncertain if it could be bladder or possibly even that she needs to have a bowel movement. She denies any pain elsewhere. She specifically denies headache and chest pain. She denies any upper abdominal pain but states that her abdomen feels hard and swollen. She denies any shortness of breath. She continues to have a minimally productive cough. Posada catheter is in place with good urine output. She has had no fevers or chills. Her appetite is poor today. She continues on norepinephrine, that is being weaned down. Objective Vital signs: Temperature 97.4 F 12/01/17 19:00 Pulse Rate 61 12/02/17 04:45 Respiratory Rate 17 12/02/17 04:45 Blood Pressure 106/55 12/02/17 04:45 Pulse Oximetry 93 12/02/17 04:45 Height/Weight/BMI: Height 1.63 m Weight 122.6 kg Body Mass Index 47.6 Comments: Cumulative I&O's +7.6 L. I&O yesterday 2904/2450 GEN-alert, mild distress when she is having a spasm of pain, oriented 3 HEENT-sclera anicteric, oropharynx mildly dry NECK-neck is supple with good range of motion CV-regular rate and rhythm CHEST-mild upper airway rhonchi, mild expiratory wheezes bilaterally ABD-mild distention, mild tympany, bowel sounds are present -Posada in place with good urine output EXT-no edema of the legs NEURO-moves all 4 extremities equally, no focal deficits, alert and oriented 3 SKIN-warm and dry Results - Labs CBC & Chem 7: 12/02/17 04:53 12/02/17 04:53 Labs: Magnesium and phosphorus are normal. Calcium is 7.5 with albumin of 2.9. A.m. cortisol is pending. GI panel yesterday was negative. White count is down to 11.1 from 16.4. Microbiology Results: Microbiology 11/30/17 15:04 Urine, Cath Posada Urine Culture - Preliminary Escherichia coli 11/30/17 21:24 Urine, Cath Posada Urine Culture - Preliminary Escherichia coli 12/02/17 04:21 Sputum, Expectorated Gram Stain - Final 12/02/17 04:21 Sputum, Expectorated Sputum Culture - Preliminary Culture Initiated - Results Pending 12/01/17 11:44 Sputum, Expectorated Gram Stain - Final 12/01/17 11:44 Sputum, Expectorated Sputum Culture - Final 11/30/17 13:30 Peripheral/Iv Start Blood Culture - Preliminary No Growth After 1 Day 11/30/17 13:18 Peripheral/Iv Start Blood Culture - Preliminary No Growth After 1 Day - ABG Interpretation ABG results: 11/30/17 16:05 ABG pH 7.320 L ABG pCO2 40 ABG pO2 89 ABG HCO3 21 L ABG Total CO2 21.8 L ABG O2 Saturation 96.0 ABG Base Excess -5.2 L Assessment and Plan (1) Hypotension Current visit: Yes Status: Acute (2) Encephalopathy acute Current visit: Yes Status: Acute Assessment and Plan: Impression Hypotension-continuing to require norepinephrine, but titrating down as tolerated Septic shock-with normal lactate. Positive coronavirus. Blood cultures and GI panel are negative. Urine culture positive for Escherichia coli with sensitivities pending.. Empirically on Levaquin, metronidazole. She received 1 dose of vancomycin and this has been discontinued. Cardiorenal syndrome -urine output is good after 2 doses of Bumex on 11/30/2017 Acute renal failure-improving slowly Chronic diastolic heart failure-currently appears dry, can become fluid overloaded quickly per her dispensing optician and cold rolling machine setter. They both recommend restarting diuretics when creatinine improves to around 2.6 Elevated troponin-no associated chest pain, troponin was trending down yesterday. Discussed with her dispensing optician, Dr. Spicer on 12/01/2017. The patient has a history of normal heart catheter approximately 2 years ago and he stress test since that time which was essentially normal. She recommended continuing aspirin but discontinuing Lovenox/anticoagulation because of patient' s history of peptic ulcer disease with GI bleed. Metabolic acidosis-currently on oral bicarbonate Encephalopathy-resolved Hypokalemia Abdominal pain/lower abdominal/questionable bladder pain Diarrhea-resolved Coronavirus-acute infection Chronic anemia Diabetes mellitus with peripheral neuropathy Obstructive sleep apnea UTI with Escherichia coli-sensitivities pending Plan Regarding the patient's dehydration, acute kidney injury, and hypotension, she seems to be improving. BUN/creatinine are slowly improving. Urine output used to be 75-100 ML's per hour without requiring diuretics. Continue normal saline at 75 ML's per hour. Continue to monitor urine output closely. Hold off on diuretics as long as urine output continues to be good. Can restart diuretics with creatinine down to 2.6. Continue oral sodium bicarbonate for metabolic acidosis Continue aspirin for elevated troponin, possible type II OK. Continue Levaquin for Escherichia coli UTI. Extremities are pending. Patient continues on metronidazole, await abdominal x-ray regarding abdominal pain. CT abdomen on admission showed questionable gastroenteritis. Vancomycin was discontinued after one dose. We'll check an abdominal x-ray regarding abdominal pain and possible mild distention Continue in isolation for acute coronavirus infection Repeat CBC with differential and CMP tomorrow. Replace potassium orally Continue to monitor blood sugars. Critical care time greater than 40 minutes today. I did call and speak with the patient's son yesterday and updated him on her status. DVT Prophylaxis: SCD's GI Prophylaxis: Protonix Resuscitation Status: Do Not Resuscitate - Physician Narrative Physician: Muna Yañez MD Narrative: Date: 12/02/17 Time: 0956 Hospital Course Summary Disclaimer: The visit summary below is not to be considered part of the above Progress Note.
[2017-12-02] MEDS: BUDESONIDE INH.SOLN 0.5mg/2ml NEB AEROSOL SCH ×2 (10:49→20:10)
--- NOTE | 2017-12-02 11:10 | Pulmonology Progress Note ---
Subjective Interval history: Pt in bed, states her breathing is doing ok. + cough with some sputum, no SOB + abd pain. Exam Vital signs: Temperature 97.3 F 12/02/17 08:00 Pulse Rate 62 12/02/17 08:00 Respiratory Rate 13 12/02/17 10:51 Blood Pressure 107/51 12/02/17 08:00 Pulse Oximetry 92 12/02/17 10:51 - Constitutional no acute distress, morbidly obese, cooperative - Routine HEENT Exam Head: Present: normocephalic, atraumatic Eye: Present: EOMI, PERRL ENT: Present: mucous membranes moist - Routine Neck Exam Present: supple, full ROM, trachea midline - Routine Respiratory Exam Present: CTA bilaterally - Routine Cardiovascular Exam Present: S1, S2, no murmur - Routine Abdominal Exam Present: soft Comments: hypoactive - Routine Extremities Exam Present: edema, non tender, full ROM - Routine Back/Spine/Pelvis Exam Back/Spine: Present: full ROM - Routine Skin Exam Present: intact, dry - Routine Neurological Exam Present: alert, oriented X3, CN II-XII intact - Routine Psychiatric Exam Present: normal affect, normal thought process - Urinary Catheter Management Urethral Cath placed during this visit: yes Reason for continuing: Accurate I&O/Aggressive Diuresis Insertion date: 11/30/17 Insertion time: 11:15 Assessment and Plan - Assessment and Plan Septic Shock UTI - e.coli Coronavirus GARY - noncompliant Plan: Pt currently on RA, sats 97%, still on levo but weaning, currently on 5mcg. + UA with e.coli and procal elevated 50's, currently on levaquin, await final culture results. Currently on pulmicort BID, A/A QID for current RVP +, no new CXR and no wheezing at this time. Cont to follow. + abd pain, awaiting abd xrays per primary. - Time Spent With Patient Total time spent is greater than 50% in coordination of care (as documented) at patient's floor/unit and/or counseling patient: less than 15 minutes
[2017-12-02] MEDS: PREGABALIN 100 MG CAPSULE PO SCH ×2 (12:29→20:34)
[2017-12-02] MEDS: HYDROCODONE/APAP 10 MG/325 MG TABLET PO PRN (18:16)
[2017-12-02] MEDS: AMIODARONE 200 MG TABLET PO SCH (20:30)
[2017-12-02] MEDS: PRAMIPEXOLE 1 MG TABLET PO SCH (20:33)
[2017-12-02] MEDS ORDERED: PREGABALIN 100 MG CAPSULE PO SCH (21:00)
[2017-12-03] MEDS: NOREPINEPHRINE DRIP 4,000 MCG in NS 250ml 250 ML IV PRN ×2 (01:45→14:19)
[2017-12-03] MEDS: MetroNIDAZOLE PB 500 MG/100 ML BAG IV SCH (04:30)
[2017-12-03] MEDS: LEVOTHYROXINE 175 MCG TABLET PO SCH (06:49)
[2017-12-03] MEDS: SALINE FLUSH 10ml SYRINGE IVF PRN ×3 (08:12→20:58)
[2017-12-03] MEDS: SIMETHICONE 125 MG CAPSULE PO PRN ×2 (08:12→17:58)
[2017-12-03] MEDS: METOCLOPRAMIDE 10mg/2ml INJECTION IVP PRN (08:13)
--- NOTE | 2017-12-03 08:24 | Progress Note ---
- Date 12/03/17 Subjective: The patient complains of continued intermittent pain in her suprapubic area. Her Posada catheter is in the proper location. Bowel movement did not seem to help with this pain. She did have a large bowel movement yesterday. She has a poor appetite today and yesterday. She feels very thirsty. She continues to have a nonproductive cough. She denies headache, neck pain, chest pain. She denies shortness of breath. She denies lightheadedness. Urine output was decreased last night blood pressure down into the high 70s to low 80s. Currently is 88/51 with a map of 67 Objective Vital signs: Temperature 98.6 F 12/02/17 21:00 Pulse Rate 64 12/03/17 05:30 Respiratory Rate 14 12/03/17 05:30 Blood Pressure 82/44 12/03/17 05:30 Pulse Oximetry 95 12/03/17 05:30 Height/Weight/BMI: Height 1.63 m Weight 125.9 kg Body Mass Index 47.6 Comments: I&O 3217/3195 Urine output since midnight 270 mL GEN-alert, oriented, no acute distress except when she is having spasms HEENT-sclera anicteric, oropharynx is dry NECK-supple CV-regular rate and rhythm CHEST-coarse upper airway rhonchi bilaterally ABD-soft, obese, mild epigastric tenderness, normal bowel sounds -Posada in place with lynne colored urine EXT-no edema NEURO-no focal deficits SKIN-warm and dry Results - Labs CBC & Chem 7: 12/03/17 04:45 12/03/17 04:45 Labs: Cortisol is pending Accu-Cheks have ranged from 186-193 Calcium is 8.5, phosphorus 4.7 Microbiology Results: Microbiology 12/02/17 04:21 Sputum, Expectorated Gram Stain - Final 12/02/17 04:21 Sputum, Expectorated Sputum Culture - Preliminary No Growth After 1 Day 11/30/17 13:30 Peripheral/Iv Start Blood Culture - Preliminary No Growth After 2 Days 11/30/17 13:18 Peripheral/Iv Start Blood Culture - Preliminary No Growth After 2 Days 11/30/17 15:04 Urine, Cath Posada Urine Culture - Preliminary Escherichia coli 11/30/17 21:24 Urine, Cath Posada Urine Culture - Preliminary Escherichia coli 12/01/17 11:44 Sputum, Expectorated Gram Stain - Final 12/01/17 11:44 Sputum, Expectorated Sputum Culture - Final Assessment and Plan (1) Hypotension Current visit: Yes Status: Acute (2) Encephalopathy acute Current visit: Yes Status: Acute Assessment and Plan: Impression Hypotension-continuing to require norepinephrine, but titrating down as tolerated Septic shock-with normal lactate. Positive coronavirus. Blood cultures and GI panel are negative. Urine culture positive for Escherichia coli with sensitivities pending.. Empirically on Levaquin, metronidazole. She received 1 dose of vancomycin and this has been discontinued. Cardiorenal syndrome -urine output is good after 2 doses of Bumex on 11/30/2017 , she has had declining urine output overnight Acute renal failure-was improving slowly Chronic diastolic heart failure-currently appears dry, can become fluid overloaded quickly per her insulation applicator and production support manager. They both recommend restarting diuretics when creatinine improves to around 2.6 Elevated troponin-no associated chest pain, troponin was trending down yesterday. Discussed with her insulation applicator, Dr. Spicer on 12/01/2017. The patient has a history of normal heart catheter approximately 2 years ago and he stress test since that time which was essentially normal. She recommended continuing aspirin but discontinuing Lovenox/anticoagulation because of patient' s history of peptic ulcer disease with GI bleed. Metabolic acidosis-currently on oral bicarbonate Encephalopathy-resolved Hypokalemia-resolved Abdominal pain/lower abdominal/questionable bladder pain Diarrhea-resolved, negative GI panel Coronavirus-acute infection Chronic anemia Diabetes mellitus with peripheral neuropathy Obstructive sleep apnea UTI with Escherichia coli-sensitivities pending Plan Regarding the patient's dehydration, she still appears dry at this time, and blood pressure has decreased. Decline in BUN and creatinine have plateaued. Will give a fluid bolus now and see if blood pressure improves. Continue oral sodium bicarbonate for now for metabolic acidosis, but decrease the dose. Continue aspirin for elevated troponin and possible type II Continue Levaquin for UTI. Discontinue metronidazole. CBC and renal panel tomorrow. Add sliding-scale insulin Initiate treatment for bladder spasms Await cortisol level, add Solu-Cortef if low Critical care time greater than 40 minutes today. I did speak with the patient' s son yesterday and updated him on her status. DVT Prophylaxis: SCD's GI Prophylaxis: Protonix Resuscitation Status: Do Not Resuscitate - Physician Narrative Narrative: Date: 12/03/17 Time: 0820 Hospital Course Summary Disclaimer: The visit summary below is not to be considered part of the above Progress Note.
[2017-12-03] MEDS: PANTOPRAZOLE 40 MG INJECTION IVP SCH (08:31)
--- NOTE | 2017-12-03 08:34 | Pulmonology Progress Note ---
<Tata Castro D - Last Filed: 12/03/17 08:30> Subjective Interval history: Pt in bed, states her breathing is doing ok. + cough with some sputum, no SOB. Exam Vital signs: Temperature 98.6 F 12/02/17 21:00 Pulse Rate 64 12/03/17 05:30 Respiratory Rate 14 12/03/17 05:30 Blood Pressure 82/44 12/03/17 05:30 Pulse Oximetry 95 12/03/17 05:30 - Constitutional no acute distress, morbidly obese, cooperative - Routine HEENT Exam Head: Present: normocephalic, atraumatic Eye: Present: PERRL ENT: Present: mucous membranes moist - Routine Neck Exam Present: supple, full ROM, trachea midline - Routine Respiratory Exam Present: decreased breath sounds - Routine Cardiovascular Exam Present: RRR, S1, S2, no murmur - Routine Abdominal Exam Present: soft Comments: hypoactive - Routine Extremities Exam Present: edema, non tender, full ROM - Routine Back/Spine/Pelvis Exam Back/Spine: Present: full ROM - Routine Skin Exam Present: intact, dry - Routine Neurological Exam Present: alert, oriented X3, CN II-XII intact - Routine Psychiatric Exam Present: normal affect, normal thought process - Urinary Catheter Management Urethral Cath placed during this visit: yes Insertion date: 11/30/17 Insertion time: 11:15 Assessment and Plan - Assessment and Plan Septic Shock UTI - e.coli Coronavirus - supportive care GARY - noncompliant CKD Plan: Pt currently on RA, sats 98%, still on levo but weaning, currently on 6.5mcg, still awaiting cortisol level per primary. + UA with e.coli and procal elevated 50's, currently on levaquin, await final culture results. On pulmicort BID, A/A QID for current RVP +, no new CXR and no wheezing at this time, hold on steroids. Cont to follow. - Time Spent With Patient Total time spent is greater than 50% in coordination of care (as documented) at patient's floor/unit and/or counseling patient: less than 15 minutes <Simba Leslie - Last Filed: 12/03/17 16:17> Exam Vital signs: Temperature 97.9 F 12/03/17 11:45 Pulse Rate 63 12/03/17 13:15 Respiratory Rate 22 12/03/17 13:15 Blood Pressure 97/50 12/03/17 13:15 Pulse Oximetry 98 12/03/17 13:15 - Urinary Catheter Management Urethral Cath placed during this visit: no Assessment and Plan (1) Septic shock Status: Acute Current Visit: Yes (2) UTI (urinary tract infection), bacterial Status: Acute Current Visit: Yes (3) Coronavirus infection Status: Acute Current Visit: Yes - Time Spent With Patient Total time spent is greater than 50% in coordination of care (as documented) at patient's floor/unit and/or counseling patient: - Attestation Attestation Narrative: I have personally seen this patient and spent time face to face. I agree with the notes written by the TEMPORARY HELP AGENCY REFERRAL CLERK
[2017-12-03] MEDS: PREGABALIN 100 MG CAPSULE PO SCH ×2 (08:38→20:44)
[2017-12-03] MEDS: SODIUM BICARBONATE 650 MG TABLET PO SCH ×2 (08:38→20:44)
[2017-12-03] MEDS: ASPIRIN *EC* 325 MG TABLET PO SCH (08:38)
[2017-12-03] MEDS: CALCITRIOL 0.25 MCG CAPSULE PO SCH (08:45)
[2017-12-03] MEDS: LEVETIRACETAM 500 MG TABLET PO SCH ×2 (08:45→20:45)
[2017-12-03] MEDS: FLUTICASONE NASAL SPRAY 50mcg EA NOSTRIL SCH (08:48)
[2017-12-03] MEDS: CALCIUM 600 + VIT D 400 TABLET PO SCH ×3 (08:51→20:44)
[2017-12-03] MEDS ORDERED: BELLADONNA-OPIUM 16.2 MG/60 MG SUPPOSITORY PR PRN (09:20)
[2017-12-03] MEDS: BUDESONIDE INH.SOLN 0.5mg/2ml NEB AEROSOL SCH ×2 (09:26→19:17)
--- NOTE | 2017-12-03 09:43 | XRay Report ---
EXAM: XR abdomen 1V COMPARISON: 11/30/2017. 07/11/2017. HISTORY: lower abd spasms and abd distension . FINDINGS: EKG leads and wires project over the chest. Some air-filled loops of mildly prominent small bowel and large bowel are noted. The visceral organ outlines are unremarkable. Lung bases are clear. No abnormal calcifications are appreciated. IMPRESSION: Some air-filled loops of nondilated large and small bowel which may represent generalized ileus pattern. LOC[place]CT[place]: [facility] [place]
[2017-12-03] MEDS: NS 1,000 ML IV SCH ×2 (10:00→11:37)
[2017-12-03] MEDS: PHENAZOPYRIDINE 95 MG TABLET PO SCH ×3 (10:28→17:57)
[2017-12-03] MEDS: BENZONATATE 100 MG CAPSULE PO SCH ×3 (11:03→20:44)
[2017-12-03] MEDS: GUAIFENESIN LA 600 MG TABLET PO PRN (12:05)
[2017-12-03] MEDS: INSULIN ASPART 100unit/ml INJECTION SQ PRN ×2 (12:39→20:53)
--- NOTE | 2017-12-03 13:06 | XRay Report ---
EXAM: XR KUB COMPARISON: 12/02/2017. 11/30/2017 CT abdomen pelvis. 07/11/2017 CT abdomen pelvis. HISTORY: abd pain . FINDINGS: The heart is upper limits of normal to mildly enlarged. The lung bases are clear. The gaseous distention of multiple loops of large and small bowel which could represent generalized ileus pattern. The visceral organ outlines are unremarkable. No abnormal effusions are seen. IMPRESSION: Gaseous distention of multiple loops of large and small bowel which may represent a generalized ileus pattern. Clinical correlation is suggested. [place] [facility] [place]
--- NOTE | 2017-12-03 13:09 | XRay Report ---
EXAM: XR chest 1V COMPARISON: 11/30/2017. 11/29/2017. 10/03/2017. 11/20/2008. HISTORY: cough, mason virus . FINDINGS:EKG leads and wires project over the chest. Pacemaker and pacer wires are in place and appears stable. Right-sided PICC line is in place with tip projecting over the mid mediastinum which may be within the SVC. The heart is enlarged. The pulmonary vascularity is mildly prominent. The lungs are clear. There is no evidence for pleural effusion. There is no evidence for a pneumothorax. No osseous abnormalities are identified. IMPRESSION: 1. Cardiomegaly. 2. Right-sided PICC line is in place with tip projecting over the mid mediastinum which may be within the SVC. 3. Mild central pulmonary vascular prominence without evidence for failure. [place] [facility] [place]
--- NOTE | 2017-12-03 15:15 | Wound Care Progress Note ---
Wound Center Progress Note: Changed dressing today, continued as ordered.
[2017-12-03] MEDS: METOCLOPRAMIDE 10mg/2ml INJECTION IVP SCH ×2 (15:59→20:53)
[2017-12-03] MEDS ORDERED: BISACODYL 10 MG SUPPOSITORY RECTALLY PRN (17:37)
[2017-12-03] MEDS: LEVOFLOXACIN PB 750 MG/150 ML BAG IV SCH (17:56)
[2017-12-03] MEDS: AMIODARONE 200 MG TABLET PO SCH (20:43)
[2017-12-03] MEDS: PRAMIPEXOLE 1 MG TABLET PO SCH (20:44)
[2017-12-04] MEDS: NS 1,000 ML IV SCH ×2 (00:24→13:22)
[2017-12-04] MEDS ORDERED: FALL RISK - PHARMACY CONSULT MC ONE (02:59)
[2017-12-04] MEDS: GUAIFENESIN LA 600 MG TABLET PO PRN ×2 (03:05→12:35)
[2017-12-04] MEDS: METOCLOPRAMIDE 10mg/2ml INJECTION IVP SCH ×4 (03:08→20:32)
[2017-12-04] MEDS: SALINE FLUSH 10ml SYRINGE IVF PRN (03:08)
[2017-12-04] MEDS ORDERED: BENZONATATE 100 MG CAPSULE PO ONE (03:25)
[2017-12-04] MEDS: SIMETHICONE 125 MG CAPSULE PO PRN (03:52)
[2017-12-04] MEDS: HYDROCODONE/APAP 10 MG/325 MG TABLET PO PRN (03:52)
[2017-12-04] MEDS: NOREPINEPHRINE DRIP 4,000 MCG in NS 250ml 250 ML IV PRN (05:24)
[2017-12-04] MEDS: LEVOTHYROXINE 175 MCG TABLET PO SCH ×2 (05:27→05:38)
--- NOTE | 2017-12-04 09:41 | Progress Note ---
- Date 12/04/17 Subjective: Patient was seen this morning in her room. Her appetite is much better this morning. She continues to have intermittent abdominal pain but it is less frequent and less severe than yesterday. She does not notice if it improves with bowel movements or passing gas. She did have a large bowel movement and a large amount of flatus yesterday. Pyridium was also started for possible bladder pain. She denies any shortness of breath. She denies any chest pain. She continues to have cough seems to be less. Overall, she is better today than yesterday. After my visit, she did have a bowel movement. Objective Vital signs: Temperature 98.8 F 12/04/17 08:00 Pulse Rate 59 L 12/04/17 08:30 Respiratory Rate 30 H 12/04/17 08:30 Blood Pressure 95/51 12/04/17 08:30 Pulse Oximetry 100 12/04/17 08:30 Height/Weight/BMI: Height 1.63 m Weight 127.7 kg Body Mass Index 47.6 Comments: Cumulative I&O's 8 L/9 L Weight is 127.7 kg up from 124.9 kg admission Blood pressure is 108/56, heart rate 64, O2 sat 98%, respirations in the 20s GEN-alert, oriented, no acute distress HEENT-oropharynx is moist, sclerae anicteric NECK-supple CV-regular rate and rhythm CHEST-clear to auscultation bilaterally, not coughing as much today as yesterday ABD-soft, moderately distended, hyperactive bowel sounds bowel sounds are mildly high-pitched -Posada in place with good urine output EXT-no edema NEURO-no focal deficits SKIN-warm and dry Results - Labs CBC & Chem 7: 12/04/17 05:21 12/04/17 05:21 Labs: Neutrophils 76%, bands 2% Accu-Cheks ranging from 121-197 AM cortisol normal at 15 Microbiology Results: Microbiology 12/02/17 04:21 Sputum, Expectorated Gram Stain - Final 12/02/17 04:21 Sputum, Expectorated Sputum Culture - Final No Growth After 2 Days 12/03/17 12:50 Sputum, Expectorated Gram Stain - Final 12/03/17 12:50 Sputum, Expectorated Sputum Culture - Preliminary Culture Initiated - Results Pending 02/09/18 13:30 Peripheral/Iv Start Blood Culture - Preliminary No Growth After 3 Days 11/30/17 13:18 Peripheral/Iv Start Blood Culture - Preliminary No Growth After 3 Days 11/30/17 21:24 Urine, Cath Posada Urine Culture - Final Escherichia coli 11/30/17 15:04 Urine, Cath Posada Urine Culture - Final Escherichia coli 12/01/17 11:44 Sputum, Expectorated Gram Stain - Final 12/01/17 11:44 Sputum, Expectorated Sputum Culture - Final UTI with Escherichia coli which is pansensitive - Impressions KUB yesterday showed gaseous distention of multiple loops of large and small bowel which may represent a generalized ileus pattern. Chest x-ray with cardiomegaly, right-sided PICC over the mid mediastinum which may be within the SVC. Mild central pulmonary vascular prominence without evidence for failure Assessment and Plan (1) Hypotension Current visit: Yes Status: Acute (2) Encephalopathy acute Current visit: Yes Status: Acute Assessment and Plan: Impression Hypotension-continuing to require norepinephrine, continuing to titrate down Septic shock-with normal lactate. Positive coronavirus. Blood cultures and GI panel are negative. Urine culture positive for Escherichia coli-pansensitive on Levaquin. Vancomycin given 1 dose. Metronidazole discontinued Cardiorenal syndrome -urine output is good after 2 doses of Bumex on 11/30/2017, Acute renal failure-creatinine markedly improved this morning at 2.6 down from 3.5 yesterday Chronic diastolic heart failure-currently appears dry, can become fluid overloaded quickly per her equipment maintenance engineer and tawer. They both recommend restarting diuretics when creatinine improves to around 2.6. Elevated troponin-no associated chest pain. Discussed with her equipment maintenance engineer, Dr. Spicer on 12/01/2017. The patient has a history of normal heart catheter approximately 2 years ago and he stress test since that time which was essentially normal. She recommended continuing aspirin but discontinuing Lovenox /anticoagulation because of patient's history of peptic ulcer disease with GI bleed. Metabolic acidosis-currently on oral bicarbonate Encephalopathy-resolved Hypokalemia-resolved Ileus-on scheduled Reglan and when necessary Dulcolax suppositories Possible bladder pain-on Pyridium Diarrhea-resolved, negative GI panel Coronavirus-acute infection Chronic anemia Diabetes mellitus with peripheral neuropathy-well controlled blood sugars on when necessary insulin Obstructive sleep apnea UTI with Escherichia coli-pansensitive on day 5 of Levaquin Plan The patient responded well to fluid bolus yesterday with improvement in blood pressure and urine output. Creatinine is now down to baseline at 2.6. She is still on norepinephrine 5 g. Hopefully, can wean off today. If blood pressure stays up after weaning off, we'll discontinue IV fluids. Continue to monitor in intensive care. Resume cautious diuretics soon if blood pressure is stable. Decrease sodium bicarbonate to once daily Continue aspirin for elevated troponin and possible type II. Check echocardiogram today Continue Levaquin for UTI. Increase activity as tolerated. PT OT evaluation today. CBC and renal panel tomorrow Critical care time greater than 40 minutes today. I did speak with the patient' s son yesterday and updated him on her status. DVT Prophylaxis: SCD's GI Prophylaxis: Protonix Resuscitation Status: Do Not Resuscitate - Physician Narrative Physician: Muna Yañez MD Narrative: Date: 12/04/17 Time: 0937 Hospital Course Summary Disclaimer: The visit summary below is not to be considered part of the above Progress Note.
[2017-12-04] MEDS: PANTOPRAZOLE 40 MG INJECTION IVP SCH (09:50)
[2017-12-04] MEDS: CALCITRIOL 0.25 MCG CAPSULE PO SCH (09:51)
[2017-12-04] MEDS: ASPIRIN *EC* 325 MG TABLET PO SCH (09:51)
[2017-12-04] MEDS: SODIUM BICARBONATE 650 MG TABLET PO SCH (09:51)
[2017-12-04] MEDS: PHENAZOPYRIDINE 95 MG TABLET PO SCH ×3 (09:51→20:30)
[2017-12-04] MEDS: CALCIUM 600 + VIT D 400 TABLET PO SCH ×3 (09:51→20:30)
[2017-12-04] MEDS: PREGABALIN 100 MG CAPSULE PO SCH ×2 (09:52→20:28)
[2017-12-04] MEDS: LEVETIRACETAM 500 MG TABLET PO SCH ×2 (09:52→20:30)
[2017-12-04] MEDS: FLUTICASONE NASAL SPRAY 50mcg EA NOSTRIL SCH (09:53)
[2017-12-04] MEDS: BENZONATATE 100 MG CAPSULE PO SCH ×3 (10:37→20:30)
[2017-12-04] MEDS: INSULIN ASPART 100unit/ml INJECTION SQ PRN ×2 (10:46→14:05)
--- NOTE | 2017-12-04 11:11 | Pulmonology Progress Note ---
Subjective Interval history: Pt ambulating with PT/OT and gala with walker. States no SOB, still + cough with no sputum noted, on RA. Exam Vital signs: Temperature 98.8 F 12/04/17 08:00 Pulse Rate 59 L 12/04/17 08:30 Respiratory Rate 30 H 12/04/17 08:30 Blood Pressure 95/51 12/04/17 08:30 Pulse Oximetry 100 12/04/17 08:30 - Constitutional no acute distress, morbidly obese, cooperative - Routine HEENT Exam Head: Present: normocephalic, atraumatic Eye: Present: EOMI, PERRL - Routine Neck Exam Present: supple, full ROM, trachea midline - Routine Respiratory Exam Present: decreased breath sounds - Routine Cardiovascular Exam Present: RRR, S1, S2, no murmur - Routine Abdominal Exam Present: soft, normoactive bowel sounds - Routine Extremities Exam Present: edema, non tender, full ROM - Routine Back/Spine/Pelvis Exam Back/Spine: Present: full ROM - Routine Skin Exam Present: intact, dry - Routine Neurological Exam Present: alert, oriented X3, CN II-XII intact - Routine Psychiatric Exam Present: normal affect, normal thought process, good judgment - Urinary Catheter Management Urethral Cath placed during this visit: yes Reason for continuing: Accurate I&O/Aggressive Diuresis Insertion date: 11/30/17 Insertion time: 11:15 Assessment and Plan - Assessment and Plan Septic Shock UTI - e.coli Coronavirus - supportive care GARY - noncompliant CKD Plan: Pt currently on RA, sats 98%, still on levo but weaning, currently on 5mcg, cortisol level normal. BR improve s/p bolus per primary. + UA with e.coli and procal elevated 50's, currently on levaquin. On pulmicort BID, A/A QID for current RVP +, no new CXR and no wheezing at this time, hold on steroids. Cont to follow. - Time Spent With Patient Total time spent is greater than 50% in coordination of care (as documented) at patient's floor/unit and/or counseling patient: less than 15 minutes
[2017-12-04] MEDS: BUDESONIDE INH.SOLN 0.5mg/2ml NEB AEROSOL SCH ×2 (13:18→19:10)
--- NOTE | 2017-12-04 17:00 | Echocardiogram ---
DATE OF PROCEDURE December 04, 2017 This is a two-dimensional echo with spectral Doppler, color-flow and M-mode. It was obtained in a patient with elevated troponin. Left atrial dimension is normal. Left ventricular end-diastolic dimension is mildly increased. LV systolic function is normal with ejection fraction of about 55%. Right atrium is normal. Right ventricle is normal. Aortic root dimension is normal. Mitral valve is morphologically normal with mild mitral regurgitation. Aortic valve is a trileaflet structure with no stenosis. Mild aortic insufficiency is present. Tricuspid valve shows mild tricuspid regurgitation with normal estimated pulmonary artery systolic pressure of 30. Pulmonary valve shows trace of pulmonary insufficiency. There is no pericardial effusion. IMPRESSION 1. Normal LV systolic function with ejection fraction of 55%. 2. Mild left ventricular dilation. 3. Mild mitral regurgitation. 4. Mild aortic insufficiency. 5. Mild tricuspid regurgitation with normal estimated pulmonary artery systolic pressure of 30. 6. Trace of pulmonary insufficiency. MTDD
[2017-12-04] MEDS ORDERED: PHENAZOPYRIDINE 95 MG TABLET PO PRN (19:46)
[2017-12-04] MEDS: PRAMIPEXOLE 1 MG TABLET PO SCH (20:28)
[2017-12-04] MEDS: AMIODARONE 200 MG TABLET PO SCH (20:30)
[2017-12-05] MEDS: NS 1,000 ML IV SCH (02:26)
[2017-12-05] MEDS: METOCLOPRAMIDE 10mg/2ml INJECTION IVP SCH ×4 (02:31→20:11)
[2017-12-05] MEDS: NOREPINEPHRINE DRIP 4,000 MCG in NS 250ml 250 ML IV PRN (03:52)
[2017-12-05] MEDS: LEVOTHYROXINE 175 MCG TABLET PO SCH ×2 (05:22→05:33)
[2017-12-05] MEDS: BUDESONIDE INH.SOLN 0.5mg/2ml NEB AEROSOL SCH ×2 (06:34→21:44)
--- NOTE | 2017-12-05 08:51 | Progress Note ---
- Date 12/05/17 Subjective: The patient is seen this morning in CCU. She is sitting up in a chair and finishing breakfast. She states her appetite is better. She developed low pressure last night and norepinephrine was restarted. She has had some intermittent abdominal cramping yesterday and today, but states it is better than it was a few days ago. She does have ileus on KUB. She denies any shortness of breath or chest pain. She states her cough has improved. Urine output remains about 100 mL per hour. She denies any lightheadedness. Objective Vital signs: Temperature 98.8 F 12/04/17 14:37 Pulse Rate 65 12/05/17 08:00 Respiratory Rate 10 12/05/17 07:00 Blood Pressure 106/55 12/05/17 07:00 Pulse Oximetry 99 12/05/17 07:00 Height/Weight/BMI: Height 1.63 m Weight 125.5 kg Body Mass Index 47.6 Comments: Cumulative I&O's +10L Weight today is 125.5 kg and on admission 24.9 kg. It's uncertain how accurate her bed weights are GEN-alert, oriented, no acute distress HEENT-sclera anicteric, oropharynx is moist NECK-supple CV-regular rate and rhythm CHEST-clear to auscultation bilaterally ABD-soft, obese, nontender, positive bowel sounds, nondistended -Posada in place with good urine output EXT-no edema in the upper or lower extremities NEURO-no focal deficits SKIN-warm and dry without rashes Results - Labs CBC & Chem 7: 12/05/17 05:18 12/05/17 05:18 Labs: BNP is 9830 from 1870 Microbiology Results: Microbiology 11/30/17 13:18 Peripheral/Iv Start Blood Culture - Preliminary No Growth After 4 Days 11/30/17 13:30 Peripheral/Iv Start Blood Culture - Preliminary No Growth After 4 Days 12/03/17 12:50 Sputum, Expectorated Gram Stain - Final 12/03/17 12:50 Sputum, Expectorated Sputum Culture - Preliminary Culture Initiated - Results Pending 12/02/17 04:21 Sputum, Expectorated Gram Stain - Final 12/02/17 04:21 Sputum, Expectorated Sputum Culture - Final No Growth After 2 Days 11/30/17 21:24 Urine, Cath Posada Urine Culture - Final Escherichia coli 11/30/17 15:04 Urine, Cath Posada Urine Culture - Final Escherichia coli 12/01/17 11:44 Sputum, Expectorated Gram Stain - Final 12/01/17 11:44 Sputum, Expectorated Sputum Culture - Final - Echocardiogram History of Echocardiogram: Date of Exam: 12/04/17. Type of Exam(s): US echo doppler complete. DATE OF PROCEDURE. December 04, 2017. This is a two- dimensional echo with spectral Doppler, color-flow and M-mode. It was obtained in a patient with elevated troponin. Left atrial dimension is normal. Left ventricular end-diastolic dimension is mildly increased. LV systolic function is normal with ejection fraction of about 55%. Right atrium is normal. Right ventricle is normal. Aortic root dimension is normal. Mitral valve is morphologically normal with mild mitral regurgitation. Aortic valve is a trileaflet structure with no stenosis. Mild aortic insufficiency is present. Tricuspid valve shows mild tricuspid regurgitation with normal estimated pulmonary artery systolic pressure of 30. Pulmonary valve shows trace of pulmonary insufficiency. There is no pericardial effusion. IMPRESSION. 1. Normal LV systolic function with ejection fraction of 55%. 2. Mild left ventricular dilation. 3. Mild mitral regurgitation. 4. Mild aortic insufficiency. 5. Mild tricuspid regurgitation with normal estimated pulmonary artery systolic pressure of 30. 6. Trace of pulmonary insufficiency. Assessment and Plan (1) Hypotension Current visit: Yes Status: Acute (2) Encephalopathy acute Current visit: Yes Status: Acute Assessment and Plan: Impression Hypotension-continuing to require norepinephrine- will discontinue today and monitor blood pressure in CCU Septic shock-with normal lactate. Positive coronavirus. Blood cultures and GI panel are negative. Urine culture positive for Escherichia coli-pansensitive on Levaquin. Vancomycin given 1 dose. 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 They both recommend restarting diuretics when creatinine improves to around 2.6. Diuretics were not restarted yesterday due to continued need for norepinephrine Elevated troponin-no associated chest pain. Discussed with her curriculum developer, Dr. Spicer on 12/01/2017. The patient has a history of normal heart catheter approximately 2 years ago and he stress test since that time which was essentially normal. She recommended continuing aspirin but discontinuing Lovenox /anticoagulation because of patient's history of peptic ulcer disease with GI bleed. Metabolic acidosis-currently on oral bicarbonate Encephalopathy-resolved Hypokalemia-resolved Ileus-on scheduled Reglan and when necessary Dulcolax suppositories Possible bladder pain-on Pyridium when necessary Diarrhea-resolved, negative GI panel Coronavirus-acute infection Chronic anemia Diabetes mellitus with peripheral neuropathy-well controlled blood sugars on when necessary insulin Obstructive sleep apnea UTI with Escherichia coli-pansensitive on day 6 of Levaquin Plan Clinically, the patient appears euvolemic but BNP is in I&O is +10 L. Weight is essentially the same as on admission, uncertain how accurate bed weights are. DC IV fluids today. DC norepinephrine. Consider restarting Bumex today. Continue Reglan and when necessary Dulcolax for ileus Can likely discontinue Levaquin after tomorrow's dose. This will be one week treatment for UTI. Continue PT OT Increase sodium bicarbonate today due to decrease in CO2 and basic metabolic profile Echocardiogram showed normal ejection fraction and was otherwise essentially normal. She does have history of diastolic heart failure CBC, CMP, magnesium, and phosphorus tomorrow Greater than 40 minutes of critical care time spent seeing and evaluating the patient DVT Prophylaxis: SCD's Resuscitation Status: Do Not Resuscitate - Physician Narrative Narrative: Date: 12/05/17 Time: 0846 Hospital Course Summary Disclaimer: The visit summary below is not to be considered part of the above Progress Note.
[2017-12-05] MEDS ORDERED: SODIUM BICARBONATE 650 MG TABLET PO SCH (09:00)
[2017-12-05] MEDS: PANTOPRAZOLE 40 MG INJECTION IVP SCH (09:10)
[2017-12-05] MEDS: CALCIUM 600 + VIT D 400 TABLET PO SCH ×3 (09:10→20:10)
[2017-12-05] MEDS: CALCITRIOL 0.25 MCG CAPSULE PO SCH (09:10)
[2017-12-05] MEDS: SODIUM BICARBONATE 650 MG TABLET PO SCH ×3 (09:11→20:13)
[2017-12-05] MEDS: PREGABALIN 100 MG CAPSULE PO SCH ×2 (09:11→20:13)
[2017-12-05] MEDS: BENZONATATE 100 MG CAPSULE PO SCH ×3 (09:11→20:10)
[2017-12-05] MEDS: ASPIRIN *EC* 325 MG TABLET PO SCH (09:11)
[2017-12-05] MEDS: LEVETIRACETAM 500 MG TABLET PO SCH ×2 (09:11→20:11)
[2017-12-05] MEDS: FLUTICASONE NASAL SPRAY 50mcg EA NOSTRIL SCH (09:12)
[2017-12-05] MEDS: BUMETANIDE 1 MG TABLET PO SCH ×2 (10:26→14:56)
[2017-12-05] MEDS: INSULIN ASPART 100unit/ml INJECTION SQ PRN (10:55)
--- NOTE | 2017-12-05 10:59 | Pulmonology Progress Note ---
Subjective Interval history: Pt in bed, states no SOB, still + cough with some sputum noted, on RA. Exam Vital signs: Temperature 98.8 F 12/04/17 14:37 Pulse Rate 69 12/05/17 10:15 Respiratory Rate 22 12/05/17 10:15 Blood Pressure 109/55 12/05/17 09:38 Pulse Oximetry 84 L 12/05/17 10:15 - Constitutional no acute distress, morbidly obese, cooperative - Routine HEENT Exam Head: Present: normocephalic, atraumatic Eye: Present: EOMI, PERRL - Routine Neck Exam Present: supple, full ROM, trachea midline - Routine Respiratory Exam Present: CTA bilaterally - Routine Cardiovascular Exam Present: RRR, S1, S2, no murmur - Routine Abdominal Exam Present: soft, normoactive bowel sounds - Routine Extremities Exam Present: no edema, non tender, full ROM - Routine Back/Spine/Pelvis Exam Back/Spine: Present: full ROM - Routine Skin Exam Present: intact, dry - Routine Neurological Exam Present: alert, oriented X3, CN II-XII intact - Routine Psychiatric Exam Present: normal affect, normal thought process - Urinary Catheter Management Urethral Cath placed during this visit: yes Insertion date: 11/30/17 Insertion time: 11:15 Assessment and Plan - Assessment and Plan Septic Shock UTI - e.coli Coronavirus - supportive care GARY - noncompliant CKD Plan: Pt currently on RA, sats 99%, off levo, cortisol level normal. + UA with e.coli and procal elevated 50's, currently on levaquin per primary, afebrile and no leukocytosis. On pulmicort BID, A/A QID for current RVP +, no new CXR and no wheezing at this time, hold on steroids. Cont to follow. - Time Spent With Patient Total time spent is greater than 50% in coordination of care (as documented) at patient's floor/unit and/or counseling patient: less than 15 minutes
[2017-12-05] MEDS: LEVOFLOXACIN PB 750 MG/150 ML BAG IV SCH (18:10)
[2017-12-05] MEDS: AMIODARONE 200 MG TABLET PO SCH (20:08)
[2017-12-05] MEDS: PRAMIPEXOLE 1 MG TABLET PO SCH (20:12)
[2017-12-06] MEDS: METOCLOPRAMIDE 10mg/2ml INJECTION IVP SCH ×5 (02:21→20:04)
[2017-12-06] MEDS: LEVOTHYROXINE 175 MCG TABLET PO SCH (06:01)
[2017-12-06] MEDS: ASPIRIN *EC* 325 MG TABLET PO SCH ×2 (07:40→10:33)
[2017-12-06] MEDS: BENZONATATE 100 MG CAPSULE PO SCH ×4 (07:41→20:04)
[2017-12-06] MEDS: CALCITRIOL 0.25 MCG CAPSULE PO SCH ×2 (07:42→10:33)
[2017-12-06] MEDS: CALCIUM 600 + VIT D 400 TABLET PO SCH ×4 (07:43→20:04)
[2017-12-06] MEDS: FLUTICASONE NASAL SPRAY 50mcg EA NOSTRIL SCH ×2 (07:44→10:34)
[2017-12-06] MEDS: PANTOPRAZOLE 40 MG INJECTION IVP SCH ×2 (07:45→10:35)
[2017-12-06] MEDS: LEVETIRACETAM 500 MG TABLET PO SCH ×3 (07:45→20:04)
[2017-12-06] MEDS: PREGABALIN 100 MG CAPSULE PO SCH ×3 (07:46→20:04)
[2017-12-06] MEDS: ALBUTEROL/IPRATROPIUM 2.5mg-0.5mg/3ml NEB AEROSOL PRN ×3 (08:25→20:25)
[2017-12-06] MEDS: BUDESONIDE INH.SOLN 0.5mg/2ml NEB AEROSOL SCH ×2 (08:26→20:25)
[2017-12-06] MEDS: SODIUM BICARBONATE 650 MG TABLET PO SCH ×3 (10:39→20:04)
[2017-12-06] MEDS: BUMETANIDE 1 MG TABLET PO SCH ×2 (10:39→14:09)
--- NOTE | 2017-12-06 11:17 | Progress Note ---
- Date 12/06/17 Subjective: F/U: Septic shock, UTI with Ecoli, cardiorenal syndrome, hypotension Doing fair today. Slept poorly-uncomfortable. BP did decrease when patient sleeping-Levophed restarted overnight. Breathing stable-not SOA or needing O2, but having congestion and producing yellow sputum. Appetite decreased-not hungry. Some nausea at times. Ab pain decreased. Passing flatus and some stool. Was up and able to ambulated yesterday. Feels some 'internal shakiness' today. Mentally clear. Objective Vital signs: Temperature 97.7 F 12/05/17 12:00 Pulse Rate 60 12/06/17 05:00 Respiratory Rate 22 12/06/17 08:27 Blood Pressure 88/50 12/06/17 05:00 Pulse Oximetry 100 12/06/17 08:27 Height/Weight/BMI: Height 1.63 m Weight 125.5 kg Body Mass Index 47.6 - Constitutional Present: well nourished, well developed, morbidly obese, cooperative - Routine HEENT Exam Head: Present: normocephalic, atraumatic Eye: Present: EOMI, PERRL ENT: Present: mucous membranes moist - Routine Respiratory Exam Present: decreased breath sounds. Absent: respiratory distress, wheezes, crackles - Routine Cardiovascular Exam Present: RRR, no murmur - Routine Abdominal Exam Present: soft, non distended, non tender. Absent: normoactive bowel sounds ( decreased ) - Routine Exam Comments: Starkey present - Routine Extremities Exam Present: edema (+2 BLE ), pulses intact. Absent: cyanosis, clubbing Comments: SCD present on LE - Routine Musculoskeletal Exam Musculoskeletal: Present: no clubbing or cyanosis - Routine Skin Exam Present: dry, warm - Routine Neurological Exam Present: alert, CN II-XII intact, vision grossly intact, hearing grossly intact , normal speech. Absent: motor deficit, altered mental status - Routine Psychiatric Exam Present: normal affect, normal thought process, cooperative Results - Labs CBC & Chem 7: 12/06/17 04:14 12/06/17 04:14 Microbiology Results: Microbiology 11/30/17 13:18 Peripheral/Iv Start Blood Culture - Final No Growth After 5 Days 11/30/17 13:30 Peripheral/Iv Start Blood Culture - Final No Growth After 5 Days 12/03/17 12:50 Sputum, Expectorated Gram Stain - Final 12/03/17 12:50 Sputum, Expectorated Sputum Culture - Final Marybeth albicans Normal Respiratory Abril 12/02/17 04:21 Sputum, Expectorated Gram Stain - Final 12/02/17 04:21 Sputum, Expectorated Sputum Culture - Final No Growth After 2 Days 11/30/17 21:24 Urine, Cath Starkey Urine Culture - Final Escherichia coli 11/30/17 15:04 Urine, Cath Starkey Urine Culture - Final Escherichia coli 12/01/17 11:44 Sputum, Expectorated Gram Stain - Final 12/01/17 11:44 Sputum, Expectorated Sputum Culture - Final Assessment and Plan (1) Hypotension Current visit: Yes Status: Acute (2) Encephalopathy acute Current visit: Yes Status: Acute Assessment and Plan: Impression Hypotension - required norepinephrine overnight Septic shock - with normal lactate. Positive coronavirus. Blood cultures and GI panel are negative. UIT with Escherichia coli - pansensitive on Levaquin. Cardiorenal syndrome - stabilized Acute kidney injury - improved Chronic diastolic heart failure Metabolic acidosis - currently on oral bicarbonate Encephalopathy - resolved Hypokalemia (POA) - resolved Ileus - on scheduled Reglan and when necessary Dulcolax suppositories Possible bladder pain - on Pyridium when necessary Diarrhea - resolved, negative GI panel Coronavirus - acute infection Chronic anemia Diabetes mellitus with peripheral neuropathy - well controlled blood sugars on when necessary insulin Obstructive sleep apnea Morbid obesity with BMI 47.5 Plan Blood pressures improving during day - decreased overnight and norepinephrine restarted. Possible secondary to GARY. Will give trial of ProAmatine at night to help BP. With need for norepinephrine overnight, do not feel ready to move to floor. Bumex restarted yesterday - Creatinine with slight increase to 2.0. Will d/c Levaquin after today's dose - has had 7 days of treatment. Bladder retraining with Starkey. Continue PT/OT to help strength. Recheck BMP in am secondary to medications. Will recheck CBC in am due to resolving sepsis. Case discussed with CCU nursing. Time spent with patient care 25 minutes. DVT Prophylaxis: SCD's Resuscitation Status: Do Not Resuscitate - Physician Narrative Physician: Giovanny Chavarria MD Narrative: Date: 12/06/17 Time: 1113 Hospital Course Summary Disclaimer: The visit summary below is not to be considered part of the above Progress Note. Hospital Course: 11/30/17 Admission Admitted for Hypotension, septic shock, acute renal failure, encephalopathy, hypokalemia and abdominal pain/diarrhea Minimal urine output overnight, starkey catheter placed-continue to monitor. Septic shock with persistent hypotension after > 30 mL/kg bolus given in the emergency room, on Levophed. Has had over 5 L fluid at this point. Family does not wish to have central line placed. Mental status fluctuating-patient responding to questions reasonably appropriately at present. Generalized abdominal pain without focal findings on CT; IV metronidazole added for possible C. difficile colitis based on CT findings and recent antibiotics. Antibiotics expanded-vancomycin, Levaquin, and metronidazole. Repeat ABG-unclear if initial study was venous or arterial, may require BiPAP. Discussed with Dr. Swift, dehydration likely as cause of renal failure; continue to monitor with volume replacement. Critically ill-DO NOT RESUSCITATE confirmed with patient/son-DPOA. 12/01 Continue normal saline at 75 ML's per hour. Continue to monitor urine output closely. Hold off on diuretics as long as urine output continues to be good. Can restart diuretics with creatinine down to 2.6. Discussed above with Dr. Swift, fleet operations manager. He would also add oral bicarbonate 650 by mouth 3 times a day for metabolic acidosis and monitor closely. Regarding elevated troponin, discussed with Dr. Spicer. She states she had normal coronaries on heart catheter 2 years ago and treadmill stress test since then which was okay. She recommends against anticoagulation because of history of GI bleed and vaginal bleeding. Will discontinue Lovenox. We'll continue to trend troponin. We'll check an EKG. We'll give aspirin daily. Continue empiric antibiotics for now. Await cultures. Continue in isolation coronavirus Repeat CBC with differential and CMP tomorrow. Check CPK regarding acute kidney injury diffuse pain. Continue to monitor blood sugars. If EKG okay, Advance diet as tolerated. 12/02 Regarding the patient's dehydration, acute kidney injury, and hypotension, she seems to be improving. BUN/creatinine are slowly improving. Urine output used to be 75-100 ML's per hour without requiring diuretics. Continue normal saline at 75 ML's per hour. Continue to monitor urine output closely. Hold off on diuretics as long as urine output continues to be good. Can restart diuretics with creatinine down to 2.6. Continue oral sodium bicarbonate for metabolic acidosis Continue aspirin for elevated troponin, possible type II MD. Continue Levaquin for Escherichia coli UTI. Extremities are pending. Patient continues on metronidazole, await abdominal x-ray regarding abdominal pain. CT abdomen on admission showed questionable gastroenteritis. Vancomycin was discontinued after one dose. We'll check an abdominal x-ray regarding abdominal pain and possible mild distention Continue in isolation for acute coronavirus infection Repeat CBC with differential and CMP tomorrow. Replace potassium orally Continue to monitor blood sugars. 12/03 Regarding the patient's dehydration, she still appears dry at this time, and blood pressure has decreased. Decline in BUN and creatinine have plateaued. Will give a fluid bolus now and see if blood pressure improves. Continue oral sodium bicarbonate for now for metabolic acidosis, but decrease the dose. Continue aspirin for elevated troponin and possible type II Continue Levaquin for UTI. Discontinue metronidazole. CBC and renal panel tomorrow. Add sliding-scale insulin Initiate treatment for bladder spasms Await cortisol level, add Solu-Cortef if low 12/04 The patient responded well to fluid bolus yesterday with improvement in blood pressure and urine output. Creatinine is now down to baseline at 2.6. She is still on norepinephrine 5 g. Hopefully, can wean off today. If blood pressure stays up after weaning off, we'll discontinue IV fluids. Continue to monitor in intensive care. Resume cautious diuretics soon if blood pressure is stable. Decrease sodium bicarbonate to once daily Continue aspirin for elevated troponin and possible type II. Check echocardiogram today Continue Levaquin for UTI. Increase activity as tolerated. PT OT evaluation today. 12/05 Clinically, the patient appears euvolemic but BNP is in I&O is +10 L. Weight is essentially the same as on admission, uncertain how accurate bed weights are. DC IV fluids today. DC norepinephrine. Consider restarting Bumex today. Continue Reglan and when necessary Dulcolax for ileus Can likely discontinue Levaquin after tomorrow's dose. This will be one week treatment for UTI. Continue PT OT Increase sodium bicarbonate today due to decrease in CO2 and basic metabolic profile Echocardiogram showed normal ejection fraction and was otherwise essentially normal. She does have history of diastolic heart failure 12/06 Blood pressures improving during day - decreased overnight and norepinephrine restarted. Possible secondary to GARY. Will give trial of ProAmatine at night to help BP. With need for norepinephrine overnight, do not feel ready to move to floor. Bumex restarted yesterday - Creatinine with slight increase to 2.0. Will d/c Levaquin after today's dose - has had 7 days of treatment. Bladder retraining with Starkey. Continue PT/OT to help strength.
[2017-12-06] MEDS: INSULIN ASPART 100unit/ml INJECTION SQ PRN ×3 (11:42→20:18)
[2017-12-06] MEDS: AMIODARONE 200 MG TABLET PO SCH (20:03)
[2017-12-06] MEDS: PRAMIPEXOLE 1 MG TABLET PO SCH (20:04)
[2017-12-06] MEDS: MIDODRINE 5 MG TABLET PO SCH (20:04)
[2017-12-06] MEDS: GUAIFENESIN LA 600 MG TABLET PO PRN (20:04)
[2017-12-06] MEDS: SALINE FLUSH 10ml SYRINGE IVF PRN (20:05)
[2017-12-07] MEDS: METOCLOPRAMIDE 10mg/2ml INJECTION IVP SCH ×5 (03:05→21:46)
[2017-12-07] MEDS: LEVOTHYROXINE 175 MCG TABLET PO SCH (06:03)
[2017-12-07] MEDS: BUDESONIDE INH.SOLN 0.5mg/2ml NEB AEROSOL SCH ×2 (06:50→21:25)
[2017-12-07] MEDS: ALBUTEROL/IPRATROPIUM 2.5mg-0.5mg/3ml NEB AEROSOL PRN (06:50)
[2017-12-07] MEDS: PANTOPRAZOLE 40 MG INJECTION IVP SCH ×2 (08:06→08:16)
[2017-12-07] MEDS: LEVETIRACETAM 500 MG TABLET PO SCH ×2 (08:07→21:51)
[2017-12-07] MEDS: ASPIRIN *EC* 325 MG TABLET PO SCH (08:07)
[2017-12-07] MEDS: BUMETANIDE 1 MG TABLET PO SCH ×2 (08:07→14:36)
[2017-12-07] MEDS: SODIUM BICARBONATE 650 MG TABLET PO SCH (08:08)
[2017-12-07] MEDS: BENZONATATE 100 MG CAPSULE PO SCH ×3 (08:08→21:51)
[2017-12-07] MEDS: CALCITRIOL 0.25 MCG CAPSULE PO SCH (08:08)
[2017-12-07] MEDS: PREGABALIN 100 MG CAPSULE PO SCH ×2 (08:08→22:20)
[2017-12-07] MEDS: CALCIUM 600 + VIT D 400 TABLET PO SCH ×3 (08:08→21:47)
[2017-12-07] MEDS: FLUTICASONE NASAL SPRAY 50mcg EA NOSTRIL SCH (08:10)
[2017-12-07] MEDS: SALINE FLUSH 10ml SYRINGE IVF PRN ×3 (08:26→21:47)
[2017-12-07 08:41] VITALS: BMI 48.9
--- NOTE | 2017-12-07 09:17 | Pulmonology Progress Note ---
Subjective Interval history: Pt sitting up in the chair, states her breathing is doing good. No longer with cough or yellow sputum. Exam Vital signs: Temperature 98.4 F 12/07/17 04:00 Pulse Rate 61 12/07/17 08:00 Respiratory Rate 28 H 12/07/17 06:50 Blood Pressure 96/53 12/07/17 06:00 Pulse Oximetry 96 12/07/17 06:50 - Constitutional no acute distress, morbidly obese - Routine HEENT Exam Head: Present: normocephalic, atraumatic Eye: Present: EOMI, PERRL ENT: Present: mucous membranes moist - Routine Neck Exam Present: supple, full ROM, trachea midline - Routine Respiratory Exam Present: decreased breath sounds. Absent: accessory muscle use - Routine Cardiovascular Exam Present: RRR, S1, S2, no murmur - Routine Abdominal Exam Present: soft, normoactive bowel sounds - Routine Extremities Exam Present: edema, non tender, full ROM - Routine Back/Spine/Pelvis Exam Back/Spine: Present: full ROM - Routine Skin Exam Present: intact, dry - Routine Neurological Exam Present: alert, oriented X3, CN II-XII intact - Routine Psychiatric Exam Present: normal affect, normal thought process - Urinary Catheter Management Urethral Cath placed during this visit: yes Reason for continuing: Accurate I&O/Aggressive Diuresis Insertion date: 11/30/17 Insertion time: 11:15 Assessment and Plan - Assessment and Plan Septic Shock UTI - e.coli Coronavirus - supportive care GARY - noncompliant CKD Plan: Pt currently on RA, sats 98%, off levo throughout the noc. Levaquin per primary for UTI, afebrile and no leukocytosis. On pulmicort BID, A/A QID for current RVP +, no new CXR and no wheezing at this time, Cont to follow. - Time Spent With Patient Total time spent is greater than 50% in coordination of care (as documented) at patient's floor/unit and/or counseling patient: less than 15 minutes
[2017-12-07] MEDS: INSULIN ASPART 100unit/ml INJECTION SQ PRN (10:09)
--- NOTE | 2017-12-07 10:49 | Progress Note ---
- Date 12/07/17 Subjective: F/U: Septic shock, UTI with Ecoli, cardiorenal syndrome, hypotension Doing better today. Slept alright. Did not need Levophed overnight-blood pressures maintained. Breathing feels well-not SOA or congested. Still some cough, but less sputum (clear). No n/v. Not having ab pain. Oral drive with some decrease. Stools moving, slightly loose. Ambulating better in halls. Objective Vital signs: Temperature 98.4 F 12/07/17 04:00 Pulse Rate 61 12/07/17 08:00 Respiratory Rate 28 H 12/07/17 06:50 Blood Pressure 96/53 12/07/17 06:00 Pulse Oximetry 96 12/07/17 06:50 Height/Weight/BMI: Height 1.63 m Weight 129.4 kg Body Mass Index 48.9 - Constitutional Present: well nourished, well developed, average body habitus, morbidly obese, cooperative - Routine HEENT Exam Head: Present: normocephalic, atraumatic Eye: Present: EOMI, PERRL - Routine Respiratory Exam Present: accessory muscle use - Routine Cardiovascular Exam Present: RRR, no murmur - Routine Abdominal Exam Present: soft, non distended, non tender. Absent: normoactive bowel sounds ( Decreased), guarding - Routine Extremities Exam Present: pulses intact. Absent: cyanosis, clubbing - Routine Musculoskeletal Exam Musculoskeletal: Present: no clubbing or cyanosis, normal strength - Routine Skin Exam Present: dry, warm - Routine Neurological Exam Present: alert, oriented X3, CN II-XII intact, moving all extremities, vision grossly intact, hearing grossly intact, normal speech. Absent: motor deficit, altered mental status - Routine Psychiatric Exam Present: normal affect, normal thought process, cooperative Results - Labs CBC & Chem 7: 12/07/17 04:09 12/07/17 04:09 Microbiology Results: Microbiology 11/30/17 13:18 Peripheral/Iv Start Blood Culture - Final No Growth After 5 Days 11/30/17 13:30 Peripheral/Iv Start Blood Culture - Final No Growth After 5 Days 12/03/17 12:50 Sputum, Expectorated Gram Stain - Final 12/03/17 12:50 Sputum, Expectorated Sputum Culture - Final Marybeth albicans Normal Respiratory Abril 12/02/17 04:21 Sputum, Expectorated Gram Stain - Final 12/02/17 04:21 Sputum, Expectorated Sputum Culture - Final No Growth After 2 Days 11/30/17 21:24 Urine, Cath Starkey Urine Culture - Final Escherichia coli 11/30/17 15:04 Urine, Cath Starkey Urine Culture - Final Escherichia coli 12/01/17 11:44 Sputum, Expectorated Gram Stain - Final 12/01/17 11:44 Sputum, Expectorated Sputum Culture - Final Assessment and Plan (1) Hypotension Current visit: Yes Status: Acute (2) Encephalopathy acute Current visit: Yes Status: Acute Assessment and Plan: Impression Hypotension - required norepinephrine overnight Septic shock - with normal lactate - resolved UTI with Escherichia coli - pansensitive on Levaquin Type II NSTEMI secondary to septic shock Cardiorenal syndrome - stabilized Acute kidney injury - improved Stage IV CKD Chronic diastolic heart failure Metabolic acidosis - currently on oral bicarbonate Encephalopathy - resolved Hypokalemia (POA) - resolved Ileus - on scheduled Reglan and when necessary Dulcolax suppositories Possible bladder pain - on Pyridium when necessary Diarrhea - resolved, negative GI panel Coronavirus - acute infection Chronic anemia Diabetes mellitus with peripheral neuropathy - well controlled blood sugars on when necessary insulin Obstructive sleep apnea Morbid obesity with BMI 47.5 Plan Clinically improving. BP stabilized at night. CPAP likely will help improve nocturnal BP. ProAmatine started yesterday. Continue with current Bumex for volume control - home Spironolactone, Diamox, and Metolazone not reintroduced. Potassium upper limits of normal at 4.8. Will decrease potassium supplementation to 20mEq once a day. Patient has history of HYPOKALEMIA with prior diuretic therapy. Will discontinue sodium bicarbonate as metabolic acidosis resolved. Change Protonix to oral for GERD coverage. Encouraged CPAP use at night. Patient to obtain home CPAP device for use in hospital. Will discontinue Starkey cath - monitor for retention with bladder scans. Encourage activities - continue PT/OT. Nursing to ambulate TID. Recheck BMP and Mg in am secondary to CKD and medication use. Will repeat CBC in am due to resolving sepsis. Medically stable for floor transfer. Case discussed with CM and CCU nursing. Time spent with patient care 35 minutes. DVT Prophylaxis: SCD's Resuscitation Status: Do Not Resuscitate - Time spent with patient Time with patient PN: 35 minutes - Physician Narrative Physician: Giovanny Chavarria MD Narrative: Date: 12/07/17 Time: 1045 Hospital Course Summary Disclaimer: The visit summary below is not to be considered part of the above Progress Note. Hospital Course: 11/30/17 Admission Admitted for Hypotension, septic shock, acute renal failure, encephalopathy, hypokalemia and abdominal pain/diarrhea Minimal urine output overnight, starkey catheter placed-continue to monitor. Septic shock with persistent hypotension after > 30 mL/kg bolus given in the emergency room, on Levophed. Has had over 5 L fluid at this point. Family does not wish to have central line placed. Mental status fluctuating-patient responding to questions reasonably appropriately at present. Generalized abdominal pain without focal findings on CT; IV metronidazole added for possible C. difficile colitis based on CT findings and recent antibiotics. Antibiotics expanded-vancomycin, Levaquin, and metronidazole. Repeat ABG-unclear if initial study was venous or arterial, may require BiPAP. Discussed with Dr. Swift, dehydration likely as cause of renal failure; continue to monitor with volume replacement. Critically ill-DO NOT RESUSCITATE confirmed with patient/son-DPOA. 12/01 Continue normal saline at 75 ML's per hour. Continue to monitor urine output closely. Hold off on diuretics as long as urine output continues to be good. Can restart diuretics with creatinine down to 2.6. Discussed above with Dr. Swift, sugar refinery supervisor. He would also add oral bicarbonate 650 by mouth 3 times a day for metabolic acidosis and monitor closely. Regarding elevated troponin, discussed with Dr. Spicer. She states she had normal coronaries on heart catheter 2 years ago and treadmill stress test since then which was okay. She recommends against anticoagulation because of history of GI bleed and vaginal bleeding. Will discontinue Lovenox. We'll continue to trend troponin. We'll check an EKG. We'll give aspirin daily. Continue empiric antibiotics for now. Await cultures. Continue in isolation coronavirus Repeat CBC with differential and CMP tomorrow. Check CPK regarding acute kidney injury diffuse pain. Continue to monitor blood sugars. If EKG okay, Advance diet as tolerated. 12/02 Regarding the patient's dehydration, acute kidney injury, and hypotension, she seems to be improving. BUN/creatinine are slowly improving. Urine output used to be 75-100 ML's per hour without requiring diuretics. Continue normal saline at 75 ML's per hour. Continue to monitor urine output closely. Hold off on diuretics as long as urine output continues to be good. Can restart diuretics with creatinine down to 2.6. Continue oral sodium bicarbonate for metabolic acidosis Continue aspirin for elevated troponin, possible type II [place]. Continue Levaquin for Escherichia coli UTI. Extremities are pending. Patient continues on metronidazole, await abdominal x-ray regarding abdominal pain. CT abdomen on admission showed questionable gastroenteritis. Vancomycin was discontinued after one dose. We'll check an abdominal x-ray regarding abdominal pain and possible mild distention Continue in isolation for acute coronavirus infection Repeat CBC with differential and CMP tomorrow. Replace potassium orally Continue to monitor blood sugars. 12/03 Regarding the patient's dehydration, she still appears dry at this time, and blood pressure has decreased. Decline in BUN and creatinine have plateaued. Will give a fluid bolus now and see if blood pressure improves. Continue oral sodium bicarbonate for now for metabolic acidosis, but decrease the dose. Continue aspirin for elevated troponin and possible type II Continue Levaquin for UTI. Discontinue metronidazole. CBC and renal panel tomorrow. Add sliding-scale insulin Initiate treatment for bladder spasms Await cortisol level, add Solu-Cortef if low 12/04 The patient responded well to fluid bolus yesterday with improvement in blood pressure and urine output. Creatinine is now down to baseline at 2.6. She is still on norepinephrine 5 g. Hopefully, can wean off today. If blood pressure stays up after weaning off, we'll discontinue IV fluids. Continue to monitor in intensive care. Resume cautious diuretics soon if blood pressure is stable. Decrease sodium bicarbonate to once daily Continue aspirin for elevated troponin and possible type II. Check echocardiogram today Continue Levaquin for UTI. Increase activity as tolerated. PT/OT evaluation today. 12/05 Clinically, the patient appears euvolemic but BNP is in I&O is +10 L. Weight is essentially the same as on admission, uncertain how accurate bed weights are. DC IV fluids today. DC norepinephrine. Consider restarting Bumex today. Continue Reglan and when necessary Dulcolax for ileus Can likely discontinue Levaquin after tomorrow's dose. This will be one week treatment for UTI. Continue PT OT Increase sodium bicarbonate today due to decrease in CO2 and basic metabolic profile Echocardiogram showed normal ejection fraction and was otherwise essentially normal. She does have history of diastolic heart failure 12/06 Blood pressures improving during day - decreased overnight and norepinephrine restarted. Possible secondary to GARY. Will give trial of ProAmatine at night to help BP. With need for norepinephrine overnight, do not feel ready to move to floor. Bumex restarted yesterday - Creatinine with slight increase to 2.0. Will d/c Levaquin after today's dose - has had 7 days of treatment. Bladder retraining with Starkey. Continue PT/OT to help strength. 12/07 Clinically improving. BP stabilized at night. CPAP likely will help improve nocturnal BP. ProAmatine started yesterday. Continue with current Bumex for volume control - home Spironolactone, Diamox, and Metolazone not reintroduced. Potassium upper limits of normal at 4.8. Will decrease potassium supplementation to 20mEq once a day. Patient has history of HYPOKALEMIA with prior diuretic therapy. Will discontinue sodium bicarbonate as metabolic acidosis resolved. Change Protonix to oral for GERD coverage. Encouraged CPAP use at night. Patient to obtain home CPAP device for use in hospital. Will discontinue Starkey cath - monitor for retention with bladder scans. Encourage activities - continue PT/OT. Nursing to ambulate TID. Medically stable for floor transfer.
[2017-12-07] MEDS: PRAMIPEXOLE 1 MG TABLET PO SCH (21:47)
[2017-12-07] MEDS: MIDODRINE 5 MG TABLET PO SCH (21:47)
[2017-12-07] MEDS: SIMETHICONE 125 MG CAPSULE PO PRN (21:47)
[2017-12-07] MEDS: AMIODARONE 200 MG TABLET PO SCH (21:51)
[2017-12-08] MEDS: METOCLOPRAMIDE 10mg/2ml INJECTION IVP SCH ×4 (03:58→20:16)
[2017-12-08] MEDS: LEVOTHYROXINE 175 MCG TABLET PO SCH (06:35)
[2017-12-08] MEDS: PANTOPRAZOLE 40 MG TABLET PO SCH (06:35)
[2017-12-08] MEDS: ASPIRIN *EC* 325 MG TABLET PO SCH (08:05)
[2017-12-08] MEDS: CALCIUM 600 + VIT D 400 TABLET PO SCH ×3 (08:06→20:18)
[2017-12-08] MEDS: CALCITRIOL 0.25 MCG CAPSULE PO SCH (08:06)
[2017-12-08] MEDS: BUMETANIDE 1 MG TABLET PO SCH ×2 (08:07→14:01)
[2017-12-08] MEDS: BENZONATATE 100 MG CAPSULE PO SCH ×3 (08:07→20:17)
[2017-12-08] MEDS: LEVETIRACETAM 500 MG TABLET PO SCH ×2 (08:07→20:18)
[2017-12-08] MEDS: PREGABALIN 100 MG CAPSULE PO SCH ×2 (08:07→20:16)
[2017-12-08] MEDS: FLUTICASONE NASAL SPRAY 50mcg EA NOSTRIL SCH (08:13)
[2017-12-08] MEDS: BUDESONIDE INH.SOLN 0.5mg/2ml NEB AEROSOL SCH ×2 (08:41→18:59)
[2017-12-08] MEDS: ALBUTEROL/IPRATROPIUM 2.5mg-0.5mg/3ml NEB AEROSOL PRN ×2 (08:41→18:59)
[2017-12-08] MEDS: HYDROCODONE/APAP 10 MG/325 MG TABLET PO PRN (14:01)
[2017-12-08] MEDS: INSULIN ASPART 100unit/ml INJECTION SQ PRN (14:44)
--- NOTE | 2017-12-08 15:43 | Progress Note ---
- Date 12/08/17 Subjective: The pt is a detention patient in chronically poor health who was found by the staff to have low BP 11/30/17. They report that she has been acting very fatigued and poor oral intake over the pas 3 days. In the ER, she was hypotensive and difficult to arouse. She was given 2 liters NS and narcan which mildly improved her mental status. THe son, BARBARA stated that she is a DNR /DNI and he does not wish to have any vasopressors given, only comfort measures , fluids and abx. She continued to be hypotensive and ultimately the sun agreed to vasopressors. A PIC line was placed. She was able to be weaned off the vasopressin. She was able to be transferred out of the unit and onto the floor. When seen by me today she's quite concerned because she's gained quite a bit of weight since she's been here. In actuality she's only gained about 5 kg. She did come in quite dehydrated. Her BUN and creatinine have improved. Blood pressures are great. She tells me that she does not want to go back to Dr. Spicer with would like to stay with Dr. Guzman because Dr. Spicer dehydrated or however at the same time she wants the fluid off because her weight is up. I explained to her that the weight she has put on is water weight because she came in so dehydrated. She has a normal ejection fraction with a motley dilated left ventricle with mild mitral insufficiency, mild aortic insufficiency and mild tricuspid insufficiency but her PA pressure is only 30 mmHg. Her Mattila zone that she gets on Sunday as well as her Aldactone has been on hold. We she's been on Diamox which is also on hold. She is noncompliant with his CPAP for her obstructive sleep apnea. I did explain to her how important it was to use that as it's fairly detrimental to the heart when you have obstructive sleep apnea that's not treated. She was positive for coronavirus as well as E. coli in her urine. She has been adequately treated. She currently denies shortness of breath but is getting a treatment as we speak. She denies chest pain or palpitations. She denies nausea, vomiting or abdominal pain. She complains of lower extremity edema. Objective Vital signs: Temperature 96.4 F L 12/08/17 11:30 Pulse Rate 64 02/17/18 11:30 Respiratory Rate 18 12/08/17 11:30 Blood Pressure 126/63 12/08/17 11:30 Pulse Oximetry 96 12/08/17 11:30 Height/Weight/BMI: Height 1.63 m Weight 134.5 kg Body Mass Index 48.9 Comments: Gen: alert and oriented. NAD, obese Skin: warm and dry HEENT: NC/AT PERRL, EOMI, Sclera, lids and conjunctiva wnl. MMM. OP clear. Neck: No JVD, Carotids 2+ without bruits Lungs: diminished BS. No rales or rhonchi CV: regular. 2/6 murmur. Abd: Obese, soft. +BS. NT/ND MS: 1+ edema. SCDs in place. Good strength and ROM Neuro: No focal deficits Results - Labs CBC & Chem 7: 12/08/17 03:53 12/08/17 03:53 Microbiology Results: Microbiology 11/30/17 13:18 Peripheral/Iv Start Blood Culture - Final No Growth After 5 Days 11/30/17 13:30 Peripheral/Iv Start Blood Culture - Final No Growth After 5 Days 12/03/17 12:50 Sputum, Expectorated Gram Stain - Final 12/03/17 12:50 Sputum, Expectorated Sputum Culture - Final Marybeth albicans Normal Respiratory Abril 12/02/17 04:21 Sputum, Expectorated Gram Stain - Final 12/02/17 04:21 Sputum, Expectorated Sputum Culture - Final No Growth After 2 Days 11/30/17 21:24 Urine, Cath Starkey Urine Culture - Final Escherichia coli 11/30/17 15:04 Urine, Cath Starkey Urine Culture - Final Escherichia coli 12/01/17 11:44 Sputum, Expectorated Gram Stain - Final 12/01/17 11:44 Sputum, Expectorated Sputum Culture - Final Assessment and Plan (1) Hypotension Current visit: Yes Status: Acute (2) Encephalopathy acute Current visit: Yes Status: Acute Assessment and Plan: Impression/Plan: 1. Hypotension due to sepsis -requiring norepinephrine-weaned off. -Nocturnal hypotension likely due to untreated GARY -On proamatine at night. 2. Septic shock -with normal lactate - resolved -UIT with e coli 3. UTI with Escherichia coli -completed Levaquin 4. Type II NSTEMI secondary to septic shock 5. Cardiorenal syndrome - stabilized 6. Acute kidney injury - improved 7. Stage IV CKD -Dr. Swift sees as outpt 8. Chronic diastolic heart failure -Normal EF, Normal PAP -Likely related to untreated GARY -Will likely not rid her of LE edema without taking out her kidneys, she would benefit from CPAP 9. Ileus - Resolved. 10. Encephalopathy - resolved 11. Hypokalemia (POA) - resolved 12. GERD - Protonix 13. Possible bladder pain - on Pyridium when necessary 14. Coronavirus - acute infection -Improving resp status 15. Chronic anemia -Stable 16. Diabetes mellitus with peripheral neuropathy -Back on Janumet, good readings. 18. Obstructive sleep apnea -non compliant with CPAP -Imperative that she get complaint with this 19. Morbid obesity with BMI 47.5 20. Prophylaxis -PPI and Heparin - Physician Narrative Narrative: Date: 12/08/17 Time: 1536 Hospital Course Summary Disclaimer: The visit summary below is not to be considered part of the above Progress Note. Hospital Course: 11/30/17 Admission Admitted for Hypotension, septic shock, acute renal failure, encephalopathy, hypokalemia and abdominal pain/diarrhea Minimal urine output overnight, starkey catheter placed-continue to monitor. Septic shock with persistent hypotension after > 30 mL/kg bolus given in the emergency room, on Levophed. Has had over 5 L fluid at this point. Family does not wish to have central line placed. Mental status fluctuating-patient responding to questions reasonably appropriately at present. Generalized abdominal pain without focal findings on CT; IV metronidazole added for possible C. difficile colitis based on CT findings and recent antibiotics. Antibiotics expanded-vancomycin, Levaquin, and metronidazole. Repeat ABG-unclear if initial study was venous or arterial, may require BiPAP. Discussed with Dr. Swift, dehydration likely as cause of renal failure; continue to monitor with volume replacement. Critically ill-DO NOT RESUSCITATE confirmed with patient/son-DPOA. 12/01 Continue normal saline at 75 ML's per hour. Continue to monitor urine output closely. Hold off on diuretics as long as urine output continues to be good. Can restart diuretics with creatinine down to 2.6. Discussed above with Dr. Swift, administrator social welfare. He would also add oral bicarbonate 650 by mouth 3 times a day for metabolic acidosis and monitor closely. Regarding elevated troponin, discussed with Dr. pSicer. She states she had normal coronaries on heart catheter 2 years ago and treadmill stress test since then which was okay. She recommends against anticoagulation because of history of GI bleed and vaginal bleeding. Will discontinue Lovenox. We'll continue to trend troponin. We'll check an EKG. We'll give aspirin daily. Continue empiric antibiotics for now. Await cultures. Continue in isolation coronavirus Repeat CBC with differential and CMP tomorrow. Check CPK regarding acute kidney injury diffuse pain. Continue to monitor blood sugars. If EKG okay, Advance diet as tolerated. 12/02 Regarding the patient's dehydration, acute kidney injury, and hypotension, she seems to be improving. BUN/creatinine are slowly improving. Urine output used to be 75-100 ML's per hour without requiring diuretics. Continue normal saline at 75 ML's per hour. Continue to monitor urine output closely. Hold off on diuretics as long as urine output continues to be good. Can restart diuretics with creatinine down to 2.6. Continue oral sodium bicarbonate for metabolic acidosis Continue aspirin for elevated troponin, possible type II RI. Continue Levaquin for Escherichia coli UTI. Extremities are pending. Patient continues on metronidazole, await abdominal x-ray regarding abdominal pain. CT abdomen on admission showed questionable gastroenteritis. Vancomycin was discontinued after one dose. We'll check an abdominal x-ray regarding abdominal pain and possible mild distention Continue in isolation for acute coronavirus infection Repeat CBC with differential and CMP tomorrow. Replace potassium orally Continue to monitor blood sugars. 12/03 Regarding the patient's dehydration, she still appears dry at this time, and blood pressure has decreased. Decline in BUN and creatinine have plateaued. Will give a fluid bolus now and see if blood pressure improves. Continue oral sodium bicarbonate for now for metabolic acidosis, but decrease the dose. Continue aspirin for elevated troponin and possible type II Continue Levaquin for UTI. Discontinue metronidazole. CBC and renal panel tomorrow. Add sliding-scale insulin Initiate treatment for bladder spasms Await cortisol level, add Solu-Cortef if low 12/04 The patient responded well to fluid bolus yesterday with improvement in blood pressure and urine output. Creatinine is now down to baseline at 2.6. She is still on norepinephrine 5 g. Hopefully, can wean off today. If blood pressure stays up after weaning off, we'll discontinue IV fluids. Continue to monitor in intensive care. Resume cautious diuretics soon if blood pressure is stable. Decrease sodium bicarbonate to once daily Continue aspirin for elevated troponin and possible type II. Check echocardiogram today Continue Levaquin for UTI. Increase activity as tolerated. PT/OT evaluation today. 12/05 Clinically, the patient appears euvolemic but BNP is in I&O is +10 L. Weight is essentially the same as on admission, uncertain how accurate bed weights are. DC IV fluids today. DC norepinephrine. Consider restarting Bumex today. Continue Reglan and when necessary Dulcolax for ileus Can likely discontinue Levaquin after tomorrow's dose. This will be one week treatment for UTI. Continue PT OT Increase sodium bicarbonate today due to decrease in CO2 and basic metabolic profile Echocardiogram showed normal ejection fraction and was otherwise essentially normal. She does have history of diastolic heart failure 12/06 Blood pressures improving during day - decreased overnight and norepinephrine restarted. Possible secondary to GARY. Will give trial of ProAmatine at night to help BP. With need for norepinephrine overnight, do not feel ready to move to floor. Bumex restarted yesterday - Creatinine with slight increase to 2.0. Will d/c Levaquin after today's dose - has had 7 days of treatment. Bladder retraining with Starkey. Continue PT/OT to help strength. 12/07 Clinically improving. BP stabilized at night. CPAP likely will help improve nocturnal BP. ProAmatine started yesterday. Continue with current Bumex for volume control - home Spironolactone, Diamox, and Metolazone not reintroduced. Potassium upper limits of normal at 4.8. Will decrease potassium supplementation to 20mEq once a day. Patient has history of HYPOKALEMIA with prior diuretic therapy. Will discontinue sodium bicarbonate as metabolic acidosis resolved. Change Protonix to oral for GERD coverage. Encouraged CPAP use at night. Patient to obtain home CPAP device for use in hospital. Will discontinue Starkey cath - monitor for retention with bladder scans. Encourage activities - continue PT/OT. Nursing to ambulate TID. Medically stable for floor transfer.
[2017-12-08] MEDS: AMIODARONE 200 MG TABLET PO SCH (20:16)
[2017-12-08] MEDS: SALINE FLUSH 10ml SYRINGE IVF PRN (20:16)
[2017-12-08] MEDS: MIDODRINE 5 MG TABLET PO SCH (20:18)
[2017-12-08] MEDS: PRAMIPEXOLE 1 MG TABLET PO SCH (20:19)
[2017-12-09] MEDS: METOCLOPRAMIDE 10mg/2ml INJECTION IVP SCH ×4 (03:57→20:46)
[2017-12-09] MEDS: LEVOTHYROXINE 175 MCG TABLET PO SCH (05:55)
[2017-12-09] MEDS: PANTOPRAZOLE 40 MG TABLET PO SCH (05:55)
[2017-12-09] MEDS: ASPIRIN *EC* 325 MG TABLET PO SCH (08:24)
[2017-12-09] MEDS: PREGABALIN 100 MG CAPSULE PO SCH ×2 (08:24→20:49)
[2017-12-09] MEDS: CALCIUM 600 + VIT D 400 TABLET PO SCH ×3 (08:25→20:47)
[2017-12-09] MEDS: BUMETANIDE 1 MG TABLET PO SCH ×2 (08:25→14:37)
[2017-12-09] MEDS: BENZONATATE 100 MG CAPSULE PO SCH ×3 (08:25→20:48)
[2017-12-09] MEDS: CALCITRIOL 0.25 MCG CAPSULE PO SCH (08:25)
[2017-12-09] MEDS: FLUTICASONE NASAL SPRAY 50mcg EA NOSTRIL SCH (08:25)
[2017-12-09] MEDS: LEVETIRACETAM 500 MG TABLET PO SCH ×2 (08:26→20:49)
[2017-12-09] MEDS: BUDESONIDE INH.SOLN 0.5mg/2ml NEB AEROSOL SCH ×2 (09:10→19:55)
[2017-12-09] MEDS: INSULIN ASPART 100unit/ml INJECTION SQ PRN (14:47)
[2017-12-09] MEDS ORDERED: DOCUSATE SODIUM 100 MG CAPSULE PO PRN (15:00)
--- NOTE | 2017-12-09 15:01 | Progress Note ---
- Date 12/09/17 Subjective: The pt is a longterm patient in chronically poor health who was found by the staff to have low BP 11/30/17. They report that she has been acting very fatigued and poor oral intake over the pas 3 days. In the ER, she was hypotensive and difficult to arouse. She was given 2 liters NS and narcan which mildly improved her mental status. THe son, BARBARA stated that she is a DNR /DNI and he does not wish to have any vasopressors given, only comfort measures , fluids and abx. She continued to be hypotensive and ultimately the sun agreed to vasopressors. A PIC line was placed. She was able to be weaned off the vasopressin. She was able to be transferred out of the unit and onto the floor. When seen by me today she's quite concerned because she's gained quite a bit of weight since she's been here. In actuality she's only gained about 5 kg. She did come in quite dehydrated. Her BUN and creatinine have improved. Blood pressures are great. She tells me that she does not want to go back to Dr. Spicer with would like to stay with Dr. Guzman because Dr. Spicer dehydrated or however at the same time she wants the fluid off because her weight is up. I explained to her that the weight she has put on is water weight because she came in so dehydrated. She has a normal ejection fraction with a motley dilated left ventricle with mild mitral insufficiency, mild aortic insufficiency and mild tricuspid insufficiency but her PA pressure is only 30 mmHg. Her Mattila zone that she gets on Sunday as well as her Aldactone has been on hold. We she's been on Diamox which is also on hold. She is noncompliant with his CPAP for her obstructive sleep apnea. I did explain to her how important it was to use that as it's fairly detrimental to the heart when you have obstructive sleep apnea that's not treated. She was positive for coronavirus as well as E. coli in her urine. She has been adequately treated. She currently denies shortness of breath but is getting a treatment as we speak. She denies chest pain or palpitations. She denies nausea, vomiting or abdominal pain. She complains of lower extremity edema. Today she is feeling better. She requires a lot of motivation to get up and around. The nurse today is very motivating and did get her to walk to the end of the bello and set out in the chair. She denies lightheadedness or dizziness. Denies headache. She feels she's breathing fine today. She is maintaining well on room air. She denies nausea, vomiting or abdominal pain. Her bowels are working. She does complain of weakness as well as some dyspnea on exertion. She continues to complain that her legs are puffy. Her weight is down to kilos today so she's quite happy about that. Her kidney function is stable. Objective Vital signs: Temperature 96.6 F L 12/09/17 12:00 Pulse Rate 69 12/09/17 12:00 Respiratory Rate 18 12/09/17 12:00 Blood Pressure 105/59 12/09/17 12:00 Pulse Oximetry 97 12/09/17 12:00 Height/Weight/BMI: Height 1.63 m Weight 131.5 kg Body Mass Index 48.9 Comments: Gen: alert and oriented. NAD, obese Skin: warm and dry HEENT: NC/AT PERRL, EOMI, Sclera, lids and conjunctiva wnl. MMM. OP clear. Neck: No JVD, Carotids 2+ without bruits Lungs: diminished BS. No rales or rhonchi CV: regular. 2/6 murmur. Abd: Obese, soft. +BS. NT/ND MS: 1+ edema. SCDs in place. Good strength and ROM Neuro: No focal deficits Results - Labs CBC & Chem 7: 12/09/17 04:11 12/09/17 04:11 Microbiology Results: Microbiology 11/30/17 13:18 Peripheral/Iv Start Blood Culture - Final No Growth After 5 Days 11/30/17 13:30 Peripheral/Iv Start Blood Culture - Final No Growth After 5 Days 12/03/17 12:50 Sputum, Expectorated Gram Stain - Final 12/03/17 12:50 Sputum, Expectorated Sputum Culture - Final Marybeth albicans Normal Respiratory Abril 12/02/17 04:21 Sputum, Expectorated Gram Stain - Final 12/02/17 04:21 Sputum, Expectorated Sputum Culture - Final No Growth After 2 Days 11/30/17 21:24 Urine, Cath Starkey Urine Culture - Final Escherichia coli 11/30/17 15:04 Urine, Cath Starkey Urine Culture - Final Escherichia coli 12/01/17 11:44 Sputum, Expectorated Gram Stain - Final 12/01/17 11:44 Sputum, Expectorated Sputum Culture - Final Assessment and Plan (1) Hypotension Current visit: Yes Status: Acute (2) Encephalopathy acute Current visit: Yes Status: Acute Assessment and Plan: Impression/Plan: 1. Hypotension due to sepsis -requiring norepinephrine-weaned off. -Nocturnal hypotension likely due to untreated GARY -On ProAmatine at night. 2. Septic shock -with normal lactate - resolved -UIT with e coli-treated 3. UTI with Escherichia coli -completed Levaquin 4. Type II NSTEMI secondary to septic shock 5. Cardiorenal syndrome - stabilized 6. Acute kidney injury - improved 7. Stage IV CKD -Dr. Swift sees as outpt 8. Chronic diastolic heart failure -Normal EF, Normal PAP -Likely related to untreated GARY -Will likely not rid her of LE edema without taking out her kidneys, she would benefit from CPAP 9. Ileus - Resolved. 10. Encephalopathy - resolved 11. Hypokalemia (POA) - resolved 12. GERD - Protonix 13. Possible bladder pain - on Pyridium when necessary 14. Coronavirus - acute infection -Improving resp status -On RA 15. Chronic anemia -Stable 16. Diabetes mellitus with peripheral neuropathy -Back on Janumet, good readings. 18. Obstructive sleep apnea -non compliant with CPAP -Imperative that she get complaint with this 19. Morbid obesity with BMI 47.5 20. Prophylaxis -PPI and Heparin - Physician Narrative Narrative: Date: 12/09/17 Time: 1457 Hospital Course Summary Disclaimer: The visit summary below is not to be considered part of the above Progress Note. Hospital Course: 11/30/17 Admission Admitted for Hypotension, septic shock, acute renal failure, encephalopathy, hypokalemia and abdominal pain/diarrhea Minimal urine output overnight, starkey catheter placed-continue to monitor. Septic shock with persistent hypotension after > 30 mL/kg bolus given in the emergency room, on Levophed. Has had over 5 L fluid at this point. Family does not wish to have central line placed. Mental status fluctuating-patient responding to questions reasonably appropriately at present. Generalized abdominal pain without focal findings on CT; IV metronidazole added for possible C. difficile colitis based on CT findings and recent antibiotics. Antibiotics expanded-vancomycin, Levaquin, and metronidazole. Repeat ABG-unclear if initial study was venous or arterial, may require BiPAP. Discussed with Dr. Swift, dehydration likely as cause of renal failure; continue to monitor with volume replacement. Critically ill-DO NOT RESUSCITATE confirmed with patient/son-DPOA. 12/01 Continue normal saline at 75 ML's per hour. Continue to monitor urine output closely. Hold off on diuretics as long as urine output continues to be good. Can restart diuretics with creatinine down to 2.6. Discussed above with Dr. Swift, sand sifter. He would also add oral bicarbonate 650 by mouth 3 times a day for metabolic acidosis and monitor closely. Regarding elevated troponin, discussed with Dr. Spicer. She states she had normal coronaries on heart catheter 2 years ago and treadmill stress test since then which was okay. She recommends against anticoagulation because of history of GI bleed and vaginal bleeding. Will discontinue Lovenox. We'll continue to trend troponin. We'll check an EKG. We'll give aspirin daily. Continue empiric antibiotics for now. Await cultures. Continue in isolation coronavirus Repeat CBC with differential and CMP tomorrow. Check CPK regarding acute kidney injury diffuse pain. Continue to monitor blood sugars. If EKG okay, Advance diet as tolerated. 12/02 Regarding the patient's dehydration, acute kidney injury, and hypotension, she seems to be improving. BUN/creatinine are slowly improving. Urine output used to be 75-100 ML's per hour without requiring diuretics. Continue normal saline at 75 ML's per hour. Continue to monitor urine output closely. Hold off on diuretics as long as urine output continues to be good. Can restart diuretics with creatinine down to 2.6. Continue oral sodium bicarbonate for metabolic acidosis Continue aspirin for elevated troponin, possible type II HI. Continue Levaquin for Escherichia coli UTI. Extremities are pending. Patient continues on metronidazole, await abdominal x-ray regarding abdominal pain. CT abdomen on admission showed questionable gastroenteritis. Vancomycin was discontinued after one dose. We'll check an abdominal x-ray regarding abdominal pain and possible mild distention Continue in isolation for acute coronavirus infection Repeat CBC with differential and CMP tomorrow. Replace potassium orally Continue to monitor blood sugars. 12/03 Regarding the patient's dehydration, she still appears dry at this time, and blood pressure has decreased. Decline in BUN and creatinine have plateaued. Will give a fluid bolus now and see if blood pressure improves. Continue oral sodium bicarbonate for now for metabolic acidosis, but decrease the dose. Continue aspirin for elevated troponin and possible type II Continue Levaquin for UTI. Discontinue metronidazole. CBC and renal panel tomorrow. Add sliding-scale insulin Initiate treatment for bladder spasms Await cortisol level, add Solu-Cortef if low 12/04 The patient responded well to fluid bolus yesterday with improvement in blood pressure and urine output. Creatinine is now down to baseline at 2.6. She is still on norepinephrine 5 g. Hopefully, can wean off today. If blood pressure stays up after weaning off, we'll discontinue IV fluids. Continue to monitor in intensive care. Resume cautious diuretics soon if blood pressure is stable. Decrease sodium bicarbonate to once daily Continue aspirin for elevated troponin and possible type II. Check echocardiogram today Continue Levaquin for UTI. Increase activity as tolerated. PT/OT evaluation today. 12/05 Clinically, the patient appears euvolemic but BNP is in I&O is +10 L. Weight is essentially the same as on admission, uncertain how accurate bed weights are. DC IV fluids today. DC norepinephrine. Consider restarting Bumex today. Continue Reglan and when necessary Dulcolax for ileus Can likely discontinue Levaquin after tomorrow's dose. This will be one week treatment for UTI. Continue PT OT Increase sodium bicarbonate today due to decrease in CO2 and basic metabolic profile Echocardiogram showed normal ejection fraction and was otherwise essentially normal. She does have history of diastolic heart failure 12/06 Blood pressures improving during day - decreased overnight and norepinephrine restarted. Possible secondary to GARY. Will give trial of ProAmatine at night to help BP. With need for norepinephrine overnight, do not feel ready to move to floor. Bumex restarted yesterday - Creatinine with slight increase to 2.0. Will d/c Levaquin after today's dose - has had 7 days of treatment. Bladder retraining with Starkey. Continue PT/OT to help strength. 12/07 Clinically improving. BP stabilized at night. CPAP likely will help improve nocturnal BP. ProAmatine started yesterday. Continue with current Bumex for volume control - home Spironolactone, Diamox, and Metolazone not reintroduced. Potassium upper limits of normal at 4.8. Will decrease potassium supplementation to 20mEq once a day. Patient has history of HYPOKALEMIA with prior diuretic therapy. Will discontinue sodium bicarbonate as metabolic acidosis resolved. Change Protonix to oral for GERD coverage. Encouraged CPAP use at night. Patient to obtain home CPAP device for use in hospital. Will discontinue Starkey cath - monitor for retention with bladder scans. Encourage activities - continue PT/OT. Nursing to ambulate TID. Medically stable for floor transfer.
[2017-12-09] MEDS: AMIODARONE 200 MG TABLET PO SCH (20:47)
[2017-12-09] MEDS: PRAMIPEXOLE 1 MG TABLET PO SCH (20:47)
[2017-12-09] MEDS: MIDODRINE 5 MG TABLET PO SCH (20:49)
[2017-12-10] MEDS: METOCLOPRAMIDE 10mg/2ml INJECTION IVP SCH ×2 (03:06→08:30)
[2017-12-10] MEDS: PANTOPRAZOLE 40 MG TABLET PO SCH (06:19)
[2017-12-10] MEDS: LEVOTHYROXINE 175 MCG TABLET PO SCH (06:19)
[2017-12-10 07:26] VITALS: RESP 18
[2017-12-10] MEDS: LEVETIRACETAM 500 MG TABLET PO SCH (08:31)
[2017-12-10] MEDS: BUMETANIDE 1 MG TABLET PO SCH ×2 (08:31→13:27)
[2017-12-10] MEDS: BENZONATATE 100 MG CAPSULE PO SCH (08:31)
[2017-12-10] MEDS: PREGABALIN 100 MG CAPSULE PO SCH (08:31)
[2017-12-10] MEDS: ASPIRIN *EC* 325 MG TABLET PO SCH (08:31)
[2017-12-10] MEDS: CALCITRIOL 0.25 MCG CAPSULE PO SCH (08:31)
[2017-12-10] MEDS: CALCIUM 600 + VIT D 400 TABLET PO SCH (08:31)
[2017-12-10] MEDS: FLUTICASONE NASAL SPRAY 50mcg EA NOSTRIL SCH (08:32)
--- NOTE | 2017-12-10 09:53 | Pulmonology Progress Note ---
Subjective Interval history: Pt in bed, walked the halls this am and did have some SOB but states she hasn't walked that far in a while. Minimal cough and sputum noted, wanting to go home. Exam Vital signs: Temperature 96.6 F L 12/10/17 07:00 Pulse Rate 61 12/10/17 07:00 Respiratory Rate 18 12/10/17 07:00 Blood Pressure 109/61 12/10/17 07:00 Pulse Oximetry 93 12/10/17 07:00 - Constitutional no acute distress, morbidly obese, cooperative - Routine HEENT Exam Head: Present: normocephalic, atraumatic Eye: Present: EOMI, PERRL ENT: Present: mucous membranes moist - Routine Neck Exam Present: supple, full ROM, trachea midline - Routine Respiratory Exam Present: decreased breath sounds. Absent: accessory muscle use, patient mechanically ventilated - Routine Cardiovascular Exam Present: RRR, S1, S2, no murmur - Routine Abdominal Exam Present: soft, normoactive bowel sounds - Routine Extremities Exam Present: edema, non tender, full ROM - Routine Back/Spine/Pelvis Exam Back/Spine: Present: full ROM - Routine Skin Exam Present: intact, dry - Routine Neurological Exam Present: alert, oriented X3, CN II-XII intact - Routine Psychiatric Exam Present: normal affect, normal thought process - Urinary Catheter Management Urethral Cath placed during this visit: yes, but has since been removed by the nurse Urethral indwelling: No Insertion date: 11/30/17 Insertion time: 11:15 Removal date: 12/07/17 Removal time: 11:19 Assessment and Plan - Assessment and Plan Septic Shock UTI - e.coli Coronavirus - supportive care GARY - noncompliant CKD Plan: Pt currently on RA, sats 93-96%. S/p Levaquin for UTI, afebrile and no leukocytosis. On pulmicort BID, A/A QID for current RVP +, no wheezing and cough improved at this time, Cont to follow. Highly encouraged use of her Cpap at the [facility] home as this would help overall. Ok to dismiss per pulm when ok by primary. - Time Spent With Patient Total time spent is greater than 50% in coordination of care (as documented) at patient's floor/unit and/or counseling patient: less than 15 minutes
[2017-12-10] MEDS: BUDESONIDE INH.SOLN 0.5mg/2ml NEB AEROSOL SCH (10:38)
[2017-12-10 11:22] VITALS: BP 137/78; PULSE 63; TEMP 96.5; O2SAT 99
--- NOTE | 2017-12-10 14:30 | Extended Care Facility Orders ---
Admission Orders Allergies/Adverse Reactions: Allergies Estrogens Allergy (Mild, Verified 11/30/17 01:30) RASH morphine Allergy (Mild, Verified 11/30/17 01:30) RASH niacin Allergy (Mild, Verified 11/30/17 01:30) RASH amoxicillin Allergy (Unknown, Verified 11/30/17 01:30) RASH fentanyl Allergy (Unknown, Verified 11/30/17 01:30) rash Admitting Diagnosis: septic shock, he hydration, acute kidney injury Admitting Physician: Muna Yañez MD Attending Physician: Muna Yañez MD Code Status: Do Not Resuscitate Anticiapted Length of Stay: 30 days or less Rehab Potential: good Rehab Prognosis: good Diet: 12/10/17 Lunch Cardiac Consistent Carbohydrate Diet [DIET] Calorie Level: 2000 Sodium Restriction: 2GRAM Fat Content: LOW 2-2.5 L fluid restriction Wound/Incision Care: Aquacell AG with Mepilex dressing to left powers wound. Change dressing on Mondays and . Dressing last changed on 12/10/2017. Follow-up at the wound care clinic in 2 weeks. May use Facility Protocol or Standing Orders: Yes May have flu vaccine: Yes Evaluations/Treatment: PT, OT Assisted Certification: I certify that SNF services are required to be given on an Inpatient basis because of the patients need for alf care on a continuing basis for the condition(s) for which he/she received inpatient hospital services prior to his/her transfer to the SNF. SNF inpatient care is necessary for the following reasons Indication for Assisted: Wound Care/Assessment, Diabetic Assessment, Med Admininistration, Teach CHF - Additional Information Resident is Aware of Diagnosis: Yes Referrals: Luis Guzman MD [Physician] - 2 Weeks Yan Hitchcock MD [Family Provider] - 3 Days Johnny Swift MD [Physician] - 1 Week Additional Orders: Accu-Cheks fasting and 2 hours postprandial. Use CPAP at night. No water in CPAP daily. Make sure CPAP is clean.
[2017-12-10] MEDS ORDERED: NEOMYCIN/POLYMYXIN/BACITRACIN OINT PACKET TP ONE (14:34)
--- NOTE | 2017-12-10 14:40 | Discharge Summary ---
Discharge Information Date of admission: 11/30/17 01:39 Anticipated date of discharge: 12/10/17 Attending Physician: Muna Yañez MD Primary care physician: Yan Hitchcock MD Consults: 11/30/17 05:18 W[facility]in [facility] Consult [CONS] Routine 11/30/17 14:56 Doctor [Physician Consult] [CONS] Routine Consulting Provider: Nanette Smith Reason For Exam: PLACEMENT Ordering Provider has Notified Yard Operator: Yes 11/30/17 16:37 Physician Consult [CONS] Routine Consulting Provider: Simba Leslie Reason For Exam: refractory hypotension Ordering Provider has Notified Yard Operator: Yes 12/06/17 13:16 Dietary Consult [CONS] Routine Comment: Reason For Exam: - Discharge Diagnosis (1) Hypotension Status: Acute (2) Encephalopathy acute Status: Acute Hypotension - required norepinephrine overnight Septic shock - with normal lactate - resolved UTI with Escherichia coli - pansensitive on Levaquin Type II NSTEMI secondary to septic shock Cardiorenal syndrome - stabilized Acute kidney injury - improved Dehydration on admission Stage IV CKD Chronic diastolic heart failure Metabolic acidosis - currently on oral bicarbonate Encephalopathy - resolved Hypokalemia (POA) - resolved Ileus - on scheduled Reglan and when necessary Dulcolax suppositories Possible bladder pain - on Pyridium when necessary Diarrhea - resolved, negative GI panel Coronavirus - acute infection Chronic anemia Diabetes mellitus with peripheral neuropathy - well controlled blood sugars on when necessary insulin Obstructive sleep apnea Morbid obesity with BMI 47.5 - Laboratory Labs: 12/10/17 04:35 12/10/17 04:35 Laboratory Tests 11/29/17 11/30/17 11/30/17 23:44 00:14 01:02 WBC RBC Hgb Hct Plt Count ABG pH ABG pCO2 ABG pO2 ABG HCO3 ABG Total CO2 ABG O2 Saturation ABG Base Excess Sodium 135 Potassium 3.5 L Chloride 95 L Carbon Dioxide 28 Anion Gap 12 BUN 89.0 H* Creatinine 3.5 H GFR Calculation 13 BUN/Creatinine Ratio 25 Glucose 109 Calculated Osmolality 288 H Calcium 9.0 Creatine Kinase Troponin I 0.016 B-Natriuretic Peptide 1870 H Plasma Lactate 0.9 Procalcitonin TSH Cortisol AM Sample Coronavirus OC43 (PCR) Detected A Coronavirus NL63 (PCR) Detected A 11/30/17 11/30/17 11/30/17 05:03 05:03 05:03 WBC 18.6 H RBC 3.16 L Hgb 9.3 L D Hct 30.6 L Plt Count 131 ABG pH ABG pCO2 ABG pO2 ABG HCO3 ABG Total CO2 ABG O2 Saturation ABG Base Excess Sodium Potassium Chloride Carbon Dioxide Anion Gap BUN Creatinine GFR Calculation BUN/Creatinine Ratio Glucose Calculated Osmolality Calcium Creatine Kinase Troponin I B-Natriuretic Peptide Plasma Lactate 0.9 Procalcitonin TSH 4.30 Cortisol AM Sample Coronavirus OC43 (PCR) Coronavirus NL63 (PCR) 11/30/17 11/30/17 11/30/17 16:00 16:05 22:20 WBC RBC Hgb Hct Plt Count ABG pH 7.320 L ABG pCO2 40 ABG pO2 89 ABG HCO3 21 L ABG Total CO2 21.8 L ABG O2 Saturation 96.0 ABG Base Excess -5.2 L Sodium Potassium Chloride Carbon Dioxide Anion Gap BUN Creatinine GFR Calculation BUN/Creatinine Ratio Glucose Calculated Osmolality Calcium Creatine Kinase Troponin I 0.436 H D 0.582 H B-Natriuretic Peptide Plasma Lactate Procalcitonin TSH Cortisol AM Sample Coronavirus OC43 (PCR) Coronavirus NL63 (PCR) 12/01/17 12/01/17 12/01/17 04:30 04:30 04:30 WBC RBC Hgb Hct Plt Count ABG pH ABG pCO2 ABG pO2 ABG HCO3 ABG Total CO2 ABG O2 Saturation ABG Base Excess Sodium Potassium Chloride Carbon Dioxide Anion Gap BUN Creatinine GFR Calculation BUN/Creatinine Ratio Glucose Calculated Osmolality Calcium Creatine Kinase 571 H Troponin I 0.642 H B-Natriuretic Peptide Plasma Lactate Procalcitonin 51.76 H* TSH Cortisol AM Sample Coronavirus OC43 (PCR) Coronavirus NL63 (PCR) 12/01/17 12/02/17 10:01 08:55 WBC RBC Hgb Hct Plt Count ABG pH ABG pCO2 ABG pO2 ABG HCO3 ABG Total CO2 ABG O2 Saturation ABG Base Excess Sodium Potassium Chloride Carbon Dioxide Anion Gap BUN Creatinine GFR Calculation BUN/Creatinine Ratio Glucose Calculated Osmolality Calcium Creatine Kinase Troponin I 0.592 H B-Natriuretic Peptide Plasma Lactate Procalcitonin TSH Cortisol AM Sample 15 Coronavirus OC43 (PCR) Coronavirus NL63 (PCR) - Microbiology Microbiology 11/30/17 13:18 Peripheral/Iv Start Blood Culture - Final No Growth After 5 Days 11/30/17 13:30 Peripheral/Iv Start Blood Culture - Final No Growth After 5 Days 12/03/17 12:50 Sputum, Expectorated Gram Stain - Final 12/03/17 12:50 Sputum, Expectorated Sputum Culture - Final Marybeth albicans Normal Respiratory Abril 12/02/17 04:21 Sputum, Expectorated Gram Stain - Final 12/02/17 04:21 Sputum, Expectorated Sputum Culture - Final No Growth After 2 Days 11/30/17 21:24 Urine, Cath Posada Urine Culture - Final Escherichia coli 11/30/17 15:04 Urine, Cath Posada Urine Culture - Final Escherichia coli 12/01/17 11:44 Sputum, Expectorated Gram Stain - Final 12/01/17 11:44 Sputum, Expectorated Sputum Culture - Final UTI with Escherichia coli sensitive to all antibiotics tested - Pathology Chest x-ray on 11/29/2017 showed stable appearance of the chest without acute cardiopulmonary disease CT head on 11/30/2017 showed no acute intracranial abnormality or hemorrhage CT abdomen on 11/30/2017 showed possible gastroenteritis, otherwise no acute disease process is seen. She had a large amount of stool throughout the colon. Chest x-ray 11/30/2017 showed right PICC line tip projects over the mid SVC Abdominal x-ray 12/02/2017 shows some air-filled loops of nondilated large and small bowel which may represent a generalized ileus pattern Chest x-ray 12/03/2017 shows cardiomegaly, right-sided PICC line is in place. Mild central pulmonary vascular prominence without evidence for failure. KUB 12/03/2017 shows gaseous distention of multiple loops of large and small bowel which may represent a generalized ileus pattern. Echocardiogram Date of Exam: 12/04/17 Type of Exam(s): US echo doppler complete DATE OF PROCEDURE December 04, 2017 This is a two-dimensional echo with spectral Doppler, color-flow and M-mode. It was obtained in a patient with elevated troponin. Left atrial dimension is normal. Left ventricular end-diastolic dimension is mildly increased. LV systolic function is normal with ejection fraction of about 55%. Right atrium is normal. Right ventricle is normal. Aortic root dimension is normal. Mitral valve is morphologically normal with mild mitral regurgitation. Aortic valve is a trileaflet structure with no stenosis. Mild aortic insufficiency is present. Tricuspid valve shows mild tricuspid regurgitation with normal estimated pulmonary artery systolic pressure of 30. Pulmonary valve shows trace of pulmonary insufficiency. There is no pericardial effusion. IMPRESSION 1. Normal LV systolic function with ejection fraction of 55%. 2. Mild left ventricular dilation. 3. Mild mitral regurgitation. 4. Mild aortic insufficiency. 5. Mild tricuspid regurgitation with normal estimated pulmonary artery systolic pressure of 30. 6. Trace of pulmonary insufficiency. History of Present Illness HPI: Fabiano HPI The pt is a [facility] patient in chronically poor health who was found by the staff to have low BP today. They report that she has been acting very fatigued and poor oral intake over the pas 3 days. In the ER, she was hypotensive and difficult to arouse. She was given 2 liters NS and narcan which mildly improved her mental status. THe son, BARBARA stated that she is a DNR /DNI and he does not wish to have any vasopressors given, only comfort measures , fluids and abx. During my interview, she was not able to answer my questions. Dr. Shrestha HPI Mrs. Rodgers is a 67-year-old female with multiple chronic medical problems well known to the hospital medicine service. EMS was contacted yesterday evening and after the patient was found hypotensive with decreased mental status. She was described as having increasing weakness through the day, fatigue, somnolence, and lethargy. Temperature of 100.4 was reported in addition to decreased appetite. Blood pressure when EMS arrived was 44/20. She was placed in Trendelenburg and IV fluids were initiated. On arrival in the emergency room blood pressure was 62/35. She received 2 A of Narcan per EMS without change as she was described as seeming "drugged" by the patient's DPOA who was on the EMS crew that the patient up. High volume fluid replacement was initiated. She had 2 loose stools in the emergency room one additional stool after arrival in the emergency room. She was subsequently admitted to the ICU. Lactic acid was low and temperature was 99.4 on arrival in the emergency room. Initially family indicated DO NOT RESUSCITATE order with no pressors to be utilized. Subsequently they have elected to initiate Levophed but do not want a central line placed. Objective Vital signs: Temperature 96.5 F L 12/10/17 11:00 Pulse Rate 63 12/10/17 11:00 Respiratory Rate 18 12/10/17 11:00 Blood Pressure 137/78 12/10/17 11:00 Pulse Oximetry 99 12/10/17 11:00 Height/Weight/BMI: Height 1.63 m Weight 132.9 kg Body Mass Index 48.9 Comments: On the day of discharge she is afebrile. Pulse 63. Respirations 18. Blood pressure 137/78. O2 sat is 99% on room air. Weight is 132.9 kg. The patient appears euvolemic. On exam the patient is alert and oriented and in no acute distress. HEENT reveals sclerae to be anicteric and pupils are equal. Oropharynx is moist. Neck is supple. No JVD. Chest is clear to auscultation without wheezes or rhonchi. No crackles. Vascular reveals a regular rate and rhythm without murmur. Abdomen is soft, obese, nontender with positive bowel sounds. Extremities reveal +1 pretibial edema. It is warm and dry. She does have a dressing on a wound on her left anterior powers. Hospital Course This is a general summary of the patient's hospital course. For more details refer to the complete medical record. Hospital course: The patient was admitted on 11/30/2017 with severe hypotension thought to be septic shock combined with severe dehydration. She was given IV fluids and initiated on broad-spectrum antibiotics. Antibiotics were later decreased to Levaquin which she received for 1 week. Patient was found to have a UTI with Escherichia coli which was pansensitive. She also had coronavirus. Initially family did not want pressors but then decided for PICC line placement and initiation of norepinephrine. The patient did require norepinephrine for several days but it was eventually discontinued. She also received significant IV fluids during the hospital course because of continued hypotension and acute kidney injury. The patient continued to have low blood pressures while sleeping and was started on Midodrine at night with good results. Prior to admission, the patient complained of being very thirsty. He went on admission was 89 and creatinine was 3.5. After IV fluids and pressors, 2017 after IV fluids and pressors, BUN was 60 and creatinine was 1.8. By this time, the patient no longer required pressors. She was felt to be essentially euvolemic at this time. Previously, it was noted her baseline creatinine was 2.5-2.6 but when her creatinine was at this range during the hospital course she still appeared dry. Currently, BUN is 45 and creatinine is 1.8. She does have some +1 pretibial edema but appears euvolemic. She is able to lie down in bed with 1 or 2 pillows. She denies any shortness of breath. Lungs are clear. She has no JVD. We may have to accept some +1 lower extremity edema to prevent dehydration. Current weight is 132.9 kg. At the time of discharge, the patient is on Bumex 1 mg by mouth twice a day. She has not required potassium supplementation with this dose. She is on midodrine 5 mg at bedtime. Her spironolactone, Diamox, metolazone, and potassium were discontinued for now. Supportive care was given for the patient's coronavirus infection. The patient received Levaquin for 1 week for UTI. Blood sugars have been well controlled off of Levemir. She has received a few doses of sliding scale insulin. Today blood sugars have been 97-106 without supplemental insulin. The patient did have elevated troponin initially during the hospital course associated with hypotension. This was thought to be a type II non-ST elevation PA. After discussion with her director life sales Dr. Spicer, no further workup was recommended since she had had a normal heart catheterization a couple of years prior. The patient's ileus resolved with Reglan and Dulcolax suppositories. Encephalopathy on admission resolved with treating UTI and hypotension. The patient has been noncompliant with her CPAP and it is imperative that she be compliant with this. She stated in the past she did not think the staff was putting no water in her CPAP humidifier or cleaning it appropriately and she did not want to use it. I recommended that her CPAP be cleaned and that it needs no water daily. On 12/10/2017 it was felt that the patient was stable for transfer [facility] to her [facility]. She has been up walking in the halls with physical therapy without difficulties. She is eating and drinking well. Medications have been adjusted during this hospital stay. She would like to follow-up with Dr. Guzman for cardiology care since he does come to this hospital. She will be discharged today with plans for close follow-up with her primary care physician. She will also have an appointment to see Dr. Swift and Dr. Guzman. Time spent with patient: greater than 35 minutes Resuscitation Status: Do Not Resuscitate Discharge Plan - Discharge Disposition Discharge Date: 12/10/17 Disposition: 03 To SNU Not [facility] [place] (SNF) *Condition: Stable Reason For Visit (Visit label in EMR): septic shock, he hydration, acute kidney injury - Discharge Medications *Discharge Medications: New Albuterol/Ipratropium [Duoneb] 3 ml AEROSOL RTQID PRN #1 each PRN Reason: Dyspnea Bumetanide Tab [Bumex 1 mg Tab] 1 mg PO [id number] tab Midodrine [Proamatine] 5 mg PO HS tab Continue Levothyroxine Tab [Synthroid] 262.5 mcg PO WONG Calcitriol [Rocaltrol] 0.25 mcg PO DAILY Levothyroxine Sodium 175 mcg PO MOTUWETHFRSA Fluticasone Nasal Eldora [Flonase] 1 spray EA NOSTRIL DAILY Greenbush-3 Fatty Acids [Greenbush-3] 2,000 mg PO BID Hydrocodone/APAP 10/325 [Greenbank 10/325] 1 tab PO Q4H PRN #20 tab PRN Reason: Pain Menthol Cough Drops [Ricola Sf] 1 lozenge MM PRN PRN lozenge PRN Reason: Cough Amiodarone HCl 100 mg PO HS PEG 3350 17gm PACKET [Miralax] 17 gm PO DAILY Nystatin 1 applicatio TOP BID Budesonide Inhalation [Pulmicort Inhalation] 0.5 mg INH BID Pramipexole Di-HCl [Mirapex] 1.5 mg PO HS Ferrous Sulfate 325 mg PO BID #0 Aspirin *EC* [Ecotrin] 162 mg PO DAILY Acetaminophen 650 mg PO Q4H PRN PRN Reason: Pain calcium carbonate 600 mg (1,500 mg)-vitamin D3 400 unit tablet 1 tab PO TID tab Colace (Docusate sodium) 100 mg capsule 300 mg PO BID cap Lyrica (pregabalin) 100 mg capsule 100 mg PO BID Keppra (levetiracetam) 500 mg tablet 500 mg PO BID tab Discontinued Spironolactone [Aldactone] 50 mg PO DAILY tab acetaZOLAMIDE [Diamox] 250 mg PO DAILY Bumetanide 2 mg PO BID Insulin Detemir [Levemir] 20 unit SQ DAILY metolazone 5 mg tablet 2.5 mg PO QMWF tab Klor-Con M20 (potassium chloride ER) 20 mEq tablet,(part/cryst) 30 meq PO TID tab - Discharge Packet/Instructions *Diet: 2-2.5 L fluid restriction. Low-sodium diet. Diabetic diet *Activity: Up with assist and walker *Pain Management/Treatment: Tylenol or Greenbank *Wound Care: Aquacell AG with Mepilex dressing to left powers wound. Change dressing on Mondays and . Dressing last changed on 12/10/2017. Follow- up at the wound care clinic in 2 weeks. Additional Instructions: Use CPAP at night. Change water in CPAP every day. Make sure CPAP is clean. The patient should sleep in her bed at night to help prevent edema. Weight the patient every morning after going to the bathroom and before eating or drinking. If her weight goes up over 2 pounds above her baseline on 12/11/2017, please notify Dr. Hitchcock and Dr. Guzman. Basic metabolic profile on 12/13/[address] Chin. Accu-Cheks fasting and [address] Hitchcock for blood sugars less than 70 or greater than 180 *Expected Signs/Symptoms: Mild fatigue, mild lower should be edema. *Notify Physician if: Worsening lower extremity edema. Weight gain more than 2 pounds beyond baseline. Chest pain, lightheadedness, shortness of breath, lethargy, or confusion. *During Business Hours Contact: Call Dr. Chin's office *After Business Hours Contact: and have your physician paged *Pending Lab/Results: No Pending Lab - Referrals/Follow Up *Referrals/Follow Up: Luis Guzman MD [Physician] - 2 Weeks Yan Hitchcock MD [Family Provider] - 3 Days Johnny Swift MD [Physician] - 1 Week - Patient Handouts Patient Handouts: Hypotension (GEN) - Dismissal Complete Discharge Instructions are:: Complete Physician Narrative - Narrative Attestation Narrative: Date: 12/10/17 Time: [id number]
--- NOTE | 2017-12-10 14:42 | Wound Care Progress Note ---
Wound Center Progress Note: Pt read to discharge, changed dressing to left powers removed wound is unchanged. Acquacell AG applied to wound bed and Small Mepilex applied. Dr Yañez informed , Pt should return to wound clinic in 2wks.
== END 2017-12-10 15:36 | DRG 871 ==
LOC: ED 23:13 → CCU 11-30 01:39 → SUATTDRO 11-30 01:39 → CCU 11-30 02:50 → MED 12-07 14:44
PROVIDERS: ADMIT Internal Medicine; ATTEND Internal Medicine